=== PATIENT | male | born 1960 | race Caucasian/White ===

== ENCOUNTER → 2017-11-13 12:17 | Outpatient (CLI) | payer OTHER, SELFPAY ==
--- NOTE | 2017-11-13 12:22 | MRI_ITS ---
STUDY: MR PELVIS WITH T WITHOUT CONTRAST REASON FOR EXAM: Male, 57 years old. Elevated PSA. Negative biopsy. No pain. He and TECHNIQUE: Standardized fat and water weighted pulse sequences were obtained in all 3 orthogonal planes, pre-and post contrast administration. 10ml ml of Gadavist contrast material was administered intravenously for the contrast portion of the examination. COMPARISON: None. FINDINGS: The prostate is enlarged measuring 5.7 x 4.5 x 4.8 cm with a volume of 63.6 mL the central gland is heterogenous slightly low signal on T2-weighted imaging. No evidence of focal mass. There is diffuse enhancement with scattered areas of lower enhancement most marked in the left posterior central zone. The peripheral zone is normal in thickness and demonstrates uniform high signal on T2-weighted imaging. There is no signal abnormality on diffusion weighted imaging. There is no abnormal enhancement. Normal seminal vesicles. Normal urinary bladder. Normal visualized small intestine. Normal visualized colon. There is no pelvic fluid. There is no pelvic mass lesion or lymphadenopathy. Normal visualized pelvic arteries. Normal osseous structures. Normal abdominal wall. MRI/Pelvis W/WO Contrast IMPRESSION: Enlarged prostate with prominent heterogenous central gland. The possibility of malignancy in this area cannot be completely ruled out. The peripheral zone appears normal. Electronically Signed: James Beatty DO at 19:27 EDT Tel [phone], Service support ,
== END ==
PROVIDERS: Family Provider Family Medicine; PCP Family Medicine; Visit Provider Urology
DX: R97.20 Elevated prostate specific antigen [PSA] (principal)
CPT/HCPCS: 72197; A9585

== ENCOUNTER → 2018-05-26 09:25 | Outpatient (CLI) | payer OTHER, SELFPAY | PROVIDERS: Family Provider Family Medicine; PCP Family Medicine; Referring Provider Urology; Visit Provider Urology | DX: R97.20 Elevated prostate specific antigen [PSA] (principal) | CPT/HCPCS: 36415; 84153 ==

== ENCOUNTER → 2018-11-24 | Outpatient (CLI) | payer OTHER, SELFPAY | END | disposition home or self-care (01) | LOC: LAB 10:30 | PROVIDERS: Family Provider Family Medicine; PCP Family Medicine; Referring Provider Urology; Visit Provider Urology | DX: R97.20 Elevated prostate specific antigen [PSA] (principal) | CPT/HCPCS: 36415; 84153 ==

== ENCOUNTER 2020-01-10 06:56 | Emergency (ER) | payer OTHER, SELFPAY ==
[2020-01-10 06:57] VITALS: BP 169/80; PULSE 77; RESP 16; TEMP 36.7; O2SAT 96; BMI 28.5
--- NOTE | 2020-01-10 07:23 | ED.VISSUMM ---
- ER Visit Summary Date of Service: 01/10/20 Chief Complaint: Urinary retention History of Present Illness: The patient is a 59 M who presents with urinary retention that began this morning. Patient states he was last able to void normally at 1 AM today. Patient states he has been feeling pressure in his lower abdomen since 2 AM. Patient denies any dysuria or hematuria. Patient denies any fevers or chills. Patient denies any nausea or vomiting. Patient admits to some back pain but states that is chronic for him. Patient states he was able to void a very small amount when he came to the emergency department but he still has pressure in his lower abdomen. Physical Examination: Vital signs are stable. Patient is afebrile. Patient is in no acute distress. Oral mucosa is pink and moist. Neck is supple. Trachea is midline. There is no JVD. Heart was regular rate and rhythm. Lungs are clear and equal bilaterally. Abdomen is soft. Bowel sounds are normal. There is lower abdominal tenderness with a distended bladder. There is no rebound or guarding noted. Cranial nerves II through XII are intact. There are no focal motor or sensory deficits noted. Test Results: Urinalysis was obtained. There is no evidence of urinary tract infection Emergency Department Course and Treatment: Villeda catheter was placed. There was return of approximately 700 mL's of urine. Patient felt better on reevaluation. Patient was given a leg bag. Patient was instructed to follow-up with Dr. Anthony in 2 to 3 days. Patient understands and is agreeable with the plan. All questions were answered. Disposition: Discharge home Impression: Urinary retention This note was generated with [employer] dictation software. It may contain incorrect words, spelling, and punctuation that were not noted in review of the chart prior to signing ED Disposition - Plan for ED Patient: Disposition: Home or Assisted Living Diagnosis: Urinary retention due to benign prostatic hyperplasia Instructions: ED Villeda Catheter Care, ED Urinary Retention Male Referrals: Stan Anthony MD [STAFF PHYSICIAN] - 2 Days Vamsi Bowman III, MD [Primary Care Provider] - Keep Yuli appointment
[2020-01-10] MEDS: Lidocaine Jelly 2% 20 ML Syringe (URO-JET) 20 APPLIC TOPICAL (07:45)
[2020-01-10 07:47] LABS: Mucous, Urine 0 SEEN /hpf (<or=2+); Squamous Epithelial Cells - UA 0 SEEN /hpf (0-5); White Blood Cells 0 SEEN /hpf (0-5)
--- NOTE | 2020-01-10 07:47 | ED.RN ---
Bladder scan for 200+ ml urine prior to cath insertion.
[2020-01-10 07:52] LABS: Color, Urine Yellow (Yellow); Glucose, Dipstick Normal (Normal); Ketone-Dipstick Negative (Negative); Leukocyte Esterase-Dipstick Negative /ul (Negative); Nitrite-Dipstick Negative (Negative); Occult Blood-Urine 150 /ul (Negative); Protein-Dipstick Negative (Negative); Specific Gravity, Urine 1.015 (1.002-1.030); Urine Bilirubin Dipstick Negative (Negative); Urine Clarity Clear (Clear); Urine Urobilinogen Normal (Normal)
[2020-01-10 08:00] LABS: Bacteria RARE /hpf (None Seen); Red Blood Cells-Urine 0-5 SEEN /hpf (0-5)
== END 2020-01-10 08:24 | disposition home or self-care (01) ==
PROVIDERS: Emergency Provider Emergency Medicine; PCP Family Medicine
DX: R33.8 Other retention of urine (principal); I10 Essential (primary) hypertension; Z79.899 Other long term (current) drug therapy
CPT/HCPCS: 51702; 81001; 99283

== ENCOUNTER 2020-02-24 09:20 | Day surgery (SDC) | payer OTHER, SELFPAY ==
--- NOTE | 2020-02-17 15:23 | EKG12_ITS ---
Test Reason : PREOP Blood Pressure : / mmHG Vent. Rate : 047 BPM Atrial Rate : 047 BPM P-R Int : 140 ms QRS Dur : 106 ms QT Int : 476 ms P-R-T Axes : 064 022 030 degrees QTc Int : 421 ms Sinus bradycardia Otherwise normal ECG Confirmed by CALLIE MEYERS ([id number]), supervising film or videotape editor KAL SPENCER ([id number]) on 02/22/2020 2:02:25 PM Referred By: Stan Anthony Confirmed By:CALLIE MEYERS
[2020-02-24] VITALS (9 sets, daily range): BP systolic 113–157; BP diastolic 61–87; PULSE 42–75; RESP 14–16; TEMP 36.1–36.6; O2SAT 94–100; BMI 28.8; BMI 29.2
[2020-02-24] MEDS: Lactated Ringers 1,000 ML 100 ML IV (10:00)
[2020-02-24 10:18] LABS: Hematocrit 41.2 % (40-54); Hemoglobin 13.4 g/dL (13.0-16.5); Mean Corp Hgb Conc 32.5 g/dL (32-36); Mean Platelet Vol. 10.2 fl (6.2-12.0); Platelet Count 240 K/mm3 (150-450); RBC Distribution Width CV 13.5 % (11.6-14.6); RBC Distribution Width SD 41.8 fl (35.1-43.9); Red Blood Count 4.79 M/mm3 (4.6-6.2); White Blood Count 5.3 K/mm3 (4.4-11.0)
--- NOTE | 2020-02-24 11:25 | PROS_PTH ---
PATIENT: SUE LORENZ LOC: [facility] U#:[id number] AGE/SX: 59/M ROOM: RE02/24/[address]: Dr. Stan Anthony MD : 1960 BED: DIS: 02/25/2020 SPEC #: [id number] RECD: 02/24/20 14:38 STATUS: URIAH MARTINEZ #: [id number] TUNG: 02/24/20 11:[address]: Stan Anthony DEPT: SURGICAL PATHOLOGY RECD BY: Christina Diaz ENTERED: 02/25/20 09:42 SP TYPE: TURP OTHR DR: Dr. Vamsi Bowman III, MD Tissues: Prostate, NOS Procedures: Surgery Specimen Level IV HEADER OPERATION: Cysto, TUR prostate, Olympus PRE-OP DIAGNOSIS: Enlarged prostate, BPH with obstruction TISSUE SUBMITTED: Prostate pieces MICROSCOPIC DIAGNOSIS Prostate pieces, TUR: Benign prostatic hyperplasia, glandular and stromal type. Focal mild chronic inflammation. SJ:fish 02/26/20 MICROSCOPIC DESCRIPTION Slides are reviewed. GROSS DESCRIPTION Received is one container labeled with the patient's name and designated prostate pieces. The specimen consists of multiple irregular fragments of pink-rasheed, rubbery, soft tissue that in aggregate weigh 8.6 gm and measure in aggregate 5 x 4 x 1.5 cm. The entire specimen is submitted in nine cassettes. / DAVE:fish 02/25/20 TC:5 CPT: 39975
--- NOTE | 2020-02-24 12:42 | PCM.HP.STD ---
History of Present Illness Date of Admission: 02/24/20 Chief Complaint: Retention of urine and BPH with obstruction The patient is a 59 year old male with retention of urine and BPH with obstruction plan to proceed with a transurethral resection of the prostate. Past Medical History Allergies No Known Allergies Allergy (Verified 02/24/20 09:31) Home Medications: Ambulatory Orders Medication Instructions Recorded Lisinopril 20 mg PO DAILY 01/10/20 Alfuzosin HCl [Alfuzosin HCl ER] 10 mg PO QHS 02/17/20 Surgical History: no surgical history Smoking Status: Former smoker Review of Systems Constitutional: Denies: Chills, Fever, Weight Change HEENT: Denies: Head Aches, Sinus Congestion, Sinus Drainage Cardiovascular: Denies: Chest Pain, Palpitations Respiratory: Denies: Cough, Shortness of breath at rest, Sputum production Gastrointestinal: Denies: Abdominal Pain, Nausea, Vomiting Genitourinary: Denies: Dysuria Musculoskeletal: Denies: Joint Pain, Joint Tenderness Skin: Denies: Rash, Wounds Neurological: Denies: Numbness, Tingling, Focal weakness Psychiatric: Denies: Anxiety, Depression, Homicidal Ideations, Suicidal Ideations Hematologic/ Lymphatic: Denies: Easy Bruising, Easy Bleeding VTE Information - Inpt Only VTE Present on Admission: No VTE Mechan Device Prophylaxis: SCD's - Physical Exam Vitals/I&O's: Vital Signs Temp Pulse Resp BP Pulse Ox 97.8 F 42 L 16 157/68 H 100 02/24/20 09:37 02/24/20 09:37 02/24/20 09:37 02/24/20 09:37 02/24/20 09:37 Oxygen Delivery Method Room Air Weight: 83.4 kg Body Mass Index (BMI) 28.8 General: Alert, Oriented x3, Cooperative HEENT: Atraumatic, PERRLA, EOMI, Normocephalic Neck: Supple, No JVD, Negative Carotid Bruits Lungs: Clear to auscultation, Normal air movement Cardiovascular: Regular rate, No murmurs Abdomen: Bowel Sounds Present, Soft, Non Tender Extremities: No edema, Capillary Refill Less than 3 Seconds Skin: No rashes, No breakdown Musculoskeletal: No Tenderness to Palpation of Joints or Extremities Neurological: Cranial nerves II-XII grossly intact Psych/Mental Status: Normal Affect, Appropriate Laboratory Results 02/24/20 09:42: WBC 5.3, RBC 4.79, Hgb 13.4, Hct 41.2, MCV 86.0, MCH 28.0, MCHC 32.5, RDW Std Deviation 41.8, RDW Coeff of Manuel 13.5, Plt Count 240, MPV 10.2 Current Medications Lactated Ringer's () 1,000 mls @ 100 mls/hr IV .Q10H INGRID Last Admin: 02/24/20 10:00 Dose: 100 mls/hr Documented by: Assessment/Plan 59-year-old male with BPH with an obstruction and retention of urine plan to proceed with a TURP
--- NOTE | 2020-02-24 12:44 | DCINST_ITS ---
Discharge Diet: Light diet - advance as tolerated Discharge Activity: Return to Normal Activity, May not drive while taking narcotic pain medications. Instructions: Transurethral Resection of the Prostate (TURP): Home Recovery Allergies/Adverse Reactions: Allergies No Known Allergies Allergy (Verified 02/24/20 09:31) Medications to take at Discharge Lisinopril 20 mg PO DAILY 01/10/20 Alfuzosin HCl [Alfuzosin HCl ER] 10 mg PO QHS 02/17/20 Ciprofloxacin [Cipro] 500 mg PO BID #14 tab 02/24/20 The following prescriptions were given: Ciprofloxacin [Cipro] 500 mg PO BID #14 tab Transmission Status: Pending to [facility]/pharmacy #[id number] Primary Care Physician: Vamsi Bowman III, MD [Primary Care Provider] - Test Results: Test results from this visit will be discussed in further detail at your follow- up appointment, if applicable. Please Follow Up With: Stan Anthony MD When: in 2 weeks, please call to make an appointment.
[2020-02-24] MEDS: Cefazolin 2 GM in 0.9% Normal Saline 100 ML IV (12:58)
--- NOTE | 2020-02-24 13:41 | PCM.OPRPT ---
Report of Operation Date of Procedure: 02/24/20 Pre-Operative Diagnosis: BPH with retention of urine Post-Operative Diagnosis: Same Surgery/Procedure Performed:: Transurethral resection of the prostate Description of Surgical Findings:: 59-year-old male with a history of BPH with obstruction he is failed voiding trials he has a Villeda catheter in place after cystoscopy was found to have significant bilateral hypertrophy and obstruction recommend we proceed with a transurethral resection of the prostate. Patient was taken back to the operating room at the smooth induction of general anesthesia he was placed in dorsal lithotomy position the penis and testicles were prepped and draped in usual sterile fashion went into the bladder with a 24 Hebrew continuous flow resectoscope I started on the right lobe of the prostate resected the right lobe the prostate was back to the verumontanum went to the left left low the prostate resect the left low the prostate all the way up to the verumontanum to the flow test had a wide open flow. Checked the bladder and the left and right ureteral orifice were intact and uninjured, then placed a catheter into the bladder and continuous bladder irrigation the urine was clear and was taken back to PACU in good condition. Type of Anesthesia:: General Drains: [address] - Admit VTE Documentation VTE Present on Admission: No VTE Mechan Device Prophylaxis: SCD's
[2020-02-24] MEDS: 0.9% Normal Saline 1,000 ML 75 ML IV (14:20)
[2020-02-24] MEDS: Ketorolac 15 MG/ML Vial IV (16:28)
[2020-02-24] MEDS: Ciprofloxacin 500 MG Tablet PO (21:34)
[2020-02-24] MEDS: oxyCODONE 5 MG Tablet PO (21:34)
[2020-02-24] MEDS: Docusate Sodium 100 MG Capsule PO (21:34)
[2020-02-25] MEDS: 0.9% Normal Saline 1,000 ML 75 ML IV (03:18)
[2020-02-25 03:27] VITALS: BP 125/72; PULSE 57; RESP 16; TEMP 36.8; O2SAT 94
[2020-02-25] MEDS: Ibuprofen 600 MG Tablet PO (04:21)
[2020-02-25 06:13] LABS: Hematocrit 36.8 % (40-54); Hemoglobin 12.2 g/dL (13.0-16.5); Mean Corp Hgb Conc 33.2 g/dL (32-36); Mean Corpuscular Hgb 28.3 pg (27.0-32.0); Mean Corpuscular Volume 85.4 fL (80-94); Mean Platelet Vol. 10.1 fl (6.2-12.0); Platelet Count 248 K/mm3 (150-450); RBC Distribution Width CV 13.5 % (11.6-14.6); RBC Distribution Width SD 42.2 fl (35.1-43.9); Red Blood Count 4.31 M/mm3 (4.6-6.2); White Blood Count 10.1 K/mm3 (4.4-11.0)
[2020-02-25 06:58] LABS: BUN 13 mg/dL (7-18); Creatinine, Serum 0.83 mg/dL (0.70-1.30); Estimated Creatinine Clearance 89.59 ml/min; Glucose 149 mg/dL (74-106)
[2020-02-25 06:59] LABS: Anion Gap 4 (5-15); BUN/Creat Ratio 15.7 RATIO (10-20); Calcium,Total 8.1 mg/dL (8.5-10.1); Chloride 112 mmol/L (98-107); EST Glomerular Filtration Rate 101 mL/min (>60); Est Glom Filt Rate - Afr Amer 122 mL/min (>60); Potassium 4.2 mmol/L (3.5-5.1); Sodium Level 140 mmol/L (136-145)
[2020-02-25 09:25] VITALS: BP 128/77; PULSE 51; RESP 16; TEMP 36.7; O2SAT 97
[2020-02-25] MEDS: Pantoprazole Sodium 40 MG Tablet PO (09:34)
[2020-02-25] MEDS: Ciprofloxacin 500 MG Tablet PO (09:34)
[2020-02-25] MEDS: Docusate Sodium 100 MG Capsule PO (09:34)
--- NOTE | 2020-02-25 10:49 | NURSING ---
Pt had accidentally pulled IV out when heading into the bathroom. removed dressings and applied a dry dressing over the site. Notified ANGIE Mccullough. states patient is being discharged later today if able to void, so IV can stay out. pt denies further needs at this time.
--- NOTE | 2020-02-25 11:35 | PHA.DC.MC ---
Pharmacy Service has performed discharge medication reconciliation and counseling for this patient. The patient was counseled on the following discharge medications and changes in medications for homegoing were reviewed. 1. CIPRO The Reason for Use, instructions for use, and potential side effects were reviewed for all new medications. The patient's questions regarding all of their medications were answered. The patient was able to verbally demonstrate an understanding of their discharge medications. Home Medications Lisinopril 20 mg PO DAILY 01/10/20 Alfuzosin HCl [Alfuzosin HCl ER] 10 mg PO QHS 02/17/20 Ciprofloxacin [Cipro] 500 mg PO BID #14 tab 02/24/20 The patient's discharge medication list was reviewed for discrepancies and discrepancies were resolved.
== END 2020-02-25 14:26 | disposition home or self-care (01) ==
LOC: SDC 09:20 → AC 09:21 → MS3 13:18
PROVIDERS: Anesthesiology; PCP Family Medicine; Referring Provider Urology; Visit Provider Urology
PROC: (CPT 52630; principal; 2020-02-24 11:15)
DX: N40.1 Benign prostatic hyperplasia with lower urinary tract symptoms (principal); R33.8 Other retention of urine; N41.1 Chronic prostatitis; I10 Essential (primary) hypertension; Z11.59 Encounter for screening for other viral diseases; Z79.899 Other long term (current) drug therapy; Z87.891 Personal history of nicotine dependence
CPT/HCPCS: 00914; 52630; 36415; 80048; 85027; 87635; 88305; 93005; 94762; 94799; J7030; J7120; J2405; U0003

== ENCOUNTER 2020-02-27 08:48 | Emergency (ER) | payer OTHER, SELFPAY ==
[2020-02-24 15:32] VITALS: BMI 29.2
[2020-02-27 08:49] VITALS: BP 146/82; PULSE 56; RESP 18; TEMP 36.2; O2SAT 97; BMI 28.6
--- NOTE | 2020-02-27 09:07 | ED.DCSUM_ITS ---
History of Present Illness Chief Complaint: Complaint Informant: Patient Onset: Today Narrative: Patient is postoperative day 3 from a TURP by Dr. Anthony. He states that on had a Villeda catheter placed and it was discontinued on Saturday. He states that he was urinating fine up until 3 AM when he has been unable to urinate. He states he is straining and a small amount of urine comes that is not bloody. No fever. Past Medical History - Allergies and Home Meds Allergies/Adverse Reactions: Allergies No Known Allergies Allergy (Verified 02/27/20 08:48) Primary Care Physician: Stan Anthony MD [STAFF PHYSICIAN] - As soon as possible Surgical History: no surgical history Smoking Status: Former smoker Review of Systems General: Denies: Chills, Fever, Sweats Eyes: Denies: Visual changes - bilaterally, Diplopia ENT: Denies: Rhinorrhea, Sore throat Cardiovascular: Denies: Chest pain, Palpitations Respiratory: Denies: Dyspnea, Cough, Dyspnea on exertion Gastrointestinal: Denies: Abdominal pain, Nausea, Vomiting, Diarrhea, Melena, Hematochezia Genitourinary: Reports: Hematuria, - - Urinary retention. Denies: Dysuria, Frequency Musculoskeletal: Denies: Back pain, Extremity Pain Skin: Denies: Rash, Wounds Neurological: Denies: Headache, Weakness, Numbness Physical Exam Vital Signs/Narrative: Vital Signs Temp Pulse Resp BP Pulse Ox 02/27/20 08:49 97.1 F L 56 L 18 146/82 H 97 Inital Vital Signs reviewed: Yes General: Well nourished, Well developed, No Acute Distress Head: Normocephalic, Atraumatic Eyes: Perrl, EOMI ENT: Moist mucous membranes, No rhinorrhea Neck: Supple, Nontender Cardiovascular: Regular rate, Regular rhythm, No murmurs Respiratory: No distress, CTA bilaterally, Chest nontender Abdomen: Soft, Nondistended, Normal bowel sounds, Tender - Suprapubic Back: Nontender, Normal Inspection Extremities: Nontender, No edema Skin: Normal color, No rash Neurological: Alert, Oriented x3, Cranial nerves II-XII grossly intact, Normal Strength, Normal Sensation Psychological: Normal affect, Normal Mood Diagnostic/Tx/Re-eval Laboratory Last Values Urine Color Yellow (Yellow) 02/27/20 10:40 Urine Clarity Sl. Cloudy (Clear) 02/27/20 10:40 Urine pH 6.0 (5.0 - 8.0) 02/27/20 10:40 Ur Specific [place] 1.015 (1.002-1.030) 02/27/20 10:40 Urine Protein 100 mg/dl (Negative) H 02/27/20 10:40 Urine Glucose (UA) Normal mg/dl (Normal) 02/27/20 10:40 Urine Ketones Negative mg/dl (Negative) 02/27/20 10:40 Urine Occult Blood 250 /ul (Negative) H 02/27/20 10:40 Urine Nitrite Negative (Negative) 02/27/20 10:40 Urine Bilirubin Negative mg/dL (Negative) 02/27/20 10:40 Urine Urobilinogen Normal mg/dl (Normal) 02/27/20 10:40 Ur Leukocyte Esterase Negative /ul (Negative) 02/27/20 10:40 Urine RBC > 100 SEEN /hpf (0-5) 02/27/20 10:40 Urine WBC 0 SEEN /hpf (0-5) 02/27/20 10:40 Ur Squamous Epith Cells 0 SEEN /hpf (0-5) 02/27/20 10:40 Urine Bacteria 0 SEEN /hpf (None Seen) 02/27/20 10:40 Urine Mucus 0 SEEN /hpf (<or=2+) 02/27/20 10:40 - Medical Decision Making Villeda catheter was placed with return of about 1300 cc of urine. Towards the end of drainage the urine turned slightly pink. No clots were noted. The bladder was irrigated and no clots were seen. Spoke with Dr. Anthony and we will leave the catheter in. And is currently on antibiotics and should continue those.should continue to drink plenty of fluids. Follow-up with Dr. Anthony next week. ED Disposition - Plan for ED Patient: Disposition: Home or Assisted Living Diagnosis: Acute urinary retention, S/P TURP (transurethral resection of prostate) Instructions: ED Villeda Catheter Care Referrals: Stan Anthony MD [STAFF PHYSICIAN] - As soon as possible Additional Instructions: Continue to drink fluids. Return if worsening or concerns
[2020-02-27] MEDS: Lidocaine Jelly 2% 20 ML Syringe (URO-JET) 20 APPLIC TOPICAL (09:16)
[2020-02-27 10:45] LABS: Bacteria 0 SEEN /hpf (None Seen); Mucous, Urine 0 SEEN /hpf (<or=2+); Squamous Epithelial Cells - UA 0 SEEN /hpf (0-5); White Blood Cells 0 SEEN /hpf (0-5)
[2020-02-27 10:52] LABS: Color, Urine Yellow (Yellow); Glucose, Dipstick Normal (Normal); Ketone-Dipstick Negative (Negative); Leukocyte Esterase-Dipstick Negative /ul (Negative); Nitrite-Dipstick Negative (Negative); Occult Blood-Urine 250 /ul (Negative); Protein-Dipstick 100 mg/dl (Negative); Specific Gravity, Urine 1.015 (1.002-1.030); Urine Bilirubin Dipstick Negative (Negative); Urine Clarity Sl. Cloudy (Clear); Urine Urobilinogen Normal (Normal)
[2020-02-27 11:03] LABS: Red Blood Cells-Urine > 100 SEEN /hpf (0-5)
== END 2020-02-27 11:37 | disposition home or self-care (01) ==
PROVIDERS: Emergency Provider Emergency Medicine; PCP Family Medicine
DX: R33.9 Retention of urine, unspecified (principal); Z98.890 Other specified postprocedural states; Z87.891 Personal history of nicotine dependence; Z79.2 Long term (current) use of antibiotics
CPT/HCPCS: 51702; 81001; 99283

== ENCOUNTER 2022-03-30 23:38 | Emergency (ER) | payer OTHER, SELFPAY ==
[2022-03-30 23:39] VITALS: BP 151/71; PULSE 54; RESP 18; TEMP 36.3; O2SAT 95; BMI 31.1
[2022-03-31] MEDS: Lidocaine Jelly 2% 20 ML Syringe (URO-JET) 1 APPLIC TOPICAL (00:14)
--- NOTE | 2022-03-31 00:35 | EX.ED.DYSGE1 ---
HPI History of Present Illness Chief Complaint: Complaint Narrative Narrative: Patient is a 61-year-old male with past medical history of BPH requiring a TURP 1 year ago as well as hypertension and hyperlipidemia. He states that in the past 4 to 6 hours he has had sensation that he needs to urinate every few minutes but is difficult to do so. He denies any fevers or chills. He states he is able to get some urine out and when he does it is not painful or irritating. He states however he feels like he cannot completely empty his bladder and he does have previous history of bladder obstruction. He states he believes he has developed bladder obstruction/retention once again and therefore comes in for evaluation [facility] Medical History (Updated 03/31/22 @ 01:[address] Lauri Marquez DO) Former smoker GERD (gastroesophageal reflux disease) Glaucoma, right eye Hypertension Kidney stones Osteoporosis Home Medications lisinopril 20 mg tablet 20 mg PO DAILY bp 01/10/20 [History Last Taken 02/24/20 07:30] alfuzosin 10 mg tablet,extended release 24 hr 10 mg PO QHS prostate 02/17/20 [History Last Taken Unknown] atorvastatin 20 mg tablet 20 mg PO QHS 03/30/22 [History Last Taken Unknown] Allergy/AdvReac Type Severity Reaction Status Date / Time No Known Allergies Allergy Verified 03/30/22 23:41 Surgical History (Updated 03/30/22 @ 23:58 by Janiya French) History of appendectomy Social History Smoking Status: Former smoker ROS ROS ED Constitutional Constitutional ED: Denies chills or fever(s) ENT ENT ED: Denies sore throat Cardiovascular Cardiovascular: Denies chest pain Respiratory/Chest Respiratory/Chest: Denies cough or dyspnea Gastrointestinal Gastrointestinal: Reports abdominal pain; Denies diarrhea, nausea or vomiting Genitourinary Genitourinary ED: Reports urinary frequency; Denies dysuria Musculoskeletal Musculoskeletal: Denies back pain or myalgias Integumentary Denies rash Neurologic Neurologic: Denies headache(s) Hematologic/Lymphatic Hematologic/Lymphatic: Denies easy bleeding or easy bruising EXAM Physical Exam Const Vital Signs: 03/30/22 23:39 03/31/22 00:43 03/31/22 00:46 Temperature 97.4 F L Temperature Source Temporal Pulse Rate 54 L 74 74 Respiratory Rate 18 16 16 Blood Pressure 151/71 H 116/73 116/73 Blood Pressure Mean 97 87 Pulse Ox 95 98 98 Oxygen Delivery Method Room Air Room Air Positive well nourished and well developed General Appearance ED: well developed Eyes PERRL and EOMs intact bilaterally Neck supple Resp normal respiratory effort and clear to auscultation bilaterally Cardio regular rate and regular rhythm Rate: other Other Details: Radial pulses are plus 2 out of 4 bilaterally are equal and symmetric GI non-distended GI Narrative: Patient has organomegaly/bladder distention in the suprapubic to midline lower abdomen and there is pain on palpation at the site. The remainder of the abdomen is soft and nondistended there is no voluntary guarding or rigidity or pulsatile mass Auscultation: normoactive bowel sounds Palpation: soft Back/Spine no CVA tenderness Extremity normal to inspection Neuro oriented x3 and CN's II-XII intact bilaterally Sensorium / Orientation: alert Psych mental status grossly normal Skin no rashes or lesions noted MDM MDM MDM Narrative Medical decision making narrative: Patient presented to the ER with history and exam consistent with acute urinary retention. Secondary to this a Villeda catheter was placed and patient had approximately 800 mL of urine removed and his abdominal exam returned to normal. He also reported resolution of his pain/symptoms. At this time as the patient is afebrile has had resolution of his symptoms with Villeda catheter placement and he states his only been 4 to 6 hours of difficulty urinating I do not feel there is need for blood work. Patient will have the Villeda catheter kept in place to ensure there is no return of retention and can follow-up with urology for further evaluation Discharge Plan Triage Chief Complaint: Complaint ED Provider: Lauri Marquez Dx/Rx/DC Orders Clinical Impression: Acute urinary retention, History of primary hypertension Instructions: ED Urinary Retention, Male Prescriptions: No Action lisinopril 20 MG tablet 20 mg PO DAILY alfuzosin 10 MG tablet extended release 24 hr 10 mg PO QHS atorvastatin 20 mg tablet 20 mg PO QHS Label Comments: TAKE 1 TABLET BY MOUTH DAILY AT BEDTIME. FOR CHOLESTEROL Primary Care Provider: Ryan Aparicio Referrals: Ryan Aparicio MD [Primary Care Provider] - Stan Anthony MD [Med Staff - Active Staff] - 3-5 Days Activity Restrictions/Additional Instructions: Please leave the catheter in place until you are evaluated by urology and return to the ER should you have any further concerns Disposition Disposition: Home, Self Care Discharge Date/Time: 03/31/22 00:43
[2022-03-31 00:43] VITALS: BP 116/73; PULSE 74; RESP 16; O2SAT 98
[2022-03-31 00:46] VITALS: BP 116/73; PULSE 74; RESP 16; O2SAT 98
== END 2022-03-31 00:43 | disposition home or self-care (01) ==
PROVIDERS: Emergency Provider Emergency Medicine; PCP Family Medicine; Visit Provider Emergency Medicine
DX: R33.9 Retention of urine, unspecified (principal); I10 Essential (primary) hypertension; E78.5 Hyperlipidemia, unspecified; R35.0 Frequency of micturition; Z87.891 Personal history of nicotine dependence; Z98.890 Other specified postprocedural states; Z79.899 Other long term (current) drug therapy
CPT/HCPCS: 51702; 99283

== ENCOUNTER → 2022-10-23 | Outpatient (CLI) | payer OTHER, SELFPAY | END | disposition home or self-care (01) | LOC: LABSPEC 15:36 | PROVIDERS: PCP Family Medicine; Referring Provider Urology; Visit Provider Urology | DX: R31.9 Hematuria, unspecified (principal) | CPT/HCPCS: 87077; 87086; 87088; 87186 ==

== ENCOUNTER → 2022-11-02 | Outpatient (CLI) | payer OTHER, SELFPAY ==
--- NOTE | 2022-11-03 15:57 | STRESSREP_ITS ---
Stress Test Report Date: 11/02/22 Procedure: Exercise tolerance test Indications: Chest pain, bradycardia Consent: Per the patient Procedure: The patient exercised on a Aleks protocol for 8 minutes and 1 seconds achieving a peak heart rate of 160 bpm (101% predicted maximal heart rate) with a peak blood pressure 194/68 mmHg and a peak MET capacity of approximately 10.1 MET's. The baseline ECG demonstrated normal sinus rhythm. The peak exercise ECG demonstrated no significant ischemic ST-T changes. [There were no cardiac dysrhythmias pretest, during exercise, or recovery]. The functional capacity was considered normal for age. The patient had no complaint of chest discomfort during exercise or recovery. The examination was discontinued secondary to achieving target heart rate, dyspnea. Impression: 1. Technically adequate (percent predicted maximal heart rate greater than 85%) exercise tolerance test 2. Stress test is negative for exercise-induced chest pain. 3. Stress test test is negative for exercise-induced EKG changes of ischemia. 4. Functional capacity is normal for age This note was generated with [employer] software. It may contain incorrect words, spelling, and punctuation that were not noted in checking the note before signing.
== END | disposition home or self-care (01) ==
PROVIDERS: PCP Family Medicine; Referring Provider Family Medicine; Visit Provider Family Medicine
DX: R00.1 Bradycardia, unspecified (principal); R07.9 Chest pain, unspecified
CPT/HCPCS: 93017

== ENCOUNTER → 2023-10-28 | Outpatient (CLI) | payer OTHER, SELFPAY | END | disposition home or self-care (01) | LOC: LAB 16:37 | PROVIDERS: PCP Family Medicine; Referring Provider Urology; Visit Provider Urology | DX: R97.20 Elevated prostate specific antigen [PSA] (principal) | CPT/HCPCS: 36415; 84153 ==

== ENCOUNTER → 2024-11-06 | Outpatient (CLI) | payer OTHER, SELFPAY ==
[2024-11-06 10:38] LABS: PSA,Total- Diagnostic 7.08 ng/mL (0.00-4.00)
== END | disposition home or self-care (01) ==
LOC: LAB 09:35
PROVIDERS: PCP Family Medicine; Referring Provider Nurse Practitioner; Visit Provider Nurse Practitioner
DX: R97.20 Elevated prostate specific antigen [PSA] (principal)
CPT/HCPCS: 36415; 84153

== ENCOUNTER 2024-12-02 13:29 | Observation (INO) | payer OTHER, SELFPAY ==
--- NOTE | 2024-11-27 07:15 | EKG12_ITS ---
Test Reason : PRE OP Blood Pressure : */* mmHG Vent. Rate : 44 BPM Atrial Rate : 44 BPM P-R Int : 140 ms QRS Dur : 112 ms QT Int : 514 ms P-R-T Axes : 70 58 64 degrees QTcB Int : 439 ms Marked sinus bradycardia Abnormal ECG Confirmed by WERO LEIGH, GIOVANNY ([id number]), food editor GUSTAVO BLEDSOE ([id number]) on 12/01/2024 6:50:31 AM Referred By: Stan Anthony Confirmed By: GIOVANNY CONTEH MD
[2024-11-27 08:09] LABS: Hemoglobin 14.2 g/dL (13.0-16.5); Mean Corp Hgb Conc 33.8 g/dL (32-36); Mean Corpuscular Hgb 28.6 pg (27.0-32.0); Mean Corpuscular Volume 84.5 fL (80-94); Mean Platelet Vol. 10.3 fl (6.2-12.0); Platelet Count 247 K/mm3 (150-450); RBC Distribution Width CV 13.4 % (11.6-14.6); RBC Distribution Width SD 41.6 fl (35.1-43.9); Red Blood Count 4.97 M/mm3 (4.6-6.2); White Blood Count 6.1 K/mm3 (4.4-11.0)
--- NOTE | 2024-12-01 10:22 | PAT.ANESEVAL ---
Pre-Assessment Diagnosis/Proposed Procedure Planned Operative Procedure(s): Cysto,Transurethral Resection Prostate Anesthesia History Anesthesia History - social services assistant: Anesthesia History - social services assistant Hx Hospitalization No 11/24/24 13:16 Any Problems With Anesthesia Yes: N/V AFTER EYE REMOVAL 11/24/24 13:16 SURGERY Cholinesterase deficiency No 11/24/24 13:16 You/Your Family Experience No 11/24/24 13:16 fever (hyperthermia) with Relationship Recent Exposure to Contagious No 02/24/20 09:37 Disease Does patient have nerve No 11/24/24 13:16 stimulator Patient instructed to have device shut off --Does patient have Pacemaker or ICD? When Was Last Pacemaker Check QUESTION #4 FULL TEXT: You/Your Family Experience fever (hyperthermia) with Anesthesia Last Oral Intake Last Oral intake: Last Oral Intake NPO since Meds taken in AM with sips of water? Meds patient instructed to take am of surgery PONV PONV - social services assistant: PONV - social services assistant Female No 11/24/24 13:16 HX of Motion Sickness No 11/24/24 13:16 HX of N/V After Surgery Yes 11/24/24 13:16 Non-Smoker Yes 11/24/24 13:16 Duration of Surgery greater No 11/24/24 13:16 than 60 minutes Number of Risk Factors 2 11/24/24 13:16 PONV Score Moderate Risk 11/24/24 13:16 Height & Weight Height & Weight: Anesthesia: Height & Weight Height 5 ft 7 in 03/30/22 23:39 Respiratory Assessment Respiratory Assessment - social services assistant: Respiratory Tract Infection Hx - social services assistant Hx Respiratory Tract Infection No 11/24/24 13:16 STOP Sleep Apnea STOP Sleep Apnea - social services assistant: STOP Sleep Apnea - social services assistant Hx Hypertension Yes 11/24/24 13:16 Hx Sleep Apnea No 11/24/24 13:16 CPAP BIPAP Do you snore loudly (louder No 11/24/24 13:16 than talking or can be heard Do you often feel tired/ No 11/24/24 13:16 fatigued/ sleepy during daytime? Has anyone observed you stop No 11/24/24 13:16 breathing during sleep? STOP Results Negative 11/24/24 13:16 QUESTION #5 FULL TEXT : Do you snore loudly (louder than talking or can be heard through closed doors)? 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 Specify any problems Hx of Preganancy in last 3 N/A 11/24/24 13:16 Months Nurse Filling Out Transfusion [facility] 11/24/24 13:16 & Questions: Date: 11/24/24 11/24/24 13:16 Time: 13:19 11/24/24 13:16 Patient unable to answer at this time (ie. confused, unrespo /Reproduction History /Reproductive History - social services assistant: /Reproductive Hx- social services assistant Hx Now No 11/24/24 13:16 Gestational Age (in weeks): EDC: Hx Hx Para Hx Section SAB Active Medications Active Medications: Current Medications Generic Name Dose Route Start Last Admin Trade Name Freq PRN Reason Stop Dose Admin Cefazolin Sodium 2 gm/ Sodium 110 mls @ 150 mls/hr 12/02/24 08:45 Chloride IV 12/02/24 09:28 INTRAOP ONE [facility] Medical History (Updated 11/24/24 @ 13:25 by Alie Del Rio) Wears hearing aid Wears glasses Marijuana use Arthritis History of renal disease Prostate disease High cholesterol Dietary restriction Gastric reflux History of stress test Glaucoma, right eye Osteoporosis Kidney stones GERD (gastroesophageal reflux disease) Former smoker Hypertension Home Medications ?Medication ?Instructions ?Recorded ?Last Taken ?Type lisinopril 20 mg tablet 20 mg PO DAILY bp 01/10/20 02/24/20 07:30 History atorvastatin 20 mg tablet 20 mg PO DAILY 03/30/22 Unknown History finasteride 5 mg tablet 5 mg PO DAILY 11/24/24 Unknown History omeprazole 40 mg capsule,delayed 40 mg PO DAILY 11/24/24 Unknown History release tamsulosin 0.4 mg capsule 0.4 mg PO DAILY 11/24/24 Unknown History Allergy/AdvReac Type Severity Reaction Status Date / Time prednisone Allergy Intermediate HEMATURIA Verified 11/24/24 13:13 Surgical History (Updated 11/24/24 @ 13:25 by Alie Del Rio) History of eye removal History of transurethral resection of prostate History of appendectomy Social History Smoking Status: Former smoker Audit: Pertinent Findings Pertinent Findings EKG Perinent findings: 11/27/2024. Sinus bradycardia at 44 bpm. This is not changed compared to February 22, 2020. Stress test pertinent findings: 11/02/2022. Patient achieved 10.1 METS. Negative for exercise-induced chest pain. Negative for exercise-induced EKG changes of ischemia. Recommendation Anesthesia Recommendation Anesthesia recommendation: OPTIMIZED for anesthesia
[2024-12-02] VITALS (14 sets, daily range): BP systolic 120–171; BP diastolic 55–115; PULSE 44–99; RESP 14–18; TEMP 36.1–37.1; O2SAT 93–98; BMI 31.3
[2024-12-02] MEDS: Lactated Ringers 1,000 ML 15 ML IV (08:33)
--- NOTE | 2024-12-02 09:01 | PCM.PRE.AN2 ---
ASA Classification* ASA Classification ASA Classification: 2 Assessment & Plan Anesthesia* Anesthesia Assessment Anesthesia Assessment: Discussed sedation and/or anesthesia options, risks, benefits, and alternatives with patient/parents/legal guardian/POA. Questions invited. The patient/parents/legal guardian/POA seems to understand and agrees to proceed with anesthesia plan. Reviewed the physical assessment, medical history, allergy history and patient home medications list prior to surgery/procedure/anesthetic and documented any changes. Performed airway and anesthesia risk assessments. Anesthesia Type Anesthesia Type: General History Source History Obtained from:: Patient and Chart Anesthesia Focused Assessment* Temperature: 97.8 F Pulse Rate: 44 Blood Pressure: 159/81 Respiratory Rate: 16 Pulse Ox: 97 Oxygen Delivery Method: Room Air Airway Assessment Mouth opens: >3 cm Mallampati Score: IV Teeth Condition: Intact Neck Range of motion (ROM): Full ROM Focused Labs Anesthesia Preop lab: CBC WBC 6.1 K/mm3 (4.4-11.0) 11/27/24 07:48 11/27/24 RBC 4.97 M/mm3 (4.6-6.2) 11/27/24 07:48 11/27/24 Hgb 14.2 g/dL (13.0-16.5) 11/27/24 07:48 11/27/24 Hct 42.0 % (40-54) 11/27/24 07:48 11/27/24 Plt Count 247 K/mm3 (150-450) 11/27/24 07:48 11/27/24 CHEMISTRY Potassium 4.2 mmol/L (3.5-5.1) 02/25/20 06:00 02/25/20 Sodium 140 mmol/L (136-145) 02/25/20 06:00 02/25/20 BUN 13 mg/dL (7-18) 02/25/20 06:00 02/25/20 Creatinine 0.83 mg/dL (0.70-1.30) 02/25/20 06:00 02/25/20 Glucose 149 mg/dL (74-106) H 02/25/20 06:00 02/25/20 COAG Pre-Assessment Diagnosis/Proposed Procedure Planned Operative Procedure(s): Cysto,Transurethral Resection Prostate Anesthesia History Anesthesia History - wet process head miller: Anesthesia History - wet process head miller Hx Hospitalization No 11/24/24 13:16 Any Problems With Anesthesia Yes: N/V AFTER EYE REMOVAL 11/24/24 13:16 SURGERY Cholinesterase deficiency No 11/24/24 13:16 You/Your Family Experience No 11/24/24 13:16 fever (hyperthermia) with Relationship Recent Exposure to Contagious No 12/02/24 08:21 Disease Does patient have nerve No 11/24/24 13:16 stimulator Patient instructed to have device shut off --Does patient have Pacemaker No 12/02/24 08:21 or ICD? When Was Last Pacemaker Check QUESTION #4 FULL TEXT: You/Your Family Experience fever (hyperthermia) with Anesthesia Last Oral Intake Last Oral intake: Last Oral Intake NPO since 00:00 12/02/24 08:21 Meds taken in AM with sips of water? Meds patient instructed to take am of surgery PONV PONV - wet process head miller: PONV - wet process head miller Female No 11/24/24 13:16 HX of Motion Sickness No 11/24/24 13:16 HX of N/V After Surgery Yes 11/24/24 13:16 Non-Smoker Yes 11/24/24 13:16 Duration of Surgery greater No 11/24/24 13:16 than 60 minutes Number of Risk Factors 2 11/24/24 13:16 PONV Score Moderate Risk 11/24/24 13:16 Height & Weight Height & Weight: Anesthesia: Height & Weight Height 5 ft 7 in 12/02/24 08:21 Weight: 90.7 kg 12/02/24 08:21 Body Mass Index (BMI) 31.3 12/02/24 08:21 Respiratory Assessment Respiratory Assessment - wet process head miller: Respiratory Tract Infection Hx - wet process head miller Hx Respiratory Tract Infection No 11/24/24 13:16 STOP Sleep Apnea STOP Sleep Apnea - wet process head miller: STOP Sleep Apnea - wet process head miller Hx Hypertension Yes 11/24/24 13:16 Hx Sleep Apnea No 11/24/24 13:16 CPAP BIPAP Do you snore loudly (louder No 11/24/24 13:16 than talking or can be heard Do you often feel tired/ No 11/24/24 13:16 fatigued/ sleepy during daytime? Has anyone observed you stop No 11/24/24 13:16 breathing during sleep? STOP Results Negative 11/24/24 13:16 QUESTION #5 FULL TEXT : Do you snore loudly (louder than talking or can be heard through closed doors)? 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 Specify any problems Hx of Preganancy in last 3 N/A 11/24/24 13:16 Months Nurse Filling Out Transfusion [facility] 11/24/24 13:16 & Questions: Date: 11/24/24 11/24/24 13:16 Time: 13:19 11/24/24 13:16 Patient unable to answer at this time (ie. confused, unrespo /Reproduction History /Reproductive History - wet process head miller: /Reproductive Hx- wet process head miller Hx Now No 11/24/24 13:16 Gestational Age (in weeks): EDC: Hx Hx Para Hx Section SAB Active Medications Active Medications: Current Medications Generic Name Dose Route Start Last Admin Trade Name Freq PRN Reason Stop Dose Admin Cefazolin Sodium 2 gm/ Sodium 110 mls @ 150 mls/hr 12/02/24 08:45 Chloride IV 12/02/24 09:28 INTRAOP ONE Lactated Ringer's 1,000 mls @ 15 mls/hr 12/02/24 08:00 12/02/24 08:33 IV 15 mls/hr .Q48H INGRID Administration PFSH Medical History Wears hearing aid Wears glasses Marijuana use Arthritis History of renal disease Prostate disease High cholesterol Dietary restriction Gastric reflux History of stress test Glaucoma, right eye Osteoporosis Kidney stones GERD (gastroesophageal reflux disease) Former smoker Hypertension Home Medications ?Medication ?Instructions ?Recorded ?Last Taken ?Type lisinopril 20 mg tablet 20 mg PO DAILY bp 01/10/20 02/24/20 07:30 History atorvastatin 20 mg tablet 20 mg PO DAILY 03/30/22 Unknown History finasteride 5 mg tablet 5 mg PO DAILY 11/24/24 Unknown History omeprazole 40 mg capsule,delayed 40 mg PO DAILY 11/24/24 Unknown History release tamsulosin 0.4 mg capsule 0.4 mg PO DAILY 11/24/24 Unknown History Allergy/AdvReac Type Severity Reaction Status Date / Time prednisone Allergy Intermediate HEMATURIA Verified 12/02/24 08:19 Surgical History History of eye removal History of transurethral resection of prostate History of appendectomy Social History Smoking Status: Former smoker Review of Systems (Anesthesia) ROS Narrative System reviewed and no additional complaints, except as documented.
--- NOTE | 2024-12-02 09:41 | HP.PCM_ITS ---
HPI - General General Date of Service: 12/02/24 Chief Complaint: Bladder cancer HPI Narrative SUE LORENZ, is a 64 M who presents for resection of a bladder cancer and instillation of Mitomycin-C [facility] Medical History Wears hearing aid Wears glasses Marijuana use Arthritis History of renal disease Prostate disease High cholesterol Dietary restriction Gastric reflux History of stress test Glaucoma, right eye Osteoporosis Kidney stones GERD (gastroesophageal reflux disease) Former smoker Hypertension Home Medications ?Medication ?Instructions ?Recorded ?Last Taken ?Type lisinopril 20 mg tablet 20 mg PO DAILY bp 01/10/20 0 02/24/20 07:30 History atorvastatin 20 mg tablet 20 mg PO DAILY 03/30/22 Unkn own History finasteride 5 mg tablet 5 mg PO DAILY 11/24/24 Unkno wn History omeprazole 40 mg capsule,delayed 40 mg PO DAILY Unknown History release tamsulosin 0.4 mg capsule 0.4 mg PO DAILY 11/24/24 Unk nown History Allergy/AdvReac Type Severity Reaction Status Date / Time prednisone Allergy Intermediate HEMATURIA Verified 12/02/24 08:19 Surgical History History of eye removal History of transurethral resection of prostate History of appendectomy Social History Smoking Status: Former smoker Vital Signs Vital Signs Vital Signs: 12/02/24 08:21 12/02/24 08:21 12/02/24 09:09 Temperature 97.8 F 97.8 F Temperature Source Temporal Pulse Rate 44 L 44 L Respiratory Rate 16 16 Respiratory Pattern Normal Blood Pressure 159/81 H 159/81 H Blood Pressure Mean 107 Blood Pressure Source Monitor Blood Pressure Position Semi-Fowlers Blood Pressure Location Right Arm Pulse Ox 97 97 Oxygen Delivery Method Room Air Room Air Weight Weight: 90.7 kg Body Mass Index (BMI) 31.3 Results Lab / Micro Data 11/27/24 07:48
--- NOTE | 2024-12-02 09:42 | PCM.DC ---
Discharge Instructions Diet Discharge Diet: No restrictions DC O2, CPAP, BIPAP needs Home O2 Discharge instructions: No Dressing / Incision Discharge Activity: Return to Normal Activity and May Not Drive (while taking narcotic pain medications.) Dressing / Incision Call your doctor if you observe: Fever of 101 or Higher Follow Up Care Please Follow Up With: Stan Anthony MD When: Call [phone] for an appointment Test Results: Test results from this visit will be discussed in further detail at your follow-up appointment, if applicable. Discharge Plan Admission Attending Provider: Stan Anthony Primary Care Provider: Ryan Aparicio Instructions Print Language: Micronesian Discharge Orders/Prescriptions Prescriptions: No Action lisinopril 20 MG tablet 20 mg PO DAILY atorvastatin 20 mg tablet 20 mg PO DAILY Patient Comments: TAKE 1 TABLET BY MOUTH DAILY AT BEDTIME. FOR CHOLESTEROL omeprazole 40 mg capsule,delayed release(DR/EC) 40 mg PO DAILY tamsulosin 0.4 mg capsule 0.4 mg PO DAILY finasteride 5 mg tablet 5 mg PO DAILY Other Ambulatory Orders: 12 Lead EKG (Routine) Timeframe: 20241127 Location: None Selected Ordered By: Dr. Yves Ordaz Referrals / Follow Up: Ryan Aparicio MD [Primary Care Provider] - Disposition Disposition (needs filled in before D/C Order can be placed): Home, Self Care
--- NOTE | 2024-12-02 09:45 | PROSB_PTH ---
PATIENT: SUE LORENZ LOC: [facility]3 U#:[id number] AGE/SX: 64/M ROOM: [facility] RE12/02/[address]: Dr. Stan Anthony MD : 1960 BED: 1 DIS: 12/03/2024 SPEC #: [id number] RECD: 12/02/24 13:14 STATUS: URIAH MARTINEZ #: [id number] TUNG: 12/02/24 09:[address]: Stan Anthony DEPT: SURGICAL PATHOLOGY RECD BY: Nato Malcolm ENTERED: 12/02/24 13:37 SP TYPE: PROST BX OTHR DR: Dr. Ryan Aparicio MD Tissues: A - Prostate, NOS Procedures: Surgery Specimen Level IV HEADER OPERATION: Cystoscopy, transurethral resection prostate PRE-OP DIAGNOSIS: Benign prostatic hyperplasia with lower urinary tract symptoms, elevated PSA, frequency of micturition TISSUE SUBMITTED: A- Prostate tissue MICROSCOPIC DIAGNOSIS A. Prostate, transurethral resection: * Benign hyperplasia. MICROSCOPIC DESCRIPTION Slides are reviewed. GROSS DESCRIPTION A. Received in formalin in a container labeled with the patient's name, date of , and prostate tissue are multiple rasheed-pink, rubbery, and irregular fragments of soft tissue weighing 21 g together and measuring 7.8 x 7.3 x 2.6 cm in aggregate. Woodyard Crane Operator sections are submitted in A1-14 (the first 12 g are submitted entirely; a assistance representative cassette is submitted for every additional [address] [facility] 12-02-2024 CPT:49470
[2024-12-02] MEDS: Cefazolin 2 GM in 0.9% Normal Saline (100mL Bag) 100 ML IV (10:06)
--- NOTE | 2024-12-02 11:51 | OP.PCM_ITS ---
Operative Report (Standard) Operative Information Date of Procedure: 12/02/24 Pre-Operative Diagnosis: BPH with obstruction Post-Operative Diagnosis: The same Surgery/Procedure Performed: Transurethral section of the prostate, for significant regrowth senior applications developer: No Type of Anesthesia: General RN Documented Start/Stop Times: Operation Date: 12/02/24 09:45 Case Time Into Pre-Op 12/02/24 07:56 Out of Pre-Op 12/02/24 10:00 Anesthesia Start 12/02/24 10:06 Into Room 12/02/24 10:06 Procedure Start 12/02/24 10:20 Procedure End 12/02/24 11:44 Anesthesia End 12/02/24 11:50 Out of Room 12/02/24 11:50 Procedure Start Time: 10:20 Procedure Stop Time: 11:44 Select all DRAINS/GRAFTS/IMPLANTS that apply: Drains Drain details: 22 Chinese three-way [place] Estimated Blood Loss: 25 cc Specimen collected: Yes Description of specimen(s) removed: Prostate tissue Description of surgery: Patient was taken back to the operating room after smooth induction of anesthesia he was placed in dorsolithotomy position. Several years ago he had a resection of the prostate thing about 6 years ago and was doing fairly well but then noticed significant urinary problems at this point on cystoscopy found to have significant regrowth in the urinary channel he has been on maximal medical therapy and still having difficulties emptying his bladder frequency poor emptying he has a lot of blockage going back in his channel even from a prior TURP several years ago so going to repeat a second TURP for the significant amount of regrowth and blockage. Patient was taken back to the operating room after smooth duction of anesthesia he was placed in dorsolithotomy position. Penis and testicles were prepped and draped in usual sterile fashion was able to go into the urethra with a 24 Chinese noncontinuous flow Olympus but polar resectoscope was able to go through quite easily the entire length of the urethra was clear of any strictures or problems sphincter was intact the verumontanum was identified beyond the verumontanum was a significant amount of regrowth tissue bilateral hypertrophy and a lot of tissue regrowth from the roof of the prostate. I then started the resection at the bladder neck I then worked my way down in the midline to the verumontanum I then worked my way to the patient's right side first resecting all the adenoma tous tissue on the right side working way all the way anterior I resected very carefully and the roof tissue and then went to the left side resected the left side tissue and then after resecting the left side then the right side then was left was the apical tissue this is the tissue very close to the urinary sphincter try to redo this resection very carefully to resect only adenomatous tissue and avoid any injury to the sphincter at the end of this resection he did look active sphincter was intact the verumontanum was intact looks active sphincter coapted nicely I then spent a long time trying to cauterize the prostate and get good hemostasis there was a significant amount of tissue that I resected could be some venous oozing as I cauterized extensively to the prostate but he really could not get full hemostasis but eventually was able to get enough hemostasis that was satisfied with the control all the chips have been Ellik out of the bladder the left and right ureteral orifice were uninjured and then placed a 22 Chinese catheter in the bladder and continuous irrigation with the light traction and the urine was a light pink color he was taken back to the PACU in stable condition we will stay overnight with a catheter irrigation may have to send him home with a catheter let it heal up and see him next week for catheter removal. Surgical Findings: Significant regrowth and obstruction in the urinary channel resected completely all the way back to the verumontanum Complications Complications: No Admit VTE Documentation VTE Present on Admission: No VTE Mechan Device Prophylaxis: SCD's VTE Pharm Prophylaxis ordered?: No
--- NOTE | 2024-12-02 11:57 | PCM.POST.ANE ---
Anesthesia: Postop Eval I Current Vital Signs Temperature: 97.0 F Pulse Rate: 98 Blood Pressure: 138/86 Respiratory Rate: 16 Pulse Ox: 98 Oxygen Delivery Method: Room Air Assessment Airway patent: Yes Spontaneous unlabored respirations: Yes Mental status: Awake and Calm nausea: No Vomiting: No Anesthesia Complication: No Fluid Hydration Crystalloid volume administer (ml): 700 Total IV fluid infused: 700 Progress Note Anesthesia document: Postop Eval 1 completed: Yes
--- NOTE | 2024-12-02 13:31 | POSTOPAN2_ITS ---
Anesthesia Postop Eval I Sum Postop Eval Completion status Anesthesia document: Postop Eval 1 completed: Yes Anesthesia Postop Eval I Summary Anesthesia Postop Eval I Summary: Anesthesia Postop Eval I: Assessment Summary Airway patent Yes 12/02/24 11:58 [email or web address] Spontaneous unlabored Yes 12/02/24 11:58 [email or web address] respirations Mental status Awake,Calm 12/02/24 11:58 [email or web address] [email or web address] nausea No 12/02/24 11:58 [email or web address] Vomiting No 12/02/24 11:58 [email or web address] Anesthesia Postop Eval I: Fluid Summary Crystalloid volume administer 700 12/02/24 11:58 [email or web address] (ml) Colloids volume administered ( ml) Blood Product volume administered (ml) Total IV fluid infused 700 12/02/24 11:58 [email or web address] Anesthesia Postop Eval I: Summary Notes Anesthesia Complication No 12/02/24 11:58 [email or web address] Anesthesia Complication Comment: Post-operative progress note Anesthesia: Postop Eval II Evaluation Mental status: Awake Pain Level: 3 nausea: No Vomiting: No
--- NOTE | 2024-12-02 13:31 | PCM.POSTANE2 ---
Anesthesia Postop Eval I Sum Postop Eval Completion status Anesthesia document: Postop Eval 1 completed: Yes Anesthesia Postop Eval I Summary Anesthesia Postop Eval I Summary: Anesthesia Postop Eval I: Assessment Summary Airway patent Yes 12/02/24 11:58 [email or web address] Spontaneous unlabored Yes 12/02/24 11:58 [email or web address] respirations Mental status Awake,Calm 12/02/24 11:58 [email or web address] nausea No 12/02/24 11:58 [email or web address] [email or web address] Vomiting No 12/02/24 11:58 [email or web address] Anesthesia Postop Eval I: Fluid Summary Crystalloid volume administer 700 12/02/24 11:58 [email or web address] (ml) Colloids volume administered ( ml) Blood Product volume administered (ml) Total IV fluid infused 700 12/02/24 11:58 [email or web address] Anesthesia Postop Eval I: Summary Notes Anesthesia Complication No 12/02/24 11:58 [email or web address] Anesthesia Complication Comment: Post-operative progress note Anesthesia: Postop Eval II Evaluation Mental status: Awake Pain Level: 3 nausea: No Vomiting: No
[2024-12-02] MEDS: 0.9% Normal Saline (1000mL) 1,000 ML 125 ML IV ×2 (14:12→21:03)
[2024-12-02] MEDS: Ondansetron 4 MG/2 ML Vial IV (14:12)
[2024-12-02] MEDS: oxyCODONE 5 MG Tablet PO ×2 (17:16→23:27)
[2024-12-02] MEDS: Tamsulosin HCl 0.4 MG Capsule PO (17:17)
[2024-12-02] MEDS: Atorvastatin Calcium 20 MG Tablet PO (21:03)
[2024-12-02] MEDS: Docusate Sodium 100 MG Capsule 200 MG PO (21:03)
[2024-12-02] MEDS: Ketorolac 15 MG/ML Vial IV (21:05)
[2024-12-03 04:04] VITALS: BP 148/70; PULSE 56; RESP 18; TEMP 37.1; O2SAT 95
[2024-12-03] MEDS: Ondansetron 4 MG/2 ML Vial IV (04:23)
[2024-12-03] MEDS: 0.9% Normal Saline (1000mL) 1,000 ML 125 ML IV (04:23)
[2024-12-03 06:26] LABS: Absolute Lymphocyte Count 0.59 X10^3/uL (0.83-4.51); Absolute Neutrophil Count 7.9 X10^3/uL (2.0-7.7); Basophil# 0.08 X10^3/uL; Basophil% 0.8 % (0-1); Eosinophil# 0.77 X10^3/uL; Eosinophils% 7.4 % (0-5); Hemoglobin 12.3 g/dL (13.0-16.5); Lymphocyte # 0.59 X10^3/ul (0.83-4.51); Lymphocyte % 5.7 % (19-41); Mean Corp Hgb Conc 33.2 g/dL (32-36); Mean Corpuscular Hgb 28.2 pg (27.0-32.0); Mean Corpuscular Volume 84.9 fL (80-94); Mean Platelet Vol. 10.3 fl (6.2-12.0); Monocyte# 0.98 X10^3/uL; Monocyte% 9.5 % (0-10); NRBC Flagged by Analyzer 0 % (0-5); Neutrophil # 7.89 X10^3/uL (2.7-7.7); Neutrophil % 76.3 % (47-70); POSITIVE DIFFERENTIAL YES; Platelet Count 184 K/mm3 (150-450); RBC Distribution Width CV 13.4 % (11.6-14.6); Red Blood Count 4.36 M/mm3 (4.6-6.2); White Blood Count 10.3 K/mm3 (4.4-11.0)
[2024-12-03] MEDS: oxyCODONE 5 MG Tablet PO (06:28)
[2024-12-03 06:49] LABS: Anion Gap 8 (5-15); BUN 12 mg/dL (4-19); BUN/Creat Ratio 13.2 RATIO (10-20); Calcium,Total 7.8 mg/dL (7.6-11.0); Chloride 106 mmol/L (98-108); Creatinine, Serum 0.92 mg/dL (0.70-1.20); EST Glomerular Filtration Rate 92 (>60); Estimated Creatinine Clearance 87.13 ml/min (50-250); Glucose 132 mg/dL (70-99); Potassium 3.9 mmol/L (3.3-5.1); Sodium Level 137 mmol/L (133-145)
--- NOTE | 2024-12-03 07:23 | PCM.PN.GU ---
Subjective Subjective cbi - clear home today with tammy Objective Data Objective Data Vital Signs: Vital Signs Temp Pulse Resp BP Pulse Ox O2 Del Method 98.8 F 56 L 18 148/70 H 95 Room Air 12/03/24 04:04 12/03/24 04:04 12/03/24 04:04 12/03/24 04:04 12/03/24 04:04 12/03/24 04:04 Oxygen Delivery Method Room Air Weight: 90.7 kg Body Mass Index (BMI) 31.3 Intake & Output: Intake and Output for Last 24 Hours 12/01/24 12/02/24 12/03/24 23:59 23:59 23:59 Intake Total 1756.25 / 1756.25 1716.67 / 1716.67 Output Total 75818 / 63985 Balance -79711.75 / -89759.75 1716.67 / 1716.67 Lab / Micro Data 12/03/24 06:14 12/03/24 06:14 Labs: Laboratory Results - last 24 hr 12/03/24 06:14: WBC 10.3, RBC 4.36 L, Hgb 12.3 L, Hct 37.0 L, MCV 84.9, MCH 28.2, MCHC 33.2, RDW Std Deviation 42.0, RDW Coeff of Manuel 13.4, Plt Count 184, MPV 10.3, Immature Gran % (Auto) 0.300, Neut % (Auto) 76.3 H, Lymph % (Auto) 5.7 L, [place] % (Auto) 9.5, Eos % (Auto) 7.4 H, Baso % (Auto) 0.8, Absolute Neuts (auto) 7.9 H, Absolute Lymphs (auto) 0.59 L, Nucleated RBC % 0, Sodium 137, Potassium 3.9, Chloride 106, Carbon Dioxide 23.0, Anion Gap 8, BUN 12, Creatinine 0.92, Estim Creat Clear Calc 87.13, Est GFR (MDRD) Non-Af 92, BUN/Creatinine Ratio 13.2, Glucose 132 H, Calcium 7.8
[2024-12-03] MEDS: Pantoprazole Sodium 40 MG Tablet PO (07:46)
[2024-12-03] MEDS: Lisinopril 20 MG Tablet PO (07:46)
[2024-12-03] MEDS: Docusate Sodium 100 MG Capsule 200 MG PO (07:46)
[2024-12-03] MEDS: Finasteride 5 MG Tablet PO (07:46)
[2024-12-03 08:30] VITALS: BP 148/76; PULSE 64; RESP 16; TEMP 37.3; O2SAT 94
== END 2024-12-03 09:24 | disposition home or self-care (01) ==
LOC: SDC 13:34 → MS3 13:34
PROVIDERS: Anesthesiology; Admitting Provider Urology; PCP Family Medicine; Referring Provider Urology; Visit Provider Urology
PROC: 0VT08ZZ Resection of Prostate, Via Natural or Artificial Opening Endoscopic (ICD-10-PCS; CPT 52601; principal; 2024-12-02 09:35)
DX: N40.1 Benign prostatic hyperplasia with lower urinary tract symptoms (principal); C67.9 Malignant neoplasm of bladder, unspecified; E78.00 Pure hypercholesterolemia, unspecified; K21.9 Gastro-esophageal reflux disease without esophagitis; Z87.891 Personal history of nicotine dependence; I10 Essential (primary) hypertension; N13.8 Other obstructive and reflux uropathy; Z79.899 Other long term (current) drug therapy
CPT/HCPCS: 52630; 00914; 36415; 80048; 85025; 85027; 88305; 93005; 96361; 96374; 96375; 96376; 99221; G0378; J2405

== ENCOUNTER → 2024-12-08 | Outpatient (CLI) | payer OTHER, SELFPAY | END | disposition home or self-care (01) | LOC: LABSPEC 16:17 | PROVIDERS: PCP Family Medicine; Referring Provider Urology; Visit Provider Urology | DX: N39.0 Urinary tract infection, site not specified (principal) | CPT/HCPCS: 87077; 87086; 87088 ==

== ENCOUNTER 2025-04-01 18:20 | Emergency (ER) | payer OTHER, SELFPAY ==
[2025-04-01] VITALS (17 sets, daily range): BP systolic 91–212; BP diastolic 58–117; PULSE 60–139; RESP 16–20; TEMP 36.4–36.6; O2SAT 85–100; BMI 31.4
--- NOTE | 2025-04-01 18:34 | RAD_ITS ---
PROCEDURE: CHEST 1 VIEW (PORTABLE) 04/01/2025 REASON FOR EXAM: INTUBATION TECHNIQUE: Frontal view of the chest. FINDINGS: Orogastric tube terminates in the mid gastric body. The heart is normal in size. The lungs are clear. No acute osseous abnormalities. Endotracheal tube not visualized. RAD/Chest 1 View (Portable) IMPRESSION: Orogastric tube as above. Reading Location: [id number]
--- NOTE | 2025-04-01 18:35 | CT_ITS ---
PROCEDURE: CT BRAIN/HEAD WITHOUT CONTRAST 04/01/2025 REASON FOR EXAM: HX OF GLIO, NEW SEIZURES TECHNIQUE: Procedure Code: CTBR Modality: CT Procedure: BRAIN/HEAD WITHOUT CONTRAST Coronal and Sagittal reconstruction series were provided. One or more dose reduction techniques were used (e.g., Automated exposure control, adjustment of the mA and/or kV according to patient size, use of iterative reconstruction technique. RADIATION DOSE SUMMARY: CTDlvol: 44.99 mGy DLP: 897.35 mGycm COMPARISON: None available. FINDINGS: Ill-defined heterogeneous mass lesion epicentered within the left posterior frontoparietal sargent radiata white matter, measuring roughly 3.5 x 2.8 x 2.7 cm (TV, AP, CC), with small amount of marginal mildly expansile parenchymal hypoattenuation, which extends along the posterior limb of left internal capsule. 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 No substantial mass-effect or midline shift. Normal ventricular caliber. No evidence of acute intracranial hemorrhage, extra-axial collection, or acute territorial infarct. Right orbital prosthesis, and prior left orbital cataract surgery. Intact skull base and calvarium. Scattered mucosal thickening in the ethmoids and multiple small mucosal polyps/retention cysts in the bilateral maxillary sinuses. No mastoid effusions. Endotracheal and orogastric tubes partially imaged. CT/Brain/Head without Contrast IMPRESSION: Ill-defined mass lesion epicentered within the left posterior frontoparietal co reginaldo radiata, most compatible with a high-grade glioma as noted in the clinical history. No substantial mass-effect, or eviden ce for other acute intracranial abnormality on this unenhanced CT. Reading Location: [id number]
--- NOTE | 2025-04-01 18:38 | EKG12_ITS ---
Test Reason : DYSRHYTHMIA Blood Pressure : */* mmHG Vent. Rate : 138 BPM Atrial Rate : 138 BPM P-R Int : 120 ms QRS Dur : 112 ms QT Int : 304 ms P-R-T Axes : 66 22 40 degrees QTcB Int : 460 ms Sinus tachycardia Possible Left atrial enlargement Poor R-wave progression ; consider septal infarct, lead placement, or normal variant Abnormal ECG Confirmed by J LUIS LEIGH, LATONYA ([id number]), assignment editor DUNCAN GOMEZ ([id number]) on 04/02/2025 11:02:15 AM Referred By: Confirmed By: LATONYA DIETZ MD
[2025-04-01] MEDS: Propofol 10MG/Ml 1,000 MG/100 ML Bottle 5.5 MG CONT INF (18:40)
[2025-04-01] MEDS: fentaNYL 100 MCG/2 ML Ampul 50 MCG IV ×2 (18:41→20:30)
[2025-04-01] MEDS: 0.9% Normal Saline (1000mL) 1,000 ML 1000 ML IV (18:42)
--- OUTSIDE RECORDS SUMMARY | 2025-04-01 18:54 | XMS RPT_ITS | CCD ---
Author Organization [facility] Care Team Providers Care [employer] Guard Name Role Phone Gracie LEIGH, David Stephens Unavailable Robert Aparicio MD Primary Care Provider Robert Aparicio MD Primary Care Provider Dr. Ryan Aparicio Primary Care Provider Dr. Ryan Aparicio Referring Provider Dr. Ryan Aparicio Other Provider Dr. Fatuma Scott Attending Provider Robert Aparicio MD Primary Care Provider Gracie DAVILA MD, Vamsi Anton Primary Care Provider Lilibeth vailable Podlogar ARTIST AGENT.PROFESSIONAL DRIVER, Aster Unavailable Dr. Ryan Aparicio MD Primary Care Provider hTeresa Mccollum Attending Provider Theresa Mccollum Referring Provider Tyler LEIGH, Dr. Burris Attending Provider Raj LEIGH, Dr. Stan Mendoza Referring Provider Raj LEIGH, Dr. Stan Mendoza Admit Provider [phone] Raj LEIGH, Dr. Stan Mendoza Attending Provider Stan Anthony Attending Unavailable Stan Anthony Referring Unavailable Ryan Aparicio Primary Care Unavailable Stan Anthony Admitting Unavailable RajStan wheat Referring Unavailable Ryan Aparicio Primary Care Unavailable Stan Anthony Attending Unavailable Ryan Aparicio Primary Care Unavailable IrvingtonTheresa Attending Unavailable Veda, Theresa Referring Unavailable Raj, Stan Mendoza Referring Unavailable Fatuma Scott Attending Unavailabl e Ryan Aparicio Primary Care Unavailable Knjoseph ARTIST AGENT.PROFESSIONAL DRIVER, Carmen Unavailable Provider Iris LEIGH Unavailable Unavailable YAZVIRGILIO ALMEIDA Attending Unavailable YAZ, VIRGILIO RODRIGUEZ ALMEIDA Admitting Unavailable ROBERT APARICIO Primary Care Unavailab le YAZ, VIRGILIO PENA Attending Unavailable ROBERT APARICIO Primary Care Unavailab le YAZ, VIRGILIO PENA Referring Unavailable ROBERT APARICIO Primary Care Unavailab le YAZ, VIRGILIO PENA Attending Unavailable ROBERT APARICIO Primary Care Unavailab PATRICK Rogers Attending Unavailable ROBERT APARICIO Primary Care Unavailab le PODLOGARASTER Referring Unavailable ROBERT APARICIO Attending Unavailab ROBERT Kumari Primary Care Unavailab le ROBERT APARICIO Primary Care Unavailab MATTHIAS Palomares Attending Unavailable ROBERT APARICIO Primary Care Unavailab le PODLOGARASTER Attending Unavailable ROBERT APARICIO Primary Care Unavailab le PODLOGARASTER Referring Unavailable ROBERT APARICIO Primary Care Unavailab le PODLOGAR, ASTER Attending Unavailable ROBERT APARICIO Primary Care Unavailab le PODLOGAR, ASTER Referring Unavailable ROBERT APARICIO Primary Care Unavailab le PODLOGAR, ASTER Attending Unavailable ROBERT APARICIO Primary Care Unavailab le ROBERT APARICIO Referring Unavailab le ROBERT APARICIO Referring Unavailab le ROBERT APARICIO Primary Care Unavailab le ROBERT APARICIO Referring Unavailab le ROBERT APARICIO Primary Care Unavailab le ROBERT APARICIO Primary Care Unavailab le PODLOGAR, ASTER Referring Unavailable PATRICK SINGLETON Attending Unavailable ROBERT APARICIO Primary Care Unavailab le PODLOGAR, ASTER Referring Unavailable ROBERT APARICIO Primary Care Unavailab le PODLOGAR, ASTER Referring Unavailable ROBERT APARICIO Primary Care Unavailab le PODLOGAR, ASTER Attending Unavailable Allergies Allergy Classification Reported Allergen(s) Allergy Type Date of Onset Reaction(s) Facility (20 sources) POISON ANGELITA EXTRACT; Translations: [POISON ANGELITA] Drug Allergy 4 Other: See Comments [facility] (20 sources) Bees; Translations: [BEES] Allergy to substance 4 Other: See Comments [facility] (20 sources) predniSONE; Translations: [PREDNISONE] Drug Allergy 3 Intolerance [facility] (1 source) predniSONE Drug Allergy 5 [facility] Repository Medications Current Medications Medication Drug Class(es) Dates Sig (Normalized) Sig (Original) acetaminophen 500 mg oral capsule (3 sources) Start: 12-02-2024 take 1 capsule by mouth every six hours as needed for pain Acetaminophen 500 mg capsule Active 500 mg PO EVERY 6 HOURS as needed for pain December 02, 2024 12:00am End: 10-12-2022 Acetaminophen 500 mg cap Dante e 1,500 mg by mouth as needed. 0 10/12/2022 Discontinued Comment on above: Take 1,500 mg by gallito th as needed. amoxicillin 875 mg / clavulanate 125 mg oral tablet (2 sources) Penicillin-class Antibacterial Start: End: take 1 tablet by mouth twice daily amoxicillin-clavul anate potassium (AUGMENTIN) 875-125 mg per tablet Indications: Community acquired pneumonia of left lung, unspecified part of lung Take 1 tablet by mouth two times a day for 5 days. 10 tablet 0 Bacteria identified Cx Nom (U) Klebsiella pneumoniae sp pneum [facility] H. pylori Ag IA Ql (Stl)on 0 10-13-2022 Microorganism or agent identified Nom (Unsp spec) Negative Negative for H. Pylori antigen by EIA [facility] LIPID PANEL, NONFASTINGon Cholesterol [Mass/Vol] 153 mg/dL <200 mg/dL [facility] HDL Cholesterol, Nonfasting 55 mg/dL >39 mg/dL [facility] LDL Cholesterol, Nonfasting 82 mg/dL <100 mg/dL [facility] LDL/HDL Ratio, Nonfasting 1.49 mg/dL <2.54 mg/dL [facility] Non HDL Cholesterol, Nonfasting 98 mg/dL <130 mg/dL [facility] Total Chol/HDL Ratio, Nonfasting 2.78 mg/dL <5.10 mg/dL [facility] Triglycerides, Nonfasting 80 mg/dL <150 mg/dL [facility] VLDL Cholesterol, Nonfasting 16 mg/dL <30 mg/dL [facility] MAGNESIUM Don 10-12-2022 Magnesium [Mass/Vol] 2.3 mg/dL 1.7 - 2 .3 mg/dL [facility] TSH Qn 2.020 m[IU]/L 0.270 - 4.200 mIU/L [facility] VITAMIN D 25 HYDROXYon 10-12 25-hydroxyvitamin D3 [Mass/Vol] 25.8 ng/mL Low 31.0 - 80.0 ng/mL [facility] XR CHEST 2V FRONTAL/LATon [facility] XR Chest PA and Lateralon IMPRESSION: No acute radiographic abnormality. Consumer Education Specialist: PSCB Transcribe Date/Time: Oct 12 2022 3:53P Dictated by : JERRY LAMB MD This examination was interpreted and the report reviewed and electronically signed by: JERRY LAMB MD on Oct 12 2022 3:54PM [facility] DIVISION OF RADIOLOGY * * *Final Report* * * DATE OF EXAM: Oct 12 2022 1:31PM WOX [id number] - XR CHEST 2V FRONTAL/LAT / PROCEDURE REASON: multiple diagnoses * * * * Physician Interpretation * * * * EXAMINATION: CHEST RADIOGRAPH (2 VIEW FRONTAL & LATERAL) CLINICAL HISTORY: Bradycardia Chest pain, unspecified type MQ: XC2_6 EXAM DATE/TIME: 10/12/2022 1:31 PM COMPARISON: No relevant prior studies available. RESULT: Lines, tubes, and devices: None. Lungs and pleura: No consolidation. No lung mass. No pleural effusion. No pneumothorax. Large pericardial fat pads are visualized. Cardiomediastinal silhouette: There is borderline cardiomegaly. Bones and soft tissues: The spine shows degenerative changes. DIVISION OF RADIOLOGY Provider, Katelin Reddy [facility] - 10/12/2022 * * *Final Report* * * DATE OF EXAM: Oct 12 2022 1:31PM WOX 5291 - XR CHEST 2V FRONTAL/LAT / PROCEDURE REASON: multiple diagnoses * * * * Physician Interpretation * * * * EXAMINATION: CHEST RADIOGRAPH (2 VIEW FRONTAL & LATERAL) CLINICAL HISTORY: Bradycardia Chest pain, unspecified type MQ: XC2_6 EXAM DATE/TIME: 10/12/2022 1:31 PM COMPARISON: No relevant prior studies available. RESULT: Lines, tubes, and devices: None. Lungs and pleura: No consolidation. No lung mass. No pleural effusion. No pneumothorax. Large pericardial fat pads are visualized. Cardiomediastinal silhouette: There is borderline cardiomegaly. Bones and soft tissues: The spine shows degenerative changes. IMPRESSION IMPRESSION: No acute radiographic abnormality. Consumer Education Specialist: [facility] Transcribe Date/Time: Oct 12 2022 3:53P Dictated by : JERRY LAMB MD This examination was interpreted and the report reviewed and electronically signed by: JERRY LAMB MD on Oct 12 2022 3:54PM EST [facility] Radiology Study observation (narrative) [facility] XR Chest PA and LateralOrder ed By: Katelin Provider on 10-12-2022 [facility] XR LUMBAR GENERAL 3V AP/LAT/ L5-S1on 08-06-2022 [facility] XR Lumbar spine 3 Viewson IMPRESSION: NO EVIDENCE OF FRACTURE Consumer Education Specialist: [facility] Transcribe Date/Time: Aug 06 2022 11:53A Dictated by : TAINA DEMPSEY MD This examination was interpreted and the report reviewed and electronically signed by: TAINA DEMPSEY MD on Aug 06 2022 11:54AM [facility] DIVISION OF RADIOLOGY * * *Final Report* * * DATE OF EXAM: Aug 06 2022 11:47AM WOX [id number] - XR LUMBAR 3V AP/LAT/L5-S1 / PROCEDURE REASON: Lumbar back pain * * * * Physician Interpretation * * * * X-ray lumbosacral spine, AP, lateral and L5-S1 views Indication: Low back pain after fall Comparison: X-ray lumbar spine 08/04/2020 Counting reference: Lumbosacral junction. For the purposes of this report, L5S1 is considered the last lumbar type disc space and L4-5 is considered the level of the iliac crest. There is normal architecture and mineralization of the bones. No fracture is visualized. There is good alignment of the vertebrae. Intervertebral disc spaces are maintained. Small vertebral body osteophytes. Sacroiliac joints appear normal. Vascular calcifications are noted. Again noted is a right renal calculus. DIVISION OF RADIOLOGY Provider, Katelin ann [facility] - 08/06/2022 * * *Final Report* * * DATE OF EXAM: Aug 06 2022 11:47AM WOX 5228 - XR LUMBAR 3V AP/LAT/L5-S1 / PROCEDURE REASON: Lumbar back pain * * * * Physician Interpretation * * * * X-ray lumbosacral spine, AP, lateral and L5-S1 views Indication: Low back pain after fall Comparison: X-ray lumbar spine 08/04/2020 Counting reference: Lumbosacral junction. For the purposes of this report, L5S1 is considered the last lumbar type disc space and L4-5 is considered the level of the iliac crest. There is normal architecture and mineralization of the bones. No fracture is visualized. There is good alignment of the vertebrae. Intervertebral disc spaces are maintained. Small vertebral body osteophytes. Sacroiliac joints appear normal. Vascular calcifications are noted. Again noted is a right renal calculus. IMPRESSION IMPRESSION: NO EVIDENCE OF FRACTURE Consumer Education Specialist: [facility] Transcribe Date/Time: Aug 06 2022 11:53A Dictated by : TAINA DEMPSEY MD This examination was interpreted and the report reviewed and electronically signed by: TAINA DEMPSEY MD on Aug 06 2022 11:54AM EST [facility] Radiology [facility]narrative[facility] XR Lumbar spine 3 ViewsOrder ed By: Ccf Provider on 08-06-2022 [facility] XR Hand - right PA and Later al and Obliqueon 09-07-2020 IMPRESSION: Findings are suggestive of radiopaque foreign bodies along the fifth metacarpal bone. Consumer Education Specialist: PSCMarychuy Transcribe Date/Time: Sep 07 2020 9:40A Dictated by : JERRY LAMB MD This examination was interpreted and the report reviewed and electronically signed by: JERRY LAMB MD on Sep 07 2020 9:44AM [facility] DIVISION OF RADIOLOGY * * *Final Report* * * DATE OF EXAM: Sep 07 2020 9:28AM WOX 5346 - XR HAND 3V PA/LAT/OBL RT / PROCEDURE REASON: Foreign body (FB) in soft tissue * * * * Physician Interpretation * * * * EXAM TITLE: XR HAND 3V PA/LAT/OBL RT EXAM DATE/TIME: 09/07/2020 9:28 AM COMPARISON: None. CLINICAL INDICATION/HISTORY: Foreign body. TECHNIQUE: PA, lateral and oblique views of the right hand are presented. FINDINGS: No acute fractures or subluxations are noted. The joint spaces are well preserved. The mineralization of the bones is normal. There is no significant soft tissue swelling. Small linear and punctate radiopaque opacities seen overlying the head of the fifth metacarpal bone, along its dorsal aspect. DIVISION OF RADIOLOGY Provider, [facility] - 09/07/2020 * * *Final Report* * * DATE OF EXAM: Sep 07 2020 9:28AM WOX 5346 - XR HAND 3V PA/LAT/OBL RT / PROCEDURE REASON: Foreign body (FB) in soft tissue * * * * Physician Interpretation * * * * EXAM TITLE: XR HAND 3V PA/LAT/OBL RT EXAM DATE/TIME: 09/07/2020 9:28 AM COMPARISON: None. CLINICAL INDICATION/HISTORY: Foreign body. TECHNIQUE: PA, lateral and oblique views of the right hand are presented. FINDINGS: No acute fractures or subluxations are noted. The joint spaces are well preserved. The mineralization of the bones is normal. There is no significant soft tissue swelling. Small linear and punctate radiopaque opacities seen overlying the head of the fifth metacarpal bone, along its dorsal aspect. IMPRESSION IMPRESSION: Findings are suggestive of radiopaque foreign bodies along the fifth metacarpal bone. Consumer Education Specialist: [facility] Transcribe Date/Time: Sep 07 2020 9:40A Dictated by : JERRY LMAB MD This examination was interpreted and the report reviewed and electronically signed by: JERRY LAMB MD on Sep 07 2020 9:44AM [facility] Radiology Study observation (narrative) [facility] XR Hand - right PA and Later al and ObliqueOrdered By: Tanaf Provider on 09-07-2020 [facility] No Panel Informationon 08-04 Radiology Study observation (narrative) [facility] XR Lumbar spine 3 Viewson IMPRESSION: Mild degenerative spurring of the lumbar spine with no acute abnormality. Right renal calculus. Consumer Education Specialist: PEDRO Transcribe Date/Time: Aug 04 2020 12:09P Dictated by : JENNIFER BECKWITH MD This examination was interpreted and the report reviewed and electronically signed by: JENNIFER BECKWITH MD on Aug 04 2020 12:11PM [facility] DIVISION OF RADIOLOGY * * *Final Report* * * DATE OF EXAM: Aug 04 2020 10:19AM WOX 5228 - XR LUMBAR 3V AP/LAT/L5-S1 / PROCEDURE REASON: Left flank pain * * * * Physician Interpretation * * * * Clinical information: Left flank pain AP and lateral views of the lumbar spine were obtained. No fracture is identified. Alignment is satisfactory. Vertebral body heights are maintained. There is no disc space narrowing. Mild degree of multilevel spurring. No lytic or blastic lesions are seen. 1.7 cm calcification overlying the right L4 transverse process consistent with lower pole right renal calculus. DIVISION OF RADIOLOGY Provider, [facility] Barry [facility] - 08/04/2020 * * *Final Report* * * DATE OF EXAM: Aug 04 2020 10:19AM WOX 5228 - XR LUMBAR 3V AP/LAT/L5-S1 / PROCEDURE REASON: Left flank pain * * * * Physician Interpretation * * * * Clinical information: Left flank pain AP and lateral views of the lumbar spine were obtained. No fracture is identified. Alignment is satisfactory. Vertebral body heights are maintained. There is no disc space narrowing. Mild degree of multilevel spurring. No lytic or blastic lesions are seen. 1.7 cm calcification overlying the right L4 transverse process consistent with lower pole right renal calculus. IMPRESSION IMPRESSION: Mild degenerative spurring of the lumbar spine with no acute abnormality. Right renal calculus. Consumer Education Specialist: PEDRO Transcribe Date/Time: Aug 04 2020 12:09P Dictated by : JENNIFER BECKWITH MD This examination was interpreted and the report reviewed and electronically signed by: JENNIFER BECKWITH MD on Aug 04 2020 12:11PM EST [facility] XR Lumbar spine 3 ViewsOrder ed By: Ccf Provider on 08-04-2020 [facility] XR Thoracic spine AP and Lat eral and Swimmerson 08-04-2020 IMPRESSION: Degenerative spurring involving multiple mid and lower thoracic levels. Consumer Education Specialist: PEDRO Transcribe Date/Time: Aug 04 2020 12:12P Dictated by : JENNIFER BECKWITH MD This examination was interpreted and the report reviewed and electronically signed by: JENNIFER BECKWITH MD on Aug 04 2020 12:13PM EST DIVISION OF RADIOLOGY * * *Final Report* * * DATE OF EXAM: Aug 04 2020 10:19AM WOX 5261 - XR THORACIC 3V AP/LAT/SWIMMERS / PROCEDURE REASON: Left flank pain * * * * Physician Interpretation * * * * Clinical Information: Pain AP and lateral views of the thoracic spine were obtained. Swimmer's view was obtained as well. There is no fracture or subluxation. Vertebral body heights are maintained. No significant disc space narrowing. There is multilevel spurring involving numerous mid and lower thoracic levels. No lytic or blastic lesions are seen. DIVISION OF RADIOLOGY Provider, [facility] - 08/04/2020 * * *Final Report* * * DATE OF EXAM: Aug 04 2020 10:19AM WOX 5261 - XR THORACIC 3V AP/LAT/SWIMMERS / PROCEDURE REASON: Left flank pain * * * * Physician Interpretation * * * * Clinical Information: Pain AP and lateral views of the thoracic spine were obtained. Swimmer's view was obtained as well. There is no fracture or subluxation. Vertebral body heights are maintained. No significant disc space narrowing. There is multilevel spurring involving numerous mid and lower thoracic levels. No lytic or blastic lesions are seen. IMPRESSION IMPRESSION: Degenerative spurring involving multiple mid and lower thoracic levels. Consumer Education Specialist: PSC[facility] Transcribe Date/Time: Aug 04 2020 12:12P Dictated by : JENNIFER BECKWITH MD This examination was interpreted and the report reviewed and electronically signed by: JENNIFER BECKWITH MD on Aug 04 2020 12:13PM EST [facility] Office Visiton 02-14-2017 Documentation of current medications (procedure) Done Invalid Interpretation Code [facility] Work Phone: Fall risk assessment No Invalid Interpretation Code [facility] Work Phone: Tobacco smoking status NHIS Never Invalid Interpretation Code [facility] Work Phone: Tobacco use [facility]PH[facility] Former smoker Invalid Interpretation Code [facility] Work Phone: Vital Signs Date Time Vital Sign Value Performing Clinician Abad marroquin 03-23-2025 10:07-0400 Body height 170.2 cm Virgilio Mukherjee MD Work Phone: [facility] 03-23-2025 10:07-0400 Body mass index (BMI) [Ratio] 29.76 kg/m2 Virgilio Mukherjee MD Work Phone: [facility] 03-23-2025 10:07-0400 Body weight 86.18 kg Virgilio Mukherjee MD Work Phone: [facility] 03-04-2025 13:24-0400 Body height 170.2 cm Virgilio Mukherjee MD Work Phone: [facility] 03-04-2025 13:24-0400 Body mass index (BMI) [Ratio] 28.98 kg/m2 Virgilio Mukherjee MD Work Phone: [facility] 03-04-2025 13:24-0400 Body weight 83.92 kg Virgilio Mukherjee MD Work Phone: [facility] 02-19-2025 07:18-0400 Body height 170 cm Robert Aparicio MD Work Phone: [facility] 02-19-2025 07:18-0400 Body mass index (BMI) [Ratio] 29.91 kg/m2 Robert Aparicio MD Work Phone: [facility] 02-19-2025 07:18-0400 Body weight 86.46 kg Robert Aparicio MD Work Phone: [facility] 02-19-2025 07:18-0400 Diastolic blood pressure 71 mm[Hg] Robert Aparicio MD Work Phone: [facility] 02-19-2025 07:18-0400 Heart rate 52 /min Robert Aparicio MD Work Phone: [facility] 02-19-2025 07:18-0400 Systolic blood pressure 129 mm[Hg] Robert Aparicio MD Work Phone: [facility] 01-05-2025 08:23-0400 Body mass index (BMI) [Ratio] 30.45 kg/m2 Krislyn Aberegg PA Work Phone: [facility] 01-05-2025 08:23-0400 Body temperature 99.39 [degF] Krislyn Aberegg PA Work Phone: [facility] 01-05-2025 08:23-0400 Body weight 88 kg Krislyn Aberegg PA Work Phone: [facility] 01-05-2025 08:23-0400 Diastolic blood pressure 78 mm[Hg] Krislyn Aberegg PA Work Phone: [facility] 01-05-2025 08:23-0400 Heart rate 73 /min Krislyn Aberegg PA Work Phone: [facility] 01-05-2025 08:23-0400 Respiratory rate 18 /min Krislyn Aberegg PA Work Phone: [facility] 01-05-2025 08:23-0400 SaO2% (BldA) [Mass fraction] 96 % Krislyn Aberegg PA Work Phone: [facility] 01-05-2025 08:23-0400 Systolic blood pressure 125 mm[Hg] Krislyn Aberegg PA Work Phone: [facility] 12-29-2024 07:21-0400 Body mass index (BMI) [Ratio] 31.17 kg/m2 Aster Joyner APRN.CNP Work Phone: [facility] 12-29-2024 07:21-0400 Body weight 90.08 kg Aster Podlogar ARTIST AGENT.PROFESSIONAL DRIVER Work Phone: [facility] 12-29-2024 07:21-0400 Diastolic blood pressure 70 mm[Hg] Aster Podlogar ARTIST AGENT.PROFESSIONAL DRIVER Work Phone: [facility] 12-29-2024 07:21-0400 Heart rate 53 /min Aster Podlogar ARTIST AGENT.PROFESSIONAL DRIVER Work Phone: [facility] 12-29-2024 07:21-0400 Respiratory rate 18 /min Aster Podlogar ARTIST AGENT.PROFESSIONAL DRIVER Work Phone: [facility] 12-29-2024 07:21-0400 SaO2% (BldA) [Mass fraction] 97 % Aster Podlogar ARTIST AGENT.PROFESSIONAL DRIVER Work Phone: [facility] 12-29-2024 07:21-0400 Systolic blood pressure 124 mm[Hg] Aster Podlogar ARTIST AGENT.PROFESSIONAL DRIVER Work Phone: [facility] 12-03-2024 08:30-0400 Body temperature 99.2 [degF] Dr. Ryan Aparicio MD Work Phone: [facility] 12-03-2024 08:30-0400 Diastolic blood pressure 76 mm[Hg] Dr. Ryan Aparicio MD Work Phone: [facility] 12-03-2024 08:30-0400 Heart rate 64 /min Dr. Ryan Aparicio MD Work Phone: [facility] 12-03-2024 08:30-0400 Respiratory rate 16 /min Dr. Ryan Aparicio MD Work Phone: [facility] 12-03-2024 08:30-0400 SaO2% (BldA) [Mass fraction] 94 % Dr. Ryan Aparicio MD Work Phone: [facility] 12-03-2024 08:30-0400 Systolic blood pressure 148 mm[Hg] Dr. Ryan Aparicio MD Work Phone: [facility] 12-02-2024 13:22-0400 Body height 170.[address] Ryan Aparicio MD Work Phone: [facility] 12-02-2024 13:22-0400 Body mass index (BMI) [Ratio] 31.3 kg/m2 Dr. Ryan Aparicio MD Work Phone: [facility] 12-02-2024 13:22-0400 Body weight 90.[address] Ryan Aparicio MD Work Phone: [facility] 08-07-2024 08:37-0500 Body height 170 cm Aster Podlogar ARTIST AGENT.PROFESSIONAL DRIVER Work Phone: [facility] 08-07-2024 08:37-0500 Body mass index (BMI) [Ratio] 31.73 kg/m2 Aster Podlogar ARTIST AGENT.PROFESSIONAL DRIVER Work Phone: [facility] 08-07-2024 08:37-0500 Body weight 91.7 kg Aster Podlogar ARTIST AGENT.PROFESSIONAL DRIVER Work Phone: [facility] 08-07-2024 08:37-0500 Diastolic blood pressure 76 mm[Hg] Aster Podlogar ARTIST AGENT.PROFESSIONAL DRIVER Work Phone: [facility] 08-07-2024 08:37-0500 Heart rate 58 /min Aster Podlogar ARTIST AGENT.PROFESSIONAL DRIVER Work Phone: [facility] 08-07-2024 08:37-0500 Respiratory rate 14 /min Aster Podlogar ARTIST AGENT.PROFESSIONAL DRIVER Work Phone: [facility] 08-07-2024 08:37-0500 Systolic blood pressure 130 mm[Hg] Aster Podlogar ARTIST AGENT.PROFESSIONAL DRIVER Work Phone: [facility] 07-17-2024 08:35-0500 Body mass index (BMI) [Ratio] 30.74 kg/m2 Aster Podlogar ARTIST AGENT.PROFESSIONAL DRIVER Work Phone: [facility] 07-17-2024 08:35-0500 Body temperature 98.2 [degF] Aster Podlogar ARTIST AGENT.PROFESSIONAL DRIVER Work Phone: [facility] 07-17-2024 08:35-0500 Body weight 90.1 kg Aster Podlogar ARTIST AGENT.PROFESSIONAL DRIVER Work Phone: [facility] 07-17-2024 08:35-0500 Diastolic blood pressure 88 mm[Hg] Aster Podlogar ARTIST AGENT.PROFESSIONAL DRIVER Work Phone: [facility] 07-17-2024 08:35-0500 Heart rate 62 /min Aster Podlogar ARTIST AGENT.PROFESSIONAL DRIVER Work Phone: [facility] 07-17-2024 08:35-0500 Respiratory rate 18 /min Aster Podlogar ARTIST AGENT.PROFESSIONAL DRIVER Work Phone: [facility] 07-17-2024 08:35-0500 SaO2% (BldA) [Mass fraction] 98 % Aster Podlogar ARTIST AGENT.PROFESSIONAL DRIVER Work Phone: [facility] 07-17-2024 08:35-0500 Systolic blood pressure 146 mm[Hg] Aster Podlogar ARTIST AGENT.PROFESSIONAL DRIVER Work Phone: [facility] 05-18-2024 08:02-0500 Body mass index (BMI) [Ratio] 30.77 kg/m2 Aster Podlogar ARTIST AGENT.PROFESSIONAL DRIVER Work Phone: [facility] 05-18-2024 08:02-0500 Body weight 90.2 kg Aster Podlogar ARTIST AGENT.PROFESSIONAL DRIVER Work Phone: [facility] 05-18-2024 08:02-0500 Diastolic blood pressure 88 mm[Hg] Aster Podlogar ARTIST AGENT.PROFESSIONAL DRIVER Work Phone: [facility] 05-18-2024 08:02-0500 Heart rate 50 /min Aster Podlogar ARTIST AGENT.PROFESSIONAL DRIVER Work Phone: [facility] 05-18-2024 08:02-0500 Respiratory rate 18 /min Aster Podlogar ARTIST AGENT.PROFESSIONAL DRIVER Work Phone: [facility] 05-18-2024 08:02-0500 SaO2% (BldA) [Mass fraction] 98 % Aster Podlogar ARTIST AGENT.PROFESSIONAL DRIVER Work Phone: [facility] 05-18-2024 08:02-0500 Systolic blood pressure 140 mm[Hg] Aster Podlogar ARTIST AGENT.PROFESSIONAL DRIVER Work Phone: [facility] 02-18-2024 16:46-0400 Body mass index (BMI) [Ratio] 27.64 kg/m2 Luca Moomaw ARTIST AGENT.PROFESSIONAL DRIVER Work Phone: [facility] 02-18-2024 16:46-0400 Body temperature 100.8 [degF] Luca Moomaw ARTIST AGENT.PROFESSIONAL DRIVER Work Phone: [facility] 02-18-2024 16:46-0400 Body weight 81 kg Luca Moomaw ARTIST AGENT.PROFESSIONAL DRIVER Work Phone: [facility] 02-18-2024 16:46-0400 Diastolic blood pressure 72 mm[Hg] Luca Moomaw ARTIST AGENT.PROFESSIONAL DRIVER Work Phone: [facility] 02-18-2024 16:46-0400 Heart rate 64 /min Luca Moomaw ARTIST AGENT.PROFESSIONAL DRIVER Work Phone: [facility] 02-18-2024 16:46-0400 Respiratory rate 20 /min Luca Moomaw ARTIST AGENT.PROFESSIONAL DRIVER Work Phone: [facility] 02-18-2024 16:46-0400 SaO2% (BldA) [Mass fraction] 97 % Luca Moomaw ARTIST AGENT.PROFESSIONAL DRIVER Work Phone: [facility] 02-18-2024 16:46-0400 Systolic blood pressure 125 mm[Hg] Luca Moomaw ARTIST AGENT.PROFESSIONAL DRIVER Work Phone: [facility] 10-18-2023 10:15-0400 Body weight 90.81 kg Aster Podlogar ARTIST AGENT.PROFESSIONAL DRIVER Work Phone: [facility] 10-18-2023 10:15-0400 Diastolic blood pressure 68 mm[Hg] Aster Podlogar ARTIST AGENT.PROFESSIONAL DRIVER Work Phone: [facility] 10-18-2023 10:15-0400 Heart rate 50 /min Aster Podlogar ARTIST AGENT.PROFESSIONAL DRIVER Work Phone: [facility] 10-18-2023 10:15-0400 Respiratory rate 18 /min Aster Podlogar ARTIST AGENT.PROFESSIONAL DRIVER Work Phone: [facility] 10-18-2023 10:15-0400 SaO2% (BldA) [Mass fraction] 97 % Aster Podlogar ARTIST AGENT.PROFESSIONAL DRIVER Work Phone: [facility] 10-18-2023 10:15-0400 Systolic blood pressure 114 mm[Hg] Aster Podlogar ARTIST AGENT.PROFESSIONAL DRIVER Work Phone: [facility] 05-24-2023 08:07-0500 Body temperature 97.81 [degF] Aster Podlogar ARTIST AGENT.PROFESSIONAL DRIVER Work Phone: [facility] 05-24-2023 08:07-0500 Body weight 98.43 kg Aster Podlogar ARTIST AGENT.PROFESSIONAL DRIVER Work Phone: [facility] 05-24-2023 08:07-0500 Diastolic blood pressure 72 mm[Hg] Aster Podlogar ARTIST AGENT.PROFESSIONAL DRIVER Work Phone: [facility] 05-24-2023 08:07-0500 Heart rate 50 /min Aster Podlogar ARTIST AGENT.PROFESSIONAL DRIVER Work Phone: [facility] 05-24-2023 08:07-0500 Respiratory rate 16 /min Aster Podlogar ARTIST AGENT.PROFESSIONAL DRIVER Work Phone: [facility] 05-24-2023 08:07-0500 SaO2% (BldA) [Mass fraction] 96 % Aster Podlogar ARTIST AGENT.PROFESSIONAL DRIVER Work Phone: [facility] 05-24-2023 08:07-0500 Systolic blood pressure 134 mm[Hg] Aster Podlogar ARTIST AGENT.PROFESSIONAL DRIVER Work Phone: [facility] 11-09-2022 09:31-0400 Body weight 99.25 kg Robert Aparicio MD Work Phone: [facility] 11-09-2022 09:31-0400 Diastolic blood pressure 74 mm[Hg] Robert Aparicio MD Work Phone: [facility] 11-09-2022 09:31-0400 Heart rate 50 /min Robert Aparicio MD Work Phone: [facility] 11-09-2022 09:31-0400 Respiratory rate 16 /min Robert Aparicio MD Work Phone: [facility] 11-09-2022 09:31-0400 SaO2% (BldA) [Mass fraction] 95 % Robert Aparicio MD Work Phone: [facility] 11-09-2022 09:31-0400 Systolic blood pressure 130 mm[Hg] Robert Aparicio MD Work Phone: [facility] 10-12-2022 08:01-0400 Body height 171.2 cm Robert Aparicio MD Work Phone: [facility] 10-12-2022 08:01-0400 Body weight 98.97 kg Robert Aparicio MD Work Phone: [facility] 10-12-2022 08:01-0400 Diastolic blood pressure 70 mm[Hg] Robert Aparicio MD Work Phone: [facility] 10-12-2022 08:01-0400 Heart rate 54 /min Robert Aparicio MD Work Phone: [facility] 10-12-2022 08:01-0400 SaO2% (BldA) [Mass fraction] 96 % Robert Aparicio MD Work Phone: [facility] 10-12-2022 08:01-0400 Systolic blood pressure 134 mm[Hg] Robert Aparicio MD Work Phone: [facility] 08-06-2022 10:47-0500 Body temperature 97.7 [degF] Adrienne Chaparro PA-C Work Phone: [facility] 08-06-2022 10:47-0500 Body weight 98.97 kg Adrienne Athy PA-C Work Phone: [facility] 08-06-2022 10:47-0500 Diastolic blood pressure 84 mm[Hg] Adrienne Athy PA-C Work Phone: [facility] 08-06-2022 10:47-0500 Heart rate 60 /min Adrienne Athy PA-C Work Phone: [facility] 08-06-2022 10:47-0500 Respiratory rate 16 /min Adrienne Athy PA-C Work Phone: [facility] 08-06-2022 10:47-0500 SaO2% (BldA) [Mass fraction] 98 % Adrienne Athy PA-C Work Phone: [facility] 08-06-2022 10:47-0500 Systolic blood pressure 148 mm[Hg] Adrienne Athy PA-C Work Phone: [facility] 03-31-2022 00:46-0400 Diastolic blood pressure 73 mm[Hg] [facility] Work Phone: 03-31-2022 00:46-0400 Heart rate 74 /min [facility] Work Phone: 03-31-2022 00:46-0400 Respiratory rate 16 /min [facility] Work Phone: 03-31-2022 00:46-0400 SaO2% (BldA) [Mass fraction] 98 % [facility] Work Phone: 03-31-2022 00:46-0400 Systolic blood pressure 116 mm[Hg] [facility] Work Phone: 03-30-2022 23:39-0400 Body height 170.18 cm [facility] Work Phone: 03-30-2022 23:39-0400 Body mass index (BMI) [Ratio] 31.1 kg/m2 [facility] Work Phone: 03-30-2022 23:39-0400 Body temperature 97.4 [degF] [facility] Work Phone: 03-30-2022 23:39-0400 Body weight 90.26 kg [facility] Work Phone: 01-10-2022 16:23-0400 Body temperature 97.39 [degF] Larisa Praisler-Wood ARTIST AGENT.PROFESSIONAL DRIVER Work Phone: [facility] 01-10-2022 16:23-0400 Body weight 96.71 kg Larisa Praisler-Wood ARTIST AGENT.PROFESSIONAL DRIVER Work Phone: [facility] 01-10-2022 16:23-0400 Diastolic blood pressure 96 mm[Hg] Larisa Praisler-Wood ARTIST AGENT.PROFESSIONAL DRIVER Work Phone: [facility] 01-10-2022 16:23-0400 Heart rate 53 /min Larisa Praisler-Wood ARTIST AGENT.PROFESSIONAL DRIVER Work Phone: [facility] 01-10-2022 16:23-0400 Respiratory rate 21 /min Larisa Praisler-Wood ARTIST AGENT.PROFESSIONAL DRIVER Work Phone: [facility] 01-10-2022 16:23-0400 SaO2% (BldA) [Mass fraction] 98 % Larisa Praisler-Wood ARTIST AGENT.PROFESSIONAL DRIVER Work Phone: [facility] 01-10-2022 16:23-0400 Systolic blood pressure 150 mm[Hg] Larisa Praisler-Wood ARTIST AGENT.PROFESSIONAL DRIVER Work Phone: [facility] 12-29-2021 14:18-0400 Body temperature 98.2 [degF] Adrienne Athy PA-C Work Phone: [facility] 12-29-2021 14:18-0400 Diastolic blood pressure 88 mm[Hg] Adrienne Athy PA-C Work Phone: [facility] 12-29-2021 14:18-0400 Heart rate 86 /min Adrienne Athy PA-C Work Phone: [facility] 12-29-2021 14:18-0400 Respiratory rate 24 /min Adrienne Garciamerline PA-C Work Phone: [facility] 12-29-2021 14:18-0400 SaO2% (BldA) [Mass fraction] 97 % Adrienne Chaparro PA-C Work Phone: [facility] 12-29-2021 14:18-0400 Systolic blood pressure 150 mm[Hg] Adrienne Chaparro PA-C Work Phone: [facility] 02-14-2017 14:56-0400 BMI (Body Mass Index) 31.28 kg/m2 David Bowman MD [facility] Work Phone: 02-14-2017 14:56-0400 Body Temperature 98 [degF] David Bowman MD [facility] Work Phone: 02-14-2017 14:56-0400 Body Temperature 98.01 [degF] David Bowman MD [facility] Work Phone: 02-14-2017 14:56-0400 BP Diastolic 63 mm[Hg] David Bowman MD [facility] Work Phone: 02-14-2017 14:56-0400 BP Systolic 118 mm[Hg] David Bowman MD [facility] Work Phone: 02-14-2017 14:56-0400 Height 167.64 cm David Bowman MD [facility] Work Phone: 02-14-2017 14:56-0400 Pulse (Heart Rate) 46 /min David Bowman MD [facility] Work Phone: 02-14-2017 14:56-0400 Respiratory Rate 18 /min Dvaid Bowman MD [facility] Work Phone: 02-14-2017 14:56-0400 Weight 87.91 kg David Bowman MD [facility] Work Phone: Encounters Encounter Date Encounter Type Care Provider Facility Start: 03-23-2025 End: 03-23-2025 Office outpatient visit 15 minutes Vrigilio Zamora MD Work Phone: [facility] Comment on above: Glioblastoma multifo rme (HCC); Hemiplegia affecting right dominant side, unspecified etiology, unspecified hemiplegia type (HCC) Start: 03-23-2025 End: 03-23-2025 ambulatory VIRGILIO ZAMORA Facility:[id number] Start: 03-18-2025 End: 03-19-2025 Telephone encounter Tori Yuan MSW Navigation Start: 03-15-2025 End: 03-15-2025 ambulatory Carmen Lorenzo ARTIST AGENTTracyPROFESSIONAL DRIVER Work Phone: [facility] Comment on above: Sleep deprivation Start: 03-09-2025 End: 03-13-2025 Evaluation and management of inpatient VIRGILIO JOE RODRÍGUEZEIDA YAZ Facility:[facility] Start: 03-07-2025 End: 03-09-2025 Refill Aster Torreslogre ARTIST AGENT.PROFESSIONAL DRIVER Work Phone: [facility] Comment on above: Refill Request Start: 03-05-2025 End: 03-05-2025 Orders Only Virgilio Zamora MD Work Phone: [facility] Comment on above: Brain mass (Primary Dx) Brain mass [G93.89] Start: 03-04-2025 End: 03-04-2025 Telephone encounter Virgilio Zamora MD Work Phone: [facility] Comment on above: Preparations For Cherie juliocesar Start: 03-04-2025 End: 03-04-2025 Office outpatient new 30 minutes Virgilio Zamora MD Work Phone: [facility] Comment on above: Brain mass (Primary Dx); 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 Comment on above: Arrived Start: 02-19-2025 End: 02-19-2025 Follow-up encounter Robert Aparicio MD Work Phone: [facility] Comment on above: Results Start: 02-19-2025 End: 02-19-2025 Telephone encounter Robert Aparicio MD Work Phone: [facility] Comment on above: Results Start: 02-19-2025 ambulatory ROBERT APARICIO acility:[facility] Start: 02-19-2025 End: 02-19-2025 Subsequent hospital visit by physician Mri Radio [facility] (I-Stat/1.5t) Work Phone: Radiology Comment on above: Cerebrovascular acci dent (CVA), unspecified mechanism (HCC) [I63.9] Start: 02-19-2025 End: 02-19-2025 Subsequent hospital visit by physician Ct [facility] (I-Stat) Work Phone: Cat Scan Comment on above: Cerebrovascular acci dent (CVA), unspecified mechanism (HCC) [I63.9] Start: 02-19-2025 End: 02-19-2025 ambulatory ROBERT APARICIO Facility:[facility] Start: 02-19-2025 End: 02-19-2025 Patient encounter procedure Robert Aparicio MD Work Phone: [facility] Comment on above: Cerebrovascular acci dent (CVA), unspecified mechanism (HCC) (Primary Dx); Right sided weakness; Facial droop; Acquired right foot drop; Mixed hyperlipidemia Start: 02-19-2025 End: 02-19-2025 ambulatory ROBERT APARICIO Facility:[facility] Start: 02-01-2025 End: 02-02-2025 ambulatory Robert Aparicio MD Work Phone: [facility] Start: 02-01-2025 End: 02-02-2025 Patient encounter procedure Robert Aparicio MD Work Phone: [facility] Comment on above: Why do I have this a ppointment? Start: 01-29-2025 End: 01-29-2025 ambulatory Patrick Singleton PT Work Phone: [facility] Physical Therapy Comment on above: Chronic pain of righ t knee (Primary Dx) Start: 01-22-2025 End: 01-22-2025 ambulatory Radha Michael TELEVISION INSTALLER HELPER Work Phone: [facility] Comment on above: Chronic pain of righ t knee (Primary Dx) Start: 01-14-2025 End: 01-14-2025 ambulatory Patrick Singleton PT Work Phone: [facility] Comment on above: Chronic pain of righ t knee (Primary Dx) Start: 01-07-2025 End: 01-07-2025 Follow-up encounter Kathrine Moore APRN.PROFESSIONAL DRIVER Work Phone: [facility] Comment on above: Results Start: 01-05-2025 End: 01-05-2025 Patient encounter procedure Matthias Ramos PA Work Phone: [facility] Comment on above: Urinary frequency (P rimary Dx); Urinary tract infection with hematuria, site unspecified Start: 01-05-2025 End: 01-05-2025 ambulatory ROBERT APARICIO Facility:[facility] Start: 12-29-2024 End: 12-29-2024 Patient encounter procedure Aster Joyner APRN.PROFESSIONAL DRIVER Work Phone: [facility] Comment on above: Chronic pain of righ t knee (Primary Dx) Start: 12-29-2024 End: 12-29-2024 ambulatory ROBERT APARICIO Facility:[facility] Start: 12-08-2024 End: 12-08-[address] Ryan Aparicio MD Work Phone: [facility] Work Phone: Start: 12-08-2024 End: 12-08-[address] Stan Anthony MD -Laboratory Specimen Work Phone: Start: 12-08-2024 End: 12-08-2024 ambulatory Stan Anthony Facility:[facility] Start: 12-02-2024 End: 12-03-2024 ambulatory Stan Anthony Facility:[facility] Start: 12-02-2024 End: 12-03-2024 Evaluation and management of inpatient Dr. Stan Anthony MD -Medical Surgical 3 Work Phone: Start: 12-02-2024 End: 12-03-[address] Ryan Aparicio MD Work Phone: [facility] Work Phone: Start: 11-27-2024 End: 11-27-2024 ambulatory Stan Anthony Facility:[facility] Start: 11-27-2024 End: 11-27-2024 Non-patient / Non-visit Dr. Fatuma Scott MD -[facility] Work Phone: Start: 11-06-2024 End: 11-06-[address] Ryan Aparicio MD Work Phone: [facility] Work Phone: Start: 11-06-2024 End: 11-06-2024 Patient encounter procedure Theresa Mccollum -Laboratory Work Phone: Start: 11-06-2024 End: 11-06-2024 ambulatory Ryan Aparicio Facility:[facility] Start: 08-10-2024 End: 08-10-2024 Telephone encounter Aster Joyner APRN.CNP Work Phone: [facility] Comment on above: Results Start: 08-07-2024 End: 08-07-2024 Subsequent hospital visit by physician Dianna [facility] Work Phone: Radiology Comment on above: Chronic pain of righ t knee [M25.561, G89.29] Start: 08-07-2024 End: 08-07-2024 ambulatory ROBERT APARICIO Facility:[facility] Start: 08-07-2024 End: 08-07-2024 Patient encounter procedure Aster Joyner APRN.PROFESSIONAL DRIVER Work Phone: [facility] Comment on above: Annual physical exam (Primary Dx); Benign prostatic hyperplasia with lower urinary tract symptoms, symptom details unspecified; Mixed hyperlipidemia; Essential hypertension, benign; Gastroesophageal reflux disease, unspecified whether esophagitis present; Chronic pain of right knee; Encounter for immunization Start: 07-17-2024 End: 07-17-2024 Patient encounter procedure Aster Joyner APRN.SHAISTA Work Phone: [facility] Comment on above: Symptoms of upper re spiratory infection (URI) (Primary Dx) Start: 07-17-2024 End: 07-17-2024 ambulatory ROBERT APARICIO Facility:[facility] Start: 07-13-2024 End: 07-13-2024 Telephone encounter Aster Joyner APRN.SHAISTA Work Phone: [facility] Start: 07-10-2024 End: 07-10-2024 ambulatory ROBERT APARICIO Facility:[facility] Start: 05-18-2024 End: 05-18-2024 Patient encounter procedure Aster Joyner APRN.PROFESSIONAL DRIVER Work Phone: [facility] Comment on above: Essential hypertensi on, benign (Primary Dx); Gastroesophageal reflux disease, unspecified whether esophagitis present; Benign prostatic hyperplasia with lower urinary tract symptoms, symptom details unspecified; Mixed hyperlipidemia; Vitamin D insufficiency Start: 05-18-2024 End: 05-18-2024 ambulatory ROBERT APARICIO Facility:[facility] Start: 05-15-2024 End: 05-16-2024 Refill Robert Aparicio MD Work Phone: [facility] Comment on above: Refill Request Start: 02-19-2024 Telephone encounter Giovani Mackey MD Work Phone: [facility] Comment on above: Results Start: 02-18-2024 End: 02-18-2024 Subsequent hospital visit by physician Xr [facility] Work Phone: Radiology Comment on above: Acute cough [R05.1] Start: 02-18-2024 End: 02-18-2024 Patient encounter procedure Luca Maninder ARTIST AGENT.PROFESSIONAL DRIVER Work Phone: [facility] Comment on above: Acute cough (Primary Dx); Community acquired pneumonia of left lung, unspecified part of lung Start: 11-12-2023 Refill Robert Aparicio MD Work Phone: [facility] Comment on above: Refill Request Start: 10-28-2023 End: 10-28-2023 ambulatory [facility] Work Phone: Start: 10-28-2023 End: 10-28-2023 Patient encounter procedure [facility]-Laboratory Work Phone: Start: 10-18-2023 End: 10-18-2023 Patient encounter procedure Aster Joyner APRN.PROFESSIONAL DRIVER Work Phone: [facility] Comment on above: Acute pain of right knee (Primary Dx) Start: 05-24-2023 Telephone encounter Aster anderson APRN.PROFESSIONAL DRIVER Work Phone: [facility] Comment on above: Results Start: 05-24-2023 End: 05-24-2023 Patient encounter procedure Aster Joyner APRN.PROFESSIONAL DRIVER Work Phone: [facility] Comment on above: Essential hypertensi on, benign (Primary Dx); Gastroesophageal reflux disease, unspecified whether esophagitis present; Obesity, Class I, BMI 30-34.9; Mixed hyperlipidemia; Benign prostatic hyperplasia with lower urinary tract symptoms, symptom details unspecified Start: 05-10-2023 Telephone encounter Aster anderson APRN.PROFESSIONAL DRIVER Work Phone: [facility] Comment on above: Appointment Start: 04-30-2023 Refill Robert Aparicio MD Work Phone: [facility] Comment on above: Refill Request Start: 11-09-2022 End: 11-09-2022 Patient encounter procedure Robert Aparicio MD Work Phone: [facility] Comment on above: Erectile dysfunction , unspecified erectile dysfunction type (Primary Dx); Instability of right knee joint; Bradycardia; Chest pain, unspecified type; Daytime somnolence Start: 11-03-2022 Non-patient / Non-visit Dr. Stephanie Aparicio Work Phone: [facility] Start: 11-02-2022 End: 11-02-[address] Ryan Aparicio Work Phone: [facility] Work Phone: Start: 11-02-2022 End: 11-02-[address] Ryan Aparicio Work Phone: [facility] Start: 10-29-2022 Telephone encounter Ryan Aparicio MD Work Phone: [facility] Comment on above: Results Start: 10-23-2022 End: 10-23-2022 ambulatory [facility] Work Phone: Start: 10-23-2022 End: 10-23-2022 Patient encounter procedure [facility]-Laboratory, Specimen Start: 10-15-2022 Telephone encounter Ryan Aparicio MD Work Phone: [facility] Comment on above: Results Start: 10-12-2022 Telephone encounter Ryan Aparicio MD Work Phone: [facility] Comment on above: Orders Start: 10-12-2022 End: 10-12-2022 Subsequent hospital visit by physician Dianna [facility] Work Phone: Radiology Comment on above: Bradycardia [R00.1] Start: 10-12-2022 End: 10-12-2022 Patient encounter procedure Robert Aparicio MD Work Phone: [facility] Comment on above: Annual physical exam (Primary Dx); Bradycardia; Chest pain, unspecified type; Essential hypertension, benign; Mixed hyperlipidemia; Benign prostatic hyperplasia with lower urinary tract symptoms, symptom details unspecified; Elevated PSA; Horseshoe kidney with renal calculus; Vitamin D deficiency; Glaucoma of right eye, unspecified glaucoma type; DDD (degenerative disc disease), thoracolumbar; Gastroesophageal reflux disease, unspecified whether esophagitis present; History of tobacco use; Marijuana use Start: 09-29-2022 Refill Robert Aparicio MD Work Phone: [facility] Comment on above: Refill Request Start: 08-31-2022 Telephone encounter Lata Bejarano [address] Comment on above: Medication Request Start: 08-06-2022 End: 08-06-2022 Subsequent hospital visit by physician Dianna [facility] Work Phone: Radiology Comment on above: Lumbar back pain [M5 4.50] Start: 08-06-2022 End: 08-06-2022 Patient encounter procedure Adrienne Chaparro PA-C Work Phone: [facility] Comment on above: Lumbar contusion, in itial encounter (Primary Dx) Start: 03-30-2022 End: 03-31-2022 [facility] Start: 01-10-2022 End: 01-10-2022 Patient encounter procedure Larisa Hendrickson APRN.CNP Work Phone: [facility] Comment on above: Visit for suture rem oval (Primary Dx) Start: 12-29-2021 End: 12-29-2021 Patient encounter procedure Adrienne Chaparro PA-C Work Phone: [facility] Comment on above: Laceration of left i ndex finger without foreign body without damage to nail, initial encounter (Primary Dx) Start: 09-07-2020 End: 09-07-2020 Subsequent hospital visit by physician Dianna [facility] Work Phone: Radiology Comment on above: Foreign body (FB) in soft tissue [M79.5] Start: 08-04-2020 End: 08-04-2020 Subsequent hospital visit by physician Dianna [facility] Work Phone: Radiology Comment on above: Left flank pain [R10 .9] Procedures Date Procedure Procedure Detail Performing Clinician Start: 03-05-2025 Unlisted magnetic resonance procedure Virgilio Zamora MD Work Phone: Start: 02-19-2025 Mri brain brain stem w/o w/contrast material Robert Aparicio MD Work Phone: Start: 02-19-2025 Ct angiography head w/contrast/noncontrast Robert Aparicio MD Work Phone: Start: 02-19-2025 Ct angiography neck w/contrast/noncontrast Robert Aparicio MD Work Phone: Start: 02-19-2025 Lipid 1995 panel - S rober or Plasma Ct (I-Stat) Work Phone: Start: 01-05-2025 Urnls dip stick/tabl et rgnt auto w/o microscopy Matthias MCGUIRE Work Phone: Start: 12-03-[address] Ryan Aparicio MD Work Phone: Start: 12-02-[address] Ryan Aparicio MD Work Phone: Start: 11-06-2024 Assay of prostate specific antigen total Dr. Ryan Aparciio MD Work Phone: Comment on above: This test was perfor med using the [employer] tPSA method. Measured values of a patient sample can vary depending on the testing procedure used. PSA values determined on patient samples by different testing procedures cannot be used interchangeably. If there is a change in PSA assays while monitoring therapy, sequential testing should be performed to confirm baseline values. Start: 07-10-2024 Lipid 1996 panel - S rober or Plasma Aster Joyner ARTIST AGENT.PROFESSIONAL DRIVER Work Phone: Start: 02-18-2024 Radiologic exam ches t 2 views Luca Moomaw ARTIST AGENT.PROFESSIONAL DRIVER Work Phone: Start: 10-12-2022 Radiologic exam ches t 2 views Robert Aparicio MD Work Phone: Start: 10-12-2022 Iaad ia hpylori stool C hrjacklyn Aparicio MD Work Phone: Start: 10-12-2022 Ecg routine ecg w/le ast 12 lds i&r only [facility] Provider Start: 10-12-2022 Lipid 1996 panel - S rober or Plasma Robert Aparicio MD Work Phone: Start: 08-06-2022 Radex spine lumbosac ral 2/3 views Adrienne Chaparro PA-C Work Phone: Start: 08-16-2021 Adult depression screening assessment Adrienne Chaparro PA-C Work Phone: Start: 09-07-2020 Radex hand minimum 3 views Adrienne Chaparro PA-C Work Phone: Start: 08-04-2020 Radex spine lumbosac ral 2/3 views Vamsi Bowman MD Start: 08-09-2017 Colonoscopy Adrienne Chaparro PA-C Work Phone: History of transuret hral prostatectomy S/P TURP (transurethral resection of prostate) Urine culture Plan of Treatment Date Care Activity Detail Author Start: 2035 RSV Vaccine (1 - 1-dose 75+ series) RSV Vaccine (1 - 1-dose 75+ series) [facility] Start: 02-19-2030 Lipid panel Lipid Screening [facility] Start: 11-06-2029 Prostate specific antigen measurement Prostate Cancer Screening Discussion [facility] Start: 07-10-2029 Lipid panel Lipid Screening [facility] Start: 08-14-2028 Urine microalbumin profile [facility] Start: 02-20-2028 Diabetes Screening Diabetes Screening [facility] Start: 10-13-2027 Lipid 1996 panel - Serum or Plasma Lipid Screening [facility] Start: 10-13-2027 Lipid panel Lipid Screening [facility] Start: 10-13-2027 LIPID SCREEN LIPID SCREEN [facility] Start: 08-31-2027 LIPID SCREEN LIPID SCREEN [facility] Start: 08-09-2027 Colonoscopy COLONOSCOPY [facility] Start: 08-09-2027 COLORECTAL CANCER SCREENING COLORECTAL CANCER SCREENING [facility] Start: 08-09-2027 Screening for malignant neoplasm of colon [facility] Start: 07-10-2027 Diabetes Screening Diabetes Screening [facility] Start: 08-16-2026 LIPID SCREEN LIPID SCREEN [facility] Start: 08-16-2026 PROSTATE CANCER SCREENING DISCUSSION PROSTATE CANCER SCREENING DISCUSSION [facility] Start: 08-16-2026 Prostate specific antigen measurement Prostate Cancer Screening Discussion [facility] Start: 05-23-2026 Diabetes Screening Diabetes Screening [facility] Start: 02-19-2026 Annual PCP Team Chronic Disease Visit Annual PCP Team Chronic Disease Visit [facility] Start: 02-19-2026 Hepatitis B surface antibody level LDL Cholesterol [facility] Start: 12-29-2025 Annual PCP Team Chronic Disease Visit Annual PCP Team Chronic Disease Visit [facility] Start: 08-31-2025 DIABETES SCREEN DIABETES SCREEN [facility] Start: 08-31-2025 Diabetes Screening Diabetes Screening [facility] Start: 08-07-2025 Annual PCP Team Chronic Disease Visit Annual PCP Team Chronic Disease Visit [facility] Start: 08-07-2025 Pneumococcal Vaccine: 50+ (1 of 1 - PCV) Pneumococcal Vaccine: 50+ (1 of 1 - PCV) [facility] Comment on above: Postponed from 2010 (Declined at t his time) Start: 08-07-2025 Pneumococcal Vaccine: 50+ (1 of 2 - PCV) Pneumococcal Vaccine: 50+ (1 of 2 - PCV) [facility] Comment on above: Postponed from 1979 (Declined at t his time) Start: 08-07-2025 Shingrix Vaccine (2 of 2) Shingrix Vaccine (2 of 2) [facility] Comment on above: Postponed from 10/02/2024 (Declined at t his time) Start: 07-17-2025 Annual PCP Team Chronic Disease Visit Annual PCP Team Chronic Disease Visit [facility] Start: 05-18-2025 Annual PCP Team Chronic Disease Visit Annual PCP Team Chronic Disease Visit [facility] Start: 05-18-2025 Covid-19 Vaccine () Covid-19 Vaccine () [facility] Comment on above: Postponed from 03/08/2024 (Declined at t his time) Start: 03-29-2025 End: 03-29-2025 Patient encounter procedure 03/29/2025 8:30 AM EDT Office Visit Orthopaedics [address] [place] [address] Ludivina Travis PA-C [address] [place] [address] Chronic pain of right knee [M25.561, G89.29] Orthopaedics Comment on above: Chronic pain of right knee [M25.561, G89 .29] Start: 03-23-2025 End: 03-23-2025 Patient encounter procedure 03/23/2025 10:15 AM EDT Office Visit [facility] [address] [place] [address] Virgilio Mukherjee MD [address] [place] [address] s/p brain bx 03/09/25 [facility] Comment on above: s/p brain bx 03/09/25 Start: 03-22-2025 End: 03-22-2025 Patient encounter procedure 03/22/2025 1:00 PM EDT Office Visit Orthopaedics [address] [place] [address] Ludivina Travis PA-C [address] [place] [address] Chronic pain of right knee [M25.561, G89.29] Orthopaedics Comment on above: Chronic pain of right knee [M25.561, G89 .29] Start: 03-19-2025 End: 03-19-2025 Patient encounter procedure 03/19/2025 7:20 AM EDT Office Visit [facility] [place] [address] [place], [place] [id number] Robert Aparicio MD [address] [place], [place] [id number] one month follow up [facility] Comment on above: one month follow up Start: 03-12-2025 End: 03-12-2025 Patient encounter procedure 03/12/2025 10:00 AM EDT Office Visit Neurology [address] [place] [address] [place] [id number] Makenzie Arizmendi PA-C [address] [place] [address] Dx: Cerebrovascular accident (CVA), unspecified mechanism (HCC) [I63.9]; Right sided weakness [R53.1]; Facial droop [R29.810] Neurology Comment on above: Dx: Cerebrovascular accident (CVA), unsp ecified mechanism (HCC) [I63.9]; Right sided weakness [R53.1]; Facial droop [R29.810] Start: 03-09-2025 End: 03-09-2025 Admission to same day surgery center 03/09/2025 8:00 AM EDT - 03/09/2025 10:15 AM EDT Surgery [address] [address] Virgilio Mukherjee MD [address] [place] [address] NAVIGATIONAL BIOPSY, ASPIRATION, OR EXCISION, WITH RYAN HOLE(S), FOR INTRACRANIAL LESION [facility] Comment on above: NAVIGATIONAL BIOPSY, ASPIRATION, OR EXCI MORGAN, WITH RYAN HOLE(S), FOR INTRACRANIAL LESION Start: 03-09-2025 End: 03-09-2025 Stereotactic bx aspir/exc ryan intracranial les [place] Start: 03-09-2025 Subsequent hospital visit by physician 03/09/2025 8:00 AM EDT Hospital Encounter [address] [address] Virgilio Mukherjee MD [address] [place] [address] Brain mass [G93.89] [facility] Comment on above: Brain mass [G93.89] Start: 03-08-2025 Influenza vaccination [facility] Start: 03-05-2025 End: 03-05-2025 Patient encounter procedure 03/05/2025 11:30 AM EDT Appointment [facility] [address] [place] [address] STAT MRI BRAIN LOCALIZATION WO [place] [facility] Comment on above: STAT MRI BRAIN LOCALIZATION WO IVCGIOVANNY Start: 03-04-2025 End: 03-04-2025 Patient encounter procedure 03/04/2025 1:45 PM EDT Office Visit [facility] [address] [facility] [address] [place] [address] Virgilio Mukherjee MD [address] [place] [address] MRI of the brain shows 1.9 cm mass in the left frontal periventricular [facility] Comment on above: MRI of the brain shows 1.9 cm mass in th e left frontal periventricular Start: 03-04-2025 End: 03-04-2025 Patient encounter procedure 03/04/2025 9:15 AM EDT Office Visit [facility] [address] [facility] [address] [place] [address] Virgilio Mukherjee MD [address] [facility] [address] [place] [address] MRI of the brain shows 1.9 cm mass in the left frontal periventricular [facility] Comment on above: MRI of the brain shows 1.9 cm mass in th e left frontal periventricular Start: 02-26-2025 End: 02-26-2025 ambulatory 02/26/2025 3:15 PM EDT [facility] [address] [place] [address] Patrick Singleton, PT [address] [place], [place] [id number] Chronic pain of right knee [M25.561, G89.29] [facility] Comment on above: Chronic pain of right knee [M25.561, G89 .29] Start: 02-19-2025 End: 02-19-2025 ambulatory 02/19/2025 3:30 PM EDT OT/PT/Speech Visit [facility] [address] [place] [address] Radha Michael, TELEVISION INSTALLER HELPER [address] [place] [address] Chronic pain of right knee [M25.561, G89.29] [facility] Comment on above: Chronic pain of right knee [M25.561, G89 .29] Start: 02-19-2025 End: 05-21-2025 LIPID PANEL, NONFASTING [facility] Work Phone: Comment on above: Expected: 02/19/2025, Expires: Start: 02-19-2025 Subsequent hospital visit by physician 02/19/2025 10:01 AM EDT Hospital Encounter Radiology [address] [place] [address] Cerebrovascular accident (CVA), unspecified mechanism (HCC) [I63.9] Radiology Comment on above: Cerebrovascular accident (CVA), unspecif ied mechanism (HCC) [I63.9] Start: 02-19-2025 End: 02-19-2025 Patient encounter procedure 02/19/2025 7:20 AM EDT Office Visit [facility] [place] [address] [place] [address] Robert Aparicio MD [address] [place] [address] month f/up [facility] [place] Comment on above: month f/up Start: 02-17-2025 BP Controlled (<130/80) BP Controlled (<130/80) [facility] Start: 02-12-2025 End: 02-12-2025 ambulatory 02/12/2025 3:30 PM EDT OT/PT/Speech Visit [facility] [address] [place] [address] Radha Michael, TELEVISION INSTALLER HELPER [address] [place] [address] Chronic pain of right knee [M25.561, G89.29] [facility] Comment on above: Chronic pain of right knee [M25.561, G89 .29] Start: 02-05-2025 End: 02-05-2025 Patient encounter procedure 02/05/2025 8:40 AM EDT Office Visit [facility] [place] [address] [place] [address] Robert Aparicio MD [address] [place] [address] month f/up [facility] Comment on above: month f/up Start: 01-29-2025 End: 01-29-2025 ambulatory 01/29/2025 3:15 PM EDT OT/PT/Speech Visit [facility] [address] [place] [address] Patrick Singleton, PT [address] [place] [address] Chronic pain of right knee [M25.561, G89.29] [facility] Comment on above: Chronic pain of right knee [M25.561, G89 .29] Start: 01-22-2025 End: 01-22-2025 ambulatory 01/22/2025 3:30 PM EDT OT/PT/Speech Visit [facility] [address] [place] [address] Radha Michael, TELEVISION INSTALLER HELPER [address] [place] [address] Chronic pain of right knee [M25.561, G89.29] [facility] Comment on above: Chronic pain of right knee [M25.561, G89 .29] Start: 01-14-2025 End: 01-14-2025 ambulatory 01/14/2025 3:45 PM EDT OT/PT/Speech Visit [facility] [address] [place] [address] Patrick Singleton, PT [address] [place] [address] Chronic pain of right knee [M25.561, G89.29] [facility] Comment on above: Chronic pain of right knee [M25.561, G89 .29] Start: 01-04-2025 Influenza vaccination Influenza Vaccine (#1) [facility] Comment on above: Postponed from 03/08/2024 (Declined at t his time) Start: 12-08-2024 Urine culture Urine Culture [facility] Start: 12-08-2024 [facility] Start: 12-03-2024 Patient discharge [facility] Start: 12-03-2024 Procedure discontinued [facility] Start: 12-02-2024 Application of intermittent pneumatic compression device [facility] Start: 12-02-2024 Deep breathing and coughing exercises [facility] Start: 12-02-2024 Measuring intake and output [facility] Start: 12-02-2024 Oxygen therapy [facility] Start: 12-02-2024 Admission procedure [facility] Start: 12-02-2024 Ambulation therapy management [facility] Start: 12-02-2024 Assessment of risk of venous thromboembolism [facility] Start: 12-02-2024 Documentation procedure [facility] Start: 12-02-2024 End: 12-02-2024 Following clinical pathway protocol [facility] Start: 12-02-2024 Irrigation of urinary bladder [facility] Start: 12-02-2024 Provision of activity privileges [facility] Start: 12-02-2024 Taking patient vital signs [facility] Start: 12-02-2024 Vital signs measurements [facility] Start: 12-02-2024 End: 12-02-2024 [facility] Start: 12-02-2024 Ambulation without limitation [facility] Start: 12-02-2024 Medication education [facility] Start: 12-02-2024 Taking patient vital signs [facility] Start: 12-02-2024 [facility] Start: 12-02-2024 Planned voiding [facility] Start: 10-17-2024 Annual PCP Team Chronic Disease Visit Annual PCP Team Chronic Disease Visit [facility] Start: 10-17-2024 BP Controlled (<130/80) BP Controlled (<130/80) [facility] in Start: 10-06-2024 Hzv zoster vacc recombinant adjuvanted im njx ZOSTER VACCINE, RECOMBINANT (SHINGRIX) Immunization/Injection Routine Encounter for immunization Expected: 10/06/2024 [facility] Comment on above: Expected: 10/06/2024 Start: 10-05-2024 End: 01-04-2025 25-hydroxyvitamin D3 [Mass/volume] in Serum or Plasma VITAMIN D 25 HYDROXY Lab Routine Vitamin D deficiency Expected: 10/05/2024, Expires: 01/04/2025 [facility] Work Phone: Comment on above: Expected: 10/05/2024, Expires: Start: 08-16-2024 DIABETES SCREEN DIABETES SCREEN [facility] Start: 08-07-2024 End: 08-07-2024 Patient encounter procedure 08/07/2024 8:40 AM EST Office Visit [facility] [place] [address] [place] [address] PodAster gonzalez APRN.PROFESSIONAL DRIVER [address] [facility] [place] [address] Physical [facility] Comment on above: Physical Start: 07-17-2024 End: 07-17-2024 Patient encounter procedure 07/17/2024 8:40 AM EST Office Visit [facility] [place] [address] [place] [address] PodlogarAster APRN.PROFESSIONAL DRIVER [address] [place] [address] Physical [facility] Comment on above: Physical Start: 07-08-2024 End: 10-07-2024 25-hydroxyvitamin D3 [Mass/volume] in Serum or Plasma VITAMIN D 25 HYDROXY Lab Routine Vitamin D insufficiency Expected: 07/08/2024, Expires: 10/07/2024 [facility] Comment on above: Expected: 07/08/2024, Expires: Start: 07-08-2024 End: 10-07-2024 CBC W Auto Differential panel - Blood COMPLETE BLOOD COUNT AND DIFFERENTIAL Lab Routine Gastroesophageal reflux disease, unspecified whether esophagitis present Expected: 07/08/2024, Expires: 10/07/2024 [facility] Comment on above: Expected: 07/08/2024, Expires: Start: 07-08-2024 End: 10-07-2024 Comprehensive metabolic 2000 panel - Serum or Plasma COMPREHENSIVE METABOLIC PANEL Lab Routine Essential hypertension, benign Expected: 07/08/2024, Expires: 10/07/2024 [facility] Comment on above: Expected: 07/08/2024, Expires: Start: 07-08-2024 End: 10-07-2024 Lipid 1996 panel - Serum or Plasma LIPID PANEL BASIC Lab Routine Mixed hyperlipidemia Expected: 07/08/2024, Expires: 10/07/2024 [facility] Work Phone: Comment on above: Expected: 07/08/2024, Expires: Start: 05-24-2024 Annual PCP Team Chronic Disease Visit Annual PCP Team Chronic Disease Visit [facility] Start: 05-24-2024 Covid-19 Vaccine ( season) Covid-19 Vaccine ( season) [facility] Comment on above: Postponed from 03/08/2023 (Declined at t his time) Start: 05-24-2024 RSV Vaccine (1 - 1-dose 60+ series) RSV Vaccine (1 - 1-dose 60+ series) [facility] Comment on above: Postponed from 2020 (Declined at t his time) Start: 05-18-2024 End: 05-18-2024 Patient encounter procedure 05/18/2024 8:00 AM EST Office Visit Family [facility] [place] [address] [place] [address] Aster Joyner APRN.PROFESSIONAL DRIVER [address] [place] [address] follow up hypertension Family [facility] Comment on above: follow up hypertension Start: 03-08-2024 Covid-19 Vaccine () Covid-19 Vaccine () [facility] Start: 03-08-2024 Covid-19 Vaccine () Covid-19 Vaccine () [facility] Start: 03-08-2024 Influenza vaccination [facility] Start: 01-05-2024 Influenza vaccination Influ[facility] (#[facility] Comment on above: Postponed from 03/08/2023 (Declined at t his time) Start: 11-22-2023 End: 11-22-2023 Patient encounter procedure 11/22/2023 8:00 AM EDT Office Visit [facility] [address] [place] [address] Aster Joyner APRN.PROFESSIONAL DRIVER [address] [place] [address] follow up 6 months [facility] Comment on above: follow up 6 months Start: 11-10-2023 ANNUAL PCP TEAM CHRONIC DISEASE VISIT ANNUAL PCP TEAM CHRONIC DISEASE VISIT [facility] Start: 10-13-2023 ANNUAL PCP TEAM CHRONIC DISEASE VISIT ANNUAL PCP TEAM CHRONIC DISEASE VISIT [facility] Start: 10-13-2023 COVID-19 VACCINE (4 - Booster for Pfizer series) COVID-19 VACCINE (4 - Booster for Pfizer series) [facility] Comment on above: Postponed from 11/13/2021 (Declined at t his time) Start: 10-13-2023 SHINGRIX VACCINE (1 of 2) SHINGRIX VACCINE (1 of 2) [facility] Comment on above: Postponed from 2010 (Declined at t his time) Start: 07-08-2023 Behavioral Health Screening Behavioral Health Screening [facility] Start: 05-10-2023 End: 08-09-2023 25-hydroxyvitamin D3 [Mass/volume] in Serum or Plasma VITAMIN D 25 HYDROXY Lab Routine Vitamin D insufficiency Expected: 05/10/2023, Expires: 08/09/2023 [facility] Work Phone: Comment on above: Expected: 05/10/2023, Expires: 4 Start: 05-10-2023 End: 08-09-2023 Comprehensive metabolic 2000 panel - Serum or Plasma COMP METABOLIC PANEL Lab Routine Essential hypertension, benign Expected: 05/10/2023, Expires: 08/09/2023 [facility] Work Phone: Comment on above: Expected: 05/10/2023, Expires: 4 Start: 03-08-2023 Covid-19 Vaccine () Covid-19 Vaccine () [facility] Start: 03-08-2023 Influenza vaccination [facility] Start: 08-16-2022 Adult depression screening assessment DEPRESSION SCREENING [facility] Start: 08-16-2022 ANNUAL PCP TEAM CHRONIC DISEASE VISIT ANNUAL PCP TEAM CHRONIC DISEASE VISIT [facility] Start: 07-08-2022 DEPRESSION ASSESSMENT DEPRESSION ASSESSMENT [facility] Start: 03-08-2022 Influenza vaccination [facility] Start: 01-18-2022 COVID-19 VACCINE (4 - Booster for Pfizer series) COVID-19 VACCINE (4 - Booster for Pfizer series) [facility] Start: 11-13-2021 COVID-19 VACCINE (4 - Booster for Pfizer series) COVID-19 VACCINE (4 - Booster for Pfizer series) [facility] Start: 01-31-2021 BP CONTROLLED (<130/80) BP CONTROLLED (<130/80) [facility] Start: 2020 RSV Vaccine (1 - 1-dose 60+ series) RSV Vaccine (1 - 1-dose 60+ series) [facility] Start: 2020 RSV Vaccine (1 - Risk 60-74 years 1-dose series) RSV Vaccine (1 - Risk 60-74 years 1-dose series) [facility] Start: 02-14-2017 End: 02-14-2017 Appointment Appointment [facility] Work Phone: Start: 2010 Pneumococcal Vaccine: 50+ (1 of 1 - PCV) Pneumococcal Vaccine: 50+ (1 of 1 - PCV) [facility] Start: 2010 SHINGRIX VACCINE (1 of 2) SHINGRIX VACCINE (1 of 2) [facility] Start: 2005 COLOGUARD (FIT-DNA) COLOGUARD (FIT-DNA) [facility] Start: [address] COLONOGRAPHY [facility] Start: 2005 FECAL OCCULT BLOOD FECAL OCCULT BLOOD [facility] Start: 2005 Screening for malignant neoplasm of colon [facility] Start: 2005 SIGMOIDOSCOPY SIGMOIDOSCOPY [facility] Start: 1978 Anxiety Screening Anxiety Screening [facility] Start: 1978 Depression Screening Depression Screening [facility] Start: 1970 Diabetic foot examination Diabetic Foot Exam [facility] Start: 1970 Glaucoma screening Dilated Retinal Exam [facility] Start: 1970 Hepatitis B screening Urine Albumin:Creatinine Ratio [facility] Start: 1965 Hemoglobin A1c measurement HbA1C [facility] jacques Bacteria identified in Urine by Culture BACTERIAL CULTURE, URINE Microbiology Routine Urinary frequency Ordered: 01/05/2025 [facility] Work Phone: Comment on above: Ordered: 01/05/2025 End: 10-13-2023 ECG COMPLETE ECG COMPLETE ECG Routine Annual physical exam 1 Occurrences starting 10/12/2022 until 10/13/2023 [facility] Work Phone: Comment on above: 1 Occurrences starting 10/12/2022 until 10/13/2023 ECG COMPLETE ECG COMPLETE ECG 10/12/2022 9:02 AM EDT [facility] End: 10-13-2023 Echocardiography ECHO Cardiology STEFAN Bradycardia Chest pain, unspecified type 1 Occurrences starting 10/12/2022 until 10/13/2023 [facility] Work Phone: Comment on above: 1 Occurrences starting 10/12/2022 until 10/13/2023 Electrocardiographic procedure [facility] End: 10-13-2023 EXERCISE STRESS ECG (WITHOUT IMAGING) EXERCISE STRESS ECG (WITHOUT IMAGING) Cardiology STEFAN Bradycardia Chest pain, unspecified type 1 Occurrences starting 10/12/2022 until 10/13/2023 [facility] Work Phone: Comment on above: 1 Occurrences starting 10/12/2022 until 10/13/2023 End: 11-09-2023 HOME SLEEP APNEA TEST (HSAT) HOME SLEEP APNEA TEST (HSAT) Procedures Routine Daytime somnolence 1 Occurrences starting 11/09/2022 until 11/09/2023 [facility] Work Phone: Comment on above: 1 Occurrences starting 11/09/2022 until 11/09/2023 Patient Education ED Urinary Ret ention, Male [facility] Work Phone: Patient referral [facility] Work Phone: SARS-CoV-2 (COVID-19 ) RNA [Presence] in Respiratory specimen by JOHNNY with probe detection COVID NAAT, UPPER RESPIRATORY, ROUTINE Microbiology Routine Acute cough Ordered: 02/18/2024 [facility] Work Phone: Comment on above: Ordered: 02/18/2024 End: 09-06-2025 XR Knee - right 4 Views XR KNEE GENERAL 4V AP BOTH/PA BOTH/LAT/MERC RIGHT Radiology Routine Chronic pain of right knee 1 Occurrences starting 08/07/2024 until 09/06/2025 [facility] Work Phone: Comment on above: 1 Occurrences starting 08/07/2024 until 09/06/2025 XR Knee - right 4 Views XR KNEE GENERAL 4V AP BOTH/PA BOTH/LAT/MERC RIGHT Radiology Routine Chronic pain of right knee 08/07/2024 9:45 AM EST [facility] Work Phone: [facility] Immunizations Immunization Date Immunization Notes Care Provider Sunny tabor 08-07-2024 zoster vaccine recombinant Aster Joyner APRN.PROFESSIONAL DRIVER Work Phone: [facility] 01-28-2021 influenza, injectabl e, quadrivalent, contains preservative Adrienne Chaparro PA-C Work Phone: [facility] 08-04-2020 influenza virus vaccine, unspecified formulation Robert Aparicio MD Work Phone: [facility] 04-23-2019 Influenza virus vaccine [facility] 08-14-2018 influenza, injectabl e, quadrivalent, contains preservative Adrienne Chaparro PA-C Work Phone: [facility] 08-14-2018 tetanus toxoid, reduced diphtheria toxoid, and acellular pertussis vaccine, adsorbed Adrienne Chaparro PA-C Work Phone: [facility] Payers Date Payer Category Payer Self-pay [id number] 2021 Private Health Insurance [id number] 2021 Unknown MMO MMO [employer] [id number] 2021-Present [phone] [address] [place] [address] PPO [id number] 2021 Unknown [id number] 2019 Unknown [id number] Private Health Insurance [employer] [id number] Unknown [facility] PACKAGE PLAN [id number] Unknown [id number] Unknown [id number] Unknown [id number] Unknown [id number] Social History Date Type Detail Facility Start: 04-13-2016 End: 05-18-2024 Tobacco smoking status NHIS Ex-smoker [facility] Start: 11-28-1979 End: 11-28-2015 History of tobacco use Current smoker [facility] Start: 11-28-1979 End: 11-28-2015 History of tobacco use Cigarette Smoker [facility] Start: 04-13-2016 End: 11-09-2022 Cigarettes smoked current (pack per day) - Reported 0.5 [facility] Start: 04-13-2016 End: 05-18-2024 Tobacco use and exposure Smokeless tobacco non-user [facility] Start: 08-18-2021 End: 03-23-2025 Alcohol intake Current drinker of alcohol (finding) [facility] Start: 1960 Sex Assigned At Male [facility] Start: 07-05-2020 End: 12-29-2021 Exposure to SARS-CoV-2 (event) Not sure [facility] Work Phone: Start: 03-30-2022 Tobacco smoking status [facility] Unknown if ever smoked [facility] Start: 10-09-2022 History SDOH Alcohol Frequency 2 [facility] Start: 10-09-2022 History SDOH Social Connections Membership 1 [facility] Start: 10-09-2022 History SDOH Social Connections Meetings 3 [facility] Start: 10-09-2022 History SDOH Financial 5 [facility] Start: 10-08-2022 End: 11-09-2022 Social connection and isolation panel [facility] Do you belong to any clubs or organizations such as nondenominational groups, unions, fraternal or athletic groups, or school groups? Yes [facility] Are you now , , , , never or living with a partner? [facility] How often to you hav e a drink containing alcohol? Monthly or less [facility] How many standard dr inks containing alcohol do you have on a typical day? 3 or 4 [facility] How often do you hav e 6 or more drinks on 1 occasion? Less than monthly [facility] Start: 06-08-2012 How hard is it for you to pay for the very basics like food, housing, medical care, and heating Not hard at all [facility] Do you feel stress - tense, restless, nervous, or anxious, or unable to sleep at night because your mind is troubled all the time - these days [OSQ] Only a little [facility] (I/We) worried wheth er (my/our) food would run out before (I/we) got money to buy more. Never true [facility] In the past 12 month s, was there a time when you were not able to pay the mortgage or rent on time? No [facility] Start: 09-12-2021 Gender identity Identifies as male gender (finding) [facility] Start: 09-12-2021 Sexual orientation Heterosexual (finding) [facility] How many standard dr inks containing alcohol do you have on a typical day? 1 or 2 [facility] Start: 11-02-2009 Alcohol Comment weekly [facility] Medical Equipment Procedure Code Equipment Code Equipment Origin al Text Equipment Identifier Dates Sphr Eye 20mm [facility] rl Polyeth Por - [id number] Start: 12-30-2012 Goals Date Patient Goal Desired Activity /State Personal health goal Personal health goal Functional Status Date Assessment Result Facility 03-13-2025 Are you deaf, or do you have serious difficulty hearing No 03/13/2025 12:43 PM Ceci Goncalves RN No [facility] 03-13-2025 Are you blind, or do you have serious difficulty seeing, even when wearing glasses No 03/13/2025 12:43 PM Ceci Goncalves, ANGIE No [facility] 03-13-2025 Do you have serious difficulty walking or climbing stairs Yes 03/13/2025 12:43 PM Ceci Goncalves, ANGIE Yes [facility] 03-13-2025 Do you have difficul ty dressing or bathing Yes 03/13/2025 12:43 PM Ceci Goncalves, RN Yes [facility] 03-13-2025 Because of a physica l, mental, or emotional condition, do you have difficulty doing errands alone such as visiting a physician's office or shopping No 03/13/2025 12:43 PM EDT Ceci Corbett RN No [facility] 12-29-2024 Total score [AUDIT-C] 3 12/30/19 5:45 AM EDT User, Mychart [facility] 12-29-2024 How often to you hav e a drink containing alcohol? Monthly or less 12/29/2024 5:45 AM EDT User, Mychart Monthly or less [facility] 12-29-[address] inks containing alcohol do you have on a typical day? 3 or 4 12/29/2024 5:45 AM EDT User, Mychart 3 or 4 [facility] 12-29-2024 How often do you hav e 6 or more drinks on 1 occasion? Less than monthly 12/29/2024 5:45 AM EDT User, Mychart Less than monthly [facility] 12-03-2024 Functional status [facility] Work Phone: 11-22-2016 Are you deaf, or do you have serious difficulty hearing No 11/22/2016 7:39 PM EDT Vamsi Bowman III, MD No [facility] 11-22-2016 Are you blind, or do you have serious difficulty seeing, even when wearing glasses No 11/22/2016 7:39 PM EDT Vamsi Bowman III, MD No [facility] 11-22-2016 Do you have serious difficulty walking or climbing stairs No 11/22/2016 7:39 PM EDT Vamsi Bowman III, MD No [facility] 11-22-2016 Do you have difficul ty dressing or bathing No 11/22/2016 7:39 PM EDT Vamsi Bowman III, MD No [facility] 11-22-2016 Because of a physica l, mental, or emotional condition, do you have difficulty doing errands alone such as visiting a physician's office or shopping No 11/22/2016 7:39 PM EDT Vamsi Bowman III, MD No [facility] Mental Status Date Assessment Result Facility 03-13-2025 Because of a physica l, mental, or emotional condition, do you have serious difficulty concentrating, remembering, or making decisions No 03/13/2025 12:43 PM EDT Ceci Corbett RN No [facility] 12-03-2024 Cognitive function Voice/Name [facility] Work Phone: 11-22-2016 Because of a physica l, mental, or emotional condition, do you have serious difficulty concentrating, remembering, or making decisions No 11/22/2016 7:39 PM EDT Vamsi Bowman III, MD No [facility] Clinical Notes 08-04-2020 to 03-23-2025 Virgilio Mukherjee MD - 03/23/2025 11:46 AM EDTGMar shelby MA - 03/23/2025 10:02 AM EDTTelephone Encounter - Robert Aparicio MD - 03/18/2025 2:53 PM EDT Note Date & Type Note Facility 03-23-2025 Note HNO ID: [id number] Author: VIRGILIO MUKHERJEE MD Service: ? Author Type: Physician Type: Progress Notes Filed: 03/23/2025 11:50 Note Text: [facility] Established Patient Consultation No referring provider defined for this encounter. CC: Brain mass Subjective History of Present Illness: Lg Lorenz is a 64-year-old male presenting with sudden onset right-sided weakness. Lg, accompanied by his , reports sudden onset of right-sided weakness on January 15. Prior to this, he was undergoing physical therapy for knee pain and was able to walk with a limp but had full function of his right side. On January 14, he was able to read and write without difficulty. However, by January 15, he experienced significant weakness in his right arm, stating, "I can't hold a pen, I can't do anything with my right arm hardly." He describes difficulty with fine motor tasks, such as writing, which now takes him approximately 40 minutes to complete. He sought evaluation from his family doctor, who suspected a stroke and ordered an MRI and CT scan. Lg does not recall being explicitly diagnosed with a stroke. He has not seen the imaging results. Lg does not endorse any facial weakness or difficulty with speech. He is able to move his legs, noting that his left leg is "way better" than his right. He does not report any sensory changes or pain in his right side. Updates 03/23/2025: Lg Lorenz is a 64-year-old male with a history of high-grade glioma, presenting for follow-up two weeks post-biopsy. He is accompanied by his , who provides additional history. Lg reports feeling "wasted" and experiencing significant weakness in his right arm and leg since the biopsy. He describes a general sense of deterioration, stating, "It's going." His notes that his condition has worsened since the procedure. He is currently facing challenges with his insurance, which has denied coverage for inpatient physical therapy and deemed the biopsy as not medically necessary. Pathology results: Brain, left parietal tumor, stereotactic biopsy - Glioblastoma, IDH-wildtype and EGFR-amplified, CLINICAL TRIALS SYSTEMS ADMINISTRATOR WHO grade 4; Past Medical History: PAST MEDICAL HISTORY Diagnosis Date BPH (benign prostatic hyperplasia) 05/04/2014 Cervical radiculopathy Cyst of epididymis 11/15/201605/2014 DDD (degenerative disc disease), thoracolumbar spurring 08/04/[address] Anthony. negative biopsies Erectile dysfunction Essential hypertension, benign 05/04/2014 GERD (gastroesophageal reflux disease) Glaucoma 2012 Dr. Julio. Right eye only. Hearing loss History of tobacco use Horseshoe kidney with renal calculus 11/28/2016 Marijuana use Mixed hyperlipidemia PMH - PAST MEDICAL HISTORY OF open angle glaucoma OD Urinary retention Vitamin D deficiency Past Surgical History: PAST SURGICAL HISTORY Procedure Laterality Date APPENDECTOMY COLONOSCOPY FLX DX W/COLLJ SPEC WHEN PFRMD 08/09/2017 Colonoscopy EYE SURGERY PROCEDURE OD 12/30/12 Evisceration with implant PROSTATE BIOPSY 07/2016 Family History: FAMILY HISTORY Problem Relation Age of Onset other (dementia) Mother Cancer Father bone Macular Degen Father Prostate Cancer Father Diabetes Sister Cancer Paternal Grandmother Breast Cancer Cataract Paternal Aunt other (downs) Son SOCIAL HISTORY[1] Allergies: Prednisone, Bees, and Poison Angel[facility] Current Outpatient Medications Medication Sig traZODone (DESYREL) 50 mg tablet Take 1 tablet by mouth daily at bedtime. dexAMETHasone (DECADRON) 1 mg tablet Take 6 tablets by mouth two times a day with meals for 1 day, THEN 4 tablets two times a day with meals for 3 days, THEN 2 tablets two times a day with meals for 3 days, THEN 2 tablets daily with breakfast for 3 days, THEN 1 tablet daily with breakfast for 3 days. levETIRAcetam (KEPPRA) 1,000 mg tablet 1 tablet by ORAL/FEEDING TUBE route two times a day for 21 doses. tamsulosin (FLOMAX) 0.4 mg Take 1 capsule by mouth daily at bedtime. lisinopril (ZESTRIL) 20 mg tablet Take 1 tablet by mouth once daily. atorvastatin (LIPITOR) 20 mg tablet Take 1 tablet by mouth daily at bedtime. For cholesterol. omeprazole (PRILOSEC) 40 mg capsule Take 40 mg by mouth once daily. No current facility-administered medications for this visit. Employed: N/A Review of systems: Constitutional: No recent fever or weight loss. Eyes: No history of glaucoma or cataracts. ENMT: No recent ear infection, nasal congestion, mouth sores or sore throat. CV: No history of chest pain, palpitations or leg swelling. Respiratory: No history of SOB, asthma or recent cough. Gastrointestinal: No history of nausea, vomiting, dysphagia or abdominal pain. Genitourinary: No history of hematuria or dysuria. Musculoskeletal: No complaint of arthritis, unstable gait or arm/leg weakness. Psychiatric: No history of hallucinations or depressio (more content not included)... [facility] 03-23-2025 History of Presen t illness Narrative Images from the original note were not included. [facility] Established Patient Consultation No referring provider defined for this encounter. CC: Brain mass Subjective History of Present Illness: Lg Lorenz is a 64-year-old male presenting with sudden onset right-sided weakness. Lg, accompanied by his , reports sudden onset of right-sided weakness on January 15. Prior to this, he was undergoing physical therapy for knee pain and was able to walk with a limp but had full function of his right side. On January 14, he was able to read and write without difficulty. However, by January 15, he experienced significant weakness in his right arm, stating, "I can't hold a pen, I can't do anything with my right arm hardly." He describes difficulty with fine motor tasks, such as writing, which now takes him approximately 40 minutes to complete. He sought evaluation from his family doctor, who suspected a stroke and ordered an MRI and CT scan. Lg does not recall being explicitly diagnosed with a stroke. He has not seen the imaging results. Lg does not endorse any facial weakness or difficulty with speech. He is able to move his legs, noting that his left leg is "way better" than his right. He does not report any sensory changes or pain in his right side. Updates 03/23/2025: Lg Lorenz is a 64-year-old male with a history of high-grade glioma, presenting for follow-up two weeks post-biopsy. He is accompanied by his , who provides additional history. Lg reports feeling "wasted" and experiencing significant weakness in his right arm and leg since the biopsy. He describes a general sense of deterioration, stating, "It's going." His notes that his condition has worsened since the procedure. He is currently facing challenges with his insurance, which has denied coverage for inpatient physical therapy and deemed the biopsy as not medically necessary. Pathology results: Brain, left parietal tumor, stereotactic biopsy - Glioblastoma, IDH-wildtype and EGFR-amplified, CLINICAL TRIALS SYSTEMS ADMINISTRATOR WHO grade 4; Past Medical History: PAST MEDICAL HISTORY Diagnosis Date BPH (benign prostatic hyperplasia) 05/04/2014 Cervical radiculopathy Cyst of epididymis 11/15/201605/2014 DDD (degenerative disc disease), thoracolumbar spurring 08/04/[address] Anthony. negative biopsies Erectile dysfunction Essential hypertension, benign 05/04/2014 GERD (gastroesophageal reflux disease) Glaucoma 2012 Dr. Julio. Right eye only. Hearing loss History of tobacco use Horseshoe kidney with renal calculus 11/28/2016 Marijuana use Mixed hyperlipidemia PMH - PAST MEDICAL HISTORY OF open angle glaucoma OD Urinary retention Vitamin D deficiency Past Surgical History: PAST SURGICAL HISTORY Procedure Laterality Date APPENDECTOMY COLONOSCOPY FLX DX W/COLLJ SPEC WHEN PFRMD 08/09/2017 Colonoscopy EYE SURGERY PROCEDURE OD 12/30/12 Evisceration with implant PROSTATE BIOPSY 07/2016 Family History: FAMILY HISTORY Problem Relation Age of Onset other (dementia) Mother Cancer Father bone Macular Degen Father Prostate Cancer Father Diabetes Sister Cancer Paternal Grandmother Breast Cancer Cataract Paternal Aunt other (downs) Son SOCIAL HISTORY[1] Allergies: Prednisone, Bees, and Poison Angel[facility] Current Outpatient Medications Medication Sig traZODone (DESYREL) 50 mg tablet Take 1 tablet by mouth daily at bedtime. dexAMETHasone (DECADRON) 1 mg tablet Take 6 tablets by mouth two times a day with meals for 1 day, THEN 4 tablets two times a day with meals for 3 days, THEN 2 tablets two times a day with meals for 3 days, THEN 2 tablets daily with breakfast for 3 days, THEN 1 tablet daily with breakfast for 3 days. levETIRAcetam (KEPPRA) 1,000 mg tablet 1 tablet by ORAL/FEEDING TUBE route two times a day for 21 doses. tamsulosin (FLOMAX) 0.4 mg Take 1 capsule by mouth daily at bedtime. lisinopril (ZESTRIL) 20 mg tablet Take 1 tablet by mouth once daily. atorvastatin (LIPITOR) 20 mg tablet Take 1 tablet by mouth daily at bedtime. For cholesterol. omeprazole (PRILOSEC) 40 mg capsule Take 40 mg by mouth once daily. No current facility-administered medications for this visit. Employed: N/A Review of systems: Constitutional: No recent fever or weight loss. Eyes: No history of glaucoma or cataracts. ENMT: No recent ear infection, nasal congestion, mouth sores or sore throat. CV: No history of chest pain, palpitations or leg swelling. Respiratory: No history of SOB, asthma or recent cough. Gastrointestinal: No history of nausea, vomiting, dysphagia or abdominal pain. Genitourinary: No history of hematuria or dysuria. Musculoskeletal: No complaint of arthritis, unstable gait or arm/leg weakness. Psychiatric: No history of hallucinations or depression or anxiety. ROS Neurological: No complaint of headache. No complaint of tinnitus. No complaint of decreased hearing. No complaint of diplopia. No complaints of decreased visual acuity. No complaint of arm/leg numbness. No problem with limb coordination. No complaint of syncope, seizures or disorientation. Objective Physical Exam: Ht 170.2 cm (5' 7") Wt 86.2 kg (190 lb) BMI 29.76 kg/m Neurological: Higher integrative functions: Oriented to person, place & time. Memory: Good recent and remote. Attention Span and Concentration: Good. Language: Accurate naming of objects. Good comprehension. Fund of Knowledge: Good. 2nd CN: Full visual davis. 3rd,4th,6th CN: Pupils (=), round, react to light, full extraocular movements. 5th CN: No decrease in facial sensation. 7th CN: Central facial paralysis 8th CN: Hears finger rub well bilaterally. 9th CN: Good gag. 10th CN: Spontaneous palate movement, full and symmetric. 11 CN: Full strength in shoulder shrug. CN: Tongue protrusion full and midline. Sensation: No decrease in sensation in upper or lower limbs to touch. Musculoskeletal: Right hemiparesis 08/12 Incision: C/D/I Labs: Latest Ref Rng & Units 02/19/2025 03/09/2025 03/10/2025 CBC WBC 3.70 - 11.00 k/uL 7.32 8.97 14.36 RBC 4.20 - 6.00 m/uL 5.18 4.99 4.81 Hemoglobin 13.0 - 17.0 g/dL 14.5 13.7 13.2 Hematocrit 39.0 - 51.0 % 43.0 41.6 39.8 MCV 80.0 - 100.0 fL 83.0 83.4 82.7 MCH 26.0 - 34.0 pg 28.0 27.5 27.4 MCHC 30.5 - 36.0 g/dL 33.7 32.9 33.2 RDW-CV 11.5 - 15.0 % 13.8 13.8 14.0 Platelet Count 150 - 400 k/uL 273 266 274 MPV 9.0 - 12.7 fL 10.2 10.4 10.5 Baso% % 1.9 Abs Neut (ANC) 1.45 - 7.50 k/uL 2.81 Abs Lymph 1.00 - 4.00 k/uL 2.47 Abs [place] <0.87 k/uL 0.89 Abs Eosin <0.46 k/uL 1.00 Abs Baso <0.11 k/uL 0.14 NRBC /100 WBC 0.0 Latest Ref Rng & Units 02/19/2025 03/09/2025 03/10/2025 CMP Sodium 136 - 144 mmol/L 139 140 137 Potassium 3.7 - 5.1 mmol/L 4.2 4.3 4.4 Chloride 98 - 107 mmol/L 104 105 106 CO2 22 - 30 mmol/L 23 23 22 Glucose 74 - 99 mg/dL 104 179 152 BUN 9 - 24 mg/dL 22 16 17 Creatinine 0.73 - 1.22 mg/dL 0.95 0.83 0.82 EGFR >=60 mL/min/1.73m 89 98 98 Protein, Total 6.3 - 8.0 g/dL 7.2 Albumin 3.9 - 4.9 g/dL 4.8 Calcium 8.5 - 10.2 mg/dL 9.8 8.9 8.8 Bilirubin, Total 0.2 - 1.3 mg/dL 0.7 AST 14 - 40 U/L 14 ALT 10 - 54 U/L 19 Alkaline Phosphatase 38 - 113 U/L 63 Imaging: CT Brain Report CT BRAIN WO IVCON Exam End: 03/09/2025 12:43 PM (Final result) Narrative: * * *Final Report* * * DATE OF EXAM: Mar 09 2025 12:43PM [facility] 0504 - CT BRAIN WO IVCON / PROCEDURE REASON: Brain/CLINICAL TRIALS SYSTEMS ADMINISTRATOR neoplasm, monitor * * * * Physician Interpretation * * * * EXAMINATION: CT BRAIN WO IVCON CLINICAL HISTORY: Pain/ES neoplasm, biopsy. TECHNIQUE: Serial axial images without IV contrast were obtained from the vertex to the foramen magnum. MQ: [id number] CT Radiation dose: Integrated Dose-Length Product (DLP) for this visit = 763 mGy*cm CT Dose Reduction Employed: [employer] COMPARISON: MRI brain on 03/05/2025. CT brain on the 02/19/2025. RESULT: Post-operative change: Interval reported biopsy of previously noted left frontal periventricular lesion. Small volume pneumocephalus, likely postsurgical. Small area of the acute blood products at the biopsy site within the posterior aspect of the lesion. Small hypodensity extending into the left basal ganglia could represent the tumor involvement. Probable involvement of the splenium of the corpus callosum. These findings are better assessed on the comparison MRI. Acute change: No CT evidence of large acute cortical infarct. Mass Lesion / Mass Effect: No significant midline shift. Ventricles: The ventricles are within normal limits of size and configuration for age. Paranasal sinuses and skull base: Unchanged presumed postsurgical changes of the right orbit. The skull base and imaged soft tissues are unremarkable. Impression: IMPRESSION: 1. Interval reported biopsy of previously noted left frontal periventricular lesion. Small volume pneumocephalus, likely postsurgical. Small area of acute blood products at biopsy site within posterior aspect of the lesion, likely post-surgical. Continued short-term follow-up is recommended. 2. Small hypodensity extending into left basal ganglia could represent the tumor involvement. Probable involvement of the splenium of the corpus callosum. These findings are better assessed on the comparison MRI. Consumer Education Specialist: PEDRO Transcribe Date/Time: Mar 09 2025 1:01P Dictated by : HANS BLANDON MD This examination was interpreted and the report reviewed and electronically signed by: HANS BLANDON MD on Mar 09 2025 1:07PM EST Data Review: Personal review of medical records: I reviewed the [facility] chart. Personal review of image, tracing or specimen: Virgilio Mukherjee MD Assessment & Plan 1. Glioblastoma multiforme (HCC) (C71.9) 2. Hemiplegia affecting right dominant side, unspecified etiology, unspecified hemiplegia type (HCC) (G81.91) - Pathology results confirm high-grade glioma (grade 4), consistent with glioblastoma multiforme, located under the motor cortex affecting right-sided motor function. - Surgical resection not feasible due to tumor location and risk of further neurological deficit. - Educated patient and family on tumor biology, prognosis, and rationale for non-surgical management; discussed that treatment is not curative but aims to slow tumor progression. - Refer to radiation oncology (Dr. Matias) for initiation of radiation therapy. - Refer to oncology group in [place] for chemotherapy evaluation and management. - Advised patient to monitor for wound complications (redness, swelling, purulent discharge) and report any concerns promptly. - Offered support for insurance appeals related to inpatient physical therapy denial. Recommendations: As above Medicines: No Change Instructions: Continue present activity Physician [id number] time was 30 minutes with > 50% devoted to counseling or co-ordination of care. Approximately 20 minutes were spent reviewing medical records. No resident was available to participate in this visit. I saw and evaluated the patient. Medical Decision Making: Problems: Moderate: 2+ stable chronic illnesses Data: Unique source(s) for external note(s) reviewed: 2 Unique test result(s) reviewed: 2 Medical Decision Making Level: 4 - Moderate Virgilio Mukherjee MD Neurosurgery [facility] March 23, 2025 11:50 AM [1] Social History Tobacco Use Smoking status: Former Current packs/day: 0.00 Average packs/day: 0.5 packs/day for 36.0 years (18.0 ttl pk-yrs) Types: Cigarettes Start date: 11/28/1979 Quit date: 11/28/2015 Years since quittin.3 Smokeless tobacco: Never Vaping Use Vaping status: Never Used Substance Use Topics Alcohol use: Yes Alcohol/week: 8.0 standard drinks of alcohol Types: 8 Cans of Beer (12oz) per week Drug use: Yes Types: Marijuana Comment: rarely 64 y/o male presents to office with his to discuss biopsy results from 03/09/2025. Family notes that he is experiencing increase in gait disturbance and weakness. Short term memory is slightly compromised. He feels dizzy at times. He can no longer walk due to weakness. This has all increased after surgery. documented in this encounter [facility] 03-23-2025 Note HNO ID: [id number] Author: MAR BROTHERS MA Service: ? Author Type: Hogshead Roller Type: Progress Notes Filed: 03/23/2025 11:50 Note Text: 64 y/o male presents to office with his to discuss biopsy results from 03/09/2025. Family notes that he is experiencing increase in gait disturbance and weakness. Short term memory is slightly compromised. He feels dizzy at times. He can no longer walk due to weakness. This has all increased after surgery. [facility] 03-18-2025 Telephone encounter Note Thank you for your help. [facility] 03-18-2025 Miscellaneous Notes Thank you for your help. Patient reports that he received letter from his health insurance that says home health services denied due to not meeting medical necessity. This Sw asked if there was appeal information on letter. Patient reports that there is that info, but is not interested in appealing until after his post op visit next 03/23 @ [facility]. Patient reports that he wants to see what comes of that visit and will take letter to appt. This Sw noted that she would be happy to review letter and reach out to insurance to see what if anything could be done to help patient with appeal. Patient states that he wants to see what comes of his appt on 03/23 and will let this Sw know then if he would like to appeal. Patient notes that he will keep this Sw in mind and let SW know if he needs further assistance with home heatlhcare. documented in this encounter [facility] 03-18-2025 Telephone encounter Note Patient reports that he received letter from his health insurance that says home health services denied due to not meeting medical necessity. This Sw asked if there was appeal information on letter. Patient reports that there is that info, but is not interested in appealing until after his post op visit next 03/23 @ [facility]. Patient reports that he wants to see what comes of that visit and will take letter to appt. This Sw noted that she would be happy to review letter and reach out to insurance to see what if anything could be done to help patient with appeal. Patient states that he wants to see what comes of his appt on 03/23 and will let this Sw know then if he would like to appeal. Patient notes that he will keep this Sw in mind and let SW know if he needs further assistance with home heatlhcare. [facility] 03-15-2025 Telephone encounter Note Advised he would need an appointment to discuss his sleeping issues. Luz Corona MA [facility] 03-15-2025 Miscellaneous Notes Advised he would need an appointment to discuss his sleeping issues. Luz Corona MA documented in this encounter [facility] 03-13-2025 Note HNO ID: [id number] Author: RON GARCIA LSW Service: Care Management Author Type: Negative Spotter Type: Care Mgt Progress Note Filed: 03/13/2025 13:24 Note Text: CARE MANAGEMENT PROGRESS NOTE SERVICE DATE: 03/13/2025 SERVICE TIME: 1:23 PM LOS: 4 days Post-Acute Discharge Planning Patient Goal(s): General wellness [place] of Choice Explained: Discharge Planning Participant(s): Patient/Family Comments: Anticipated # of Days Until Discharge: Transport at Discharge: Family to transport home Needs Prior to Discharge: Needs Prior to Discharge: Ready for Discharge Post-Acute Discharge Plan: Patient discharging home with outpatient scripts for therapy. Summary of care completed. SIGNATURE: MICHAEL Greer PATIENT NAME: Sue Lorenz DATE: March 13, 2025 TIME: 1:23 PM [facility] 03-13-2025 Note HNO ID: [id number] Author: VIRGILIO MUKHERJEE MD Service: Neurosurgery Author Type: Physician Type: Progress Notes Filed: 03/24/2025 14:21 Note Text: Documentation Query Right-sided hemiparesis [facility] 03-12-2025 Note HNO ID: [id number] Author: DANIEL GREEN RN Service: Care Management Author Type: Registered Nurse Type: Care Mgt Progress Note Filed: 03/12/2025 16:01 Note Text: CARE MANAGEMENT PROGRESS NOTE SERVICE DATE: 03/12/2025 SERVICE TIME: 9:04 AM LOS: 3 days Needs Prior to Discharge: Bed Availability, Discharge Transportation, Precertification CM received a call from [facility]. Per [facility] is able to accept. Susan to initiate precert this morning. Pt updated and agreeable. Pt states his will transport him at time of discharge. Discharge packet is on pt's chart. CM will continue to follow for discharge planning needs. Update 1149: CM received a call from Susan at [facility]. Per Susan, [facility] is offering a P2P: Please call [phone], opt 1 then opt 2. Need his name, KIM, . Reference number: [id number]. Neurosurgery notified. Susan states she will have a bed available on 03/14 Update 1607: Nelson Horner PA-C, with Neurosurgery called and a left a voicemail on the P2P scheduling line. If Nelson does not receive a call back today, will need Neurosurgery to reattempt on 03/14. Susan at [facility] updated. Per Susan, insurance gave 14 days to call P2P. Pt updated at bedside. Pt requested CM stop back by after 3PM when his is at bedside. Update 1507: CM spoke with pt and Adrianne, at bedside. Updated pt and Adrianne that P2P is scheduled for 4:30PM. If P2P is approved, plan for discharge 03/14, with Adrianne to transport. If P2P is denied, plan for pt to discharge home with [facility]. [facility] referrals sent, a home care order will be needed. Adrianne to transport. Update 6948: Per Nelson, P2P was completed and denial upheld. Susan at [facility] updated. CM updated pt and Adrianne. Pt/family eager for patient to start therapy. They have declined to appeal at this time. Plan for pt to discharge home with [facility], home care order requested. At this time, no accepting HHC agency, though a few referrals are pending. Adrianne and patient updated. In the event HHC is unable to be obtained, pt is agreeable to outpatient therapy. Outpatient therapy orders requested. Adrianne to transport pt home at time of discharge. C vs outpatient therapy. CM will continue to follow for discharge planning needs. SIGNATURE: RAGHAVENDRA Silverman, RN PATIENT NAME: Sue Lorenz DATE: March 12, 2025 TIME: 9:03 AM [facility] 03-12-2025 Note HNO ID: [id number] Author: NELSON HORNER PA-C Service: Neurosurgery Author Type: Physician Nursery School Teacher Type: Progress Notes Filed: 03/12/2025 15:44 Note Text: Neurosurgery Progress Note SERVICE DATE: 03/12/2025 SUBJECTIVE: NAEON. Mild RAIN this am, improved. Denies n/v. OBJECTIVE: Vitals: Temp (24hrs), Av.7 ?C (98 ?F), Min:36.4 ?C (97.5 ?F), Max:36.8 ?C (98.2 ?F) BP 140/72 Pulse (!) 42 Temp 36.4 ?C (97.5 ?F) (Oral) Resp 18 Ht 170.2 cm (5' 7") Wt 86.9 kg (191 lb 9.3 oz) SpO2 96% BMI 30.01 kg/m? O2 Therapy: Room Air IANDO: Date 03/11/25 07 - 03/12/25 0603/12/25 07 - 03/13/25 0659 Shift 8323-4971 3459-4052 4166-3061 24 Hour Total 8189-3282 0737-4970 2837-3629 24 Hour Total INTAKE Shift Total OUTPUT Urine 150 150 Void (ml) 150 150 Urine Not Saved. 2 x 2 x # of BMs Number of BMs 1 x 1 x Shift Total 150 150 Weight (kg) 86.9 86.9 86.9 86.9 86.9 86.9 86.9 86.9 MEDICATIONS Current Facility-Administered Medications Medication Dose Route Frequency heparin 5,000 Units injection 5,000 Units SUBCUTANEOUS q 8 H traZODone 50 mg tab(s) (DESYREL) 50 mg ORAL AT BEDTIME PRN ondansetron (PF) 4 mg injection (ZOFRAN) 4 mg INTRAVENOUS q 6 H PRN hydrOXYzine HCl 25 mg tab(s) (ATARAX) 25 mg ORAL/FEEDING TUBE q 6 H PRN levETIRAcetam 1,000 mg tab(s) (KEPPRA) 1,000 mg ORAL/FEEDING TUBE BID finasteride 5 mg tab(s) (PROSCAR) 5 mg ORAL DAILY tamsulosin 0.4 mg cap(s) (FLOMAX) 0.4 mg ORAL AT BEDTIME senna-docusate 8.6-50 mg 2 tablet (SENNA-S) 2 tablet ORAL/FEEDING TUBE BID dextrose 15 gram/32 mL 15 g (TRUEPLUS) 15 g ORAL PRN Or glucagon 1 mg injection 1 mg INTRAMUSCULAR PRN Or dextrose 10% iv bolus 12.5 g INTRAVENOUS PRN insulin regular human injection (short acting) SUBCUTANEOUS w MEALS AND HS oxyCODONE IR 5 mg tab(s) (ROXICODONE) 5 mg ORAL q 6 H PRN acetaminophen 1,000 mg tab(s) (TYLENOL) 1,000 mg ORAL q 6 H PRN atorvastatin 20 mg tab(s) (LIPITOR) 20 mg ORAL AT BEDTIME lisinopril 20 mg tab(s) (ZESTRIL) 20 mg ORAL DAILY pantoprazole DR 40 mg tab(s) (PROTONIX) 40 mg ORAL q 24 HR NaCl 0.9% iv flush bag 20 mL INTRAVENOUS PRN dexAMETHasone 6 mg tab(s) (DECADRON) 6 mg ORAL/FEEDING TUBE BID w MEALS Or dexAMETHasone sodium phosphate (PF) 6 mg injection (DECADRON) 6 mg INTRAVENOUS BID w MEALS melatonin 3 mg tab(s) 3 mg ORAL/FEEDING TUBE DAILY (8 PM) Labs: Recent Labs 03/10/25 0404 03/09/25 1737 NA 137 140 K 4.4 4.3 CHLOR 106 105 CO2 22 23 BUN 17 16 CREAT 0.82 0.83 GLUC 152* 179* ANION 9 12 CA 8.8 8.9 MG 2.1 1.8 P 3.4 3.3 WBC 14.36* 8.97 HB 13.2 13.7 HCT 39.8 41.6 PLT 274 266 Exam: GENERAL: Awake and alert; NAD NEURO: Orientedx3; speech clear and fluent; REYES; RUE 2/5, RLE 3/5, LUE/LLE 5/5 HEENT: Incision C/D/I; ptosis OD (prosthetic OD) LUNGS: Unlabored breathing CARDIAC: Rate and rhythm as above EXTREMITIES: No deformities, No edema SKIN: Skin color normal; Temperature normal; no rashes or lesions ASSESSMENT AND PLAN: 64 year old male hx several weeks of rt sided weakness, 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 Mukherjee - will need hem/onc in the [place] area if available Addendum 03/12/2025 at 3:44pm: P2P performed, denied [facility]. Option for appeal or SNF. Patient and family considering home with home health at this time. Parts of this note may have been copied from one of my previous notes and remain pertinent. The documentation has been reviewed and edited as necessary to support the clinical decision making for today's visit. SIGNATURE: Nelson Horner PA-C PATIENT NAME: Sue Lorenz DATE: March 12, 2025 TIME: 7:03 AM Pager: [phone] [facility] 03-11-2025 Note HNO ID: [id number] Author: PREM HERNANDEZ PA-C Service: Neurosurgery Author Type: Physician Nursery School Teacher Type: Progress Notes Filed: 03/11/2025 12:28 Note Text: Neurosurgery Progress Note SERVICE DATE: 03/11/2025 SUBJECTIVE: Pt in bed. States very tired b/c he did not sleep well last night. Minimal headache. RUE weakness persists but has improved since immediate post op. OBJECTIVE: Vitals: Temp (24hrs), Av.7 ?C (98 ?F), Min:36.4 ?C (97.5 ?F), Max:36.8 ?C (98.2 ?F) BP 143/71 Pulse (!) 53 Temp 36.7 ?C (98.1 ?F) Resp 20 Ht 170.2 cm (5' 7") Wt 86.9 kg (191 lb 9.3 oz) SpO2 94% BMI 30.01 kg/m? O2 Therapy: Room Air IANDO: Date 03/10/25699 - 03/11/2565803/11/25699 - 03/12/25 0659 Shift 1002-1605 5420-7417 6239-7240 24 Hour Total 5807-7112 1202-5696 6288-8505 24 Hour Total INTAKE PO 120 120 PO 120 120 Shift Total 120 120 OUTPUT Urine 225 225 Void (ml) 225 225 Urine Not Saved. 1 x 1 x 1 x 1 x # of BMs Number of BMs 1 x 1 x Shift Total 225 225 Weight (kg) 86.9 86.9 86.9 86.9 86.9 86.9 86.9 86.9 MEDICATIONS Current Facility-Administered Medications Medication Dose Route Frequency ondansetron (PF) 4 mg injection (ZOFRAN) 4 mg INTRAVENOUS q 6 H PRN hydrOXYzine HCl 25 mg tab(s) (ATARAX) 25 mg ORAL/FEEDING TUBE q 6 H PRN levETIRAcetam 1,000 mg tab(s) (KEPPRA) 1,000 mg ORAL/FEEDING TUBE BID finasteride 5 mg tab(s) (PROSCAR) 5 mg ORAL DAILY tamsulosin 0.4 mg cap(s) (FLOMAX) 0.4 mg ORAL AT BEDTIME senna-docusate 8.6-50 mg 2 tablet (SENNA-S) 2 tablet ORAL/FEEDING TUBE BID dextrose 15 gram/32 mL 15 g (TRUEPLUS) 15 g ORAL PRN Or glucagon 1 mg injection 1 mg INTRAMUSCULAR PRN Or dextrose 10% iv bolus 12.5 g INTRAVENOUS PRN insulin regular human injection (short acting) SUBCUTANEOUS w MEALS AND HS oxyCODONE IR 5 mg tab(s) (ROXICODONE) 5 mg ORAL q 6 H PRN acetaminophen 1,000 mg tab(s) (TYLENOL) 1,000 mg ORAL q 6 H PRN atorvastatin 20 mg tab(s) (LIPITOR) 20 mg ORAL AT BEDTIME lisinopril 20 mg tab(s) (ZESTRIL) 20 mg ORAL DAILY pantoprazole DR 40 mg tab(s) (PROTONIX) 40 mg ORAL q 24 HR NaCl 0.9% iv flush bag 20 mL INTRAVENOUS PRN dexAMETHasone 6 mg tab(s) (DECADRON) 6 mg ORAL/FEEDING TUBE BID w MEALS Or dexAMETHasone sodium phosphate (PF) 6 mg injection (DECADRON) 6 mg INTRAVENOUS BID w MEALS melatonin 3 mg tab(s) 3 mg ORAL/FEEDING TUBE DAILY (8 PM) Labs: Recent Labs 03/10/25 0404 03/09/25 1737 NA 137 140 K 4.4 4.3 CHLOR 106 105 CO2 22 23 BUN 17 16 CREAT 0.82 0.83 GLUC 152* 179* ANION 9 12 CA 8.8 8.9 MG 2.1 1.8 P 3.4 3.3 WBC 14.36* 8.97 HB 13.2 13.7 HCT 39.8 41.6 PLT 274 266 Exam: GENERAL: Awake and alert; NAD; cooperative; pleasant NEURO: Orientedx3; speech clear and fluent; REYES HEENT: dressing dry and intact; ptosis OD (prosthetic OD) LUNGS: Unlabored breathing ASSESSMENT AND PLAN: 64 year old male hx several weeks of rt sided weakness, 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 The documentation has been reviewed and edited as necessary to support the clinical decision making for today's visit. SIGNATURE: Prem Hernandez PA-C PATIENT NAME: Sue Lorenz DATE: March 11, 2025 TIME: 12:19 PM Pager: [phone] [facility] 03-11-2025 Note HNO ID: [id number] Author: DANIEL GREEN RN Service: Care Management Author Type: Registered Nurse Type: Care Mgt Initial Assessment Filed: 03/11/2025 13:09 Note Text: CARE MANAGEMENT: ASSESSMENT AND DISCHARGE PLAN SERVICE DATE: March 11, 2025 SERVICE TIME: 10:09 AM PCP: Robert Aparicio MD Primary Contact: Extended Emergency Contact Information Primary Emergency Contact: BobAdrianne Address: [address] [place] [address] [address] [place], [place] [id number] [place] [address] OF [facility] Home Phone: Mobile Relation: Spouse Secondary Emergency Contact: simpson,galileo Home Phone: Mobile Phone: Relation: Daughter Admission Status: Inpatient Insurance Provider: [facility] PPO Discharge Planning requested by: Potential Transition Plans Rehab Facility Advance Directives Current Advance Directive: None 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 to Assist with AD Completion: Yes Action: Education Provided, Patient Unwilling Current Living Arrangements and Support Lives with: Spouse/significant other Type of Residence: Private Residence (House) Support: Family members, Friends/neighbors, Spouse/significant other, Children How do you manage to accomplish the following: Independent: Ambulation, Transportation to appointments/community, Dress, Meals/Meal Prep, Going to the bathroom, Bathe/Shower, Medication Management Current Services/Equipment Current Post-Acute Service(s): DME Current DME Type: Cane, Wheelchair-manual Discharge Planning Patient Goal(s): General wellness [place] of Choice Explained: [place] of Choice Given: Yes Level of Care Discussed: Inpatient Rehab Facility, Penitentiary Facility Are you interested in bedside delivery of your medications? No Discharge Planning Participant(s): Patient Patient/Family Comments: Caregiver Assessment: Caregiver is ready, willing and able to meet the patient's needs as recommended by the inter-professional team: Yes Name of Caregiver: Family Transport at Discharge: Transportation Arrangements: Car Needs Prior to Discharge: Needs Prior to Discharge: Accepting Facility, Bed Availability, Precertification, Discharge Transportation Post-Acute Discharge Plan: CM introduced self and role. Pt states he lives at home, independently, with his , Adrianne. Pt reports he utilizes the assistance of a cane at home and has access to a wheelchair, if needed. PT/OT have recommended [facility]. Pt states his FOC is [facility]. CM informed pt that [facility] is a SNF. Pt is agreeable to referral being send to [facility], referral sent. SNF referrals sent to [facility] and [place] [facility] [place] in the event [facility] is unable to accept. Patient will require a precert once an accepting facility is obtained. Pt reports his , Adrianne, will transport him at time of discharge. CM will continue to follow for discharge planning needs. Update 5114: CM spoke with Susan at [facility] ([phone]). Susan states referral was received. Awaiting MD review. SIGNATURE: RAGHAVENDRA Silverman, RN PATIENT NAME: Sue Lorenz DATE: March 11, 2025 TIME: 10:09 AM [facility] 03-10-2025 Note HNO ID: [id number] Author: ?, ?, ? Service: Pharmacy Author Type: Contracts Advisor Type: Plan of Care Filed: 03/10/2025 12:08 Note Text: PHARMACY MEDICATION REVIEW Patient Name: Sue Lorenz : 1960 The following medications were updated within the TELEVISION INSTALLER HELPER medication list: Medications ADDED to TELEVISION INSTALLER HELPER medication list Medications CHANGED on TELEVISION INSTALLER HELPER medication list Medications REMOVED from TELEVISION INSTALLER HELPER medication list ergocalciferol 50,000 unit capsule (VITAMIN D2, DRISDOL) Adjust Sig - Block E-Cancel Additional comments: Verified medication information with e-scripts/dispense report and chart review. Confirmed medications with patient. Patient stated no longer taking Vit D2 - removed from med list. Patient stated not taking finasteride - did not add to med list. Required follow up actions for nursing: None The below information represents the best possible medication history: Yes Medication history completed by: Contracts Advisor: Alley Negrete ([place] Supervisor) Source of history: Patient: Reliability of source: Appears reliable, clearly identified: Medication name, Medication dose, Medication route, and Medication frequency, Pharmacy records: e-scripts/dispense report, and [facility] records Medication nonadherence identified: No barriers noted Reconciliation completed: No, pharmacist not yet reviewed Patient interested in Bedside Delivery Services or using OP Pharmacy at discharge? Unable to assess Preferred outpatient pharmacy: e- [id number] [place] [address] [address] [facility]. [phone] [facility] [phone] Allergies: Prednisone Intolerance Comment:Patient reports clots in urine Bees Other: See Comments Comment:Tightness in chest; nausea Poison Angelita Other: See Comments Prior to Admission Medications Prescriptions Last Dose Informant Patient Reported? Taking? atorvastatin (LIPITOR) 20 mg tablet No Yes Sig: Take 1 tablet by mouth daily at bedtime. For cholesterol. lisinopril (ZESTRIL) 20 mg tablet No Yes Sig: Take 1 tablet by mouth once daily. omeprazole (PRILOSEC) 40 mg capsule Yes Yes Sig: Take 40 mg by mouth once daily. Facility-Administered Medications: None Alley Negrete (eegoes)[id number] 03/10/2025 [facility] 03-10-2025 Note HNO ID: [id number] Author: HALEY CHRISTIANSEN PA-C Service: Neurosurgery Author Type: Physician Nursery School Teacher Type: Progress Notes Filed: 03/10/2025 11:29 Note Text: Neurosurgery Progress Note SERVICE DATE: 03/10/2025 SUBJECTIVE: NAEON. Mild headache. Stable right sided weakness. Tolerating diet. Voiding with issue. OBJECTIVE: Vitals: Temp (24hrs), Av.7 ?C (98.1 ?F), Min:36.6 ?C (97.9 ?F), Max:36.8 ?C (98.2 ?F) BP 135/67 Pulse 62 Temp 36.6 ?C (97.9 ?F) (Oral) Resp 22 Ht 170.2 cm (5' 7") Wt 86.9 kg (191 lb 9.3 oz) SpO2 94% BMI 30.01 kg/m? O2 Therapy: Room Air IANDO: Date 03/09/25699 - 03/10/25 0603/10/25699 - 03/11/25 0659 Shift 4683-4890 5601-3929 4987-6767 24 Hour Total 2297-1494 7630-1859 9383-5716 24 Hour Total INTAKE PO 200 200 PO 200 200 IV 1400 1400 Volume (mL) (ceFAZolin iv piggyback 2 g in D5W (iso-osmotic) 100 mL (ANCEF)) 100 100 Volume (mL) (levETIRAcetam 500 mg in NaCl 0.9% 100 mL (KEPPRA)) 200 200 Volume (mL) (lactated ringers iv infusion) 1100 1100 Shift Total 1600 1600 OUTPUT Urine 890 578 476 0319 Void (ml) 890 664 645 5387 Shift Total 890 093 506 2299 Weight (kg) 88.7 86.9 86.9 86.9 86.9 86.9 86.9 Medications: Current Facility-Administered Medications Medication Dose Route Frequency ondansetron (PF) 4 mg injection (ZOFRAN) 4 mg INTRAVENOUS q 6 H PRN hydrOXYzine HCl 25 mg tab(s) (ATARAX) 25 mg ORAL/FEEDING TUBE q 6 H PRN levETIRAcetam 1,000 mg tab(s) (KEPPRA) 1,000 mg ORAL/FEEDING TUBE BID finasteride 5 mg tab(s) (PROSCAR) 5 mg ORAL DAILY senna-docusate 8.6-50 mg 2 tablet (SENNA-S) 2 tablet ORAL/FEEDING TUBE BID acetaminophen 1,000 mg tab(s) (TYLENOL) 1,000 mg ORAL q 6 H PRN dextrose 15 gram/32 mL 15 g (TRUEPLUS) 15 g ORAL PRN Or glucagon 1 mg injection 1 mg INTRAMUSCULAR PRN Or dextrose 10% iv bolus 12.5 g INTRAVENOUS PRN insulin regular human injection (short acting) SUBCUTANEOUS w MEALS AND HS atorvastatin 20 mg tab(s) (LIPITOR) 20 mg ORAL AT BEDTIME lisinopril 20 mg tab(s) (ZESTRIL) 20 mg ORAL DAILY pantoprazole DR 40 mg tab(s) (PROTONIX) 40 mg ORAL q 24 HR NaCl 0.9% iv flush bag 20 mL INTRAVENOUS PRN dexAMETHasone 6 mg tab(s) (DECADRON) 6 mg ORAL/FEEDING TUBE BID w MEALS Or dexAMETHasone sodium phosphate (PF) 6 mg injection (DECADRON) 6 mg INTRAVENOUS BID w MEALS potassium chloride 20-40 mEq oral powder (KLOR-CON) 20-40 mEq ORAL/FEEDING TUBE PRN Or potassium chloride iv piggyback 20 mEq/100 mL 20 mEq INTRAVENOUS PRN sodium phosphate 30 mmol in D5W 250 mL 30 mmol INTRAVENOUS PRN(NO DISPENSE) Or sodium phosphate 45 mmol in D5W 250 mL 45 mmol INTRAVENOUS PRN(NO DISPENSE) magnesium sulfate iv piggyback in sterile water 2 g 50 mL 2 g INTRAVENOUS PRN calcium gluconate iv piggyback 2 g in NaCl (iso-osmotic) 100 mL 2 g INTRAVENOUS PRN(NO DISPENSE) melatonin 3 mg tab(s) 3 mg ORAL/FEEDING TUBE DAILY (8 PM) Labs: Recent Labs 03/10/25 0404 03/09/25 1737 NA 137 140 K 4.4 4.3 CHLOR 106 105 CO2 22 23 BUN 17 16 CREAT 0.82 0.83 GLUC 152* 179* ANION 9 12 CA 8.8 8.9 MG 2.1 1.8 P 3.4 3.3 WBC 14.36* 8.97 HB 13.2 13.7 HCT 39.8 41.6 PLT 274 266 Exam: GENERAL: No distress, Alert, pleasant mood NEURO: oriented x 3, R facial droop, prosthetic right eye, left pupil briskly reactive, RUE 2/5, RLE 3/5, LUE/LLE 5/5 HEENT: face symmetric, normocephalic, dressing c/d/i LUNGS: Unlabored breathing CARDIAC: rate as above EXTREMITIES: REYES, No deformities, No edema PSYCH: appropriate conversation, mood, and affect ASSESSMENT AND PLAN: Active Hospital Problems Diagnosis Date Noted Brain tumor (HCC) 03/09/2025 Poorly controlled diabetes mellitus (HCC) 03/10/2025 Brain mass 03/09/2025 GERD (gastroesophageal reflux disease) 10/12/2022 Mixed hyperlipidemia 08/31/2021 Essential hypertension, benign 05/04/2014 BPH (benign prostatic hyperplasia) 05/04/2014 Sue Lorenz is a 64 year old male hx several weeks of rt sided weakness, 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 All relevant information was reviewed and updated accordingly on 03/10/2025 SIGNATURE: Haley Christiansen PA-C PATIENT NAME: Sue Lorenz DATE: March 10, 2025 TIME: 11:21 AM Pager [phone] [facility] 03-10-2025 Note HNO ID: [id number] Author: BRY SWARTZ MD Service: Neurology ICU Author Type: Nurse Practitioner Type: Progress Notes Filed: 03/10/2025 15:08 Note Text: Attestation signed by Bry Swartz MD at 03/10/2025 3:08 PM NEURO ICU ATTENDING ATTESTATION I have reviewed the progress note obtained and documented by the advanced practice provider. I have personally seen and examined the patient and discussed their management with the SÁNCHEZ. I reviewed the SÁNCHEZ note and agree with the documented findings and plan of care. I have repeated the examination and confirm the findings except as documented. PATIENT PROBLEMS I REVIEWED, REVISED AND/OR INITIATED: The care of this patient required my full attention and direct personal management of: Principal Problem: Brain tumor (HCC) Active Problems: Essential hypertension, benign BPH (benign prostatic hyperplasia) Mixed hyperlipidemia GERD (gastroesophageal reflux disease) Brain mass Poorly controlled diabetes mellitus (HCC) Resolved Problems: * No resolved hospital problems. * ==== STAFF COORDINATION OF CRITICAL CARE [facility] Staff Physician note of personal involvement in Care The patient is critically ill because of imminent risk of acute brain damage and continues to require intensive support and observation. This patient has a high probability of sudden, clinically significant deterioration, which requires the highest level of physician preparedness to intervene urgently. I managed/supervized life or organ supporting interventions that required frequent physician assessment. I devoted my full attention to the direct care of this patient for the amount of time indicated below. Time I spent with family or surrogate(s) is included only if the patient was incapable of providing the necessary information or participating in medical decision making. Time devoted to teaching or to any procedures I billed separately is not included. PLAN, IMPRESSION AND ACTION(S) TAKEN NEURO #L Frontoparietal Mass s/p biopsy - possible glioma - Post op care - Decadron wean per NSGY - post op keppra 1g BID until follow-up 2wks - Pain control - tylenol ingrid, oxy prn - hold DVT ppx - PT/OT Atarax PRN Start Bowel regimen AC/HS insulin Restart home lisinopril, Finasteride and flomax (home) Leukocytosis reactive Holding DVT ppx post op Please see the documented [id number] plan in the updated problem list. Plan of care discussed with: Provider, RN, Patient. Bry Stanton MD Staff, Neurointensive Care [facility] Date of Service: 03/10/2025 Time of Service: 3:08 PM This is an electronically created document. If printed, please do not remove from the chart or modify printed copy. SERVICE DATE: 03/10/2025 SERVICE TIME: 11:04 AM NEURO ICU PROGRESS NOTE DATE OF ADMISSION: 03/09/2025 Subjective Hospital Course: 03/10: CHARLIE. Remains at same neurologic baseline as prior to brain biopsy. Stable for transfer versus discharge pending recommendations from NSGY. Events Since Last Note: as above Objective BP 143/76 Pulse 64 Temp 36.6 ?C (97.9 ?F) (Oral) Resp 16 Ht 170.2 cm (5' 7") Wt 86.9 kg (191 lb 9.3 oz) SpO2 95% BMI 30.01 kg/m? Weight change: Neuro: Right eye prosthetic Left eye, 3 mm, briskly reactive, EOM intact Right facial droop Mild dysarthria RUE proximal weakness 2/5 some AG Right hand grasp 4/5, sensation intact RLE 4/5, maintains AG, some drift, sensation intact LUE/LLE 5/5 sensation intact GCS: Eyes: 4. Spontaneous Verbal: 5: Oriented Motor: 6: Obeys Motor commands Total: 15 CV: RRR Pulm: Room air, clear anterior/lateral davis GI/: Normoactive all quadrants, not tender/firm/distended Skin/Extremities: Edema- No Peripheral pulses- Present all extremities Wounds/Drsgs- Yes Breakdown- No Diagnostic tests reviewed for today's visit: Most recent labs and imaging results. Lines, Drains, and Airways Line Duration Peripheral 03/09/25 Right Hand 20 Gauge 1 day Peripheral 03/09/25 0835 Left Hand 18 Gauge <1 day ICU Checklist Last Documented/Reviewed time: 03/10/2025 8:30 AM ICU Consent Complete?: No ICU Code Status "History assess/Full code by default: Yes, will address today A= Assess, Prevent, Manage Pain Pain adequately controlled?: Yes C= Choice of Sedation and Analgesia RASS at Goal?: Yes B= Both Spontaneous Awakening and Breathing Trials Ventilator: None D= Delirium: Assess, Prevent and Manage ICU Delirium Status: CAM Negative - no action required Sleep adequate?: Yes Restraint Status: None E= Early Mobility/E (more content not included)... [facility] 03-09-2025 Note HNO ID: [id number] Author: SAEED PAULA, RN Service: Nursing Author Type: Registered Nurse Type: Progress Notes Filed: 03/09/2025 15:12 Note Text: Tray line attempted to be called again but went to again. No second message left. [facility] 03-09-2025 Note HNO ID: [id number] Author: SAEED PAULA, ANGIE Service: Nursing Author Type: Registered Nurse Type: Progress Notes Filed: 03/09/2025 14:14 Note Text: Pt. ordered a meal tray via with nutrition. [facility] 03-09-2025 Note HNO ID: [id number] Author: PREM HERNANDEZ PA-C Service: Neurosurgery Author Type: Physician Nursery [employer] Teacher Type: Progress Notes Filed: 03/09/2025 13:41 Note Text: Neurosurgery Post Op Note: Mr. Lorenz presented today for an elective biopsy of left parietal brain mass. He is now in recovery, awake and alert. He states he's sore at the head site but denies headache. He is c/o rue weakness that seems worse to him than before surgery, but has been week for several weeks. Asking for urinal to void. 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 Yaz Hernandez PA-C #[id number] [facility] 03-09-2025 Note HNO ID: [id number] Author: SAEED PAULA, ANGIE Service: Nursing Author Type: Registered Nurse Type: Progress Notes Filed: 03/09/2025 12:51 Note Text: Pt to CT scan with this RN on monitor and transportation. [facility] 03-09-2025 Note HNO ID: [id number] Author: JOSE CASTANEDA APRN.ELECTRONIC COMPONENT PROCESSOR Service: Anesthesiology Author Type: Nurse Repairer Screen Crusher Type: Anesthesia Procedure Notes Filed: 03/09/2025 09:10 Note Text: ANESTHESIOLOGY PROCEDURE NOTE PIV General Information Procedure Start Time/Medication Administration: 03/09/2025 8:35 AM Procedure End Time: 03/09/2025 8:35 AM Staffing ELECTRONIC COMPONENT PROCESSOR: Jose Castaneda APRN.ELECTRONIC COMPONENT PROCESSOR Performed by: ELECTRONIC COMPONENT PROCESSOR Preparation Sterility Preparation: hand hygiene performed prior to procedure, surgical cap used, mask used, skin prep agent completely dried prior to procedure Sterility Technique Not Completely Performed Due to Extreme Emergency: No Site Prep: Chloraprep Procedure Details Indication: need for IV access Needle Size/Type: 18 gauge angiocath Orientation: Left Location: Hand Imaging Guidance Used: No SIGNATURE: Jose Castaneda APRN.ELECTRONIC COMPONENT PROCESSOR PATIENT NAME: Sue Lorenz DATE: March 09, 2025 TIME: 9:10 AM CSN: [id number] [facility] 03-09-2025 Note HNO ID: [id number] Author: JOSE CASTANEDA APRN.ELECTRONIC COMPONENT PROCESSOR Service: Anesthesiology Author Type: Nurse Repairer Screen Crusher Type: Anesthesia Procedure Notes Filed: 03/09/2025 08:41 Note Text: ANESTHESIOLOGY PROCEDURE NOTE Airway General Information Procedure Start Time/Medication Administration: 03/09/2025 8:30 AM Procedure End Time: 03/09/2025 8:31 AM Patient location during procedure: OR Timeout Performed Pre-procedure: timeout performed Consent Obtained: Yes Patient identity confirmed: arm band and patient Staffing ELECTRONIC COMPONENT PROCESSOR: Jose Castaneda APRN.ELECTRONIC COMPONENT PROCESSOR Performed by: anesthesiologist Indications and Patient Condition Indications for airway management: anesthesia and airway protection Preoxygenated: yes anesthesia circuit Patient position: sniffing Method: asleep Cricoid Pressure: No Manual In-Line Stabilization: No Difficult Mask: No Final Airway Details Final airway type: endotracheal airwayFinal Endotracheal Airway: ETT Cuffed: yes Successful intubation technique: video laryngoscopy Devices used: Perez Endotracheal tube insertion site: oral Blade: Jesus Blade size: #4 ETT size (mm): 8.0 Measured from: lips Measurement (cm): 23 Placement verified by: chest auscultation and capnometry Cormack-Lehane Classification: grade I - full view of glottis Number of attempts at approach: 1 Failed airway: no Unrecognized esophageal intubation: no Airway not difficult SIGNATURE: Jose Castaneda APRN.CRNA PATIENT NAME: Sue Lorenz DATE: March 09, 2025 TIME: 8:40 AM CSN: [id number] [facility] 03-09-2025 Telephone encounter Note Prescription Refill Information The patient has been identified by name and date of : Yes Caregiver verified no other encounters exist for this prescription request: Yes Caregiver confirmed with patient/requestor that no other refills are due, in the near future, with this provider at this time: Yes The last office visit in the department: 02/19/2025 Does the patient have a future office visit with this provider/department: Yes Requested Prescriptions Pending Prescriptions Disp Refills lisinopril (ZESTRIL) 20 mg tablet 90 tablet 2 Sig: Take 1 tablet by mouth once daily. atorvastatin (LIPITOR) 20 mg tablet 90 tablet 2 Sig: Take 1 tablet by mouth daily at bedtime. For cholesterol. ergocalciferol 50,000 unit capsule (VITAMIN D2, DRISDOL) 12 capsule 0 Sig: Take 1 capsule by mouth one time a week. Use as directed. Abby Pearson LPN March 09, 2025 7:51 AM [facility] 03-09-2025 Miscellaneous Notes Prescription Refill Information The patient has been identified by name and date of : Yes Caregiver verified no other encounters exist for this prescription request: Yes Caregiver confirmed with patient/requestor that no other refills are due, in the near future, with this provider at this time: Yes The last office visit in the department: 02/19/2025 Does the patient have a future office visit with this provider/department: Yes Requested Prescriptions Pending Prescriptions Disp Refills lisinopril (ZESTRIL) 20 mg tablet 90 tablet 2 Sig: Take 1 tablet by mouth once daily. atorvastatin (LIPITOR) 20 mg tablet 90 tablet 2 Sig: Take 1 tablet by mouth daily at bedtime. For cholesterol. ergocalciferol 50,000 unit capsule (VITAMIN D2, DRISDOL) 12 capsule 0 Sig: Take 1 capsule by mouth one time a week. Use as directed. Abby Pearson LPN March 09, 2025 7:51 AM documented in this encounter [facility] 03-09-2025 Note HNO ID: [id number] Author: PEG BONILLA RN Service: Nursing Author Type: Registered Nurse Type: Nursing Progress Note Filed: 03/09/2025 07:03 Note Text: Weakness to right arm and leg, up with cane. Loses balance.Patient has prosthetic right eye [facility] 03-08-2025 Note HNO ID: [id number] Author: VIRGILIO MUKHERJEE MD Service: ? Author Type: Physician Type: Progress Notes Filed: 03/08/2025 06:22 Note Text: [facility] New Patient Consultation No referring provider defined for this encounter. CC: Brain mass Subjective History of Present Illness: Lg Lorenz is a 64-year-old male presenting with sudden onset right-sided weakness. Lg, accompanied by his , reports sudden onset of right-sided weakness on January 15. Prior to this, he was undergoing physical therapy for knee pain and was able to walk with a limp but had full function of his right side. On January 14, he was able to read and write without difficulty. However, by January 15, he experienced significant weakness in his right arm, stating, "I can't hold a pen, I can't do anything with my right arm hardly." He describes difficulty with fine motor tasks, such as writing, which now takes him approximately 40 minutes to complete. He sought evaluation from his family doctor, who suspected a stroke and ordered an MRI and CT scan. Lg does not recall being explicitly diagnosed with a stroke. He has not seen the imaging results. Lg does not endorse any facial weakness or difficulty with speech. He is able to move his legs, noting that his left leg is "way better" than his right. He does not report any sensory changes or pain in his right side. Past Medical History: PAST MEDICAL HISTORY Diagnosis Date BPH (benign prostatic hyperplasia) 05/04/2014 Cervical radiculopathy Cyst of epididymis 11/15/201605/2014 DDD (degenerative disc disease), thoracolumbar spurring 08/04/[address] Anthony. negative biopsies Erectile dysfunction Essential hypertension, benign 05/04/2014 GERD (gastroesophageal reflux disease) Glaucoma 2012 Dr. Julio. Right eye only. Hearing loss History of tobacco use Horseshoe kidney with renal calculus 11/28/2016 Marijuana use Mixed hyperlipidemia PMH - PAST MEDICAL HISTORY OF open angle glaucoma OD Urinary retention Vitamin D deficiency Past Surgical History: PAST SURGICAL HISTORY Procedure Laterality Date APPENDECTOMY COLONOSCOPY FLX DX W/COLLJ SPEC WHEN PFRMD 08/09/2017 Colonoscopy EYE SURGERY PROCEDURE OD 12/30/12 Evisceration with implant PROSTATE BIOPSY 07/2016 Family History: FAMILY HISTORY Problem Relation Age of Onset other (dementia) Mother Cancer Father bone Macular Degen Father Prostate Cancer Father Diabetes Sister Cancer Paternal Grandmother Breast Cancer Cataract Paternal Aunt other (downs) Son SOCIAL HISTORY[1] Allergies: Prednisone, Bees, and Poison Angelita Current Outpatient Medications Medication Sig lisinopril (ZESTRIL) 20 mg tablet Take 1 tablet by mouth once daily. atorvastatin (LIPITOR) 20 mg tablet Take 1 tablet by mouth daily at bedtime. For cholesterol. ergocalciferol 50,000 unit capsule (VITAMIN D2, DRISDOL) Take 1 capsule by mouth one time a week. Use as directed. (Patient not taking: Reported on 03/04/2025) tamsulosin (FLOMAX) 0.4 mg Take 1 capsule by mouth once daily. (Patient not taking: Reported on 03/04/2025) finasteride (PROSCAR) 5 mg tablet 1 tablet once daily. (Patient not taking: Reported on 03/04/2025) No current facility-administered medications for this visit. Employed: N/A Review of systems: Constitutional: No recent fever or weight loss. Eyes: No history of glaucoma or cataracts. ENMT: No recent ear infection, nasal congestion, mouth sores or sore throat. CV: No history of chest pain, palpitations or leg swelling. Respiratory: No history of SOB, asthma or recent cough. Gastrointestinal: No history of nausea, vomiting, dysphagia or abdominal pain. Genitourinary: No history of hematuria or dysuria. Musculoskeletal: No complaint of arthritis, unstable gait or arm/leg weakness. Psychiatric: No history of hallucinations or depression or anxiety. ROS Neurological: No complaint of headache. No complaint of tinnitus. No complaint of decreased hearing. No complaint of diplopia. No complaints of decreased visual acuity. No complaint of arm/leg numbness. No problem with limb coordination. No complaint of syncope, seizures or disorientation. Objective Physical Exam: Ht 170.2 cm (5' 7") Wt 83.9 kg (185 lb) BMI 28.98 kg/m? Neurological: Higher integrative functions: Oriented to person, place AND time. Memory: Good recent and remote. Attention Span and Concentration: Good. Language: Accurate naming of objects. Good comprehension. Fund of Knowledge: Good. 2nd CN: Full visual davis. 3rd,4th,6th CN: Pupils (=), round, react to light, full extraocular movements. 5th CN: No decrease in facial sensation. 7th CN: Central facial paralysis 8th CN: Hears finger rub well bilaterally. 9th CN: Good gag. 10th CN: Spontaneous palate movement, full and symmetric. 11th CN: Full strength in shoulder shrug. 12th CN: (more content not included)... [facility] 03-08-2025 History of Presen t illness Narrative Images from the original note were not included. [facility] New Patient Consultation No referring provider defined for this encounter. CC: Brain mass Subjective History of Present Illness: Lg Lorenz is a 64-year-old male presenting with sudden onset right-sided weakness. Lg, accompanied by his , reports sudden onset of right-sided weakness on January 15. Prior to this, he was undergoing physical therapy for knee pain and was able to walk with a limp but had full function of his right side. On January 14, he was able to read and write without difficulty. However, by January 15, he experienced significant weakness in his right arm, stating, "I can't hold a pen, I can't do anything with my right arm hardly." He describes difficulty with fine motor tasks, such as writing, which now takes him approximately 40 minutes to complete. He sought evaluation from his family doctor, who suspected a stroke and ordered an MRI and CT scan. Lg does not recall being explicitly diagnosed with a stroke. He has not seen the imaging results. Lg does not endorse any facial weakness or difficulty with speech. He is able to move his legs, noting that his left leg is "way better" than his right. He does not report any sensory changes or pain in his right side. Past Medical History: PAST MEDICAL HISTORY Diagnosis Date BPH (benign prostatic hyperplasia) 05/04/2014 Cervical radiculopathy Cyst of epididymis 11/15/201605/2014 DDD (degenerative disc disease), thoracolumbar spurring 08/04/[address] Anthony. negative biopsies Erectile dysfunction Essential hypertension, benign 05/04/2014 GERD (gastroesophageal reflux disease) Glaucoma 2012 Dr. Julio. Right eye only. Hearing loss History of tobacco use Horseshoe kidney with renal calculus 11/28/2016 Marijuana use Mixed hyperlipidemia PMH - PAST MEDICAL HISTORY OF open angle glaucoma OD Urinary retention Vitamin D deficiency Past Surgical History: PAST SURGICAL HISTORY Procedure Laterality Date APPENDECTOMY COLONOSCOPY FLX DX W/COLLJ SPEC WHEN PFRMD 08/09/2017 Colonoscopy EYE SURGERY PROCEDURE OD 12/30/12 Evisceration with implant PROSTATE BIOPSY 07/2016 Family History: FAMILY HISTORY Problem Relation Age of Onset other (dementia) Mother Cancer Father bone Macular Degen Father Prostate Cancer Father Diabetes Sister Cancer Paternal Grandmother Breast Cancer Cataract Paternal Aunt other (downs) Son SOCIAL HISTORY[1] Allergies: Prednisone, Bees, and Poison Angelita Current Outpatient Medications Medication Sig lisinopril (ZESTRIL) 20 mg tablet Take 1 tablet by mouth once daily. atorvastatin (LIPITOR) 20 mg tablet Take 1 tablet by mouth daily at bedtime. For cholesterol. ergocalciferol 50,000 unit capsule (VITAMIN D2, DRISDOL) Take 1 capsule by mouth one time a week. Use as directed. (Patient not taking: Reported on 03/04/2025) tamsulosin (FLOMAX) 0.4 mg Take 1 capsule by mouth once daily. (Patient not taking: Reported on 03/04/2025) finasteride (PROSCAR) 5 mg tablet 1 tablet once daily. (Patient not taking: Reported on 03/04/2025) No current facility-administered medications for this visit. Employed: N/A Review of systems: Constitutional: No recent fever or weight loss. Eyes: No history of glaucoma or cataracts. ENMT: No recent ear infection, nasal congestion, mouth sores or sore throat. CV: No history of chest pain, palpitations or leg swelling. Respiratory: No history of SOB, asthma or recent cough. Gastrointestinal: No history of nausea, vomiting, dysphagia or abdominal pain. Genitourinary: No history of hematuria or dysuria. Musculoskeletal: No complaint of arthritis, unstable gait or arm/leg weakness. Psychiatric: No history of hallucinations or depression or anxiety. ROS Neurological: No complaint of headache. No complaint of tinnitus. No complaint of decreased hearing. No complaint of diplopia. No complaints of decreased visual acuity. No complaint of arm/leg numbness. No problem with limb coordination. No complaint of syncope, seizures or disorientation. Objective Physical Exam: Ht 170.2 cm (5' 7") Wt 83.9 kg (185 lb) BMI 28.98 kg/m Neurological: Higher integrative functions: Oriented to person, place & time. Memory: Good recent and remote. Attention Span and Concentration: Good. Language: Accurate naming of objects. Good comprehension. Fund of Knowledge: Good. 2nd CN: Full visual davis. 3rd,4th,6th CN: Pupils (=), round, react to light, full extraocular movements. 5th CN: No decrease in facial sensation. 7th CN: Central facial paralysis 8th CN: Hears finger rub well bilaterally. 9th CN: Good gag. 10th CN: Spontaneous palate movement, full and symmetric. 11th CN: Full strength in shoulder shrug. 12th CN: Tongue protrusion full and midline. Sensation: No decrease in sensation in upper or lower limbs to touch. Musculoskeletal: Right hemiparesis 09/09 Labs: Latest Ref Rng & Units 08/16/2021 07/10/2024 02/19/2025 CBC WBC 3.70 - 11.00 k/uL 7.76 7.01 7.32 RBC 4.20 - 6.00 m/uL 5.22 5.25 5.18 Hemoglobin 13.0 - 17.0 g/dL 14.8 14.5 14.5 Hematocrit 39.0 - 51.0 % 45.4 44.4 43.0 MCV 80.0 - 100.0 fL 87.0 84.6 83.0 MCH 26.0 - 34.0 pg 28.4 27.6 28.0 MCHC 30.5 - 36.0 g/dL 32.6 32.7 33.7 RDW-CV 11.5 - 15.0 % 13.3 13.4 13.8 Platelet Count 150 - 400 k/uL 287 250 273 MPV 9.0 - 12.7 fL 10.6 10.4 10.2 Baso% % 1.9 1.9 Abs Neut (ANC) 1.45 - 7.50 k/uL 2.86 2.81 Abs Lymph 1.00 - 4.00 k/uL 2.51 2.47 Abs [place] <0.87 k/uL 0.90 0.89 Abs Eosin <0.46 k/uL 0.59 1.00 Abs Baso <0.11 k/uL 0.13 0.14 NRBC /100 WBC 0.0 0.0 Latest Ref Rng & Units 05/23/2023 07/10/2024 02/19/2025 CMP Sodium 136 - 144 mmol/L 138 141 139 Potassium 3.7 - 5.1 mmol/L 4.1 4.7 4.2 Chloride 98 - 107 mmol/L 102 105 104 CO2 22 - 30 mmol/L 24 23 23 Glucose 74 - 99 mg/dL 88 97 104 BUN 9 - 24 mg/dL 17 25 22 Creatinine 0.73 - 1.22 mg/dL 0.99 1.01 0.95 EGFR >=60 mL/min/1.73m 86 84 89 Protein, Total 6.3 - 8.0 g/dL 7.3 6.7 7.2 Albumin 3.9 - 4.9 g/dL 4.6 4.6 4.8 Calcium 8.5 - 10.2 mg/dL 9.8 9.1 9.8 Bilirubin, Total 0.2 - 1.3 mg/dL 0.6 0.4 0.7 AST 14 - 40 U/L 19 16 14 ALT 10 - 54 U/L 33 26 19 Alkaline Phosphatase 38 - 113 U/L 59 58 63 Imaging: - MRI Brain with contrast: - Incidental meningioma - Lesion suspicious for a primary brain tumor infiltrating the left motor cortex with partial enhancement and associated edema - No other major intracranial abnormalities noted - CT Brain: No findings discussed Data Review: Personal review of medical records: I reviewed the [facility] chart. Personal review of image, tracing or specimen: Virgilio Mukherjee MD Assessment & Plan 1. Brain mass (G93.89) 2. 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 - Tumor is not amenable to surgical resection due to infiltration of motor cortex and high risk of worsening neurological deficits. - Stereotactic needle biopsy required for definitive diagnosis; discussed procedure, including use of MRI-based navigation, general anesthesia, small incision, and robotic arm guidance. - Discussed risks of biopsy, including minor bleeding and rare risk (<1%) of catastrophic hemorrhage; patient and spouse informed and acknowledged understanding. - Will obtain advanced MRI to map motor fibers prior to biopsy to minimize risk of additional neurological injury. - Plan to start steroids after biopsy to reduce peritumoral edema and potentially improve neurological function; discussed rationale for delaying steroids until after biopsy to avoid masking histopathological diagnosis. - Pathology results expected within 7-10 days post-biopsy; will determine further treatment options based on findings. - Provided education on tumor location, rationale for biopsy, risks of surgery, and next steps; patient and spouse expressed understanding. - Will contact patient within a few hours to confirm biopsy scheduling, aiming for tomorrow or early next week. Recommendations: As above Medicines: No Change Instructions: Continue present activity Physician vapt-by-smpj time was 30 minutes with > 50% devoted to counseling or co-ordination of care. Approximately 20 minutes were spent reviewing medical records. No resident was available to participate in this visit. I saw and evaluated the patient. Medical Decision Making: Problems: Moderate: 2+ stable chronic illnesses Data: Unique source(s) for external note(s) reviewed: 2 Unique test result(s) reviewed: 2 Unique test(s) ordered: 1 Medical Decision Making Level: 4 - Moderate Virgilio Zamora MD 6:20 AM 03/08/2025 [facility] [1] Social History Tobacco Use Smoking status: Former Current packs/day: 0.00 Average packs/day: 0.5 packs/day for 36.0 years (18.0 ttl pk-yrs) Types: Cigarettes Start date: 11/28/1979 Quit date: 11/28/2015 Years since quittin.2 Smokeless tobacco: Never Vaping Use Vaping status: Never Used Substance Use Topics Alcohol use: Yes Alcohol/week: 8.0 standard drinks of alcohol Types: 8 Cans of Beer (12oz) per week Drug use: Yes Types: Marijuana Comment: once per month Sue Lorenz denies headaches, migraines, vision/hearing changes, dizziness, seizures, or fatigue He reports inability to use the right side of his body as much as the left. These symptoms started 01/2025. MRI obtained. documented in this encounter [facility] 03-04-2025 Telephone encounter Note Scheduled STAT Brain MRI tomorrow at 11:30 am, [facility]. Patient was given instructions and advised to look over appt information in his Mychart. Notified patient that he will have to sign a waiver stating that he is responsible for the bill if his insurance does not cover MRI. Patient voiced understanding. Explained to patient that Dr. Mukherjee is working on scheduling his brain bx next Saturday in [place]. He will be notified tomorrow if he is able to do so. Patient agreed. Roselyn Christianson LPN [facility] 03-04-2025 Miscellaneous Notes Scheduled STAT Brain MRI tomorrow at 11:30 am, [facility]. Patient was given instructions and advised to look over appt information in his Mychart. Notified patient that he will have to sign a waiver stating that he is responsible for the bill if his insurance does not cover MRI. Patient voiced understanding. Explained to patient that Dr. Mukherjee is working on scheduling his brain bx next Saturday in [place]. He will be notified tomorrow if he is able to do so. Patient agreed. Roselyn Christianson LPN documented in this encounter [facility] 03-04-2025 Note HNO ID: [id number] Author: MAR BROTHERS MA Service: ? Author Type: Hogshead Roller Type: Progress Notes Filed: 03/08/2025 06:22 Note Text: Sue Lorenz denies headaches, migraines, vision/hearing changes, dizziness, seizures, or fatigue He reports inability to use the right side of his body as much as the left. These symptoms started 01/2025. MRI obtained. [facility] 03-03-2025 Telephone encounter Note Attempted to contact Norbert in regards to his appointment with Dr. Mukherjee tomorrow morning. Needs to reschedule due to the provider needed in surgery. Provided call back number to schedule. Mar Brothers MA March 03, 2025 2:58 PM [facility] 03-03-2025 Miscellaneous Notes Attempted to contact Norbert in regards to his appointment with Dr. Mukherjee tomorrow morning. Needs to reschedule due to the provider needed in surgery. Provided call back number to schedule. 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 Patient here today for complaint of right sided weakness, foot drop, inability to speak of the right side of his mouth for 1 month. States that he woke up with these symptoms and denies recent head/neck injury, headache, vision changes with this. Has developed some new numbness/tingling in his right arm in the last 2-3 weeks. Has to raise his right arm with his left to use his computer and notes that his right arm drifts when using his mouse. Denies chest pain, Shortness of Breath, fever/chills, nausea, vomiting, diarrhea. Patient expectations: New Consult Tumor Specifics: Location: brain Previous Evaluations: Impression IMPRESSION: 1.9 cm heterogeneously enhancing mass in the left frontal periventricular white matter with additional adjacent small foci of enhancement involving body of the corpus callosum. Adjacent confluent T2/FLAIR hyperintensity and restricted diffusion with mild local mass effect are present. Imaging characteristics suggest neoplastic etiology such as high-grade glioma versus lymphoma, much less likely metastatic disease. Additional extra-axial dural based 0.8 to 1.1 cm masses over the right parietal and left parietal convexity suggesting small meningiomas without significant mass effect. Consumer Education Specialist: PEDRO Transcribe Date/Time: Feb 19 2025 10:42A Dictated by : MERCEDES BARRAGAN MD This examination was interpreted and the report reviewed and electronically signed by: MERCEDES BARRAGAN MD on Feb 19 2025 10:52AM EST Results-Findings * * *Final Report* * * DATE OF EXAM: Feb 19 2025 10:37AM [facility] 0295 - MRI BRAIN WO/W IVCON / PROCEDURE REASON: multiple diagnoses * * * * Physician Interpretation * * * * EXAMINATION: MRI BRAIN WO/W IVCON CLINICAL HISTORY: Left frontal sargent radiata hyperdensity on prior CT TECHNIQUE: Routine brain MRI protocol without and with contrast including diffusion images. MQ: MRBWOW_2 Contrast: 8.5 mL Elucirem IV COMPARISON: CT/CTA obtained earlier today. RESULT: There is restricted diffusion in the left frontal sargent radiata and extending into the body of the corpus callosum eccentrically to the left corresponding to hyperdensity seen on prior CTA. There is confluent T2/FLAIR hyperintensity adjacently and extending into the body of the corpus callosum. There is local mass effect. No corresponding susceptibility changes to suggest intralesional hemorrhage. Post contrast sequences demonstrates heterogeneous enhancement in this area and small foci of enhancement within the body of the corpus callosum adjacently as seen on coronal series 12 image 13. Area of parenchymal enhancement measures up to 1.9 x 1.5 cm in greatest transverse dimensions on series 13 image 70. Foci of corpus callosal enhancement measuring up to 5 mm on series 13 image 62. Imaging characteristics suggest neoplastic etiology such as high-grade glioma versus lymphoma, much less likely distending disease. 1.1 cm extra-axial dural based homogeneously enhancing lesion over the right parietal convexity on series 13 image 58 consistent with small meningioma as seen on prior CTA. Likely additional 8 mm left parietal parafalcine meningioma on series 13 image 74. No restricted diffusion to suggest acute infarct. Hemorrhage: No evidence of prior parenchymal hemorrhage on the susceptibility weighted images. Mass Lesion/ Mass Effect: No extra-axial fluid collection. No pathologic leptomeningeal enhancement is noted following contrast administration. No significant mass effect elsewhere. Chronic Change: The white matter is within normal limits of signal intensity for age. Parenchyma: No significant volume loss for age. The brain parenchyma is otherwise within normal limits of signal intensity and morphology. Ventricles: Normal caliber and morphology. Skull Base: Hypothalamic and pituitary region are grossly normal. Craniocervical junction is normal. No significant marrow replacement process. Vasculature: Major intracranial arterial structures, and dural venous sinuses show typical flow void, suggesting patency by spin echo criteria. Other: The visualized paranasal sinuses and mastoid air cells are clear. The orbits and extracranial soft tissues are unremarkable. Right globe prosthesis. Marianna Young APRN.SHAISTA February 22, 2025 [facility] 02-22-2025 Miscellaneous Notes Time Frame: Expedite Provider: Eduarda Tanner Grabowski, Mohammadi, Soni Referring: Robert Aparicio, Dx: high-grade glioma versus lymphoma Patient: Sue Lorenz Address: Sue Lorenz [id number] [facility] [place] [address] Per Triage: Sue Lorenz is a 64 year old male: HPI Sue Lorenz is a 64 year old male who presents here today for Above Complaints. Patient here today for complaint of right sided weakness, foot drop, inability to speak of the right side of his mouth for 1 month. States that he woke up with these symptoms and denies recent head/neck injury, headache, vision changes with this. Has developed some new numbness/tingling in his right arm in the last 2-3 weeks. Has to raise his right arm with his left to use his computer and notes that his right arm drifts when using his mouse. Denies chest pain, Shortness of Breath, fever/chills, nausea, vomiting, diarrhea. Patient expectations: New Consult Tumor Specifics: Location: brain Previous Evaluations: Impression IMPRESSION: 1.9 cm heterogeneously enhancing mass in the left frontal periventricular white matter with additional adjacent small foci of enhancement involving body of the corpus callosum. Adjacent confluent T2/FLAIR hyperintensity and restricted diffusion with mild local mass effect are present. Imaging characteristics suggest neoplastic etiology such as high-grade glioma versus lymphoma, much less likely metastatic disease. Additional extra-axial dural based 0.8 to 1.1 cm masses over the right parietal and left parietal convexity suggesting small meningiomas without significant mass effect. Consumer Education Specialist: PEDRO Transcribe Date/Time: Feb 19 2025 10:42A Dictated by : MERCEDES BARRAGAN MD This examination was interpreted and the report reviewed and electronically signed by: MERCEDES BARRAGAN MD on Feb 19 2025 10:52AM EST Results-Findings * * *Final Report* * * DATE OF EXAM: Feb 19 2025 10:37AM [facility] 0295 - MRI BRAIN WO/W IVCON / PROCEDURE REASON: multiple diagnoses * * * * Physician Interpretation * * * * EXAMINATION: MRI BRAIN WO/W IVCON CLINICAL HISTORY: Left frontal sargent radiata hyperdensity on prior CT TECHNIQUE: Routine brain MRI protocol without and with contrast including diffusion images. MQ: MRBWOW_2 Contrast: 8.5 mL Elucirem IV COMPARISON: CT/CTA obtained earlier today. RESULT: There is restricted diffusion in the left frontal sargent radiata and extending into the body of the corpus callosum eccentrically to the left corresponding to hyperdensity seen on prior CTA. There is confluent T2/FLAIR hyperintensity adjacently and extending into the body of the corpus callosum. There is local mass effect. No corresponding susceptibility changes to suggest intralesional hemorrhage. Post contrast sequences demonstrates heterogeneous enhancement in this area and small foci of enhancement within the body of the corpus callosum adjacently as seen on coronal series 12 image 13. Area of parenchymal enhancement measures up to 1.9 x 1.5 cm in greatest transverse dimensions on series 13 image 70. Foci of corpus callosal enhancement measuring up to 5 mm on series 13 image 62. Imaging characteristics suggest neoplastic etiology such as high-grade glioma versus lymphoma, much less likely distending disease. 1.1 cm extra-axial dural based homogeneously enhancing lesion over the right parietal convexity on series 13 image 58 consistent with small meningioma as seen on prior CTA. Likely additional 8 mm left parietal parafalcine meningioma on series 13 image 74. No restricted diffusion to suggest acute infarct. Hemorrhage: No evidence of prior parenchymal hemorrhage on the susceptibility weighted images. Mass Lesion/ Mass Effect: No extra-axial fluid collection. No pathologic leptomeningeal enhancement is noted following contrast administration. No significant mass effect elsewhere. Chronic Change: The white matter is within normal limits of signal intensity for age. Parenchyma: No significant volume loss for age. The brain parenchyma is otherwise within normal limits of signal intensity and morphology. Ventricles: Normal caliber and morphology. Skull Base: Hypothalamic and pituitary region are grossly normal. Craniocervical junction is normal. No significant marrow replacement process. Vasculature: Major intracranial arterial structures, and dural venous sinuses show typical flow void, suggesting patency by spin echo criteria. Other: The visualized paranasal sinuses and mastoid air cells are clear. The orbits and extracranial soft tissues are unremarkable. Right globe prosthesis. Marianna Young APRN.PROFESSIONAL DRIVER February 22, 2025 Request Summary [[id number]] Procedure: CONSULT TO NEUROLOGY Status: Needs Scheduling ([id number] Pending) Requested appt date: Authorizing: Robert Aparicio MD in [facility] Referral: [id number] (Authorized) Expires: 02/19/2026 Priority: Routine Diagnosis: Neoplasm of brain causing mass effect and brain compression on adjacent structur... Order Specific Questions Does consulting provider have [facility] Epic access? Yes [facility] Reason For Visit 1.9 cm brain mass with stroke like symptoms for 1 month documented in this encounter [facility] 02-22-2025 Telephone encounter Note Request Summary [[id number]] Procedure: CONSULT TO NEUROLOGY Status: Needs Scheduling (Hwyx-ha-Xowieio Pending) Requested appt date: Authorizing: Robert Aparicio MD in [facility] Referral: [id number] (Authorized) Expires: 02/19/2026 Priority: Routine Diagnosis: Neoplasm of brain causing mass effect and brain compression on adjacent structur... Order Specific Questions Does consulting provider have [facility] Epic access? Yes [facility] Reason For Visit 1.9 cm brain mass with stroke like symptoms for 1 month [facility] 02-19-2025 Note HNO ID: [id number] Author: PATRICK SINGLETON, PT Service: ? Author Type: Food Mixer Assembler Type: Progress Notes Filed: 02/22/2025 09:00 Note Text: Pt arrived to therapy and states that he just found out this morning that he has a brain tumor that is pushing on his frontal lobe and they believe this is causing his drop foot. Consoled pt about new diagnosis. No skilled treatments performed this visit. Radha Michael, TELEVISION INSTALLER HELPER Patrick Singleton, PT, DPT. [facility] 02-19-2025 History of Presen t illness Narrative Pt arrived to therapy and states that he just found out this morning that he has a brain tumor that is pushing on his frontal lobe and they believe this is causing his drop foot. Consoled pt about new diagnosis. No skilled treatments performed this visit. LANCE Mathis, PT, DPT. documented in this encounter [facility] 02-19-2025 Telephone encounter Note MRI results back as well and already discussed with patient by Dr. Aparicio. See other phone note. Closing this encounter. Nicky Whitley MA [facility] 02-19-2025 Miscellaneous Notes MRI results back as well and already discussed with patient by Dr. Aparicio. See other phone note. Closing this encounter. Nicky Whitley MA See providers results. Aminata Glasgow RN I got this message and have reviewed the results. Awaiting MRI results which were STAT and are in process. Azalia with [facility] Imaging Support was calling on behalf of Dr Barragan. He wanted to let the provider know that the reports for the CTA of the head and neck were ready. Aminata Glasgow RN documented in this encounter [facility] 02-19-2025 History of Presen t illness Narrative Radiology Service Progress Note PATIENT NAME: Sue Lorenz DATE OF SERVICE: February 19, 2025 TIME: 10:09 AM PATIENT IDENTITY VERIFICATION COMPLETED USING TWO (2) IDENTIFIERS: Name and Date of confirmed by patient verbally. FALL SCREENING: Has the patient had 2 falls in the last year or 1 fall with injury or currently using an Ambulatory Assistive Device (Walker, Cane, Wheelchair, Crutches, etc.)? No PATIENT GENDER DATA: Assigned male at PATIENT RELEVANT IMPLANT DATA REVIEWED: Yes PATIENT PRESENTS WITH AN IMPLANTABLE OR ATTACHED DINING ROOM ATTENDANT CAFETERIA: No RADIOLOGY DEPARTMENT: MR; Exam(s) Completed: Head: Routine Brain. Aromatherapy Administered: No PERIPHERAL IV DATA: Site assessment: Clean,Dry and Intact, Site disposition Discontinued SIGNED BY: RT Bruno(Justin) February 19, 2025 10:09 AM documented in this encounter [facility] 02-19-2025 Note HNO ID: [id number] Author: ERMA NAVARRETE RT(R) Service: ? Author Type: Technologist Type: Progress Notes Filed: 02/19/2025 10:09 Note Text: Radiology Service Progress Note PATIENT NAME: Sue Lorenz DATE OF SERVICE: February 19, 2025 TIME: 10:09 AM PATIENT IDENTITY VERIFICATION COMPLETED USING TWO (2) IDENTIFIERS: Name and Date of confirmed by patient verbally. FALL SCREENING: Has the patient had 2 falls in the last year or 1 fall with injury or currently using an Ambulatory Assistive Device (Walker, Cane, Wheelchair, Crutches, etc.)? No PATIENT GENDER DATA: Assigned male at PATIENT RELEVANT IMPLANT DATA REVIEWED: Yes PATIENT PRESENTS WITH AN IMPLANTABLE OR ATTACHED DINING ROOM ATTENDANT CAFETERIA: No RADIOLOGY DEPARTMENT: MR; Exam(s) Completed: Head: Routine Brain. Aromatherapy Administered: No PERIPHERAL IV DATA: Site assessment: Clean,Dry and Intact, Site disposition Discontinued SIGNED BY: RT Bruno(Justin) February 19, 2025 10:09 AM [facility] 02-19-2025 Telephone encounter Note MRI of the brain shows 1.9 cm mass in the left frontal periventricular white matter with adjacent small are of enhancement. Mild local mass effect present. Imaging characteristics suggest malignancy such as high grade glioma vs lymphoma. Much less likely metastatic disease. Also noted 0.8 cm and 1.1 cm meningiomas over right and left parietal regions without mass effect. Called and spoke with patient regarding these findings. He will need to see a neurology/employee communications specialist instead and a new referral order has been placed for this. He needs an OV STEFAN, preferably next week for further evaluation of this mass. With stable symptoms for more than 1 month without headache, vision changes, nausea/vomiting, confusion, seizures I do not feel he needs to be seen in the ER now, but he was advised to call 911 with any of these worsening symptoms. [facility] 02-19-2025 Note Addended by: ROBERT APARICIO on: 02/19/2025 11:36 AM Modules accepted: Orders [facility] 02-19-2025 Miscellaneous Notes MRI of the brain shows 1.9 cm mass in the left frontal periventricular white matter with adjacent small are of enhancement. Mild local mass effect present. Imaging characteristics suggest malignancy such as high grade glioma vs lymphoma. Much less likely metastatic disease. Also noted 0.8 cm and 1.1 cm meningiomas over right and left parietal regions without mass effect. Called and spoke with patient regarding these findings. He will need to see a neurology/employee communications specialist instead and a new referral order has been placed for this. He needs an OV STEFAN, preferably next week for further evaluation of this mass. With stable symptoms for more than 1 month without headache, vision changes, nausea/vomiting, confusion, seizures I do not feel he needs to be seen in the ER now, but he was advised to call 911 with any of these worsening symptoms. Addended by: ROBERT APARICIO on: 02/19/2025 11:36 AM Modules accepted: Orders Pt called and is notified of providers results. Per provider, Patient's CTA of the head and neck shows 2.2 cm lesion in the left frontal sargent radiata with swelling concerning for cavernoma vs mass. Needing further evaluation with MRI of the brain with and without contrast which has been ordered STAT for him and is in process. Will call with these results as soon as they are available. No large vessel occlusion or significant focal narrowing noted. No aneurysms apparent on this imaging." Pt voices understanding. Aminata Glasgow RN documented in this encounter [facility] 02-19-2025 Telephone encounter Note Pt called and is notified of providers results. Per provider, Patient's CTA of the head and neck shows 2.2 cm lesion in the left frontal sargent radiata with swelling concerning for cavernoma vs mass. Needing further evaluation with MRI of the brain with and without contrast which has been ordered STAT for him and is in process. Will call with these results as soon as they are available. No large vessel occlusion or significant focal narrowing noted. No aneurysms apparent on this imaging." Pt voices understanding. Aminata Glasgow RN [facility] 02-19-2025 Telephone encounter Note See providers results. Aminata Glasgow RN [facility] 02-19-2025 Telephone encounter Note I got this message and have reviewed the results. Awaiting MRI results which were STAT and are in process. [facility] 02-19-2025 Telephone encounter Note Azalia with [facility] Imaging Support was calling on behalf of Dr Barragan. He wanted to let the provider know that the reports for the CTA of the head and neck were ready. Aminata Glasgow, RN [facility] 02-19-2025 Note Addended by: ROBERT APARICIO on: 02/19/2025 10:07 AM Modules accepted: Orders [facility] 02-19-2025 Miscellaneous Notes Addended by: ROBERT APARICIO on: 02/19/2025 10:07 AM Modules accepted: Orders documented in this encounter [facility] 02-19-2025 History of Presen t illness Narrative Radiology Service Progress Note DATE OF SERVICE: February 19, 2025 TIME: 3:51 PM PATIENT IDENTITY VERIFICATION COMPLETED USING TWO (2) STANDARD IDENTIFIERS: Name and Date of confirmed by patient verbally. FALL SCREENING: Has the patient had 2 falls in the last year or 1 fall with injury or currently using an Ambulatory Assistive Device (Walker, Cane, Wheelchair, Crutches, etc.)? No PATIENT GENDER DATA: Assigned male at PATIENT RELEVANT IMPLANT DATA REVIEWED: Yes PATIENT PRESENTS WITH AN IMPLANTABLE OR ATTACHED DINING ROOM ATTENDANT CAFETERIA: No ALLERGIES: Reviewed and unchanged CONTRAST ALLERGY: NO. EXAM: CT -CONTRAST INDUCED NEPHROPATHY RISK FACTORS: Patient age > 60 years CREATININE: Creatinine Date Value Ref Range Status 02/19/2025 0.95 0.73 - 1.22 mg/dL Final 07/10/2024 1.01 0.73 - 1.22 mg/dL Final 05/23/2023 0.99 0.73 - 1.22 mg/dL Final Estimated Glomerular Filtration Rate Date Value Ref Range Status 02/19/2025 89 >=60 mL/min/1.73m Final Comment: Estimated Glomerular Filtration Rate (eGFR) is calculated using the 2020 CKD-EPI creatinine equation. This equation utilizes serum creatinine, sex, and age as parameters. The creatinine assay has traceable calibration to isotope dilution-mass spectrometry. Refer to KDIGO guidelines for clinical interpretation. In patients with unstable renal function, e.g. those with acute kidney injury, the eGFR may not accurately reflect actual GFR. eGFR- Date Value Ref Range Status 08/16/2021 >60 Final P.O.C.T. RESULTS: POC done: Yes, See Lab Tab February 19, 2025 TREATMENT: N/A PERIPHERAL IV DATA: Ambulatory: A peripheral IV was started in the Left antecubital site with a Angio cath: 18 gauge. RADIOLOGY DEPARTMENT: CT; Exam(s) Completed: Brain , CTA Brain , and CTA Neck SIGNATURE: RT Yamilex(Justin) PATIENT NAME: Sue Lorenz DATE: February 19, 2025 TIME: 3:51 PM documented in this encounter [facility] 02-19-2025 Note HNO ID: [id number] Author: LAURE WASSERMAN RT(R) Service: ? Author Type: Contracts Advisor Type: Progress Notes Filed: 02/19/2025 15:51 Note Text: Radiology Service Progress Note DATE OF SERVICE: February 19, 2025 TIME: 3:51 PM PATIENT IDENTITY VERIFICATION COMPLETED USING TWO (2) STANDARD IDENTIFIERS: Name and Date of confirmed by patient verbally. FALL SCREENING: Has the patient had 2 falls in the last year or 1 fall with injury or currently using an Ambulatory Assistive Device (Walker, Cane, Wheelchair, Crutches, etc.)? No PATIENT GENDER DATA: Assigned male at PATIENT RELEVANT IMPLANT DATA REVIEWED: Yes PATIENT PRESENTS WITH AN IMPLANTABLE OR ATTACHED DINING ROOM ATTENDANT CAFETERIA: No ALLERGIES: Reviewed and unchanged CONTRAST ALLERGY: NO. EXAM: CT -CONTRAST INDUCED NEPHROPATHY RISK FACTORS: Patient age > 60 years CREATININE: Creatinine Date Value Ref Range Status 02/19/2025 0.95 0.73 - 1.22 mg/dL Final 07/10/2024 1.01 0.73 - 1.22 mg/dL Final 05/23/2023 0.99 0.73 - 1.22 mg/dL Final Estimated Glomerular Filtration Rate Date Value Ref Range Status 02/19/2025 89 >=60 mL/min/1.73m? Final Comment: Estimated Glomerular Filtration Rate (eGFR) is calculated using the 2020 CKD-EPI creatinine equation. This equation utilizes serum creatinine, sex, and age as parameters. The creatinine assay has traceable calibration to isotope dilution-mass spectrometry. Refer to KDIGO guidelines for clinical interpretation. In patients with unstable renal function, e.g. those with acute kidney injury, the eGFR may not accurately reflect actual GFR. eGFR- Date Value Ref Range Status 08/16/2021 >60 Final P.O.C.T. RESULTS: POC done: Yes, See Lab Tab February 19, 2025 TREATMENT: N/A PERIPHERAL IV DATA: Ambulatory: A peripheral IV was started in the Left antecubital site with a Angio cath: 18 gauge. RADIOLOGY DEPARTMENT: CT; Exam(s) Completed: Brain , CTA Brain , and CTA Neck SIGNATURE: RT Yamilex(R) PATIENT NAME: Sue Lorenz DATE: February 19, 2025 TIME: 3:51 PM [facility] 02-19-2025 Instructions Robert Aparicio MD - 02/19/2025 7:49 AM EDT -Please schedule your STAT imaging of your head and neck for suspected stroke today. 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 Please notify me if they are telling you it will be several weeks or months before you can get an appointment. - Go to the ER with worsening symptoms of stroke as discussed. documented in this encounter [facility] 02-19-2025 Note HNO ID: [id number] Author: ROBERT APARICIO MD Service: ? 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 Has weakness and tightness in his right hand and arm. C/o right foot dropping when walking. Has to consciously think about lifting his right foot to walk. Only able to speak out of one side of his mouth which wasn't the case prior. Recording using ambient [employer] software for draft documentation of the visit was discussed with the patient/authorized event representative; all questions welcomed and answered. Patient/authorized event representative agreed to proceed HPI Sue Lorenz is a 64 year old male who presents here today for Above Complaints. Patient here today for complaint of right sided weakness, foot drop, inability to speak of the right side of his mouth for 1 month. States that he woke up with these symptoms and denies recent head/neck injury, headache, vision changes with this. Has developed some new numbness/tingling in his right arm in the last 2-3 weeks. Has to raise his right arm with his left to use his computer and notes that his right arm drifts when using his mouse. Denies chest pain, Shortness of Breath, fever/chills, nausea, vomiting, diarrhea. Past medical history, appointments, medications, allergies reviewed. Previous Medical History PAST MEDICAL HISTORY Diagnosis Date BPH (benign prostatic hyperplasia) 05/04/2014 Cervical radiculopathy Cyst of epididymis 11/15/201605/2014 DDD (degenerative disc disease), thoracolumbar spurring 08/04/[address] Anthony. negative biopsies Erectile dysfunction Essential hypertension, benign 05/04/2014 GERD (gastroesophageal reflux disease) Glaucoma 2012 Dr. Julio. Right eye only. Hearing loss History of tobacco use Horseshoe kidney with renal calculus 11/28/2016 Marijuana use Mixed hyperlipidemia PMH - PAST MEDICAL HISTORY OF open angle glaucoma OD Urinary retention Vitamin D deficiency Previous Surgical History PAST SURGICAL HISTORY Procedure Laterality Date APPENDECTOMY COLONOSCOPY FLX DX W/COLLJ SPEC WHEN PFRMD 08/09/2017 Colonoscopy EYE SURGERY PROCEDURE OD 12/30/12 Evisceration with implant PROSTATE BIOPSY 07/2016 Family History FAMILY HISTORY Problem Relation Age of Onset other (dementia) Mother Cancer Father bone Macular Degen Father Prostate Cancer Father Diabetes Sister Cancer Paternal Grandmother Breast Cancer Cataract Paternal Aunt other (downs) Son Patient Allergies ALLERGIES Allergen Reactions Prednisone Intolerance Patient reports clots in urine Bees Other: See Comments Tightness in chest; nausea Poison Angelita Other: See Comments Current Medications Current Outpatient Medications on File Prior to Visit Medication Sig lisinopril (ZESTRIL) 20 mg tablet Take 1 tablet by mouth once daily. atorvastatin (LIPITOR) 20 mg tablet Take 1 tablet by mouth daily at bedtime. For cholesterol. ergocalciferol 50,000 unit capsule (VITAMIN D2, DRISDOL) Take 1 capsule by mouth one time a week. Use as directed. (Patient not taking: Reported on 02/19/2025) omeprazole (PRILOSEC) 40 mg capsule Take 1 capsule by mouth once daily. tamsulosin (FLOMAX) 0.4 mg Take 1 capsule by mouth once daily. finasteride (PROSCAR) 5 mg tablet 1 tablet once daily. (Patient not taking: Reported on 02/19/2025) No current facility-administered medications on file prior to visit. Social History SOCIAL HISTORY[1] Review of Symptoms REVIEW OF SYSTEMS See HPI EXAM: BP 129/71 Pulse (!) 52 Ht 170 cm (5' 6.93") Wt 86.5 kg (190 lb 9.6 oz) BMI 29.91 kg/m? General Appearance: Seated upright in chair with apparent right facial droop without slurring of his speech. Skin: Skin color, texture, turgor normal, no suspicious rashes or lesions. Eyes: right eye prosthetic. PERRLA on left. EOMI. Lungs: Lungs clear to auscultation. No wheezing, rhonchi, rales.. Heart: RRR without murmur, gallop, or rubs. No ectopy. Neurologic: Negative findings: sensation to light touch and pinprick normal, Positive findings: Right sided facial droop noted with 4/5 strength in right upper and lower extremities, hyper-reflexic on right compared to left, foot drop on right with ambulation, . Health Maintenance List Depression Screening Never done Anxiety Screening Never done Shingrix Vaccine(2 of 2) due on 08/07/2025 Pneumococcal Vaccine: 50+(1 of 1 - PCV) due on 08/07/2025 Influenza Vaccine(1) due on 03/08/2025 Annual PCP Team Chronic Disease Visit due on 12/29/2025 Diabetes Screening due on 07/10/2027 Colorectal Cancer Screening due on 08/09/2027 DTaP,Tdap,Td Vaccine(2 - Td or Tdap) due on 08/14/2028 Lipid Screening due on 07/10/2029 Prostate Cancer Screening Discussion due on 11/06/2029 RSV V (more content not included)... 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 Has weakness and tightness in his right hand and arm. C/o right foot dropping when walking. Has to consciously think about lifting his right foot to walk. Only able to speak out of one side of his mouth which wasn't the case prior. Recording using [employer] software for draft documentation of the visit was discussed with the patient/authorized event representative; all questions welcomed and answered. Patient/authorized event representative agreed to proceed HPI Sue Lorenz is a 64 year old male who presents here today for Above Complaints. Patient here today for complaint of right sided weakness, foot drop, inability to speak of the right side of his mouth for 1 month. States that he woke up with these symptoms and denies recent head/neck injury, headache, vision changes with this. Has developed some new numbness/tingling in his right arm in the last 2-3 weeks. Has to raise his right arm with his left to use his computer and notes that his right arm drifts when using his mouse. Denies chest pain, Shortness of Breath, fever/chills, nausea, vomiting, diarrhea. Past medical history, appointments, medications, allergies reviewed. Previous Medical History PAST MEDICAL HISTORY Diagnosis Date BPH (benign prostatic hyperplasia) 05/04/2014 Cervical radiculopathy Cyst of epididymis 11/15/201605/2014 DDD (degenerative disc disease), thoracolumbar spurring 08/04/[address] nAthony. negative biopsies Erectile dysfunction Essential hypertension, benign 05/04/2014 GERD (gastroesophageal reflux disease) Glaucoma 2012 Dr. Julio. Right eye only. Hearing loss History of tobacco use Horseshoe kidney with renal calculus 11/28/2016 Marijuana use Mixed hyperlipidemia PMH - PAST MEDICAL HISTORY OF open angle glaucoma OD Urinary retention Vitamin D deficiency Previous Surgical History PAST SURGICAL HISTORY Procedure Laterality Date APPENDECTOMY COLONOSCOPY FLX DX W/COLLJ SPEC WHEN PFRMD 08/09/2017 Colonoscopy EYE SURGERY PROCEDURE OD 12/30/12 Evisceration with implant PROSTATE BIOPSY 07/2016 Family History FAMILY HISTORY Problem Relation Age of Onset other (dementia) Mother Cancer Father bone Macular Degen Father Prostate Cancer Father Diabetes Sister Cancer Paternal Grandmother Breast Cancer Cataract Paternal Aunt other (downs) Son Patient Allergies ALLERGIES Allergen Reactions Prednisone Intolerance Patient reports clots in urine Bees Other: See Comments Tightness in chest; nausea Poison Angelita Other: See Comments Current Medications Current Outpatient Medications on File Prior to Visit Medication Sig lisinopril (ZESTRIL) 20 mg tablet Take 1 tablet by mouth once daily. atorvastatin (LIPITOR) 20 mg tablet Take 1 tablet by mouth daily at bedtime. For cholesterol. ergocalciferol 50,000 unit capsule (VITAMIN D2, DRISDOL) Take 1 capsule by mouth one time a week. Use as directed. (Patient not taking: Reported on 02/19/2025) omeprazole (PRILOSEC) 40 mg capsule Take 1 capsule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 Report* * * DATE OF EXAM: Aug 07 2024 9:45AM WOX 5203 - XR KNEE 4V AP/PA BOTH+LAT/STEPHANIE RT / PROCEDURE REASON: multiple diagnoses * * * * Physician Interpretation * * * * KNEE RADIOGRAPHS - RIGHT HISTORY: Chronic pain of right knee TECHNOLOGIST PROVIDED HISTORY (if applicable): pain for years in right knee on both sides and getting worse no inj TECHNIQUE: XR KNEE 4V AP/PA BOTH+LAT/STEPHANIE RT COMPARISON: None available RESULT: Right knee: There is no acute osseous, articular, or soft tissue abnormality. There is no joint effusion or soft tissue swelling. Mild medial and patellofemoral joint space narrowing with small marginal osteophytes and small patellar enthesophytes PAST MEDICAL HISTORY Diagnosis Date BPH (benign prostatic hyperplasia) 05/04/2014 Cervical radiculopathy Cyst of epididymis 11/15/201605/2014 DDD (degenerative disc disease), thoracolumbar spurring 08/04/[address] Anthony. negative biopsies Erectile dysfunction Essential hypertension, benign 05/04/2014 GERD (gastroesophageal reflux disease) Glaucoma 2012 Dr. Julio. Right eye only. Hearing loss History of tobacco use Horseshoe kidney with renal calculus 11/28/2016 Marijuana use Mixed hyperlipidemia PMH - PAST MEDICAL HISTORY OF open angle glaucoma OD Urinary retention Vitamin D deficiency ALLERGIES Prednisone, Bees, and Poison Angelita MEDICATIONS Current Outpatient Medications Medication Sig ergocalciferol 50,000 unit capsule (VITAMIN D2, DRISDOL) Take 1 capsule by mouth one time a week. Use as directed. omeprazole (PRILOSEC) 40 mg capsule Take 1 capsule by mouth once daily. lisinopril (ZESTRIL) 20 mg tablet Take 1 tablet by mouth once daily. atorvastatin (LIPITOR) 20 mg tablet Take 1 tablet by mouth daily at bedtime. For cholesterol. tamsulosin (FLOMAX) 0.4 mg Take 1 capsule by mouth once daily. finasteride (PROSCAR) 5 mg tablet 1 tablet once daily. No current facility-administered medications for this visit. Medications and allergies reviewed by this provider. SOCIAL HISTORY Social History Tobacco Use Smoking status: Former Current packs/day: 0.00 Average packs/day: 0.5 packs/day for 36.0 years (18.0 ttl pk-yrs) Types: Cigarettes Start date: 11/28/1979 Quit date: 11/28/2015 Years since quittin.0 Smokeless tobacco: Never Vaping Use Vaping status: Never Used Substance Use Topics Alcohol use: Yes Alcohol/week: 8.0 standard drinks of alcohol Types: 8 Cans of Beer (12oz) per week Drug use: Yes Types: Marijuana Comment: once per month REVIEW OF SYSTEMS All other reviewed and negative other than HPI. OBJECTIVE: BP 124/70 Pulse (!) 53 Resp 18 Wt 90.1 kg (198 lb 9.6 oz) SpO2 97% BMI 31.17 kg/m . Vital signs reviewed by this provider. GENERAL: NAD, alert and oriented. SKIN: Unremarkable, no rash or skin lesions to exposed skin EXTREMITIES: Right knee with pain on palpation and movement, no instability noted. No deformities, no skin discoloration, no edema. Negative anterior/posterior drawer test. Patient with noticeable limp and does have difficulty when rising from chair. Pain with Davon exam laterally and medially. No pooping, catching or crepitus on exam NEURO: Awake, alert and oriented x3, cranial nerves II-XII grossly intact, normal gait, no involuntary motions. Depression Screening Never done Anxiety Screening Never done Covid-19 Vaccine( season) due on 05/18/2025 Shingrix Vaccine(2 of 2) due on 08/07/2025 Pneumococcal Vaccine: 50+(1 of 1 - PCV) due on 08/07/2025 Influenza Vaccine(Season Ended) due on 03/08/2025 Annual PCP Team Chronic Disease Visit due on 08/07/2025 Diabetes Screening due on 07/10/2027 Colorectal Cancer Screening due on 08/09/2027 DTaP,Tdap,Td Vaccine(2 - Td or Tdap) due on 08/14/2028 Lipid Screening due on 07/10/2029 Prostate Cancer Screening Discussion due on 11/06/2029 RSV Vaccine(1 - 1-dose 75+ series) due on 2035 HIV Screening Completed Hepatitis C Screening Addressed 1. Chronic pain of right knee (M25.561) - Chronic right knee pain for approximately one year, described as diffuse, with occasional popping and buckling, even when using a brace. No recent trauma or significant past surgical history to the knee. - Previous x-ray in July showed mild arthritic changes. - Physical examination reveals tenderness on palpation and pain on full flexion of the knee; no evidence of ligamentous instability. - Discussed the benefits of physical therapy for strengthening the muscles around the knee to improve stability and reduce pain. - Ordered referral to orthopedics for further evaluation and potential cortisone injection. - Patient to schedule physical therapy and orthopedic consultation. - Discussed the possibility of ordering an MRI if symptoms do not improve with PT and orthopedic evaluation, noting potential insurance coverage issues. - Provided patient with an after-visit summary. Aster Joyner APRN.PROFESSIONAL DRIVER Prescription instructions reviewed with patient as applicable. Patient advised if symptoms do not improve or if symptoms worsen sooner, to contact their primary care physician. Potential red flag symptoms discussed with the patient. Reviewed appropriate action plan to take if red flag symptoms occur. Patient agreeable to treatment plan. Medical Decision Making: Problems: Moderate: 1+ chronic illnesses with change Risk: Low: Low risk from testing/treatment Medical Decision Making Level: 3 - Low documented in this encounter [facility] 12-03-2024 Progress note Note Date/Time December 03, 2024 7:24a [facility] Medical Records Department [address] [place] [address] Progress Note - Urology 12/03/24722 MR#: [id number] Acct: [id number] Name: SUE LORENZ Rep #:[id number] : 1960 64 From: Stan Anthony MD PCP: Dr. Ryan Aparicio MD Status :ADM TACO Location: [facility] IR486-8 Subjective Subjective cbi - clear home today with villeda Objective Data Objective Data Vital Signs: Vital Signs Temp Pulse Resp BP Pulse Ox O2 Del Method 98.8 F 56 L 18 148/70 H 95 Room Air 12/03/24 04:04 12/03/24 04:04 12/03/24 04:04 12/03/24 04:04 12/03/24 04:04 12/03/24 04:04 Oxygen Delivery Method Room Air Weight: 90.7 kg Body Mass Index (BMI) 31.3 Intake & Output: Intake and Output for Last 24 Hours 12/01/24 12/02/24 12/03/24 23:59 23:59 23:59 Intake Total 1756.25 / 1756.25 1716.67 / 1716.67 Output Total 89901 / 11630 Balance -07092.75 / -22140.75 1716.67 / 1716.67 Lab / Micro Data 12/03/24 06:14 12/03/24 06:14 Labs: Laboratory Results - last 24 hr 12/03/24 06:14: WBC 10.3, RBC 4.36 L, Hgb 12.3 L, Hct 37.0 L, MCV 84.9, MCH 28.2, MCHC 33.2, RDW Std Deviation 42.0, RDW Coeff of Manuel 13.4, Plt Count 184, MPV 10.3, Immature Gran % (Auto) 0.300, Neut % (Auto) 76.3 H, Lymph % (Auto) 5.7L, [place] % (Auto) 9.5, Eos % (Auto) 7.4 H, Baso % (Auto) 0.8, Absolute Neuts (auto) 7.9 H, Absolute Lymphs (auto) 0.59 L, Nucleated RBC % 0, Sodium 137, Potassium 3.9, Chloride 106, Carbon Dioxide 23.0, Anion Gap 8, BUN 12, Creatinine 0.92, Estim Creat Clear Calc 87.13, Est GFR (MDRD) Non-Af 92, BUN/Creatinine Ratio 13.2, Glucose 132 H, Calcium 7.8 12/03/24 07 <Electronically signed by Stan Anthony MD> Cosigner Signature (if applicable): CC: ~ Signed [facility] Work Phone: 1(164) 292-148805-29-2025 Progress note [facility] Medical Records Department [address] [place] [address] Progress Note - Urology 12/03/24722 MR#: [id number] Acct: [id number] Name: SUE LORENZ Rep #:[id number] : 1960 64 From: Stan Anthony MD PCP: Dr. Ryan Aparicio MD Status :ADM TACO [id number] Subject[facility] Subjective cbi - clear home today with villeda Objective Data Objective Data Vital Signs: Vital Signs Temp Pulse Resp BP Pulse Ox O2 Del Method 98.8 F 56 L 18 148/70 H 95 Room Air 12/03/24 04:04 12/03/24 04:04 12/03/24 04:04 12/03/24 04:04 12/03/24 04:04 12/03/24 04:04 Oxygen Delivery Method Room Air Weight: 90.7 kg Body Mass Index (BMI) 31.3 Intake & Output: Intake and Output for Last 24 Hours 12/01/24 12/02/2425 23:59 23:59 23:59 Intake Total 1756.25 / 1756.25 1716.67 / 1716.67 Output Total 57151 / 45984 Balance -59561.75 / -52050.75 1716.67 / 1716.67 Lab / Micro Data 12/03/24 06:14 12/03/24 06:14 Labs: Laboratory Results - last 24 hr 12/03/24 06:14: WBC 10.3, RBC 4.36 L, Hgb 12.3 L, Hct 37.0 L, MCV 84.9, MCH 28.2, MCHC 33.2, RDW Std Deviation 42.0, RDW Coeff of Manuel 13.4, Plt Count 184, MPV 10.3, Immature Gran % (Auto) 0.300, Neut% (Auto) 76.3 H, Lymph % (Auto) 5.7L, [place] % (Auto) 9.5, Eos % (Auto) 7.4 H, Baso % (Auto) 0.8, Absolute Neuts (auto) 7.9 H, Absolute Lymphs (auto) 0.59 L, Nucleated RBC % 0, Sodium 137, Potassium 3.9, Chloride 106, Carbon Dioxide 23.0, Anion Gap 8, BUN 12, Creatinine 0.92, Estim Creat Clear Calc 87.13, Est GFR (MDRD) Non-Af 92, BUN/Creatinine Ratio 13.2, Glucose 132 H, Calcium 7.8 12/03/24 0724 Cosigner Signature (if applicable): CC: ~ Signed [facility]05-28-2025 Consult note Author Evelyn To [facility] Note Date/Time December 02, 2024 1:32p m [facility] Medical Records Department [address] [place] [address] Anesthesia Postop Eval II 12/02/24 1331 MR#: [id number] Acct: [id number] Name: SUE LORENZ Rep #:[id number] : 1960 64 From: Evelyn To PCP: Dr. Ryan Aparicio MD Status :REG SDC Y Race: C Location: [place] [id number] -[id number] Anesthesia Postop Eval I Sum Postop Eval Completion status Anesthesia document: Postop Eval 1 completed: Yes Anesthesia Postop Eval I Summary Anesthesia Postop Eval I Summary: Anesthesia Postop Eval I: Assessment Summary Airway patent Yes 12/02/24 11:58 ELECTRONIC COMPONENT PROCESSOR.SOBR Spontaneous unlabored Yes 12/02/24 11:58 ELECTRONIC COMPONENT PROCESSOR.SOBR respirations Mental status Awake,Calm 12/02/24 11:58 ELECTRONIC COMPONENT PROCESSOR.SOBR nausea No 12/02/24 11:58 ELECTRONIC COMPONENT PROCESSOR.SOBR Vomiting No 12/02/24 11:58 ELECTRONIC COMPONENT PROCESSOR.SOBR Anesthesia Postop Eval I: Fluid Summary Crystalloid volume administer 700 12/02/24 11:58 ELECTRONIC COMPONENT PROCESSOR.SOBR (ml) Colloids volume administered ( ml) Blood Product volume administered (ml) Total IV fluid infused 700 12/02/24 11:58 ELECTRONIC COMPONENT PROCESSOR.SOBR Anesthesia Postop Eval I: Summary Notes Anesthesia Complication No 12/02/24 11:58 ELECTRONIC COMPONENT PROCESSOR.SOBR Anesthesia Complication Comment: Post-operative progress note Anesthesia: Postop Eval II Evaluation Mental status: Awake Pain Level: 3 nausea: No Vomiting: No 12/02/24 1332 <Electronically signed by Evelyn anton> Date _ Evelyn Novak Signature: Date CC: ~ Signed [facility] Work Phone: 1(844) 860-581205-28-2025 Consult note Author Scottie Deluna [facility] Note Date/Time December 02, 2024 11:58 am [facility] Medical Records Department [address] [place] [address] Anesthesia Postop Eval I 12/02/24 1157 MR#: [id number] Acct: [id number] Name: SUE LORENZ Rep #:[id number] : 1960 64 From: Scottie NOGUERA PCP: Dr. Ryan Aparicio MD Status :REG SDC Y Race: C Location: [facility] TBA-3 Anesthesia: Postop Eval I Current Vital Signs Temperature: 97.0 F Pulse Rate: 98 Blood Pressure: 138/86 Respiratory Rate: 16 Pulse Ox: 98 Oxygen Delivery Method: Room Air Assessment Airway patent: Yes Spontaneous unlabored respirations: Yes Mental status: Awake and Calm nausea: No Vomiting: No Anesthesia Complication: No Fluid Hydration Crystalloid volume administer (ml): 700 Total IV fluid infused: 700 Progress Note Anesthesia document: Postop Eval 1 completed: Yes 12/02/24 1158 <Electronically signed by Scottie Deluna CRNA> Date _ Scottie Deluna ELECTRONIC COMPONENT PROCESSOR Cosigner Signature: Date CC: ~ Signed [facility] Work Phone: 1(621) 585-559005-28-2025 Consult note [facility] Medical Records Department [address] [place] [address] Anesthesia Postop Eval II 12/02/24 1331 MR#: [id number] Acct: [id number] Name: SUE LORENZ Rep #:[id number] : 1960 64 From: Evelyn To PCP: Dr. Ryan Aparicio MD Status :REG [facility] [place] Race: C Location: [facility] [id number] -1 Anesthesia Postop Eval I Sum Postop Eval Completion status Anesthesia document: Postop Eval 1 completed: Yes Anesthesia Postop Eval I Summary Anesthesia Postop Eval I Summary: Anesthesia Postop Eval I: Assessment Summary Airway patent Yes 12/02/24 11:58 ELECTRONIC COMPONENT PROCESSOR.SOBR Spontaneous unlabored Yes 12/02/24 11:58 ELECTRONIC COMPONENT PROCESSOR.SOBR respirations Mental status Awake,Calm 12/02/24 11:58 ELECTRONIC COMPONENT PROCESSOR.SOBR nausea No 12/02/24 11:58 ELECTRONIC COMPONENT PROCESSOR.SOBR Vomiting No 12/02/24 11:58 ELECTRONIC COMPONENT PROCESSOR.SOBR Anesthesia Postop Eval I: Fluid Summary Crystalloid volume administer 700 12/02/24 11:58 ELECTRONIC COMPONENT PROCESSOR.SOBR (ml) Colloids volume administered ( ml) Blood Product volume administered (ml) Total IV fluid infused 700 12/02/24 11:58 ELECTRONIC COMPONENT PROCESSOR.SOBR Anesthesia Postop Eval I: Summary Notes Anesthesia Complication No 12/02/24 11:58 ELECTRONIC COMPONENT PROCESSOR.SOBR Anesthesia Complication Comment: Post-operative progress note Anesthesia: Postop Eval II Evaluation Mental status: Awake Pain Level: 3 nausea: No Vomiting: No 12/02/24 1332 a> Date _ Evelyn Yousuf Scarlet Signature: Date CC: ~ Signed [facility]05-28-2025 History and physical note Author Stan Anthony [facility] Note Date/Time December 02, 2024 10:15 am [facility] Medical Records Department [address] [facility] [place] [address] History & Physical Exam 12/02/24 0941 MR#: [id number] Acct: [id number] Name: SUE LORENZ Rep #:[id number] : 1960 64 From: Stan Anthony MD PCP: Dr. Ryan Aparicio MD Status :[facility] Location: [place] [address] HPI - General General Date of Service: 12/02/24 Chief Complaint: Bladder cancer HPI Narrative SUE LORENZ, is a 64 M who presents for resection of a bladder cancer and instillation of Mitomycin-C FORMERLY [facility], 1928[facility]1983 Medical History Wears hearing aid Wears glasses Marijuana use Arthritis History of renal disease Prostate disease High cholesterol Dietary restriction Gastric reflux History of stress test Glaucoma, right eye Osteoporosis Kidney stones GERD (gastroesophageal reflux disease) Former smoker Hypertension Home Medications ?Medication ?Instructions ?Recorded ?Last Taken ?Type lisinopril 20 mg tablet 20 mg PO DAILY bp 01/10/20 0 02/24/20 07:30 History atorvastatin 20 mg tablet 20 mg PO DAILY 03/30/22 Unkn own History finasteride 5 mg tablet 5 mg PO DAILY 11/24/24 Unkno wn History omeprazole 40 mg capsule,delayed 40 mg PO DAILY Unknown History release tamsulosin 0.4 mg capsule 0.4 mg PO DAILY 11/24/24 Unk nown History Allergy/AdvReac Type Severity Reaction Status Date / Time prednisone Allergy Intermediate HEMATURIA Verified 12/02/24 08:19 Surgical History History of eye removal History of transurethral resection of prostate History of appendectomy Social History Smoking Status: Former smoker Vital Signs Vital Signs Vital Signs: 12/02/24 08:21 12/02/24 08:21 12/02/24 09:09 Temperature 97.8 F 97.8 F Temperature Source Temporal Pulse Rate 44 L 44 L Respiratory Rate 16 16 Respiratory Pattern Normal Blood Pressure 159/81 H 159/81 H Blood Pressure Mean 107 Blood Pressure Source Monitor Blood Pressure Position Semi-Fowlers Blood Pressure Location Right Arm Pulse Ox 97 97 Oxygen Delivery Method Room Air Room Air Weight Weight: 90.7 kg Body Mass Index (BMI) 31.3 Results Lab / Micro Data 11/27/24 07:48 12/02/24 0942 <Electronically signed by Stan Anthony MD> Cosigner Signature (if applicable): CC: Dr. Ryan Aparicio MD; Dr. Stan Anthony MD~ Signed ADDENDUM by Dr. Stan Anthony MD on 12/02/24 at 1015 Addendum Please correct now organ to proceed with a transurethral resection of a bladder prostate not tumor so organ to transurethral section of prostate. 12/02/24 1015<Electronically signed by Stan Anthony MD> Cosigner Signature (if applicable): cc: Dr. Ryan Aparicio MD; Dr. Stan Anthony MD ~* Signed [facility] Work Phone: 1(780) 195-533005-28-2025 Consult note [facility] Medical Records Department [address] [place] [address] Anesthesia Postop Eval I 12/02/24 1157 MR#: [id number] Acct: [id number] Name: SUE LORENZ Rep #:[id number] : 1960 64 From: Scottie KING NA PCP: Dr. Ryan Aparicio MD [place] :[place] [facility] [place] Race: C Location: [facility]- TBA-3 Anesthesia: Postop Eval I Current Vital Signs Temperature: 97.0 F Pulse Rate: 98 Blood Pressure: 138/86 Respiratory Rate: 16 Pulse Ox: 98 Oxygen Delivery Method: Room Air Assessment Airway patent: Yes Spontaneous unlabored respirations: Yes Mental status: Awake and Calm nausea: No Vomiting: No Anesthesia Complication: No Fluid Hydration Crystalloid volume administer (ml): 700 Total IV fluid infused: 700 Progress Note Anesthesia document: Postop Eval 1 completed: Yes 12/02/24 1158 ELECTRONIC COMPONENT PROCESSOR> Date _ Scottie Deluna ELECTRONIC COMPONENT PROCESSOR Cosigner Signature: Date CC: ~ Signed [facility]05-28-2025 Procedure note [facility] Medical Records Department [address] [place] [address] Operative Report 12/02/24 1151 MR#: [id number] Acct: [id number] Name: SUE LORENZ Rep #:[id number] : 1960 64 From: Stan Anthony MD PCP: Dr. Ryan Aparicio MD Status :[place] [facility] [place] Location: [facility] A-3 Operative Report (Standard) Operative Information Date of Procedure: 12/02/24 Pre-Operative Diagnosis: BPH with obstruction Post-Operative Diagnosis: The same Surgery/Procedure Performed: Transurethral section of the prostate, for significant regrowth can sterilizer: No Type of Anesthesia: General RN Documented Start/Stop Times: Operation Date: 12/02/24 09:45 Case Time Into Pre-Op 12/02/24 07:56 Out of Pre-Op 12/02/24 10:00 Anesthesia Start 12/02/24 10:06 Into Room 12/02/24 10:06 Procedure Start 12/02/24 10:20 Procedure End 12/02/24 11:44 Anesthesia End 12/02/24 11:50 Out of Room 12/02/24 11:50 Procedure Start Time: 10:20 Procedure Stop Time: 11:44 Select all DRAINS/GRAFTS/IMPLANTS that apply: Drains Drain details: 22 Jamaican three-way [place] Estimated Blood Loss: 25 cc Specimen collected: Yes Description of specimen(s) removed: Prostate tissue Description of surgery: Patient was taken back to the operating room after smooth induction of anesthesia he was placed in dorsolithotomy position. Several years ago he had aresection of the prostate thing about 6 years agoand was doing fairly well but then noticed significant urinary problems at this point on cystoscopyfound to have significant regrowth in the urinary channel he has been on maximal medical therapy and still having difficulties emptying his bladder frequency poor emptying he has a lot of blockage going back in his channel even from a prior TURP several years ago so going to repeat a second TURP for the significant amount of regrowth and blockage. Patient was taken back to the operating room after smooth duction of anesthesia he was placed in dorsolithotomy position. Penis and testicles were prepped and draped in usual sterile fashion was ableto go into the urethra with a 24 Frenchnoncontinuous flow Olympus but polar resectoscope was able to go through quite easily the entire length of the urethra was clear of any strictures or problems sphincter was intact the verumontanum was identified beyond the verumontanum wasa significant amount of regrowth tissue bilateral hypertrophy and a lot of tissue regrowth from the roof of the prostate.I then started the resection at the bladder neck I then worked my way down in the midline to the verumontanum I then worked my way to the patient's right side first resecting all the adenomatous tissue on the right side working way all the way anterior I resected very carefully and the roof tissue and then went to the left side resected the left side tissue and then after resecting the left side then the right side thenwas left was the apical tissue this is the tissue very close to the urinary sphincter try to redo this resection very carefully to resect only adenomatous tissue and avoid any injury to the sphincter at the end of this resection he didlook active sphincter was intact the verumontanum was intact looks active sphincter coapted nicely I then spent a long time trying to cauterize the prostate and get good hemostasis there was a significant amount of tissue that Iresected could be some venous oozing as I cauterized extensively to the prostatebut he really could not get full hemostasis but eventually was able to get enough hemostasis that was satisfied with the control all the chips have been Ellik out of the bladder the left and right ureteral orifice were uninjured and then placed a 22 Jamaican catheter in the bladder and continuous irrigation with the light traction and the urine was a light pink color [facility] condition we will stay overnight with a catheter irrigation may have to send him home with a catheter let it heal up and see him next week for catheter removal. Surgical Findings: Significant regrowth and obstruction in the urinary channel resected completely all the way back tothe verumontanum Complications Complications: No Admit VTE Documentation VTE Present on Admission: No VTE Mechan Device Prophylaxis: SCD's VTE Pharm Prophylaxis ordered?: No 12/02/24 1155 Cosigner Signature (if applicable): CC: Dr. Ryan Aparicio MD; Dr. Stan Anthony MD~ Signed [facility]05-28-2025 Discharge summary Author Stan Anthony [facility] Note Date/Time December 02, 2024 9:42a [facility] Medical Records Department [address] [place] [address] Instructions for Home/Discharge Instructions 12/02/24 0942 MR#: [id number] Acct: [id number] Name: SUE LORENZ Rep #:[id number] : 1960 64 From: Stan Anthony MD PCP: Dr. Ryan Aparicio MD Status :REG SDC Discharge Instructions Diet Discharge Diet: No restrictions DC O2, CPAP, BIPAP needs Home O2 Discharge instructions: No Dressing / Incision Discharge Activity: Return to Normal Activity and May Not Drive (while taking narcotic pain medications.) Dressing / Incision Call your doctor if you observe: Fever of 101 or Higher Follow Up Care Please Follow Up With: Stan Anthony MD When: Call [phone] for an appointment Test Results: Test results from this visit will be discussed in further detail at your follow- up appointment, if applicable. Discharge Plan Admission Attending Provider: Stan Anthony Primary Care Provider: Ryan Aparicio Instructions Print Language: Sierra Leonean Discharge Orders/Prescriptions Prescriptions: No Action lisinopril 20 MG tablet 20 mg PO DAILY atorvastatin 20 mg tablet 20 mg PO DAILY Patient Comments: TAKE 1 TABLET BY MOUTH DAILY AT BEDTIME. FOR CHOLESTEROL omeprazole 40 mg capsule,delayed release(DR/EC) 40 mg PO DAILY tamsulosin 0.4 mg capsule 0.4 mg PO DAILY finasteride 5 mg tablet 5 mg PO DAILY Other Ambulatory Orders: 12 Lead EKG (Routine) Timeframe: 20241127 Location: None Selected Ordered By: Dr. Yves Ordaz Referrals / Follow Up: Ryan Aparicio MD [Primary Care Provider] - Disposition Disposition (needs filled in before D/C Order can be placed): Home, Self Care 12/02/24941<Electronically signed by Stan Anthony MD>Stan Anthony MD CC: Dr. Ryan Aparicio MD ~ Signed [facility] Work Phone: 1(224) 832-182905-28-2025 Consult note Author Blayne [facility] Note Date/Time December 02, 2024 9:09a [facility] Medical Records Department [address] [place] [address] Pre-Anesthesia Evaluation 12/02/24900 MR#: [id number] Acct: [id number] Name: SUE LORENZ Rep #:[id number] : 1960 64 From: Blayne Almazan MD PCP: Dr. Ryan Aparicio MD Status :[place] [facility] [place] Race: C Location: [place] [address]- ASA Classification* ASA Classification ASA Classification: 2 Assessment & Plan Anesthesia* Anesthesia Assessment Anesthesia Assessment: Discussed sedation and/or anesthesia options, risks, benefits, and alternatives with patient/parents/legal guardian/POA. Questions invited. The patient/parents/legal guardian/POA seems to understand and agrees to proceedwith anesthesia plan. Reviewed the physical assessment, medical history, allergy history and patient home medications list prior to surgery/procedure/anesthetic and documented any changes. Performed airway and anesthesia risk assessments. Anesthesia Type Anesthesia Type: General History Source History Obtained from:: Patient and Chart Anesthesia Focused Assessment* Temperature: 97.8 F Pulse Rate: 44 Blood Pressure: 159/81 Respiratory Rate: 16 Pulse Ox: 97 Oxygen Delivery Method: Room Air Airway Assessment Mouth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 biopsies - Erectile dysfunction - Essential hypertension, benign 05/04/2014 - GERD (gastroesophageal reflux disease) - Glaucoma 2012 Dr. Julio. Right eye only. - Hearing loss - History of tobacco use - Horseshoe kidney with renal calculus 11/28/2016 - Marijuana use - Mixed hyperlipidemia - PMH - PAST MEDICAL HISTORY OF open angle glaucoma OD - Urinary retention - Vitamin D deficiency ALLERGIES Prednisone, Bees, and Poison Angelita MEDICATIONS Current Outpatient Medications Medication Sig - lisinopril (ZESTRIL) 20 mg tablet Take 1 tablet by mouth once daily. - omeprazole (PRILOSEC) 40 mg capsule Take 1 capsule by mouth once daily. - atorvastatin (LIPITOR) 20 mg tablet Take 1 tablet by mouth daily at bedtime. For cholesterol. - tamsulosin (FLOMAX) 0.4 mg Take 1 capsule by mouth once daily. - finasteride (PROSCAR) 5 mg tablet 1 tablet once daily. No current facility-administered medications for this visit. Medications and allergies reviewed by this provider. SOCIAL HISTORY Social History Tobacco Use - Smoking status: Former Current packs/day: 0.00 Average packs/day: 0.5 packs/day for 36.0 years (18.0 ttl pk-yrs) Types: Cigarettes Start date: 11/28/1979 Quit date: 11/28/2015 Years since quittin.4 - Smokeless tobacco: Never Vaping Use - Vaping status: Never Used Substance Use Topics - Alcohol use: Yes Alcohol/week: 8.0 standard drinks of alcohol Types: 8 Cans of Beer (12oz) per week - Drug use: Yes Types: Marijuana Comment: once per month REVIEW OF SYSTEMS All other reviewed and negative other than HPI. OBJECTIVE: BP 140/88 Pulse (!) 50 Resp 18 Wt 90.2 kg (198 lb 13.7 oz) SpO2 98% BMI 30.77 kg/m? . Vital signs reviewed by this provider. APPEARANCE Well appearing, alert, in no acute distress, well-hydrated, well nourished. EYES conjunctiva and sclera normal. HEART RRR with normal S1 and S2, no murmurs, no gallops, no JVD appreciated LUNG clear to auscultation. No wheezes, rhonchi or rales EXTREMITIES Extremities normal, No deformities, No skin discoloration, and No edema SKIN Skin color, texture, turgor normal, no suspicious rashes or lesions to exposed skin Latest Ref Rng 05/23/2023 Protein, Total 6.3 - 8.0 g/dL 7.3 Albumin 3.9 - 4.9 g/dL 4.6 Calcium 8.5 - 10.2 mg/dL 9.8 Bilirubin, Total 0.2 - 1.3 mg/dL 0.6 Alkaline Phosphatase 38 - 113 U/L 59 AST 14 - 40 U/L 19 ALT 10 - 54 U/L 33 Glucose 74 - 99 mg/dL 88 BUN 9 - 24 mg/dL 17 Creatinine 0.73 - 1.22 mg/dL 0.99 Sodium 136 - 144 mmol/L 138 Potassium 3.7 - 5.1 mmol/L 4.1 Chloride 97 - 105 mmol/L 102 CO2 22 - 30 mmol/L 24 Anion Gap 9 - 18 mmol/L 12 eGFR >=60 mL/min/1.73m? 86 Vitamin D 25 Hydroxy 31.0 - 80.0 ng/mL 25.8 (L) Legend: (L) Low Depression Screening Never done Anxiety Screening Never done Shingrix Vaccine(1 of 2) Never done Influenza Vaccine(1) due on 01/04/2025 Covid-19 Vaccine( season) due on 05/18/2025 Annual PCP Team Chronic Disease Visit due on 10/17/2024 BP Controlled (<130/80) due on 02/17/2025 Diabetes Screening due on 05/23/2026 Prostate Cancer Screening Discussion due on 08/16/2026 Colorectal Cancer Screening due on 08/09/2027 Lipid Screening due on 10/13/2027 DTaP,Tdap,Td Vaccine(2 - Td or Tdap) due on 08/14/2028 RSV Vaccine(1 - 1-dose 75+ series) due on 2035 HIV Screening Completed Hepatitis C Screening Addressed ASSESSMENT/PLAN: 1. Essential hypertension, benign - ICD9: 401.1, ICD10: I10 (primary diagnosis) - Controlled - Continue current medications - (more content not included)...[facility] History of Present illness Narrative* Aster Joyner APRN.SHAISTA - 05/18/2024 8:00 AM EST 05/18/2024 Patient presents with: BP Check SUBJECTIVE: This is a 63 year old that is here today for Above Complaints. Since last office visit has been in good health without ER visits or hospitalizations. GERD: taking omeprazole as prescribed without side effects. Denies breakthrough symptoms BPH: Follows with Dr. Buck, urologist, with last office visit on 10/08/2023. Taking finasteride and Flomax as prescribed without side effects. Nocturia about two times per night. Denies weak stream,straining to urinate, urinary frequency/urgency or hematuria HTN: Patient is compliant with meds has been in out since Saturday Monitors bp at home: No. Denies side effects: No. Chest pain: No. Dyspnea: No. Edema: No. Palpitations: No. Syncope: No. Headache: No. Dizziness: No. HYPERLIPIDEMIA: Patient is taking medications: Yes. Patient is watching diet: Yes. Patient denies myalgias: Yes. Patient denies gi upset: Yes PAST MEDICAL HISTORY Diagnosis Date BPH (benign prostatic hyperplasia) 05/04/2014 Cervical radiculopathy Cyst of epididymis 11/15/201605/2014 DDD (degenerative disc disease), thoracolumbar spurring 08/04/[address] Anthony. negative biopsies Erectile dysfunction Essential hypertension, benign 05/04/2014 GERD (gastroesophageal reflux disease) Glaucoma 2012 Dr. Julio. Right eye only. Hearing loss History of tobacco use Horseshoe kidney with renal calculus 11/28/2016 Marijuana use Mixed hyperlipidemia PMH - PAST MEDICAL HISTORY OF open angle glaucoma OD Urinary retention Vitamin D deficiency ALLERGIES Prednisone, Bees, and Poison Angelita MEDICATIONS Current Outpatient Medications Medication Sig lisinopril (ZESTRIL) 20 mg tablet Take 1 tablet by mouth once daily. omeprazole (PRILOSEC) 40 mg capsule Take 1 capsule by mouth once daily. atorvastatin (LIPITOR) 20 mg tablet Take 1 tablet by mouth daily at bedtime. For cholesterol. tamsulosin (FLOMAX) 0.4 mg Take 1 capsule by mouth once daily. finasteride (PROSCAR) 5 mg tablet 1 tablet once daily. No current facility-administered medications for this visit. Medications and allergies reviewed by this provider. SOCIAL HISTORY Social History Tobacco Use Smoking status: Former Current packs/day: 0.00 Average packs/day: 0.5 packs/day for 36.0 years (18.0 ttl pk-yrs) Types: Cigarettes Start date: 11/28/1979 Quit date: 11/28/2015 Years since quittin.4 Smokeless tobacco: Never Vaping Use Vaping status: Never Used Substance Use Topics Alcohol use: Yes Alcohol/week: 8.0 standard drinks of alcohol Types: 8 Cans of Beer (12oz) per week Drug use: Yes Types: Marijuana Comment: once per month REVIEW OF SYSTEMS All other reviewed and negative other than HPI. OBJECTIVE: BP 140/88 Pulse (!) 50 Resp 18 Wt 90.2 kg (198 lb 13.7 oz) SpO2 98% BMI 30.77 kg/m . Vital signs reviewed by this provider. APPEARANCE Well appearing, alert, in no acute distress, well-hydrated, well nourished. EYES conjunctiva and sclera normal. HEART RRR with normal S1 and S2, no murmurs, no gallops, no JVD appreciated LUNG clear to auscultation. No wheezes, rhonchi or rales EXTREMITIES Extremities normal, No deformities, No skin discoloration, and No edema SKIN Skin color, texture, turgor normal, no suspicious rashes or lesions to exposed skin Latest Ref [facility] 05/23/2023 Protein, Total 6.3 - 8.0 g/dL 7.3 Albumin 3.9 - 4.9 g/dL 4.6 Calcium 8.5 - 10.2 mg/dL 9.8 Bilirubin, Total 0.2 - 1.3 mg/dL 0.6 Alkaline Phosphatase 38 - 113 U/L 59 AST 14 - 40 U/L 19 ALT 10 - 54 U/L 33 Glucose 74 - 99 mg/dL 88 BUN 9 - 24 mg/dL 17 Creatinine 0.73 - 1.22 mg/dL 0.99 Sodium 136 - 144 mmol/L 138 Potassium 3.7 - 5.1 mmol/L 4.1 Chloride 97 - 105 mmol/L 102 CO2 22 - 30 mmol/L 24 Anion Gap 9 - 18 mmol/L 12 eGFR >=60 mL/min/1.73m 86 Vitamin D 25 Hydroxy 31.0 - 80.0 ng/mL 25.8 (L) Legend: (L) Low Depression Screening Never done Anxiety Screening Never done Shingrix Vaccine(1 of 2) Never done Influenza Vaccine(1) due on 01/04/2025 Covid-19 Vaccine( - season) due on 05/18/2025 Annual PCP Team Chronic Disease Visit due on 10/17/2024 BP Controlled (<130/80) due on 02/17/2025 Diabetes Screening due on 05/23/2026 Prostate Cancer Screening Discussion due on 08/16/2026 Colorectal Cancer Screening due on 08/09/2027 Lipid Screening due on 10/13/2027 DTaP,Tdap,Td Vaccine(2 - Td or Tdap) due on 08/14/2028 RSV Vaccine(1 - 1-dose 75+ series) due on 2035 HIV Screening Completed Hepatitis C Screening Addressed ASSESSMENT/PLAN: 1. Essential hypertension, benign - ICD9: 401.1, ICD10: I10 (primary diagnosis) - Controlled - Continue current medications - Recommend home blood pressure monitoring, to bring results to next visit - Encouraged sodium restriction, DASH or Mediterranean diet - Recommend regular aerobic exercise - Discussed need for and benefit of weight loss. BMI 30.77 kg/(m^2) - Follow up in July for physical - LISINOPRIL 20 MG TABLET - COMPREHENSIVE METABOLIC PANEL 2. Gastroesophageal reflux disease, unspecified whether esophagitis present - ICD9: 530.81, ICD10: K21.9 - stable on current regime - COMPLETE BLOOD COUNT AND DIFFERENTIAL - OMEPRAZOLE 40 MG CAPSULE,DELAYED RELEASE 3. Benign prostatic hyperplasia with lower urinary tract symptoms, symptom details unspecified - ICD9: 600.01, ICD10: N40.1 - stable - follow-up with urology as recommended 4. Mixed hyperlipidemia - ICD9: 272.2, ICD10: E78.2 - Control undetermined, due for labs - Continue current medications - Counseled on healthy diet and regular exercise - Discussed need for and benefit of weight loss. BMI 30.77 kg/(m^2) - Follow up in July for physical - LIPID PANEL BASIC 5. Vitamin D insufficiency - ICD9: 268.9, ICD10: E55.9 - VITAMIN D 25 HYDROXY Aster Torreslogre, ARTIST AGENT.PROFESSIONAL DRIVER Prescription instructions reviewed with patient as applicable. Patient advised if symptoms do not improve or if symptoms worsen sooner, to contact their primary care physician. Potential red flag symptoms discussed with the patient. Reviewed appropriate action plan to take if red flag symptoms occur. Patient agreeable to treatment plan. Medical Decision Making: Problems: Moderate: 2+ stable chronic illnesses Data: Unique test(s) ordered: 3+ Risk: Moderate: Drug management and Moderate risk from testing/treatment Medical Decision Making Level: 4 - Moderate [facility] Telephone encounter Note * Telephone Encounter - Zarina Gordon LPN - 05/16/2024 9:53 AM EST Pt notified and booked for saturday05-18-24. Pt reports he has been without medication since . Zarina Gordon LPN [facility]11-09-2024 Miscellaneous Notes* Telephone Encounter - Zairna Gordon LPN - 05/16/2024 9:53 AM EST Pt notified and booked for saturday05-18-24. Pt reports he has been without medication since . Zarina Gordon LPN * Telephone Encounter - Robert Aparicio MD - 05/15/2024 11:14 AM EST Needs appointment. * Telephone Encounter - Cathie Ann LPN - 05/15/2024 11:06 AM EST Prescription Refill Information The patient has been identified by name and date of : Yes Caregiver verified no other encounters exist for this prescription request: Yes Caregiver confirmed with patient/requestor that no other refills are due, in the near future, with this provider at this time: Yes The last office visit in the department: 10/18/23 Does the patient have a future office visit with this provider/department: No Requested Prescriptions Pending Prescriptions Disp Refills atorvastatin (LIPITOR) 20 mg tablet 90 tablet 2 Sig: Take 1 tablet by mouth daily at bedtime. For cholesterol. lisinopril (ZESTRIL) 20 mg tablet 90 tablet 1 Sig: Take 1 tablet by mouth once daily. omeprazole (PRILOSEC) 40 mg capsule 90 capsule 3 Sig: Take 1 capsule by mouth once daily. Cathie Ann LPN May 15, 2024 11:07 AM documented in [facility]11-[facility]24 Telephone encounter Note * Telephone Encounter - Robert Aparicio MD - 05/15/2024 11:14 AM EST Needs appointment. [facility]-08-[facility] Telephone encounter Note* Telephone Encounter - Cathie Ann LPN - 05/15/2024 11:06 AM EST Prescription Refill Information The patient has been identified by name and date of : Yes Caregiver verified no other encounters exist for this prescription request: Yes Caregiver confirmed with patient/requestor that no other refills are due, in the near future, with this provider at this time: Yes The last office visit in the department: 10/18/23 Does the patient have a future office visit with this provider/department: No Requested Prescriptions Pending Prescriptions Disp Refills atorvastatin (LIPITOR) 20 mg tablet 90 tablet 2 Sig: Take 1 tablet by mouth daily at bedtime. For cholesterol. lisinopril (ZESTRIL) 20 mg tablet 90 tablet 1 Sig: Take 1 tablet by mouth once daily. omeprazole (PRILOSEC) 40 mg capsule 90 capsule 3 Sig: Take 1 capsule by mouth once daily. Cahtie Ann LPN May 15, 2024 11:07 AM [facility]08-14-[facility] Telephone encounter Note* Telephone Encounter - Estelle Coelho MA - 02/19/2024 7:54 AM EDT Patient given results and verbalized understanding of instructions given. Estelle Coelho MA [facility]08-14-2024 Miscellaneous Notes* Telephone Encounter - Estelle Coelho MA - 02/19/2024 7:54 AM EDT Patient given results and verbalized understanding of instructions given. Estelle Coelho MA * Telephone Encounter - Estelle Coelho MA - 02/19/2024 7:53 AM EDT ----- Message from Luca Dickens APRN.CNP sent at 02/19/2024 7:01 AM EDT ----- Please notify patient that his COVID test was negative and he should continue taking his antibiotics as prescribed for his pneumonia. He should follow-up with his family doctor in approximately 1 week and otherwise return for any new or worsening concerns documented in this encounterMary[facility] Telephone encounter Note * Telephone Encounter - Estelle Coelho MA - 02/19/2024 7:53 AM EDT ----- Message from Luca Dickens APRN.CNP sent at 02/19/2024 7:01 AM EDT ----- Please notify patient that his COVID test was negative and he should continue taking his antibiotics as prescribed for his pneumonia. He should follow-up with his family doctor in approximately 1 week and otherwise return for any new or worsening concerns [facility]08-[facility] History of Present illness Narrative* Chloe Manzo RT(R) - 02/18/2024 5:00 PM EDT Radiology Service Progress Note PATIENT NAME: Sue Lorenz DATE OF SERVICE: February 18, 2024 TIME: 5:17 PM PATIENT IDENTITY VERIFICATION COMPLETED USING TWO (2) IDENTIFIERS: Name and Date of confirmedby patient verbally. FALL SCREENING: Has the patient had 2 falls in the last year or 1 fall with injury or currently using an Ambulatory Assistive Device (Walker, Cane, Wheelchair, Crutches, etc.)? No PATIENT GENDER DATA: Male PATIENT RELEVANT IMPLANT DATA REVIEWED: Yes PATIENT PRESENTS WITH AN IMPLANTABLE OR ATTACHED DINING ROOM ATTENDANT CAFETERIA: No RADIOLOGY DEPARTMENT: General X-ray: Exam(s) Completed: Chest X-Ray PERIPHERAL IV DATA: Not applicable SIGNED BY: RT Oren(R) February 18, 2024 5:17 PM documented in this encounterMarymount Hospital08-13-2024 History of Present illness Narrative* Luca Dickens APRN.PROFESSIONAL DRIVER - 02/18/2024 4:52 PM EDT This note was created using [employer]. Subjective Sue Lorenz is a 63 year old male. HPI Pt has had a cough, low grade fever, loss of appetite and fatigue for a week. Symptoms started to resolve 4 days ago but then symptoms returned two days ago. Today pt feeling better again. Review of Systems Constitutional: Positive for fatigue and fever. Respiratory: Positive for cough. Gastrointestinal: Negative for nausea and vomiting. Objective BP 125/72 Pulse 64 Temp (!) 38.2 C (100.8 F) Resp 20 Wt 81 kg (178 lb 9.2 oz) SpO2 97% BMI 27.64 kg/m Physical Exam Vitals and nursing note reviewed. Constitutional: General: He is not in acute distress. Appearance: Normal appearance. He is not ill-appearing. HENT: Head: Normocephalic. Mouth/Throat: Mouth: Mucous membranes are moist. Eyes: Conjunctiva/sclera: Conjunctivae normal. Cardiovascular: Rate and Rhythm: Normal rate and regular rhythm. Pulmonary: Effort: Pulmonary effort is normal. Breath sounds: Normal breath sounds. Musculoskeletal: General: Normal range of motion. Cervical back: Normal range of motion. Skin: General: Skin is warm and dry. Neurological: General: No focal deficit present. Mental Status: He is alert. Psychiatric: Mood and Affect: Mood normal. Behavior: Behavior normal. Assessment and Plan ASSESSMENT/PLAN: 1. Acute cough - ICD9: 786.2, ICD10: R05.1 (primary diagnosis) As below - XR CHEST 2V FRONTAL/LAT - COVID NAAT, UPPER RESPIRATORY, ROUTINE 2. Community acquired pneumonia of left lung, unspecified part of lung - ICD9: 486, ICD10: J18.9 Chest x-ray was consistent with left lobe midlung pneumonia. As patient does have multiple comorbidities he was started on azithromycin and Augmentin. Patient denied need for cough medicine. Patient otherwise was stable and I do feel he is appropriate for outpatient management initially. Was recommended to follow-up with PCP in approximately 1 week and return for any new or worsening concerns. - AZITHROMYCIN 250 MG TABLET - AMOXICILLIN 875 MG-POTASSIUM CLAVULANATE 125 MG TABLET Luca Dickens APRN.SHAISTA documented in this encounterMary[facility] Hospital05-07-2024 Telephone encounter Note * Telephone Encounter - Julienne Moise - 11/12/2023 4:10 PM EDT Patient has been identified by name and date of : Patient phones for refill(s): Requested Prescriptions Pending Prescriptions Disp Refills lisinopril (ZESTRIL) 20 mg tablet 90 tablet 1 Sig: Take 1 tablet by mouth once daily. Date of last office visit in primary care: 10/18/2023 Date of next office visit in primary care: 11/22/2023 Please advise. Thank you. Julienne Moise. [facility]05-07-[facility] Miscellaneous Notes* Telephone Encounter - Julienne Moise - 11/12/2023 4:10 PM EDT Patient has been identified by name and date of : Patient phones for refill(s): Requested Prescriptions Pending Prescriptions Disp Refills lisinopril (ZESTRIL) 20 mg tablet 90 tablet 1 Sig: Take 1 tablet by mouth once daily. Date of last office visit in primary care: 10/18/2023 Date of next office visit in primary care: 11/22/2023 Please advise. Thank you. Julienne Moise. documented in this encounterMary[facility] Hospital04-12-2024 History of Present illness Narrative* PodlogAster grimaldo APRN.PROFESSIONAL DRIVER - 10/18/2023 10:12 AM EDT 10/18/2023 Patient presents with: Knee Pain: Right knee pain 3 weeks; no injury noted SUBJECTIVE: This is a 63 year old that is here today for Above Complaints. ONSET: 3-4 weeks ago. Feels about 90% better was going to cancel appointment LOCATION: right knee across back and lateral side DURATION: intermittent CHARACTERISTICS: originally very painful, now just a little twinge AGGRAVATING FEATURES: jumping jacks ALLEVIATING FEATURES: motrin for pain Has been running two miles a day since August. Working on weight loss. Wants to be 175# by January 05 and down to 150# by March Had some swelling which has resolved. Denies redness or excessive warmth PAST MEDICAL HISTORY Diagnosis Date BPH (benign prostatic hyperplasia) 05/04/2014 Cervical radiculopathy Cyst of epididymis 11/15/201605/2014 DDD (degenerative disc disease), thoracolumbar spurring 08/04/[address] Anthony. negative biopsies Erectile dysfunction Essential hypertension, benign 05/04/2014 GERD (gastroesophageal reflux disease) Glaucoma 2012 Dr. Julio. Right eye only. Hearing loss History of tobacco use Horseshoe kidney with renal calculus 11/28/2016 Marijuana use Mixed hyperlipidemia PMH - PAST MEDICAL HISTORY OF open angle glaucoma OD Urinary retention Vitamin D deficiency ALLERGIES Bees and Poison Angelita MEDICATIONS Current Outpatient Medications Medication Sig omeprazole (PRILOSEC) 40 mg capsule Take 1 capsule by mouth once daily. atorvastatin (LIPITOR) 20 mg tablet Take 1 tablet by mouth daily at bedtime. For cholesterol. lisinopril (ZESTRIL) 20 mg tablet Take 1 tablet by mouth once daily. sildenafil (REVATIO) 20 mg tablet Take 1 tablet by mouth three times daily as needed (prior to sexual intercourse). tamsulosin (FLOMAX) 0.4 mg Take 1 capsule by mouth once daily. finasteride (PROSCAR) 5 mg tablet 1 tablet once daily. Current Facility-Administered Medications Medication Dose Route Frequency perflutren lipid microspheres 1.3 mL in NaCl (PF) 0.9% 10 mL injection (DEFINITY) INTRAVENOUS DIRECTED PRN sodium chloride 0.9 % (flush) 10 mL (BD POSIFLUSH) 10 mL INTRAVENOUS DIRECTED PRN Medications and allergies reviewed by this provider. SOCIAL HISTORY Social History Tobacco Use Smoking status: Former Packs/day: 0.50 Years: 36.00 Additional pack years: 0.00 Total pack years: 18.00 Types: Cigarettes Quit date: 11/28/2015 Years since quittin.8 Smokeless tobacco: Never Vaping Use Vaping Use: Never used Substance Use Topics Alcohol use: Yes Alcohol/week: 8.0 standard drinks of alcohol Types: 8 Cans of Beer (12oz) per week Drug use: Yes Types: Marijuana Comment: once per month REVIEW OF SYSTEMS All other reviewed and negative other than HPI. OBJECTIVE: BP 114/68 Pulse (!) 50 Resp 18 Wt 90.8 kg (200 lb 3.2 oz) SpO2 97% BMI 30.98 kg/m . Vitalsigns reviewed by this provider. APPEARANCE Well appearing, alert, in no acute distress, well-hydrated, well nourished. RIGHT KNEE: No obvious deformity, erythema or swelling. FROM without pain. Negative anterior and posterior drawer test. Negative Davon. No crepitus Shingrix Vaccine(1 of 2) Never done BP Controlled (<130/80) due on 01/31/2021 Behavioral Health Screening Never done RSV Vaccine(1 - 1-dose 60+ series) due on 05/24/2024 Covid-19 Vaccine( season) due on 05/24/2024 Influenza Vaccine(Season Ended) due on 03/08/2024 Annual PCP Team Chronic Disease Visit due on 05/24/2024 Diabetes Screening due on 05/23/2026 Prostate Cancer Screening Discussion due on 08/16/2026 Colorectal Cancer Screening due on 08/09/2027 Lipid Screening due on 10/13/2027 DTaP,Tdap,Td Vaccine(2 - Td or Tdap) due on 08/14/2028 HIV Screening Completed Hepatitis C Screening Addressed ASSESSMENT/PLAN: 1. Acute pain of right knee - ICD9: 719.46, ICD10: M25.561 - improving - no red flag symptoms or exam findings - red flag symptoms discussed, verbalizes understanding - may continue OTC Motrin as directed on packaging. May use heat or ice for 15 minutes at a time and ay try topical OTC as directed on packaging - may try fast walking, swimming or elliptical for less stress on joint - follow-up as needed to ER with red flag symptoms Aster Joyner APRN.CNP Prescription instructions reviewed with patient as applicable. Patient advised if symptoms do not improve or if symptoms worsen sooner, to contact their primary care physician. Potential red flag symptoms discussed with the patient. Reviewed appropriate action plan to take if red flag symptoms occur. Patient agreeable to treatment plan. Medical Decision Making: Problems: Moderate: New problem with uncertain prognosis Risk: Low: Low risk from testing/treatment Medical Decision Making Level: 3 - Low documented in this encounterMary[facility] Hospital11-17-2023 Miscellaneous Notes* Telephone Encounter - Alley Moon Ma - 05/24/2023 3:22 PM EST Left detailed message on [employer]. * Telephone Encounter - Alley Moon Ma - 05/24/2023 3:21 PM EST ----- Message from Aster Joyner APRN.CNP sent at 05/24/2023 2:37 PM EST ----- Vitamin D the same as last check. Recommend to continue vitamin D 2000 units daily. Aster Joyner APRN.CNP documented in this encounterMarymount Hospital11-17-2023 History of Present illness Narrative* Podlogar, AsterLORI.PROFESSIONAL DRIVER - 05/24/2023 8:22 AM EST 05/24/2023 Patient presents with: Recheck: 6 months SUBJECTIVE: This is a 62 year old that is here today for Above Complaints.. GERD: taking omeprazole as prescribed without side effects. Denies breakthrough symptoms BPH: taking finasteride and Flomax as prescribed without side effects. Nocturia about two times pernight. Denies weak stream, straining to urinate, urinary frequency/urgency or hematuria HYPERLIPIDEMIA: Patient is taking medications: No- about three months ago Patient is watching diet: Yes. Patient denies myalgias: Yes. Patient denies gi upset: Yes HTN: Patient is compliant with meds Yes Monitors bp at home: No. Denies side effects: Yes. Chest pain: No. Dyspnea: No. Edema: No. Palpitations: No. Syncope: No. Headache: No. Dizziness: No. PAST MEDICAL HISTORY Diagnosis Date BPH (benign prostatic hyperplasia) 05/04/2014 Cervical radiculopathy Cyst of epididymis 11/15/201605/2014 DDD (degenerative disc disease), thoracolumbar spurring 08/04/[address] Anthony. negative biopsies Erectile dysfunction Essential hypertension, benign 05/04/2014 GERD (gastroesophageal reflux disease) Glaucoma 2012 Dr. Julio. Right eye only. Hearing loss History of tobacco use Horseshoe kidney with renal calculus 11/28/2016 Marijuana use Mixed hyperlipidemia PMH - PAST MEDICAL HISTORY OF open angle glaucoma OD Urinary retention Vitamin D deficiency ALLERGIES Bees and Poison Angelita MEDICATIONS Current Outpatient Medications Medication Sig lisinopril (ZESTRIL) 20 mg tablet Take 1 tablet by mouth once daily. omeprazole (PRILOSEC) 40 mg capsule Take 1 capsule by mouth once daily. sildenafil (REVATIO) 20 mg tablet Take 1 tablet by mouth three times daily as needed (prior to sexual intercourse). tamsulosin (FLOMAX) 0.4 mg Take 1 capsule by mouth once daily. finasteride (PROSCAR) 5 mg tablet 1 tablet once daily. atorvastatin (LIPITOR) 20 mg tablet Take 1 tablet by mouth daily at bedtime. For cholesterol. Current Facility-Administered Medications Medication Dose Route Frequency perflutren lipid microspheres 1.3 mL in NaCl (PF) 0.9% 10 mL injection (DEFINITY) INTRAVENOUS DIRECTED PRN sodium chloride 0.9 % (flush) 10 mL (BD POSIFLUSH) 10 mL INTRAVENOUS DIRECTED PRN Medications and allergies reviewed by this provider. SOCIAL HISTORY Social History Tobacco Use Smoking status: Former Packs/day: 0.50 Years: 36.00 Additional pack years: 0.00 Total pack years: 18.00 Types: Cigarettes Quit date: 11/28/2015 Years since quittin.4 Smokeless tobacco: Never Vaping Use Vaping Use: Never used Substance Use Topics Alcohol use: Yes Alcohol/week: 8.0 standard drinks of alcohol Types: 8 Cans of Beer (12oz) per week Drug use: Yes Types: Marijuana Comment: once per month REVIEW OF SYSTEMS All other reviewed and negative other than HPI. OBJECTIVE: BP 134/72 Pulse (!) 50 Temp 36.6 C (97.8 F) (Temporal) Resp 16 Wt 98.4 kg (217 lb) SpO2 96% BMI 33.58 kg/m . Vital signs reviewed by this provider. APPEARANCE Well appearing, alert, in no acute distress, well-hydrated, well nourished. EYES conjunctiva and sclera normal. HEART RRR with normal S1 and S2, no murmurs, no gallops, no JVD appreciated LUNG clear to auscultation. No wheezes, rhonchi or rales EXTREMITIES Extremities normal, No deformities, No skin discoloration, and No edema SKIN Skin color, texture, turgor normal, no suspicious rashes or lesions to exposed skin Component Latest Ref Rng & Units 10/12/2022 Total Cholesterol, Nonfasting <200 mg/dL 153 Triglycerides, Nonfasting <150 mg/dL 80 HDL Cholesterol, Nonfasting >39 mg/dL 55 LDL Cholesterol, Nonfasting <100 mg/dL 82 Non HDL Cholesterol, Nonfasting <130 mg/dL 98 VLDL Cholesterol, Nonfasting <30 mg/dL 16 Total Chol/HDL Ratio, Nonfasting <5.10 mg/dL 2.78 LDL/HDL Ratio, Nonfasting <2.54 mg/dL 1.49 BP Controlled (<130/80) due on 01/31/2021 Shingrix Vaccine(1 of 2) due on 10/13/2023 Influenza Vaccine(1) due on 01/05/2024 RSV Vaccine(1 - 1-dose 60+ series) due on 05/24/2024 Covid-19 Vaccine( season) due on 05/24/2024 Annual PCP Team Chronic Disease Visit due on 05/24/2024 Diabetes Screening due on 05/23/2026 Prostate Cancer Screening Discussion due on 08/16/2026 Colorectal Cancer Screening due on 08/09/2027 Lipid Screening due on 10/13/2027 DTaP,Tdap,Td Vaccine(2 - Td or Tdap) due on 08/14/2028 Depression Assessment Completed HIV Screening Completed Hepatitis C Screening Addressed ASSESSMENT/PLAN: 1. Essential hypertension, benign - ICD9: 401.1, ICD10: I10 (primary diagnosis) - Controlled - Continue current medications - Recommend home blood pressure monitoring, to bring results to next visit - Encouraged sodium restriction, DASH or Mediterranean diet - Recommend regular aerobic exercise - Discussed need for and benefit of weight loss. BMI 33.58 kg/(m^2) - Follow up in 6 months for hypertension visit 2. Gastroesophageal reflux disease, unspecified whether esophagitis present - ICD9: 530.81, ICD10: K21.9 - stable on current regime - OMEPRAZOLE 40 MG CAPSULE,DELAYED RELEASE 3. Obesity, Class I, BMI 30-34.9 - ICD9: 278.00, ICD10: E66.9 - Lengthy discussion in office today regarding diet and exercise. Discussed use of small plate to eat meals from, drink 1 glass of water 10-15 minutes prior to eating meal, drink 8 glasses of water daily, eat fresh fruit and vegetable during meal first then lean protein such as grilled/baked chicken breast or fish, limit carbohydrate intake (less pasta, breads, rice and snack foods) as well as limiting sugars (desserts etc). Important to count / track your calories and exercise as well. 4. Mixed hyperlipidemia - ICD9: 272.2, ICD10: E78.2 - Controlled - Continue current medications - Counseled on healthy diet and regular exercise - Discussed need for and benefit of weight loss. BMI 33.58 kg/(m^2) - Follow up in 6 months, sooner should any other issues arise. 5. Benign prostatic hyperplasia with lower urinary tract symptoms, symptom details unspecified - ICD9: 600.01, ICD10: N40.1 - stable on current regime - follow-up as needed Aster Joyner APRN.CNP Prescription instructions reviewed with patient as applicable. Patient advised if symptoms do not improve or if symptoms worsen sooner, to contact their primary care physician. Potential red flag symptoms discussed with the patient. Reviewed appropriate action plan to take if red flag symptoms occur. Patient agreeable to treatment plan. I spent a total of 25 minutes on the date of the service which included preparing to see the patient, [id number] patient care, completing clinical documentation, obtaining and/or reviewing separately obtained history, performing a medically appropriate examination, counseling and educating the pat ient/family/caregiver, and ordering medications, tests, or procedures. documented in this encounterMary[facility]11-04-2023 Miscellaneous Notes* Telephone Encounter - Abby Pearson LPN - 05/11/2023 9:47 AM EDT Patient notified of lab orders placed. Scheduled for Thursday 05/24 for 6 month follow up. Abby Pearson LPN * Telephone Encounter - Aster Joyner APRN.CNP - 05/10/2023 7:31 PM EDT Lab orders placed. Please let patient know. Aster Joyner APRN.CNP * Telephone Encounter - Abby Pearson LPN - 05/10/2023 3:38 PM EDT Patient to be rescheduled for todays appointment on another Saturday. Patient asking if labs can be put in so he can complete before next appointment to be able to go over them at appointment. Please advise. Abby Pearson LPN documented in this encounterMary[facility] Hospital10-24-2023 Miscellaneous Notes* Telephone Encounter - Abby Melendez RN - 04/30/2023 5:35 PM EDT Patient has been identified by name and date of : Yes, Provider Alessandra Date 04/30/23 Time 535p Patient phones for refill(s): Requested Prescriptions Pending Prescriptions Disp Refills lisinopril (ZESTRIL) 20 mg tablet 90 tablet 1 Sig: Take 1 tablet by mouth once daily. Date of last office visit in primary care: Visit date not found Date of next office visit in primary care: Visit date not found Last 2 Encounter Wt Readings: Date: Wt: 11/09/2022 99.2 kg (218 lb 12.8 oz) 10/12/2022 99 kg (218 lb 3.2 oz) Previous labs/tests for medication: Blood Pressure: BUN (mg/dL) Date Value 08/31/2022 19 08/16/2021 25 Sodium (mmol/L) Date Value 08/31/2022 141 08/16/2021 140 Last 1 Encounter BP Readings: Date: BP: 11/09/2022 130/74 Please advise. Trip nuñez you. Abby Melendez RN. documented in this encounterMary[facility] Hospital05-05-2023 Instructions* Patient Instructions* Robert Aparicio MD - 11/09/2022 9:50 AM EDT Please take 2,000 units of vitamin D daily for low vitamin D level. documented in this encounterMarymount Hospital05-05-2023 History of Present illness Narrative* Robert Aparicio MD - 11/09/2022 9:47 AM EDT Chief Complaint Patient presents with: Follow Up: 4 week HPI Sue Lorenz is a 62 year old male who presents here today for Evaluation of Erectile dysfunction and joint pain.. Patient notes that he met with Dr. Miranda since our last OV and they started him on Viagra for ED on a PRN basis. Initially discontinued his proscar and flomax, but patient was having difficulty urinating so this has been restarted. Has not gotten them filled yet. Patient complaining of feeling like his right knee is going to give out for the last 6-12 months without pain. This occurs about every 1-3 months. Has not fallen to the ground with this. States he just stands still and will stretch his knee and symptoms resolve. Not treating with medications. Denies knee injury before symptoms started, swelling, erythema, fever/chills, locking up or catching. Nothappening more often. Reviewed normal stress test and echo for bradycardia. Labs unremarkable. Has pulse ox at home, but has not been using yet. Apple watch today gives resting HR at 48. Notes that he does feel tired during the day and snores at night. Has not been tested for JOSUE. Denies lightheadedness/dizziness or palpitations. Past medical history, appointments, medications, allergies reviewed. Previous Medical History PAST MEDICAL HISTORY Diagnosis Date BPH (benign prostatic hyperplasia) 05/04/2014 Cervical radiculopathy Cyst of epididymis 11/15/201605/2014 DDD (degenerative disc disease), thoracolumbar spurring 08/04/[address] Anthony. negative biopsies Erectile dysfunction Essential hypertension, benign 05/04/2014 GERD (gastroesophageal reflux disease) Glaucoma 2012 Dr. Julio. Right eye only. Hearing loss History of tobacco use Horseshoe kidney with renal calculus 11/28/2016 Marijuana use Mixed hyperlipidemia PMH - PAST MEDICAL HISTORY OF open angle glaucoma OD Urinary retention Vitamin D deficiency Previous Surgical History PAST SURGICAL HISTORY Procedure Laterality Date APPENDECTOMY COLONOSCOPY FLX DX W/COLLJ SPEC WHEN PFRMD 08/09/2017 Colonoscopy EYE SURGERY PROCEDURE OD 12/30/12 Evisceration with implant PROSTATE BIOPSY 07/2016 Family History FAMILY HISTORY Problem Relation Age of Onset other (dementia) Mother Cancer Father bone Macular Degen Father Prostate Cancer Father Diabetes Sister Cancer Paternal Grandmother Breast Cancer Cataract Paternal Aunt other (downs) Son Patient Allergies ALLERGIES Allergen Reactions Bees Other: See Comments Tightness in chest; nausea Poison Angelita Other: See Comments Current Medications Current Outpatient Medications on File Prior to Visit Medication Sig tamsulosin (FLOMAX) 0.4 mg Take 1 capsule by mouth once daily. finasteride (PROSCAR) 5 mg tablet 1 tablet once daily. lisinopril (ZESTRIL) 20 mg tablet Take 1 tablet by mouth once daily. omeprazole (PRILOSEC) 40 mg capsule Take 1 capsule by mouth once daily. atorvastatin (LIPITOR) 20 mg tablet Take 1 tablet by mouth daily at bedtime. For cholesterol. cholecalciferol, Vitamin D3, (VITAMIN D3) 1,250 mcg (50,000 unit) cap capsule Take 1 capsule by mouth one time a week. Current Facility-Administered Medications on File Prior to Visit Medication perflutren lipid microspheres 1.3 mL in NaCl (PF) 0.9% 10 mL injection (DEFINITY) sodium chloride 0.9 % (flush) 10 mL (BD POSIFLUSH) Social History Social History Tobacco Use Smoking status: Former Packs/day: 0.50 Years: 36.00 Pack years: 18.00 Types: Cigarettes Quit date: 11/28/2015 Years since quittin.9 Smokeless tobacco: Never Vaping Use Vaping Use: Never used Substance Use Topics Alcohol use: Yes Alcohol/week: 8.0 standard drinks Types: 8 Cans of Beer (12oz) per week Drug use: Yes Types: Marijuana Comment: once per month Review of Symptoms REVIEW OF SYSTEMS GENERAL: No weight loss, malaise or fevers RESPIRATORY: Negative for cough, hemoptysis, wheezing, COPD, dyspnea or shortness of breath CARDIOVASCULAR: Negative for chest pain, leg swelling, hypertension, CHF or palpitations GI: No nausea, vomiting, or diarrhea SKIN: Negative for lesions, rash, and itching EXAM: BP 130/74 Pulse (!) 50 Resp 16 Wt 99.2 kg (218 lb 12.8 oz) SpO2 95% BMI 33.86 kg/m General Appearance: Well appearing, alert, in no acute distress, well-hydrated, well nourished.. Skin: Skin color, texture, turgor normal, no suspicious rashes or lesions. Lungs: Lungs clear to auscultation. No wheezing, rhonchi, rales.. Heart: RRR without murmur, gallop, or rubs. No ectopy. Extremities: No deformities, edema, skin discoloration, clubbing or cyanosis. Good capillary refill. . KNEE:Location: bilateral Redness: No. Warmth: No. Crepitus: Yes. Effusion: No. Joint line tenderness: No. Lateral tenderness: Yes. Medial tenderness: No. Drawer sign negative: Yes. Medial or lateral laxity: No. Davon's sign: No. Health Maintenance List BP CONTROLLED (<130/80) due on 01/31/2021 SHINGRIX VACCINE(1 of 2) due on 10/13/2023 COVID-19 VACCINE(4 - Booster for Pfizer series) due on 10/13/2023 INFLUENZA(Season Ended) due on 03/08/2023 ANNUAL PCP TEAM CHRONIC DISEASE VISIT due on 11/10/2023 DIABETES SCREEN due on 08/31/2025 PROSTATE CANCER SCREENING DISCUSSION due on 08/16/2026 COLORECTAL CANCER SCREENING due on 08/09/2027 LIPID SCREEN due on 10/13/2027 DTAP,TDAP,TD(2 - Td or Tdap) due on 08/14/2028 DEPRESSION ASSESSMENT Completed HIV SCREENING Completed HEPATITIS C SCREENING Addressed Data reviewed Component Latest Ref Rng & Units 08/31/2022 10/12/2022 Protein, Total 6.3 - 8.0 g/dL 6.4 Albumin 3.9 - 4.9 g/dL 4.3 Calcium 8.5 - 10.2 mg/dL 8.9 Bilirubin, Total 0.2 - 1.3 mg/dL 0.4 Alkaline Phosphatase 38 - 113 U/L 64 AST 14 - 40 U/L 17 ALT 10 - 54 U/L 32 Glucose 74 - 99 mg/dL 91 BUN 9 - 24 mg/dL 19 Creatinine 0.73 - 1.22 mg/dL 0.95 Sodium 136 - 144 mmol/L 141 Potassium 3.7 - 5.1 mmol/L 4.2 Chloride 97 - 105 mmol/L 109 (H) CO2 22 - 30 mmol/L 25 Anion Gap 9 - 18 mmol/L 7 (L) eGFR >=60 mL/min/1.73m 90 Cholesterol, Total <200 mg/dL 161 Triglyceride <150 mg/dL 89 HDL Cholesterol >39 mg/dL 60 Non HDL Cholesterol <130 mg/dL 101 Fasting Time hrs 12 VLDL Cholesterol <30 mg/dL 18 TC:HDL Ratio <5.10 2.68 LDL Cholesterol <100 mg/dL 83 LDL:HDL Ratio <2.54 1.38 Total Cholesterol, Nonfasting <200 mg/dL 153 Triglycerides, Nonfasting <150 mg/dL 80 HDL Cholesterol, Nonfasting >39 mg/dL 55 LDL Cholesterol, Nonfasting <100 mg/dL 82 Non HDL Cholesterol, Nonfasting <130 mg/dL 98 VLDL Cholesterol, Nonfasting <30 mg/dL 16 Total Chol/HDL Ratio, Nonfasting <5.10 mg/dL 2.78 LDL/HDL Ratio, Nonfasting <2.54 mg/dL 1.49 Vitamin D 25 Hydroxy 31.0 - 80.0 ng/mL 25.8 (L) TSH 0.270 - 4.200 mIU/L 2.020 Magnesium 1.7 - 2.3 mg/dL 2.3 ASSESSMENT/PLAN: 1. Erectile dysfunction, unspecified erectile dysfunction type - ICD9: 607.84, ICD10: N52.9 (primary diagnosis) Given rx by urology already. Will take as directed and notify us if not working. 2. Instability of right knee joint - ICD9: 718.86, ICD10: M25.361 Normal exam today aside from some crepitus 2/2 OA. Offered imaging and referral to PT which he is refusing today. Will let us know if it gets worse. 3. Bradycardia - ICD9: 427.89, ICD10: R00.1 Cardiac workup for ischemia negative. Labs unremarkable for possible cause. Asymptomatic at this time. Discussed referral to cardiology which he is refusing today. Red flags for re-assessment reviewed with patient in detail. 4. Chest pain, unspecified type - ICD9: 786.50, ICD10: R07.9 Cardiac workup negative. May have been musculoskeletal vs radicular from neck. 5. Daytime somnolence - ICD9: 780.54, ICD10: R40.0 New complaint today. Will obtain HSAT for JOSUE. Discussed weight loss and side sleeping. - HOME SLEEP APNEA TEST (HSAT) Robert Aparicio MD documented in this encounterMary[facility]04-24-2023 Miscellaneous Notes* Telephone Encounter - Luz Corona Ma - 10/29/2022 10:48 AM EDT Pt notified of results via [employer]hart. Luz Corona Ma * Telephone Encounter - Luz Corona Ma - 10/29/2022 10:47 AM EDT ----- Message from Robert Aparicio MD sent at 10/29/2022 8:09 AM EDT ----- Echo appears normal. documented in this encounterMarymount Hospital04-10-2023 Miscellaneous Notes* Telephone Encounter - Yudy Kelly Ma - 10/15/2022 10:32 AM EDT Mychart message sent to pt notifying him of results and recommendations below. Yudy Kelly Ma * Telephone Encounter - Yudy Kelly Ma - 10/15/2022 10:31 AM EDT ----- Message from Robert Aparicio MD sent at 10/15/2022 8:11 AM EDT ----- Negative for H pylori. Continue treatment as discussed in office. documented in this [facility]04-07-2023 Miscellaneous Notes* Telephone Encounter - Ju Owens RN - 10/12/2022 2:15 PM EDT Liat with [facility] Scheduling calls to request order for Exercise Stress ECG be re- faxed. Previous fax only received page 1 of 2. Re-faxed to [phone] per request with confirmation that fax was received. Ju Owens RN documented in this encounterMarymount Hospital04-07-2023 History of Present illness Narrative* Nita Bowen, RT(R) - 10/12/2022 1:30 PM EDT Radiology Service Progress Note PATIENT NAME: Sue Lorenz DATE OF SERVICE: October 12, 2022 TIME: 1:30 PM PATIENT IDENTITY VERIFICATION COMPLETED USING TWO (2) IDENTIFIERS: Name and Date of confirmedby patient verbally. FALL SCREENING: Has the patient had 2 falls in the last year or 1 fall with injury or currently using an Ambulatory Assistive Device (Walker, Cane, Wheelchair, Crutches, etc.)? No PATIENT GENDER DATA: Male PATIENT RELEVANT IMPLANT DATA REVIEWED: Not Applicable RADIOLOGY DEPARTMENT: General X-ray: Exam(s) Completed: Chest X-Ray PERIPHERAL IV DATA: Not applicable SIGNED BY: RT Christy(R) October 12, 2022 1:30 PM documented in this encounterMarymount Hospital04-07-2023 History of Present illness Narrative* Robert Aparicio MD - 10/12/2022 8:01 AM EDT Chief Complaint Patient presents with: Physical HPI Sue Lorenz is a 62 year old male who presents here today for annual physical. BPH with elevated PSA: s/p TURP in 02/2020 and elevated PSA with negative biopsy in 2016. Patient evaluated in the ED in March for urinary retention requiring a villeda catheter. Following up with Dr. Anthony who started him on Proscar. Noted blood clot in bladder back in April. Getting up 2 times per night to urinate which has not really changed with his proscar. Still passing blood clots. Denies weak stream, straining to urinate, dysuria. Recommended f/u in 6 months. 6 month follow up appointment has not been scheduled. Patient complaining of new symptoms of heartburn in the last 2 months. Has episodes of heartburn sosevere that he will have to nausea with vomiting once per week. Taking Pepcid OTC at least monthly,up to 60 mg at a time which does help with symptoms. Admits to bloating. Denies abdominal, dysphagia, odynophagia, early satiety. BP well controlled on current regimen. Needs refill on his lisinopril. PHQ-2 / Depression screen He in the past two weeks denies having felt down, depressed, hopeless or with little interest or pleasure in doing things. History of bee allergy. Has not needed rx for epi pen since he was a child. Does not have anaphylaxis with bee stings. Refusing rx today. Refusing vaccinations. Past medical history, appointments, medications, allergies reviewed. Previous Medical History PAST MEDICAL HISTORY Diagnosis Date BPH (benign prostatic hyperplasia) 05/04/2014 Cervical radiculopathy Cyst of epididymis 11/15/201605/2014 DDD (degenerative disc disease), thoracolumbar spurring 08/04/[address] Anthony. negative biopsies Erectile dysfunction Essential hypertension, benign 05/04/2014 GERD (gastroesophageal reflux disease) Glaucoma 2012 Dr. Julio. Right eye only. Hearing loss History of tobacco use Horseshoe kidney with renal calculus 11/28/2016 Marijuana use Mixed hyperlipidemia PMH - PAST MEDICAL HISTORY OF open angle glaucoma OD Urinary retention Vitamin D deficiency Previous Surgical History PAST SURGICAL HISTORY Procedure Laterality Date APPENDECTOMY COLONOSCOPY FLX DX W/COLLJ SPEC WHEN PFRMD 08/09/2017 Colonoscopy EYE SURGERY PROCEDURE OD 12/30/12 Evisceration with implant PROSTATE BIOPSY 07/2016 Family History FAMILY HISTORY Problem Relation Age of Onset other (dementia) Mother Cancer Father bone Macular Degen Father Prostate Cancer Father Diabetes Sister Cancer Paternal Grandmother Breast Cancer Cataract Paternal Aunt other (downs) Son Patient Allergies ALLERGIES Allergen Reactions Prednisone Intolerance Patient reports clots in urine Bees Other: See Comments Tightness in chest; nausea Poison Angelita Other: See Comments Current Medications Current Outpatient Medications on File Prior to Visit Medication Sig famotidine (PEPCID) 20 mg tablet Take 20 mg by mouth at bedtime as needed. Patient reports 60 mg poevery day up to 4 x weekly atorvastatin (LIPITOR) 20 mg tablet Take 1 tablet by mouth daily at bedtime. For cholesterol. lisinopril (ZESTRIL) 20 mg tablet Take 1 tablet by mouth once daily. tamsulosin (FLOMAX) 0.4 mg Take 0.4 mg by mouth. finasteride (PROSCAR) 5 mg tablet alfuzosin SR (UROXATRAL) 10 mg 24 hr tablet Take by mouth. cholecalciferol, Vitamin D3, (VITAMIN D3) 1,250 mcg (50,000 unit) cap capsule Take 1 capsule by mouth one time a week. No current facility-administered medications on file prior to visit. Social History Social History Tobacco Use Smoking status: Former Packs/day: 0.50 Years: 36.00 Pack years: 18.00 Types: Cigarettes Quit date: 11/28/2015 Years since quittin.8 Smokeless tobacco: Never Vaping Use Vaping Use: Never used Substance Use Topics Alcohol use: Yes Alcohol/week: 1.0 standard drink Types: 1 Cans of Beer (12oz) per week Drug use: No Review of Symptoms REVIEW OF SYSTEMS GENERAL: No weight loss, malaise or fevers HEENT: Negative for frequent or significant headaches, No changes in hearing or vision, no nose bleeds or other nasal problems NECK: Negative for lumps, goiter, pain and significant neck swelling RESPIRATORY: Negative for cough, hemoptysis, wheezing, COPD, dyspnea or shortness of breath CARDIOVASCULAR: Positive for intermittent chest pain radiating to left shoulder GI: No nausea, vomiting, or diarrhea : No history of dysuria, frequency or incontinence MUSCULOSKELETAL: Negative for joint pain or swelling, back pain or muscle pain SKIN: Negative for lesions, rash, and itching EXAM: BP 134/70 Pulse (!) 54 Ht 171.2 cm (5' 7.4") Wt 99 kg (218 lb 3.2 oz) SpO2 96% BMI 33.77 kg/m General Appearance: Well appearing, alert, in no acute distress, well-hydrated, well nourished.. Skin: Skin color, texture, turgor normal, no suspicious rashes or lesions. Head: Normocephalic, no masses, lesions, tenderness or abnormalities. Eyes: Anicteric sclera. Pupils are equally round and reactive to light. Extraocular movements are intact. . Ears: External ears normal, canals clear. Oropharynx: Lips, mucosa, and tongue normal, teeth and gums normal, oropharynx normal. Neck: Supple, no adenopathy; thyroid symmetric, normal size, no bruits. Lungs: Lungs clear to auscultation. No wheezing, rhonchi, rales.. Heart: Negative findings: no murmurs, rubs, clicks or gallops, Positive findings: bradycardia. Abdomen: Normal abdominal exam, Abdomen soft, non-tender. Bowel sounds normal. No masses, organomegaly. Extremities: No deformities, edema, skin discoloration, clubbing or cyanosis. Good capillary refill. . Health Maintenance List SHINGRIX VACCINE(1 of 2) Never done BP CONTROLLED (<130/80) due on 01/31/2021 COVID-19 VACCINE(4 - Booster for Pfizer series) due on 11/13/2021 DEPRESSION ASSESSMENT Never done ANNUAL PCP TEAM CHRONIC DISEASE VISIT due on 08/16/2022 INFLUENZA(Season Ended) due on 03/08/2023 DIABETES SCREEN due on 08/31/2025 PROSTATE CANCER SCREENING DISCUSSION due on 08/16/2026 COLORECTAL CANCER SCREENING due on 08/09/2027 LIPID SCREEN due on 08/31/2027 DTAP,TDAP,TD(2 - Td or Tdap) due on 08/14/2028 HIV SCREENING Completed HEPATITIS C SCREENING Addressed Data reviewed Component Latest Ref Rng & Units 08/16/2021 08/31/2022 Protein, Total 6.3 - 8.0 g/dL 6.7 6.4 Albumin 3.9 - 4.9 g/dL 4.6 4.3 Calcium 8.5 - 10.2 mg/dL 9.4 8.9 Bilirubin, Total 0.2 - 1.3 mg/dL 0.4 0.4 Alkaline Phosphatase 38 - 113 U/L 51 64 AST 14 - 40 U/L 16 17 Glucose 74 - 99 mg/dL 71 (L) 91 BUN 9 - 24 mg/dL 25 (H) 19 Creatinine 0.73 - 1.22 mg/dL 1.13 0.95 Sodium 136 - 144 mmol/L 140 141 Potassium 3.7 - 5.1 mmol/L 4.4 4.2 Chloride 97 - 105 mmol/L 105 109 (H) CO2 22 - 30 mmol/L 25 25 Anion Gap 9 - 18 mmol/L 10 7 (L) ALT 10 - 54 U/L 27 32 eGFR- >60 eGFR-All Other Races . >60 eGFR >=60 mL/min/1.73m 90 WBC 3.70 - 11.00 k/uL 7.76 RBC 4.20 - 6.00 m/uL 5.22 Hemoglobin 13.0 - 17.0 g/dL 14.8 Hematocrit 39.0 - 51.0 % 45.4 MCV 80.0 - 100.0 fL 87.0 MCH 26.0 - 34.0 pG 28.4 MCHC 30.5 - 36.0 g/dL 32.6 RDW-CV 11.5 - 15.0 % 13.3 Platelet Count 150 - 400 k/uL 287 MPV 9.0 - 12.7 fL 10.6 Absolute nRBC <0.01 k/uL <0.01 Cholesterol, Total <200 mg/dL 161 Triglyceride <150 mg/dL 89 HDL Cholesterol >39 mg/dL 60 Non HDL Cholesterol <130 mg/dL 101 Fasting Time hrs 12 VLDL Cholesterol <30 mg/dL 18 TC:HDL Ratio <5.10 2.68 LDL Cholesterol <100 mg/dL 83 LDL:HDL Ratio <2.54 1.38 Total Cholesterol, Nonfasting <200 mg/dL 230 (H) Triglycerides, Nonfasting <150 mg/dL 184 (H) HDL Cholesterol, Nonfasting >39 mg/dL 50 LDL Cholesterol, Nonfasting <100 mg/dL 143 (H) Non HDL Cholesterol, Nonfasting <130 mg/dL 180 (H) VLDL Cholesterol, Nonfasting <30 mg/dL 37 (H) Total Chol/HDL Ratio, Nonfasting <5.10 mg/dL 4.60 LDL/HDL Ratio, Nonfasting <2.54 mg/dL 2.86 (H) HIV 12 Combo (Ag/Ab) Non Reactive Non Reactive HIV-1/2 AB Test Not Indicated HIV Interpretation Negative PSA <2.60 ng/mL 12.45 (H) Vitamin D 25 Hydroxy 31.0 - 80.0 ng/mL 18.8 (L) EKG: Sinus bradycardia at 46 bpm, possible left atrial enlargement, junctional ST depression, probably normal. Borderline EKG. ASSESSMENT/PLAN: 1. Annual physical exam - ICD9: V70.0, ICD10: Z00.00 (primary diagnosis) - Counseled on healthy diet and regular exercise - Discussed need for and benefit of weight loss. BMI 33.77 kg/(m^2) - Counseled on limiting alcohol intake to 2 drinks per day - Follow up for annual exam in one year - LIPID PANEL BASIC - VITAMIN D 25 HYDROXY - ECG COMPLETE - DEPRESSION SCREENING/ASSESSMENT 2. Bradycardia - ICD9: 427.89, ICD10: R00.1 New finding on EKG. Patient asymptomatic. Will obtain stress test, echo, and check labs as ordered.Red flags for re-assessment reviewed with patient in detail. - ECHO - PERFLUTREN LIPID MICROSPHERES 1.1 MG/ML INJECTION IN NS 10 ML - SODIUM CHLORIDE 0.9 % (FLUSH) INJECTION SYRINGE - EXERCISE STRESS ECG (WITHOUT IMAGING) - XR CHEST 2V FRONTAL/LAT - TSH BLD - MAGNESIUM BLD 3. Chest pain, unspecified type - ICD9: 786.50, ICD10: R07.9 Chest pain of unclear etiology, patient with significant risk factor(s) of Hypertension, history oftobacco use and Hyperlipidemia Check imaging and stress testing as ordered. Red flags for re-assessment reviewed with patient in detail. - ECHO - PERFLUTREN LIPID MICROSPHERES 1.1 MG/ML INJECTION IN NS 10 ML - SODIUM CHLORIDE 0.9 % (FLUSH) INJECTION SYRINGE - EXERCISE STRESS ECG (WITHOUT IMAGING) - XR CHEST 2V FRONTAL/LAT 4. Essential hypertension, benign - ICD9: 401.1, ICD10: I10 - good control - Continue current medication(s) - Encouraged dietary sodium restriction/DASH diet - Recommended regular aerobic exercise. - Reviewed risks of HTN and principles of treatment - Goal of BP <140/90 - LISINOPRIL 20 MG TABLET 5. Mixed hyperlipidemia - ICD9: 272.2, ICD10: E78.2 - to be determined upon return of lab results - Continue current medication. - Encouraged following a low fat, low cholesterol diet. - Discussed the benefits of regular aerobic exercise and weight loss. - LIPID PANEL, NONFASTING 6. Benign prostatic hyperplasia with lower urinary tract symptoms, symptom details unspecified - ICD9: 600.01, ICD10: N40.1 Patient still complaining of nocturia and passing blood clots despite taking medications as prescribed. Due for follow up with urology this month. . 7. Elevated PSA - ICD9: 790.93, ICD10: R97.20 Previous biopsy negative. F/u with Urology. 8. Horseshoe kidney with renal calculus - ICD9: 753.3, 592.0, ICD10: Q63.1, N20.0 Monitor renal function. Discussed low sodium diet, avoidance of NSAIDs, pushing PO fluids. 9. Vitamin D deficiency - ICD9: 268.9, ICD10: E55.9 Check. - VITAMIN D 25 HYDROXY 10. Glaucoma of right eye, unspecified glaucoma type - ICD9: 365.9, ICD10: H40.9 Recommendations per optho. 11. DDD (degenerative disc disease), thoracolumbar - ICD9: 722.51, ICD10: M51.35 No complaints today. Will monitor 12. Gastroesophageal reflux disease, unspecified whether esophagitis present - ICD9: 530.81, ICD10:K21.9 - Check H pylori antibodies - Begin treatment with Prilosec 40 mg QD - H PYLORI AG BY EIA,STOOL - OMEPRAZOLE 40 MG CAPSULE,DELAYED RELEASE 13. History of tobacco use - ICD9: V15.82, ICD10: Z87.891 Continue cessation. 14. Marijuana use - ICD9: 305.20, ICD10: F12.90 Recommended cessation and discussed risks of continued use and benefits of cessation. I spent a total of 60 minutes on the date of the service which included preparing to see the patient, qriv-je-reck patient care, completing clinical documentation, obtaining and/or reviewing separately obtained history, performing a medically appropriate examination, counseling and educating the pat ient/family/caregiver, ordering medications, tests, or procedures, independently interpreting results (not separately reported), and communicating results to the patient/family/caregiver. Robert Aparicio MD documented in this encounterMary[facility]03-27-2023 Miscellaneous Notes* Telephone Encounter - Oriana Fontana LPN - 10/01/2022 11:19 AM EDT Patient phones requesting refills as follows: Requested Prescriptions Pending Prescriptions Disp Refills atorvastatin (LIPITOR) 20 mg tablet 90 tablet 1 Sig: Take 1 tablet by mouth daily at bedtime. For cholesterol. lisinopril (ZESTRIL) 20 mg tablet 30 tablet 1 Sig: Take 1 tablet by mouth once daily. RICARDO-08/16/21 Labs-08/31/22 NOV-10/12/22 Please review and advise. Oriana Fontana LPN documented in this encounterMary[facility] Hospital02-24-2023 Miscellaneous Notes* Telephone Encounter - Abby Pearson LPN - 08/31/2022 9:17 AM EST Patient notified of prescription being sent to pharmacy. Abby Pearson LPN * Telephone Encounter - Robert Aparicio MD - 08/31/2022 8:42 AM EST Rx sent so he does not run out before scheduled OV. * Telephone Encounter - Deb Chaidez Ma - 08/31/2022 8:22 AM EST Patient last visit with PCP 08/16/21 Follow up appointment scheduled 09/28/22 Deb Chaidez Ma * Telephone Encounter - YAN Amaya - 08/31/2022 8:02 AM EST Patient has been identified by name and date of : Yes Last office visit in this department: Visit date not found RX INSTRUCTIONS: Patient aware RX will be sent to pharmacy. No need to notify patient. Patient phones requesting refills as follows: Requested Prescriptions Pending Prescriptions Disp Refills lisinopril (ZESTRIL, PRINIVIL) 20 mg tablet 90 tablet 3 Sig: Take 1 tablet by mouth once daily. Please review and advise. YAN Amaya documented in this encounterMary[facility] Hospital01-30-2023 History of Present illness Narrative* Adrienne Chaparro PA-C - 08/06/2022 12:18 PM EST Images from the original note were not included. This note was created using [employer]. Subjective Sue Lorenz is a 62 year old male. HPI Patient presents with lower back pain over the past day. This morning he was at work when he tripped over a rug landing on the front of a chair on his lower back. He has had pain since then. Has painwith getting up from sitting and bending and twisting. No head injury. No neck pain. No chronic back problems previously. No abdominal pain. Denies pain in his ribs. Review of Systems Objective BP 148/84 Pulse 60 Temp 36.5 C (97.7 F) (Tympanic) Resp 16 Wt 99 kg (218 lb 3.2 oz) SpO2 98% BMI 34.17 kg/m Physical Exam Vitals reviewed. Constitutional: Appearance: Normal appearance. HENT: Head: Normocephalic and atraumatic. Cardiovascular: Rate and Rhythm: Normal rate and regular rhythm. Heart sounds: Normal heart sounds. Pulmonary: Effort: Pulmonary effort is normal. Breath sounds: Normal breath sounds. Musculoskeletal: Back: Comments: Patient tender on the left lumbar back as indicated on image. Point tenderness here. No midline tenderness. Increased pain with bending and twisting. No bruising or swelling. No open wound.Normal strength and sensation in lower extremities. Able to ambulate. Neurological: Mental Status: He is alert. Assessment and Plan ASSESSMENT/PLAN: 1. Lumbar contusion, initial encounter - ICD9: 922.31, ICD10: S30.0XXA X-ray showed no acute fractures. He does have a chronic renal calculus on the right. He does have some arthritis in the spine. I did make him aware of these. Given prednisone for pain. Discussed rest, ice, Tylenol as needed. Gentle stretching. Follow-up with [facility] if not improving. - XR LUMBAR GENERAL 3V AP/LAT/L5-S1 Adrienne Chaparro PA-C documented in this encounterMarymount Hospital01-30-2023 History of Present illness Narrative* Nita Bowen RT(R) - 08/06/2022 11:20 AM EST Radiology Service Progress Note PATIENT NAME: Sue Lorenz DATE OF SERVICE: August 06, 2022 TIME: 11:32 AM PATIENT IDENTITY VERIFICATION COMPLETED USING TWO (2) IDENTIFIERS: Name and Date of confirmedby patient verbally. FALL SCREENING: Has the patient had 2 falls in the last year or 1 fall with injury or currently using an Ambulatory Assistive Device (Walker, Cane, Wheelchair, Crutches, etc.)? No PATIENT GENDER DATA: Male PATIENT RELEVANT IMPLANT DATA REVIEWED: Not Applicable RADIOLOGY DEPARTMENT: General X-ray: Exam(s) Completed: Spine X-Ray(s): Lumbar AP / LAT / L5-S1 PERIPHERAL IV DATA: Not applicable SIGNED BY: RT Christy(R) August 06, 2022 11:32 AM documented in this encounterMarymount Hospital07-06-2022 History of Present illness Narrative* Larisa Hendrickson APRN.PROFESSIONAL DRIVER - 01/10/2022 4:38 PM EDT Images from the original note were not included. Subjective HPI Sue Lorenz is a 61 year old male who presents for suture removal. He was seen here on 12/29 and had 4 sutures placed in his left index finger after cutting it with hedge trimmers. He denies any pain in the site. There have not been any signs of symptoms of infection. Review of Systems Constitutional: Negative for fever. Musculoskeletal: Negative for joint pain. Skin: Negative for itching and rash. BP 150/96 Pulse (!) 53 Temp 36.3 C (97.4 F) Resp 21 Wt 96.7 kg (213 lb 3.2 oz) SpO2 98% BMI 33.39 kg/m PAST MEDICAL HISTORY Diagnosis Date BPH (benign prostatic hyperplasia) 05/04/2014 Cervical radiculopathy Cyst of epididymis 11/15/201605/2014 DDD (degenerative disc disease), thoracolumbar spurring 08/04/[address] Anthony. negative biopsies Essential hypertension, benign 05/04/[address] Julio. Right eye only. Horseshoe kidney with renal calculus 11/28/2016 Mixed hyperlipidemia PMH - PAST MEDICAL HISTORY OF open angle glaucoma OD Vitamin D deficiency PAST SURGICAL HISTORY Procedure Laterality Date APPENDECTOMY COLONOSCOPY FLX DX W/COLLJ SPEC WHEN PFRMD 08/09/2017 Colonoscopy EYE SURGERY PROCEDURE OD 12/30/12 Evisceration with implant PROSTATE BIOPSY 07/2016 ALLERGIES Bees and Poison Angelita MEDICATIONS atorvastatin (LIPITOR) 20 mg tablet Take 1 tablet by mouth daily at bedtime. For cholesterol. lisinopril (ZESTRIL, PRINIVIL) 20 mg tablet Take 1 tablet by mouth once daily. cholecalciferol, Vitamin D3, (VITAMIN D3) 1,250 mcg (50,000 unit) cap capsule Take 1 capsule by mouth one time a week. FAMILY HISTORY Problem Relation Age of Onset other (dementia) Mother Cancer Father bone Macular Degen Father Prostate Cancer Father Diabetes Sister Cancer Paternal Grandmother Breast Cancer Cataract Paternal Aunt other (downs) Son Social History Tobacco Use Smoking status: Former Smoker Packs/day: 0.50 Years: 36.00 Pack years: 18.00 Types: Cigarettes Quit date: 11/28/2015 Years since quittin.1 Smokeless tobacco: Never Used Vaping Use Vaping Use: Never used Substance Use Topics Alcohol use: Yes Alcohol/week: 1.0 standard drink Types: 1 Cans of Beer (12oz) per week Drug use: No Objective Physical Exam Vitals and nursing note reviewed. Constitutional: Appearance: Normal appearance. Musculoskeletal: Hands: Skin: General: Skin is warm and dry. Capillary Refill: Capillary refill takes less than 2 seconds. Findings: No erythema or rash. Neurological: Mental Status: He is alert. ASSESSMENT/PLAN: 1. Visit for suture removal - ICD9: V58.32, ICD10: Z48.02 - 4 sutures removed from left index finger. Laceration is well healed. Bandaid applied over site for protection. Reviewed skin care. Larisa Hendrickson APRN.SHAISTA documented in this encounterMarymount Hospital06-24-2022 History of Present illness Narrative* Adrienne Chaparro PA-C - 12/29/2021 4:03 PM EDT This note was created using [employer]. Subjective Sue Lorenz is a 61 year old male. HPI Patient presents with a left third digit laceration today just prior to arrival. He was trimming hedges and cut the finger. His last tdap was 2019 . No numbness or weakness. No other complaints. Review of Systems Constitutional: Negative. HENT: Negative. Respiratory: Negative. Cardiovascular: Negative. Gastrointestinal: Negative. Musculoskeletal: Left third digit laceration All other systems reviewed and are negative. PAST MEDICAL HISTORY Diagnosis Date BPH (benign prostatic hyperplasia) 05/04/2014 Cervical radiculopathy Cyst of epididymis 11/15/201605/2014 DDD (degenerative disc disease), thoracolumbar spurring 08/04/[address] Anthony. negative biopsies Essential hypertension, benign 05/04/[address] Julio. Right eye only. Horseshoe kidney with renal calculus 11/28/2016 Mixed hyperlipidemia PMH - PAST MEDICAL HISTORY OF open angle glaucoma OD Vitamin D deficiency Current Outpatient Medications Medication Sig Dispense Refill atorvastatin (LIPITOR) 20 mg tablet Take 1 tablet by mouth daily at bedtime. For cholesterol. 90 tablet 1 lisinopril (ZESTRIL, PRINIVIL) 20 mg tablet Take 1 tablet by mouth once daily. 90 tablet 3 cephALEXin (KEFLEX) 500 mg capsule Take 1 capsule by mouth three times daily for 3 days. 9 capsule 0 cholecalciferol, Vitamin D3, (VITAMIN D3) 1,250 mcg (50,000 unit) cap capsule Take 1 capsule by mouth one time a week. 12 capsule 0 No current facility-administered medications for this visit. PAST SURGICAL HISTORY Procedure Laterality Date APPENDECTOMY COLONOSCOPY FLX DX W/COLLJ SPEC WHEN PFRMD 08/09/2017 Colonoscopy EYE SURGERY PROCEDURE OD 12/30/12 Evisceration with implant PROSTATE BIOPSY 07/2016 FAMILY HISTORY Problem Relation Age of Onset other (dementia) Mother Cancer Father bone Macular Degen Father Prostate Cancer Father Diabetes Sister Cancer Paternal Grandmother Breast Cancer Cataract Paternal Aunt other (downs) Son Social History Tobacco Use Smoking status: Former Smoker Packs/day: 0.50 Years: 36.00 Pack years: 18.00 Types: Cigarettes Quit date: 11/28/2015 Years since quittin.0 Smokeless tobacco: Never Used Vaping Use Vaping Use: Never used Substance Use Topics Alcohol use: Yes Alcohol/week: 1.0 standard drink Types: 1 Cans of Beer (12oz) per week Drug use: No Objective BP 150/88 Pulse 86 Temp 36.8 C (98.2 F) Resp 24 SpO2 97% Physical Exam Vitals reviewed. Constitutional: Appearance: Normal appearance. HENT: Head: Normocephalic and atraumatic. Musculoskeletal: Comments: Patient has curved flap 2.5cm laceration to the distal phalanx of the left third digit. Mild active bleeding. No fb visualized. No tendon involvement. Normal sensation and strength against resistance on the dip and pip. No tendon involvement. Skin: General: Skin is warm and dry. Neurological: Mental Status: He is alert. UNIVERSAL PROTOCOL / SAFETY CHECKLIST Procedure to be Performed: laceration repair Sign In: A Moment of CARE was completed. Personnel directly involved with the procedure wore the appropriate PPE (Personal Protective Equipment). Patient/Surrogate Stated/Verified: PATIENT VERIFIED(optional for EMERGENT procedures): Patient name, Date of , Relevant allergies and The intended procedure Time Out Communication: Intended patient and procedure match the source documents. Consent documented and matches the intended procedure. Correct side/site marked and visible. Medications required for procedure verified. No fire risk assessment and interventions applicable. Sign Out: SIGN OUT (optional for EMERGENT procedures): All instruments, equipment, possible retained foreign bodies accounted for. Post-procedure follow-up management communicated and Plan of Care Visit completed when applicable. Adrienne Chaparro PA-C Procedure: laceration repair Digital block performed with 3 cc of 0.5 % marcaine. Area scrubbed with hibicleans foam. Copiously irrigated with NS. Wound visualized in bloodless field and no fb or tendon injury seen. Closed with 4 simple interrupted 4-0 prolene sutures. Covered with gauze dressing and coban. Patient did have a brief vagal episode but recovered without incident. Assessment and Plan ASSESSMENT/PLAN: 1. Laceration of left index finger without foreign body without damage to nail, initial encounter -ICD9: 883.0, ICD10: S61.211A Wound repaired here, see procedure note. Wound care instructions discussed. Suture removal in 10-14days. His hands were visibly dirty, I did place on 3 days of keflex for prophylaxis. Discussed red flags to be seen sooner. Patient agreeable. Adrienne Chaparro PA-C [facility] Instructions* Patient Instructions* Adrienne Chaparro PA-C - 12/29/2021 3:18 PM EDT Suture removal in 10-14 days. Keep clean and dry for 24-48 hours. After this wash with mild soap and water daily. No tub soaking or swimming. If develop redness, increasing pain, pus like drainage orfever be seen again. documented in [facility] encounter[facility] History of Present illness Narrative* Anay HortonRt)Niranjan - 09/07/2020 9:20 AM EST Radiology Service Progress Note PATIENT NAME: Sue Lorenz DATE OF SERVICE: September 07, 2020 TIME: 9:19 AM PATIENT IDENTITY VERIFICATION COMPLETED USING TWO (2) IDENTIFIERS: Name and Date of confirmedby patient verbally. FALL SCREENING: Has the patient had 2 falls in the last year or 1 fall with injury or currently using an Ambulatory Assistive Device (Walker, Cane, Wheelchair, Crutches, etc.)? No PATIENT GENDER DATA: Male PATIENT RELEVANT IMPLANT DATA REVIEWED: Yes RADIOLOGY DEPARTMENT: General X-ray: Exam(s) Completed: Upper Extremity X- Ray(s): Hand, right : PERIPHERAL IV DATA: Not applicable SIGNED BY: RT Everardo September 07, 2020 9:19 AM documented in this encounterMary[facility]01-28-2021 Miscellaneous Notes* Result Encounter Note - Vamsi Bowman III - 08/04/2020 10:00 AM EST Lg, The x-ray does show degenerative bone spurs at multiple levels of the thoracic spine. No evidence of compression fracture. I suspect that the degenerative disc disease and arthritis of the thoracic spine are the causes of your episodes of pain in the left side of the back. Physical therapy might behelpful to show you exercises to strengthen the muscles of your back which may reduce pain. Let me k now if you would like to have a consult orderFrank LOLA Bowman MD, FAAFP * Result Encounter Note - Vamsi Bowman III - 08/04/2020 10:00 AM EST Lg,You do have evidence of degenerative lumbar disc disease with mild bone spurs. Degeneration atthis level is probably not the cause of the symptoms in your left back. Vamsi Bowman III MD documented in this encounterMary[facility]01-28-2021 Progress note* Result Encounter Note - Vamsi Bowman III - 08/04/2020 10:00 AM EST Lg, The x-ray does show degenerative bone spurs at multiple levels of the thoracic spine. No evidence of compression fracture. I suspect that the degenerative disc disease and arthritis of the thoracic spine are the causes of your episodes of pain in the left side of the back. Physical therapy might behelpful to show you exercises to strengthen the muscles of your back which may reduce pain. Let me k now if you would like to have a consult orderFrdomi Bowman III, MD, [facility] Progress note* Result Encounter Note - Vamsi Bowman III - 08/04/2020 10:00 AM EST Lg,You do have evidence of degenerative lumbar disc disease with mild bone spurs. Degeneration atthis level is probably not the cause of the symptoms in your left back. Vamsi Bowman III MD [facility] note* Diagnosis Laceration of left index finger without foreign body without damage to nail, initial encounter- Primary [facility]* Diagnosis Visit for suture removal- Primary Encounter for removal of sutures [facility] noteNo assessment information availableWGenesis Hospital Work Phone: Evaluation note* Diagnosis Lumbar contusion, initial encounter- Primary [facility]* Diagnosis Essential hypertension, benign [facility]* Diagnosis Essential hypertension, benign documented in this encounter [facility] note* Diagnosis Annual physical exam- Primary Routine general medical examination at a health care facility Bradycardia Other specified cardiac dysrhythmias Chest pain, unspecified type Essential hypertension, benign Mixed hyperlipidemia Benign prostatic hyperplasia with lower urinary tract symptoms, symptom details unspecified Elevated PSA Elevated prostate specific antigen (PSA) Horseshoe kidney with renal calculus Vitamin D deficiency Unspecified vitamin D deficiency Glaucoma of right eye, unspecified glaucoma type DDD (degenerative disc disease), thoracolumbar Degeneration of thoracic or thoracolumbar intervertebral disc Gastroesophageal reflux disease, unspecified whether esophagitis present History of tobacco use Personal history of tobacco use, presenting hazards to health Marijuana use Cannabis abuse, unspecified [facility]* Diagnosis Erectile dysfunction, unspecified erectile dysfunction type- Primary Instability of right knee joint Other joint derangement, not elsewhere classified, lower leg Bradycardia Other specified cardiac dysrhythmias Chest pain, unspecified type Daytime somnolence Hypersomnia, unspecified [facility]* Diagnosis Essential hypertension, benign documented in this encounter [facility] note* Diagnosis Essential hypertension, benign- Primary Vitamin D insufficiency Unspecified vitamin D deficiency [facility]* Diagnosis Essential hypertension, benign- Primary Gastroesophageal reflux disease, unspecified whether esophagitis present Obesity, Class I, BMI 30-34.9 Obesity, unspecified Mixed hyperlipidemia Benign prostatic hyperplasia with lower urinary tract symptoms, symptom details unspecified [facility]* Diagnosis Acute pain of right knee- Primary [facility]* Diagnosis Essential hypertension, benign documented [facility]* Diagnosis Acute cough- Primary Community acquired pneumonia of left lung, unspecified part of lung Acute cough documented [facility]* Diagnosis Acute cough [facility]* Diagnosis Bradycardia Other specified cardiac dysrhythmias Chest pain, unspecified type documented [facility]* Diagnosis Lumbar back pain Lumbago documented [facility]* Diagnosis Foreign body (FB) in soft tissue Residual foreign body in soft tissue documented [facility]* Diagnosis Left flank pain Abdominal pain, unspecified site documented [facility] this [facility]* Diagnosis Essential hypertension, benign Gastroesophageal reflux disease, unspecified whether esophagitis present [facility]* Diagnosis Essential hypertension, benign- Primary Gastroesophageal reflux disease, unspecified whether esophagitis present Benign prostatic hyperplasia with lower urinary tract symptoms, symptom details unspecified Mixed hyperlipidemia Vitamin D insufficiency Unspecified vitamin D deficiency documented [facility] encounter [facility]* Diagnosis Vitamin D deficiency- Primary Unspecified vitamin D deficiency [facility]* Diagnosis Symptoms of upper respiratory infection (URI)- Primary documented [facility]* Diagnosis Annual physical exam- Primary Routine general [facility] Benign prostatic hyperplasia with lower urinary tract symptoms, symptom details unspecified Mixed hyperlipidemia Essential hypertension, benign Gastroesophageal reflux disease, unspecified whether esophagitis present Chronic pain of right knee Encounter for immunization Need for other specified prophylactic vaccination against single bacterial disease documented [facility]* Diagnosis Chronic pain of right knee documented [facility] this [facility]* Diagnosis Chronic pain of right knee- Primary documented [facility]* Diagnosis Urinary frequency- Primary Urinary tract infection with hematuria, site unspecified documented [facility]* Diagnosis Chronic pain of right knee- Primary documented [facility]* Diagnosis Chronic pain of right knee- Primary [facility]* Diagnosis Chronic pain of right knee- Primary [facility]* Diagnosis Cerebrovascular accident (CVA), unspecified mechanism (HCC)- Primary Right sided weakness Muscle weakness (generalized) Facial droop Facial weakness Acquired right foot drop Mixed hyperlipidemia Cerebrovascular accident (CVA), unspecified mechanism (HCC) Right sided weakness Muscle weakness (generalized) Cerebrovascular accident (CVA), unspecified mechanism (HCC) Right sided weakness Muscle weakness (generalized) Facial droop Facial weakness Acquired right foot drop [facility]* Diagnosis 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 documented [facility]* Diagnosis Cerebrovascular accident (CVA), unspecified mechanism (HCC) Right sided weakness Muscle weakness (generalized) [facility]* Diagnosis Cerebrovascular accident (CVA), unspecified mechanism (HCC) Right sided weakness Muscle weakness (generalized) Facial droop Facial weakness Acquired right foot drop documented [facility]* Diagnosis Brain lesion [G93.9]- Primary Other conditions of brain [facility]* Diagnosis Brain mass- Primary Unspecified condition of brain Brain mass Unspecified condition of brain [facility]* Diagnosis Brain mass Unspecified condition of brain Brain mass Unspecified condition of brain documented [facility]* Diagnosis Brain mass- Primary Unspecified condition of brain 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 Brain mass Unspecified condition of brain Brain mass Unspecified condition of brain documented [facility] this encounter [facility]* Diagnosis Brain mass Unspecified condition of brain Essential hypertension, benign documented [facility] this [facility]* Diagnosis Brain tumor (HCC)- Primary Neoplasm of unspecified nature of brain Brain mass Unspecified condition of brain Brain tumor (HCC) Neoplasm of unspecified nature of brain Acute post-operative pain Brain mass Unspecified condition of brain Essential hypertension, benign Mixed hyperlipidemia GERD (gastroesophageal reflux disease) Esophageal reflux BPH (benign prostatic hyperplasia) Unspecified hyperplasia of prostate without urinary obstruction and other lower urinary tract symptoms (LUTS) Poorly controlled diabetes mellitus (HCC) Type II or unspecified type diabetes mellitus without mention of complication, not stated as uncontrolled Glioblastoma multiforme (HCC) Malignant neoplasm of brain, unspecified site Hemiplegia affecting right dominant side, unspecified etiology, unspecified hemiplegia type (HCC) [facility] Additional Instructions Please leave the catheter in place until you are evaluated by urology and return to the ER should you have any further concernsWGenesis Hospital Work Phone: Reason for referral (narrative)* Diagnostic Procedure Only (Urgent) - Closed Specialty Diagnoses / Procedures Referred By Prince bah Referred To Contact XR IMAGING Diagnoses Lumbar contusion, initial encounter Procedures XR LUMBAR GENERAL 3V AP/LAT/L5-S1 RADEX SPINE LUMBOSACRAL 2/3 VIEWS Adrienne Chaparro PA-C [address] [place] [address] Xr Imaging Referral ID Status Reason Start Date Expiration Date V isits Requested Visits Authorized [id number] Closed Auto-Generate d Referral 08/06/2022 09/05/2023 1 1 [facility] for referral (narrative)* Outpatient Procedure (Urgent) - Authorized Specialty Diagnoses / Procedures Referred By [facility] Referred To Contact [facility] Diagnoses Bradycardia Chest pain, unspecified type Procedures ECHO ECHO TTHRC R-T 2D W/WOM-MODE COMPL SPEC&COLR D Robert Aparicio MD [address] [place] [address] [address] Referral ID Status Reason Start Date Expiration Date Visits Requested Visits Authorized [id number] Authorized Auto-Generat ed Referral 10/12/2022 10/12/2023 1 1 * Outpatient Procedure (Routine) - Closed Specialty Diagnoses / Procedures Referred By [facility] Referred To Contact [facility] Diagnoses Annual physical exam Procedures ECG COMPLETE ECG ROUTINE ECG W/LEAST 12 LDS W/I&R Robert Aparicio MD [address] [place] [address] [address] Referral ID Status Reason Start Date Expiration Date V isits Requested Visits Authorized [id number] Closed Auto-Generate d Referral 10/12/2022 10/12/2023 1 1 [facility] for referral (narrative)* Diagnostic Procedure Only (Routine) - Pending Review Specialty Diagnoses / Procedures Referred By Contact Referred To Contact [facility] Diagnoses Daytime somnolence Procedures HOME SLEEP APNEA TEST (HSAT) SLEEP STD AIRFLOW HRT RATE&O2 SAT EFFORT UNATT Robert Aparicio MD [address] [place] [address] [address] Referral ID Status Reason Start Date Expiration Date Visits Requested Visits Authorized [id number] Pending Review Auto-Generat ed Referral 11/09/2022 11/09/2023 1 1 [facility] for referral (narrative)* Diagnostic Procedure Only (Urgent) - Closed Specialty Diagnoses / Procedures Referred By Contac t Referred To Contact XR IMAGING Diagnoses Lumbar contusion, initial encounter Procedures XR LUMBAR GENERAL 3V AP/LAT/L5-S1 RADEX SPINE LUMBOSACRAL 2/3 VIEWS Adrienne Chaparro PA-C [address] [place] [address] [place] [address] Referral ID Status Reason Start Date Expiration Date V isits Requested Visits Authorized [id number] Closed Auto-Generate d Referral 08/06/2022 09/05/2023 1 1 [facility] for referral (narrative)* Diagnostic Procedure Only (Routine) - Closed Specialty Diagnoses / Procedures Referred By Contac t Referred To Contact XR IMAGING Diagnoses Chronic pain of right knee Procedures XR KNEE GENERAL 4V AP BOTH/PA BOTH/LAT/MERC RIGHT RADIOLOGIC EXAM KNEE COMPLETE 4/MORE VIEWS Aster Joyner APRN.CNP [address] [place] [address] [place] [address] Referral ID Status Reason Start Date Expiration Date V isits Requested Visits Authorized [id number] Closed Auto-Generate d Referral 08/07/2024 09/06/2025 1 1 [facility] for referral (narrative)No reason for referral information availableWGenesis Hospital Work Phone: Reason for visit Narrative* Diagnostic Procedure Only (Urgent) - Closed Specialty Diagnoses / Procedures Referred By Contac t Referred To Contact XR IMAGING Diagnoses Lumbar contusion, initial encounter Procedures XR LUMBAR GENERAL 3V AP/LAT/L5-S1 RADEX SPINE LUMBOSACRAL 2/3 VIEWS Adrienne Chaparro PA-C [address] [place] [address] [place] [address] Referral ID Status Reason Start Date Expiration Date V isits Requested Visits Authorized [id number] Closed Auto-Generate d Referral 08/06/2022 09/05/2023 1 1 [facility] for visit Narrative* Diagnostic Procedure Only (Routine) - Closed Specialty Diagnoses / Procedures Referred By Contac t Referred To Contact XR IMAGING Diagnoses Chronic pain of right knee Procedures XR KNEE GENERAL 4V AP BOTH/PA BOTH/LAT/MERC RIGHT RADIOLOGIC EXAM KNEE COMPLETE 4/MORE VIEWS [employer], Aster, ARTIST AGENT.PROFESSIONAL DRIVER [address] [place] [address] [place] [address] Referral ID Status Reason Start Date Expiration Date V isits Requested Visits Authorized [id number] Closed Auto-Generate d Referral 08/07/2024 09/06/2025 1 1 [facility] for visit Narrative* MRI/CT (Urgent) - Closed Specialty Diagnoses / Procedures Referred By Contac t Referred To Contact MR IMAGING Diagnoses Cerebrovascular accident (CVA), unspecified mechanism (HCC) Right sided weakness Procedures MRI BRAIN WO IVCON MRI BRAIN BRAIN STEM W/O CONTRAST MATERIAL Robert Aparicio MD [address] [place] [address] Phone: tel: fax: [place] [address] Referral ID Status Reason Start Date Expiration Date V isits Requested Visits Authorized [id number] Closed Auto-Generate d Referral 02/19/2025 03/21/2026 1 1 [facility] for visit Narrative* MRI/CT (Urgent) - Closed Specialty Diagnoses / Procedures Referred By Contac t Referred To Contact MR IMAGING Diagnoses Brain mass Procedures MRI BRAIN LOCALIZATION WO IVCON MRI BRAIN LOCALIZATION WO IVCON UNLISTED MAGNETIC RESONANCE PROCED Virgilio Mukherjee MD [employer] [facility] [address] [place] [address] Phone: tel: fax: [place] [address] Referral ID Status Reason Start Date Expiration Date V isits Requested Visits Authorized [id number] Closed Auto-Generat ed Referral Patient Cleared - Admin/Chairm an/Director advise to proceed or did not respond 03/05/2025 07/07/2025 1 1 [facility] Advance Directives No Advanced Directives Records FoundDocuments on File Type Date Recorded 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 No December 02, 2024 1:22pm Chief Complaint and Reason for Visit Chief Complaint COMPLAINT Chief Complaint Hematuria, unspecifi ed Chief Complaint Hematuria, unspecifi ed BRADYCARDIA, CP BRADYCARDIA, CP Chief Complaint PSA Chief Complaint Admit Date PREOP November 27, 2024 7:26a m Cysto,Transurethral Resection Prostate M ay 2024 1:29pm Summary Purpose Family History No Family History Records FoundNo Family History Records FoundNo Family History Records FoundNo Family History Records Found Additional Source Comments Source Comments (unrecognize d section and content) In the event this informatio n is protected by the Federal Confidentiality of Alcohol and Drug Abuse Patient Records regulations: The Federal rules restrict any use of the information to criminally investigate or prosecute any alcohol or drug abuse patient.[facility] HospitalIn the event this information is protected by the Federal Confidentiality of Alcohol and Drug Abuse Patient Records regulations: The Federal rules restrict any use of the information to criminally investigate or prosecute any alcohol or drug abuse patient.[facility] HospitalIn the event this information is protected by the Federal Confidentiality of Alcohol and Drug Abuse Patient Records regulations: The Federal rules restrict any use of the information to criminally investigate or prosecute any alcohol or drug abuse patient.[facility] HospitalIn the event this information is protected by the Federal Confidentiality of Alcohol and Drug Abuse Patient Records regulations: The Federal rules restrict any use of the information to criminally investigate or prosecute any alcohol or drug abuse patient.[facility] HospitalIn the event this information is protected by the Federal Confidentiality of Alcohol and Drug Abuse Patient Records regulations: The Federal rules restrict any use of the information to criminally investigate or prosecute any alcohol or drug abuse patient.[facility] HospitalIn the event this information is protected by the Federal Confidentiality of Alcohol and Drug Abuse Patient Records regulations: The Federal rules restrict any use of the information to criminally investigate or prosecute any alcohol or drug abuse patient.[facility] HospitalIn the event this information is protected by the Federal Confidentiality of Alcohol and Drug Abuse Patient Records regulations: The Federal rules restrict any use of the information to criminally investigate or prosecute any alcohol or drug abuse patient.[facility] HospitalIn the event this information is protected by the Federal Confidentiality of Alcohol and Drug Abuse Patient Records regulations: The Federal rules restrict any use of the information to criminally investigate or prosecute any alcohol or drug abuse patient.[facility] HospitalIn the event this information is protected by the Federal Confidentiality of Alcohol and Drug Abuse Patient Records regulations: The Federal rules restrict any use of the information to criminally investigate or prosecute any alcohol or drug abuse patient.[facility] HospitalIn the event this information is protected by the Federal Confidentiality of Alcohol and Drug Abuse Patient Records regulations: The Federal rules restrict any use of the information to criminally investigate or prosecute any alcohol or drug abuse patient.[facility] HospitalIn the event this information is protected by the Federal Confidentiality of Alcohol and Drug Abuse Patient Records regulations: The Federal rules restrict any use of the information to criminally investigate or prosecute any alcohol or drug abuse patient.[facility] HospitalIn the event this information is protected by the Federal Confidentiality of Alcohol and Drug Abuse Patient Records regulations: The Federal rules restrict any use of the information to criminally investigate or prosecute any alcohol or drug abuse patient.[facility] HospitalIn the event this information is protected by the Federal Confidentiality of Alcohol and Drug Abuse Patient Records regulations: The Federal rules restrict any use of the information to criminally investigate or prosecute any alcohol or drug abuse patient.[facility] HospitalIn the event this information is protected by the Federal Confidentiality of Alcohol and Drug Abuse Patient Records regulations: The Federal rules restrict any use of the information to criminally investigate or prosecute any alcohol or drug abuse patient.[facility] HospitalIn the event this information is protected by the Federal Confidentiality of Alcohol and Drug Abuse Patient Records regulations: The Federal rules restrict any use of the information to criminally investigate or prosecute any alcohol or drug abuse patient.[facility] HospitalIn the event this information is protected by the Federal Confidentiality of Alcohol and Drug Abuse Patient Records regulations: The Federal rules restrict any use of the information to criminally investigate or prosecute any alcohol or drug abuse patient.[facility] HospitalIn the event this information is protected by the Federal Confidentiality of Alcohol and Drug Abuse Patient Records regulations: The Federal rules restrict any use of the information to criminally investigate or prosecute any alcohol or drug abuse patient.[facility] HospitalIn the event this information is protected by the Federal Confidentiality of Alcohol and Drug Abuse Patient Records regulations: The Federal rules restrict any use of the information to criminally investigate or prosecute any alcohol or drug abuse patient.[facility] HospitalIn the event this information is protected by the Federal Confidentiality of Alcohol and Drug Abuse Patient Records regulations: The Federal rules restrict any use of the information to criminally investigate or prosecute any alcohol or drug abuse patient.[facility] HospitalIn the event this information is protected by the Federal Confidentiality of Alcohol and Drug Abuse Patient Records regulations: The Federal rules restrict any use of the information to criminally investigate or prosecute any alcohol or drug abuse patient.[facility] HospitalIn the event this information is protected by the Federal Confidentiality of Alcohol and Drug Abuse Patient Records regulations: The Federal rules restrict any use of the information to criminally investigate or prosecute any alcohol or drug abuse patient.[facility] HospitalIn the event this information is protected by the Federal Confidentiality of Alcohol and Drug Abuse Patient Records regulations: The Federal rules restrict any use of the information to criminally investigate or prosecute any alcohol or drug abuse patient.[facility] HospitalIn the event this information is protected by the Federal Confidentiality of Alcohol and Drug Abuse Patient Records regulations: The Federal rules restrict any use of the information to criminally investigate or prosecute any alcohol or drug abuse patient.[facility] HospitalIn the event this information is protected by the Federal Confidentiality of Alcohol and Drug Abuse Patient Records regulations: The Federal rules restrict any use of the information to criminally investigate or prosecute any alcohol or drug abuse patient.[facility] HospitalIn the event this information is protected by the Federal Confidentiality of Alcohol and Drug Abuse Patient Records regulations: The Federal rules restrict any use of the information to criminally investigate or prosecute any alcohol or drug abuse patient.[facility] HospitalIn the event this information is protected by the Federal Confidentiality of Alcohol and Drug Abuse Patient Records regulations: The Federal rules restrict any use of the information to criminally investigate or prosecute any alcohol or drug abuse patient.[facility] HospitalIn the event this information is protected by the Federal Confidentiality of Alcohol and Drug Abuse Patient Records regulations: The Federal rules restrict any use of the information to criminally investigate or prosecute any alcohol or drug abuse patient.[facility] HospitalIn the event this information is protected by the Federal Confidentiality of Alcohol and Drug Abuse Patient Records regulations: The Federal rules restrict any use of the information to criminally investigate or prosecute any alcohol or drug abuse patient.[facility] HospitalIn the event this information is protected by the Federal Confidentiality of Alcohol and Drug Abuse Patient Records regulations: The Federal rules restrict any use of the information to criminally investigate or prosecute any alcohol or drug abuse patient.[facility] HospitalIn the event this information is protected by the Federal Confidentiality of Alcohol and Drug Abuse Patient Records regulations: The Federal rules restrict any use of the information to criminally investigate or prosecute any alcohol or drug abuse patient.[facility] HospitalIn the event this information is protected by the Federal Confidentiality of Alcohol and Drug Abuse Patient Records regulations: The Federal rules restrict any use of the information to criminally investigate or prosecute any alcohol or drug abuse patient.[facility] HospitalIn the event this information is protected by the Federal Confidentiality of Alcohol and Drug Abuse Patient Records regulations: The Federal rules restrict any use of the information to criminally investigate or prosecute any alcohol or drug abuse patient.[facility] HospitalIn the event this information is protected by the Federal Confidentiality of Alcohol and Drug Abuse Patient Records regulations: The Federal rules restrict any use of the information to criminally investigate or prosecute any alcohol or drug abuse patient.[facility] HospitalIn the event this information is protected by the Federal Confidentiality of Alcohol and Drug Abuse Patient Records regulations: The Federal rules restrict any use of the information to criminally investigate or prosecute any alcohol or drug abuse patient.[facility] HospitalIn the event this information is protected by the Federal Confidentiality of Alcohol and Drug Abuse Patient Records regulations: The Federal rules restrict any use of the information to criminally investigate or prosecute any alcohol or drug abuse patient.[facility] HospitalIn the event this information is protected by the Federal Confidentiality of Alcohol and Drug Abuse Patient Records regulations: The Federal rules restrict any use of the information to criminally investigate or prosecute any alcohol or drug abuse patient.[facility] HospitalIn the event this information is protected by the Federal Confidentiality of Alcohol and Drug Abuse Patient Records regulations: The Federal rules restrict any use of the information to criminally investigate or prosecute any alcohol or drug abuse patient.[facility] HospitalIn the event this information is protected by the Federal Confidentiality of Alcohol and Drug Abuse Patient Records regulations: The Federal rules restrict any use of the information to criminally investigate or prosecute any alcohol or drug abuse patient.[facility] HospitalIn the event this information is protected by the Federal Confidentiality of Alcohol and Drug Abuse Patient Records regulations: The Federal rules restrict any use of the information to criminally investigate or prosecute any alcohol or drug abuse patient.[facility] HospitalIn the event this information is protected by the Federal Confidentiality of Alcohol and Drug Abuse Patient Records regulations: The Federal rules restrict any use of the information to criminally investigate or prosecute any alcohol or drug abuse patient.[facility] HospitalIn the event this information is protected by the Federal Confidentiality of Alcohol and Drug Abuse Patient Records regulations: The Federal rules restrict any use of the information to criminally investigate or prosecute any alcohol or drug abuse patient.[facility] HospitalIn the event this information is protected by the Federal Confidentiality of Alcohol and Drug Abuse Patient Records regulations: The Federal rules restrict any use of the information to criminally investigate or prosecute any alcohol or drug abuse patient.[facility] HospitalIn the event this information is protected by the Federal Confidentiality of Alcohol and Drug Abuse Patient Records regulations: The Federal rules restrict any use of the information to criminally investigate or prosecute any alcohol or drug abuse patient.[facility] HospitalIn the event this information is protected by the Federal Confidentiality of Alcohol and Drug Abuse Patient Records regulations: The Federal rules restrict any use of the information to criminally investigate or prosecute any alcohol or drug abuse patient.[facility] HospitalIn the event this information is protected by the Federal Confidentiality of Alcohol and Drug Abuse Patient Records regulations: The Federal rules restrict any use of the information to criminally investigate or prosecute any alcohol or drug abuse patient.[facility] HospitalIn the event this information is protected by the Federal Confidentiality of Alcohol and Drug Abuse Patient Records regulations: The Federal rules restrict any use of the information to criminally investigate or prosecute any alcohol or drug abuse patient.[facility] HospitalIn the event this information is protected by the Federal Confidentiality of Alcohol and Drug Abuse Patient Records regulations: The Federal rules restrict any use of the information to criminally investigate or prosecute any alcohol or drug abuse patient.[facility] HospitalIn the event this information is protected by the Federal Confidentiality of Alcohol and Drug Abuse Patient Records regulations: The Federal rules restrict any use of the information to criminally investigate or prosecute any alcohol or drug abuse patient.[facility] HospitalIn the event this information is protected by the Federal Confidentiality of Alcohol and Drug Abuse Patient Records regulations: The Federal rules restrict any use of the information to criminally investigate or prosecute any alcohol or drug abuse patient.[facility] HospitalIn the event this information is protected by the Federal Confidentiality of Alcohol and Drug Abuse Patient Records regulations: The Federal rules restrict any use of the information to criminally investigate or prosecute any alcohol or drug abuse patient.[facility] HospitalIn the event this information is protected by the Federal Confidentiality of Alcohol and Drug Abuse Patient Records regulations: The Federal rules restrict any use of the information to criminally investigate or prosecute any alcohol or drug abuse patient.[facility] HospitalIn the event this information is protected by the Federal Confidentiality of Alcohol and Drug Abuse Patient Records regulations: The Federal rules restrict any use of the information to criminally investigate or prosecute any alcohol or drug abuse patient.[facility] HospitalIn the event this information is protected by the Federal Confidentiality of Alcohol and Drug Abuse Patient Records regulations: The Federal rules restrict any use of the information to criminally investigate or prosecute any alcohol or drug abuse patient.[facility] Reason for Visit (unrecogniz ed section and content) Reason Comments Physical Therapy Specialty Diagnoses / Procedures Referred By Contac t Referred To Contact [facility] Diagnoses Chronic pain of right knee Procedures CONSULT TO PHYSICAL THERAPY PHYSICAL THERAPY EVALUATION HIGH COMPLEX 45 MINS Podlogar, LORI Rodarte.PROFESSIONAL DRIVER [address] [place] [address] Phone: tel: fax: [facility] [address] [place] [address] Referral ID Status Reason Start Date Expiration Date Visits Requested Visits Authorized [id number] Authorized Auto-Generat ed Referral 07/08/2024 07/07/2025 40 40 Reason Comments Trauma (LT) finger lacerati on Pt reported cut at home with rubber gasket inspector trimmer 12/29/2021 Reason Comments Recheck stitch removal Reason Comments Back Pain Lower back pain-fell this am Reason Comments Medication Request Reason Onset Date Comments Refill Request 09/29/2022 Reason Comments Orders Reason Comments Results Reason Comments Physical Reason Comments Follow Up 4 week Reason Onset Date Comments Refill Request 04/30/2023 Reason Comments Appointment Reason Comments Recheck 6 months Reason Comments Knee Pain Right knee pain 3 we eks; no injury noted Reason Onset Date Comments Refill Request 11/12/2023 Reason Comments Cough Chest congestion, co ugh, loss of appetite, fatigue, fevers x 1 week Reason Onset Date Comments Refill Request 05/15/2024 Reason Comments BP Check Reason Comments Nasal Congestion X5 days, cough, head ache, teeth pain Reason Comments Physical Reason Comments Knee Pain Right knee, x1 year. Increasingly worse recently. Reason Comments Urinary Problem Frequency, lower marisela k pain, chills, fever since 12 am Reason Onset Date Comments Results 01/07/2025 Reason Comments PT Eval Reason Comments Multiple Concerns On January 15 states he woke up and was unable to fee clerk anything with his right hand. Has weakness and tightness in his right hand and arm. C/o right foot dropping when walking. Has to consciously think about lifting his right foot to walk. Only able to speak out of one side of his mouth which wasn't the case prior. Reason Onset Date Comments Results 02/19/[address] Specialty Diagnoses / Procedures Referred By Prince bah Referred To Contact [facility] Diagnoses Cerebrovascular accident (CVA), unspecified mechanism (HCC) Right sided weakness Procedures CTA NECK W IVCON CT ANGIOGRAPHY NECK W/CONTRAST/NONCONTRAST Robert Aparicio MD [address] [place] [address] Phone: tel: fax: [place] [address] Referral ID Status Reason Start Date Expiration Date V isits Requested Visits Authorized [id number] Closed Auto-Generate d Referral 02/19/2025 03/21/2026 1 1 Reason Comments Patient Left Without Being Seen Specialty Diagnoses / Procedures Referred By Prince bah Referred To Contact [facility] Diagnoses Chronic pain of right knee Procedures PHYSICAL THERAPY EVALUATION HIGH COMPLEX 45 MINS Podlogar, LORI Rodarte.PROFESSIONAL DRIVER [address] [place] [address] Phone: tel: fax: [facility] [address] [place] [address] Reason Comments TRIAGE WQ Reason Comments Preparations For Surgery Reason Comments New Patient Brain mass Reason Onset Date Comments Refill Request 03/07/2025 Reason Comments Post Op Biopsy of the brain on 03/09/2025 Care Teams (unrecognized sec tion and content) Team Status: Active Member Role Status Dates Dr. Ryan Aparicio MD Primary Care Provider Acti ve Team Status: Inactive Member Role Status Dates Dr. Ryan Aparicio MD Primary Care Provider Acti ve Start: November 06, 2024 End: November 06, 2024 Theresa Mccollum Attending Provider Active Start : November 06, 2024 End: November 06, 2024 Theresa Mccollum Referring Provider Active Start : November 06, 2024 End: November 06, 2024 Team Status: Active Member Role Status Dates Dr. Ryan Aparicio MD Primary Care Provider Acti ve Start: November 27, 2024 End: November 27, 2024 Dr. Fatuma Scott MD Attending Provider Activ e Start: November 27, 2024 End: November 27, 2024 Dr. Stan Anthony MD Referring Provider Active Start: November 27, 2024 End: November 27, 2024 Team Status: Inactive Member Role Status Dates Dr. Ryan Aparicio MD Primary Care Provider Acti ve Start: December 02, 2024 End: December 03, 2024 Dr. Stan Anthony MD Admit Provider Active Start: December 02, 2024 End: December 03, 2024 Dr. Stan Anthony MD Attending Provider Active Start: December 02, 2024 End: December 03, 2024 Dr. Stan Anthony MD Referring Provider Active Start: December 02, 2024 End: December 03, 2024 School Crossing Guard Relationship Specialty Start Date End Date Robert Aparicio MD [address] [place] [address] PCP - General Family Practice 06/28/21 School Crossing Guard Relationship Specialty Start Date End Date Robert Aparicio MD [address] [place] [address] PCP - General Family Practice 06/28/21 School Crossing Guard Relationship Specialty Start Date End Date Robert Aparicio MD [address] [place] [address] PCP - General Family Medicine 06/28/21 School Crossing Guard Relationship Specialty Start Date End Date Robert Aparicio MD [address] [place] [address] PCP - General Family Medicine 06/28/21 School Crossing Guard Relationship Specialty Start Date End Date Robert Aparicio MD [address] [place] [address] PCP - General Family Medicine 06/28/21 School Crossing Guard Relationship Specialty Start Date End Date Robert Aparicio MD [address] [place] [address] PCP - General Family Medicine 06/28/21 School Crossing Guard Relationship Specialty Start Date End Date Robert Aparicio MD [address] [place] [address] PCP - General Family Medicine 06/28/21 School Crossing Guard Relationship Specialty Start Date End Date Robert Aparicio MD [address] [place], [place] [id number] PCP - General Family Medicine 06/28/21 Team Status: Active Member Role Status Dates Dr. Vamsi Bowman III, MD Family Provider Active Dr. Ryan Aparicio MD Primary Care Provider Acti ve Team Status: Inactive Member Role Status Dates Dr. Ryan Aparicio MD Primary Care Provider Acti ve Dr. Stan Anthony MD Attending Provider, Referr ing Provider Active Team Status: Active Member Role Status Dates Dr. Ryan Aparicio MD Primary Care Provider, Referring Provider, Other Provider Active Dr. Fatuma Scott MD Attending Provider Activ e Team Status: Inactive Member Role Status Dates Dr. Ryan Aparicio MD Primary Care Provider, Attending Provider, Referring Provider Active [employer] Crossing Guard Relationship Specialty Start Date End Date Robert Aparicio MD [address] [place], [place] [address] PCP - General Family Medicine 06/28/21 School Crossing Guard Relationship Specialty Start Date End Date Robert Aparicio MD [address] [place], [place] [address] PCP - General Family Medicine 06/28/21 School Crossing Guard Relationship Specialty Start Date End Date Robert Aparicio MD [address] [place] [address] PCP - General Family Medicine 06/28/21 School Crossing Guard Relationship Specialty Start Date End Date Robert Aparicio MD [address] [place] [address] PCP - General Family Medicine 06/28/21 School Crossing Guard Relationship Specialty Start Date End Date Robert Aparicio MD [address] [place] [address] PCP - General Family Medicine 06/28/21 School Crossing Guard Relationship Specialty Start Date End Date Robert Aparicio MD [address] [place] [address] PCP - General Family Medicine 06/28/21 School Crossing Guard Relationship Specialty Start Date End Date Robert Aparicio MD [address] [place] [address] PCP - General Family Medicine 06/28/21 School Crossing Guard Relationship Specialty Start Date End Date Robert Aparicio MD [address] [place] [address] PCP - General Family Medicine 06/28/21 School Crossing Guard Relationship Specialty Start Date End Date Robert Aparicio MD [address] [place] [address] PCP - General Family Medicine 06/28/21 School Crossing Guard Relationship Specialty Start Date End Date Robert Aparicio MD [address] [place] [address] PCP - General Family Medicine 06/28/21 School Crossing Guard Relationship Specialty Start Date End Date Vamsi Bowman III, MD NO FORWARDING ADDRESS PCP - General 05/01/02 06/05/21 School Crossing Guard Relationship Specialty Start Date End Date Vamsi Bowman III, MD NO FORWARDING ADDRESS PCP - General 05/01/02 06/05/21 School Crossing Guard Relationship Specialty Start Date End Date Robert Aparicio MD [address] [place] [address] PCP - General Family Medicine 06/28/21 School Crossing Guard Relationship Specialty Start Date End Date Robert Aparicio MD [address] [place] [address] PCP - General Family Medicine 06/28/21 Podlogar, Aster, ARTIST AGENT.PROFESSIONAL DRIVER [address] [place] [address] Sales And Service Specialist Family Medicine 06/13/24 School Crossing Guard Relationship Specialty Start Date End Date Robert Aparicio MD [address] [place] [address] PCP - General Family Medicine 06/28/21 Podlogar, Aster, ARTIST AGENT.PROFESSIONAL DRIVER [address] [place] [address] Sales And Service Specialist [facility] 06/13/24 School Crossing Guard Relationship Specialty Start Date End Date Robert Aparicio MD [address] [place] [address] PCP - General Family Medicine 06/28/21 Podlogar, Aster, ARTIST AGENT.PROFESSIONAL DRIVER [address] [place] [address] [facility] School Crossing Guard Relationship Specialty Start Date End Date Robert Aparicio MD [address] [facility], [place] [address] PCP - General Family Medicine 06/28/21 PodlogarAster APRN.PROFESSIONAL DRIVER [address] [facility], [place] [address] [facility] 06/[facility]24 Team Status: Inactive Member Role Status Dates Dr. Ryan Aparicio MD Primary Care Provider Acti ve Start: December 08, 2024 End: December 08, 2024 Dr. Stan Anthony MD Attending Provider Active Start: December 08, 2024 End: December 08, 2024 Dr. Stan Anthony MD Referring Provider Active Start: December 08, 2024 End: December 08, 2024 [employer] Cross[employer] Guard Relationship Specialty Start Date End Date Robert Aparicio MD [address] [facility], [place] [id number] PCP - General Family Medicine 06/28/21 PodlogarAster, ARTIST AGENT.PROFESSIONAL DRIVER [address] [facility], [place] [id number] [facility] Family Medicine 06/13/24 Carmen Lorenzo ARTIST AGENT.PROFESSIONAL DRIVER [address] [facility] [place], [place] [address] [facility] 12/17/24 School Crossing Guard Relationship Specialty Start Date End Date Robert Aparicio MD [address] [facility], [place] [id number] PCP - General Family Medicine 06/28/21 Podlogar, Aster, ARTIST AGENT.PROFESSIONAL DRIVER [address] [place] [address] Sales And Service Specialist Family Medicine 06/13/24 Carmen Lorenzo APRN.PROFESSIONAL DRIVER [address] [place] [address] Sales And Service Specialist Family Medicine 12/17/24 School Crossing Guard Relationship Specialty Start Date End Date Robert Aparicio MD [address] [place] [address] PCP - General Family Medicine 06/28/21 PodlogarAster APRN.PROFESSIONAL DRIVER [address] [place] [address] Sales And Service Specialist Family Medicine 06/13/24 Carmen Lorenzo APRN.PROFESSIONAL DRIVER [address] [place] [address] Sales And Service Specialist Family Medicine 12/17/24 School Crossing Guard Relationship Specialty Start Date End Date Robert Aparicio MD [address] [place] [address] PCP - General Family Medicine 06/28/21 PodlogAster grimaldo APRN.PROFESSIONAL DRIVER [address] [place] [address] Sales And Service Specialist Family Medicine 06/13/24 Carmen Lorenzo APRN.PROFESSIONAL DRIVER [address] [place] [address] Sales And Service Specialist Family Medicine 12/17/24 School Crossing Guard Relationship Specialty Start Date End Date Robert Aparicio MD [address] [place] [address] PCP - General Family Medicine 06/28/21 PodlogarAster APRN.PROFESSIONAL DRIVER [address] [place] [address] Sales And Service Specialist Family Medicine 06/13/24 Carmen Lorenzo APRN.PROFESSIONAL DRIVER [address] [place] [address] Sales And Service Specialist Family Medicine 12/17/24 School Crossing Guard Relationship Specialty Start Date End Date Robert Aparicio MD [address] [place] [address] PCP - General Family Medicine 06/28/21 PodlogarAster APRN.PROFESSIONAL DRIVER [address] [place] [address] Sales And Service Specialist Family Medicine 06/13/24 Carmen Lorenzo APRN.PROFESSIONAL DRIVER [address] [place] [address] Sales And Service Specialist Family Medicine 12/17/24 School Crossing Guard Relationship Specialty Start Date End Date Robert Aparicio MD [address] [place] [address] PCP - General Family Medicine 06/28/21 PodlogarAster APRN.PROFESSIONAL DRIVER [address] [place] [address] Sales And Service Specialist Family Medicine 06/13/24 Carmen Lorenzo APRN.PROFESSIONAL DRIVER [address] [place] [address] [facility] 12/17/24 School Crossing Guard Relationship Specialty Start Date End Date Robert Aparicio MD [address] [place] [address] PCP - General Family Medicine 06/28/21 Podlogar, Aster, ARTIST AGENT.PROFESSIONAL DRIVER [address] [place] [address] [facility] 06/13/24 Carmen Lorenzo ARTIST AGENT.PROFESSIONAL DRIVER [address] [place] [address] [facility] 12/17/24 School Crossing Guard Relationship Specialty Start Date End Date Robert Aparicio MD [address] [place] [address] PCP - General Family Medicine 06/28/21 Podlogar, Aster, ARTIST AGENT.PROFESSIONAL DRIVER [address] [place] [address] [facility] Medicine 06/13/24 Carmen Lorenzo ARTIST AGENT.PROFESSIONAL DRIVER [address] [place] [address] [facility] 12/17/24 School Crossing Guard Relationship Specialty Start Date End Date Robert Aparicio MD [address] [place] [address] PCP - General Family Medicine 06/28/21 Podlogar, Aster, ARTIST AGENT.PROFESSIONAL DRIVER [address] [place] [address] Sales And Service Specialist Family Medicine 06/13/24 Carmen Lorenzo APRN.PROFESSIONAL DRIVER [address] [facility] [place] [address] Sales And Service Specialist Family Medicine 12/17/24 School Crossing Guard Relationship Specialty Start Date End Date Robert Aparicio MD [address] [facility], [place] [address] [phone] PCP - General Family Medicine 06/28/21 PodlogarAster ARTIST AGENT.PROFESSIONAL DRIVER [address] [place] [address] Sales And Service Specialist Family Medicine 06/13/24 Carmen Lorenzo ARTIST AGENT.PROFESSIONAL DRIVER [address] [place] [address] [facility] 12/17/24 School Crossing Guard Relationship Specialty Start Date End Date Robert Aparicio MD [address] [place] [address] PCP - General Family Medicine 06/28/21 PodlogarAster, ARTIST AGENT.PROFESSIONAL DRIVER [address] [place] [address] Sales And Service Specialist Family Medicine 06/13/24 Carmen Lorenzo, ARTIST AGENT.PROFESSIONAL DRIVER [address] [facility] [place] [address] Sales And Service Specialist Family Medicine 12/17/24 School Crossing Guard Relationship Specialty Start Date End Date Robert Aparicio MD [address] [place] [address] PCP - General Family Medicine 06/28/21 PodlogarAster, ARTIST AGENT.PROFESSIONAL DRIVER [address] [place] [address] Sales And Service Specialist Family Medicine 06/13/24 Carmen Lorenzo APRN.PROFESSIONAL DRIVER [address] [place] [address] Sales And Service Specialist Family Medicine 12/17/24 School Crossing Guard Relationship Specialty Start Date End Date Robert Aparicio MD [address] [place] [address] PCP - General Family Medicine 06/28/21 PodlogarAster APRN.PROFESSIONAL DRIVER [address] [place] [address] Sales And Service Specialist Family Medicine 06/13/24 Carmen Lorenzo APRN.PROFESSIONAL DRIVER [facility] [place] [address] Sales And Service Specialist Family Medicine 12/17/24 School Crossing Guard Relationship Specialty Start Date End Date Robert Aparicio MD [address] [place] [address] PCP - General Family Medicine 06/28/21 PodlogarAster APRN.PROFESSIONAL DRIVER [address] [place] [address] Sales And Service Specialist Family Medicine 06/13/24 Carmen Lorenzo APRN.PROFESSIONAL DRIVER [address] [place] [address] Sales And Service Specialist Family Medicine 12/17/24 School Crossing Guard Relationship Specialty Start Date End Date Robert Aparicio MD [address] [place] [address] PCP - General Family Medicine 06/28/21 PodlogarAster APRN.PROFESSIONAL DRIVER [address] [place] [address] Sales And Service Specialist Family Medicine 06/13/24 Carmen Lorenzo APRN.PROFESSIONAL DRIVER [address] [place] [address] Sales And Service Specialist Family [facility] 12/17/24 School Crossing Guard Relationship Specialty Start Date End Date Robert Aparicio MD [address] [place] [address] PCP - General Family Medicine 06/28/21 PodlogarAster APRN.PROFESSIONAL DRIVER [address] [place] [address] Sales And Service Specialist Family Medicine 06/13/24 Carmen Lorenzo APRN.PROFESSIONAL DRIVER [address] [place] [address] [facility] 12/17/24 School Crossing Guard Relationship Specialty Start Date End Date Robert Aparicio MD [address] [place] [address] PCP - General Family Medicine 06/28/21 PodlogarAster APRN.PROFESSIONAL DRIVER [address] [place] [address] Sales And Service Specialist Family Medicine 06/13/24 Carmen Lorenzo APRN.PROFESSIONAL DRIVER [address] [place] [address] [facility] 12/[facility]/24 Iris Baird MD Sales And Service Specialist 03/13/25 03/26/25 School Crossing Guard Relationship Specialty Start Date End Date Robert Aparicio MD [address] [place] [address] PCP - General Family Medicine 06/28/21 PodlogarAster APRN.PROFESSIONAL DRIVER [address] [place] [address] Sales And Service Specialist [facility] Medicine 06/13/24 Carmen Lorenzo APRN.PROFESSIONAL DRIVER [address] [place] [address] [facility] 12/17/24 Iris Baird MD Sales And Service Specialist 03/13/25 03/26/25 School Crossing Guard Relationship Specialty Start Date End Date Robert Aparicio MD [address] [place] [address] PCP - General Family Medicine 06/28/21 PodlogarAster APRN.PROFESSIONAL DRIVER [address] [place] [address] [facility] Medicine 06/13/24 Carmen Lorenzo APRN.PROFESSIONAL DRIVER [address] [place] [address] [facility] 12/17/24 Iris Baird MD Sales And Service Specialist 03/13/25 03/26/25 Goals (unrecognized section and content) Goals may be documented in a n alternate sectionGoals may be documented in an alternate sectionGoals may be documented in an alternate sectionGoals may be documented in an alternate sectionGoals may be documented in an alternate section (unrecognized sect ion and content) No Status Records FoundNo Status Records FoundNo Status Records FoundNo Status Records Found INFORMATION SOURCE (unrecogn ized section and content) DATE CREATED AUTHOR 12/17/2024 [facility] DATE CREATED AUTHOR AUTHOR'S ORGANIZ ATION 03/26/2025 [facility] DATE CREATED AUTHOR AUTHOR'S ORGANIZ ATION 03/30/2025 [facility] nt DATE CREATED AUTHOR AUTHOR'S ORGANIZ ATION 04/01/2025 [facility] FOR RECORDS PERTAINING TO PATIENTS WHO ARE OR HAVE BEEN ENROLLED IN A CHEMICAL DEPENDENCY/SUBSTANCEABUSE PROGRAM, SOME INFORMATION MAY BE OMITTED. This clinical summary was aggregated from multiple sources. Caution should be exercised in using it in the provision of clinical care. This summary normalizes information from multiple sources, and as a consequence, information in this document may materially change the coding, format and clinical context of patient data. In addition, data may be omitted in some cases. CLINICAL DECISIONS SHOULD BE BASED ON THE PRIMARY CLINICAL RECORDS. [facility]. provides no warranty or guarantee of the accuracy or completeness of information in this document.
[2025-04-01 18:58] LABS: Allen Test Positive; Base Excess -14 mmol/L (-2 to +2); FI02 15.0; PO2 213 mmHG (75-100); SITE R Radial; SO2 100 % (95-99); Time Given 18:56:21
[2025-04-01 19:05] LABS: Hematocrit 45.7 % (40-54); Hemoglobin 15.1 g/dL (13.0-16.5); Immature Granulocytes Count 0.010 X10^3/uL (0.0-0.0); Mean Corp Hgb Conc 33.0 g/dL (32-36); Mean Corpuscular Volume 86.4 fL (80-94); Mean Platelet Vol. 10.6 fl (6.2-12.0); NRBC Flagged by Analyzer 0 % (0-5); Platelet Count 244 K/mm3 (150-450); RBC Distribution Width CV 14.8 % (11.6-14.6); RBC Distribution Width SD 47.0 fl (35.1-43.9); Red Blood Count 5.29 M/mm3 (4.6-6.2); White Blood Count 10.8 K/mm3 (4.4-11.0)
--- NOTE | 2025-04-01 19:20 | RAD_ITS ---
PROCEDURE: ABDOMEN SINGLE VIEW (PORTABLE) 04/01/2025 REASON FOR EXAM: NG INSERTION TECHNIQUE: Procedure Code: RADABD_P Modality: DX Procedure: ABDOMEN SINGLE VIEW (PORTABLE) COMPARISON: Earlier same day 04/01/2025 FINDINGS: Enteric tube in unchanged positioning, distal tip terminating in the proximal stomach, side port at the level of the GE junction, and slight advancement is recommended. The lungs and pleura appear clear. No discernible free air or dilated bowel loops in the visualized upper abdomen. Multilevel degenerative changes of the spine. RAD/Abdomen Single View (Portable) IMPRESSION: Enteric tube in unchanged positioning, terminating within the stomach however t he side port is at the level of the GE junction, recommend slight advancement. Reading Location: [id number]
[2025-04-01 19:33] LABS: AST(SGOT) 29 U/L (<=37); Alanine Aminotransfer ALT/SGPT 47 U/L (<=46); Albumin, Serum 4.3 g/dL (3.4-4.8); Alkaline Phosphatase 76 U/L (40-129); Anion Gap 22 (5-15); BUN 19 mg/dL (4-19); BUN/Creat Ratio 19.9 RATIO (10-20); Calcium,Total 9.0 mg/dL (7.6-11.0); Carbon Dioxide 17.3 mmol/L (21.0-32.0); Chloride 104 mmol/L (98-108); Estimated Creatinine Clearance 84.47 ml/min (50-250); Globulin 2.9 g/dL (2.2-4.2); Glucose 95 mg/dL (70-99); Potassium 3.4 mmol/L (3.3-5.1)
[2025-04-01] MEDS: levETIRAcetam IV 1,000 MG/100 ML BAG 400 MG IV (19:34)
[2025-04-01 19:36] LABS: Barbiturate Urine NEGATIVE (< 200 ng/mL); Benzodiazepine Urine NEGATIVE (< 200 ng/mL); PCP Urine NEGATIVE (< 25 ng/mL); THC Urine NEGATIVE (< 50 ng/mL)
[2025-04-01 19:36] LABS: Mucous, Urine 0 SEEN /hpf (<or=2+)
[2025-04-01 19:37] LABS: Color, Urine Yellow (Yellow); Glucose, Dipstick Normal (Normal); Ketone-Dipstick Negative (Negative); Leukocyte Esterase-Dipstick 100 /ul (Negative); Nitrite-Dipstick Positive (Negative); Occult Blood-Urine 50 /ul (Negative); Protein-Dipstick 100 mg/dl (Negative); Specific Gravity, Urine 1.025 (1.002-1.030); Urine Bilirubin Dipstick Negative (Negative)
[2025-04-01 19:38] LABS: Alcohol, Blood (Medical)-Serum < 10.1 mg/dL (<=10.0)
[2025-04-01 19:49] LABS: CPK Total, Creatine Kinase 91 U/L (24-195); Triglycerides 166 mg/dL
--- NOTE | 2025-04-01 19:51 | EDS_ITS ---
HPI History of Present Illness Chief Complaint: Seizure Narrative Narrative: Patient is a 64-year-old male presenting to the emergency department for a seizure. History obtained from and EMS due to patient's mental status. Patient has a PMHX of recently diagnosed glioblastoma and mid February after he had right sided hemiparesis. Patient's states that he has not seen at the cancer center yet and he is supposed to follow-up for chemo and radiation starting in April. She states that he is never had a seizure before. She was talking to him and then turned around and saw him stiff and shaking. She called EMS who states that the patient was postictal after the initial seizure. On arrival here when being moved from EMS cot to the bed he then had another seizure. They did not give any medications prior to arrival. She states that in February when the glioblastoma was biopsied he was on a short course of Keppra but is no longer on any antiseizure meds. She states that he has been feeling normal recently. Denies any known fevers or chills. [facility] Medical History Glioblastoma Wears hearing aid Wears glasses Marijuana use Arthritis History of renal disease Prostate disease High cholesterol Dietary restriction Gastric reflux History of stress test Glaucoma, right eye Osteoporosis Kidney stones GERD (gastroesophageal reflux disease) Former smoker Hypertension Home Medications Medication Instructions Recorded Last Taken Type lisinopril 20 mg tablet 20 mg PO DAILY bp 01/10/20 0 02/24/20 07:30 History atorvastatin 20 mg tablet 20 mg PO DAILY 03/30/22 Unkn own History finasteride 5 mg tablet 5 mg PO DAILY 11/24/24 Unkno wn History omeprazole 40 mg capsule,delayed 40 mg PO DAILY Unknown History release tamsulosin 0.4 mg capsule 0.4 mg PO DAILY 11/24/24 Unk nown History acetaminophen 500 mg capsule 500 mg PO Q6H PRN pain #2 0 caps 12/02/24 Unknown Rx ibuprofen 600 mg tablet 600 mg PO Q6H PRN pain #20 t abs 12/02/24 Unknown Rx Allergy/AdvReac Type Severity Reaction Status Date / Time prednisone Allergy Intermediate HEMATURIA Verified 04/01/25 18:27 Surgical History History of eye removal History of transurethral resection of prostate History of appendectomy Social History Smoking Status: Former smoker ROS ROS ED Review of Systems ROS Unobtainable: due to endotracheal tube and due to mental status EXAM Physical Exam Narrative Exam Narrative: Vital signs: Reviewed General: Arrives in generalized tonic clonic seizure. HEENT: Head is normocephalic and atraumatic, sinuses nontender, pupils equal round and reactive. Nares are patent. Oropharynx and throat exams normal. Neck: Supple without lymphadenopathy nontender Cardiovascular: Tachycardic rate and regular rhythm, no murmurs. No rubs or gallops. Normal S1 and S2 Respiratory: No wheezes, rales, rhonchi Abdominal: Soft and nondistended. Normal bowel sounds. Extremities: Atraumatic Skin: No rash or redness. Const Vital Signs: 04/01/25 18:20 04/01/25 18:30 04/01/25 18:44 Temperature 97.8 F Temperature Source Axillary Pulse Rate 82 Respiratory Rate 18 Respiratory Effort Mechanically Ventilated Respiratory Pattern Bradypnea Blood Pressure 212/93 H Blood Pressure Mean 132 Pulse Ox 85 Oxygen Delivery Method Ambu-Bag Fraction of Inspired Oxygen (FIO2) 60 04/01/25 18:44 04/01/25 18:50 04/01/25 19:20 Temperature Temperature Source Pulse Rate 139 H 125 H Respiratory Rate 16 16 20 H Respiratory Effort Respiratory Pattern Normal Blood Pressure 128/66 H 186/117 H Blood Pressure Mean 86 140 Pulse Ox 97 97 Oxygen Delivery Method Mechanical Ventilator Mechanical Ventilator Fraction of Inspired Oxygen (FIO2) 60 04/01/25 19:22 04/01/25 19:30 04/01/25 20:00 Temperature Temperature Source Pulse Rate 132 H 130 H 131 H Respiratory Rate 20 H 18 18 Respiratory Effort Respiratory Pattern Blood Pressure 189/104 H 184/116 H 179/113 H Blood Pressure Mean 132 138 135 Pulse Ox 94 95 94 Oxygen Delivery Method Mechanical Ventilator Mechanical Ventilator Mechanical Ventilator Fraction of Inspired Oxygen (FIO2) 04/01/25 20:07 04/01/25 20:30 04/01/25 21:00 Temperature Temperature Source Pulse Rate 101 H 81 Respiratory Rate 20 H 17 16 Respiratory Effort Respiratory Pattern Normal Blood Pressure 128/72 H 91/58 L Blood Pressure Mean 90 69 Pulse Ox 97 95 Oxygen Delivery Method Mechanical Ventilator Mechanical Ventilator Fraction of Inspired Oxygen (FIO2) 30 04/01/25 21:30 04/01/25 21:48 04/01/25 22:00 Temperature 97.6 F L Temperature Source Axillary Pulse Rate 70 60 Respiratory Rate 16 16 Respiratory Effort Respiratory Pattern Blood Pressure 102/69 106/73 Blood Pressure Mean 80 84 Pulse Ox 96 98 Oxygen Delivery Method Mechanical Ventilator Mechanical Ventilator Fraction of Inspired Oxygen (FIO2) 04/01/25 22:30 04/01/25 23:00 04/01/25 23:17 Temperature Temperature Source Pulse Rate 60 63 Respiratory Rate 16 16 16 Respiratory Effort Respiratory Pattern Normal Blood Pressure 107/67 106/65 Blood Pressure Mean 80 78 Pulse Ox 100 100 Oxygen Delivery Method Mechanical Ventilator Mechanical Ventilator Fraction of Inspired Oxygen (FIO2) 04/01/25 23:30 04/02/25 00:00 04/02/25 00:30 Temperature Temperature Source Pulse Rate 64 66 63 Respiratory Rate 16 17 16 Respiratory Effort Respiratory Pattern Blood Pressure 108/64 102/80 106/68 Blood Pressure Mean 78 87 80 Pulse Ox 100 100 100 Oxygen Delivery Method Mechanical Ventilator Mechanical Ventilator Mechanical Ventilator Fraction of Inspired Oxygen (FIO2) MDM MDM MDM Narrative Medical decision making narrative: Patient is a 64-year-old male presenting to the emergency department for seizures. Per EMS the patient had a witnessed seizure at home and then was postictal afterwards. They state that he was still confused when they brought him into the room here in the emergency department. He then began having another generalized tonic-clonic seizure. It lasted for about 5 minutes and Ativan 2 mg was verbally ordered however by the time nurses had medication at bedside the patient was no longer seizing. He was however not breathing on his own. [id number] started at bedside. Given inability to protect airway and not breathing on his own, decision was made to intubate. 1 L fluid bolus hung. RSI meds verbally ordered. Patient was successfully intubated with glide a scope and 7-1/2 ET tube. No blood noted in the airway. Bilateral breath sounds noted after intubation. Color change on CO2. postintubation chest x-ray obtained. NG and Villeda catheter placed by nursing staff. Propofol used for postintubation sedation given seizures. 1 g of Keppra given. Labs including lactic and ABG as well as a CT of the brain was obtained. At this time I have concern for possible edema around the glioblastoma that is causing his new onset seizures. CBC with no leukocytosis and a normal hemoglobin. BMP with anion gap of 22, bicarb of 17.3 and lactic of 9.3 secondary to his seizure. Urinalysis with bacteria, WBC, leukocyte esterase and nitrates consistent with a UTI. Rocephin given for coverage. Repeat lactic 1.8.CT brain shows ill-defined mass lesion epicentered within the left posterior frontoparietal sargent radiata, most compatible with a high-grade glioma as noted in the clinical history. No substantial mass-effect, or evidence for other acute intracranial abnormality on this unenhanced CT. initial chest x-ray unable to visualize the ET tube, repeat ordered after advancement of the ET tube by 3 cm and now shows the ET tube terminating 3 cm above the arnaldo. Patient was difficult to sedate, became maxed out on propofol and slowly titrated up on fentanyl drip. Did give boluses of both fentanyl and propofol. He is now appropriately sedated. Patient will need a facility with neuro ICU. Discussed patient with Mary Ware And was accepted to the NSICU under Dr. Razo for further management. Clinical impression Status epilepticus Lactic acidosis History & Record Review Discussion w/independent historian: EMS personnel and Family Lab Data Attestation: I reviewed the patient's lab results. Labs: Laboratory Results - last 24 hr 04/01/25 04/01/25 04/01/25 18:48 18:49 18:51 WBC 10.8 RBC 5.29 Hgb 15.1 Hct 45.7 MCV 86.4 MCH 28.5 MCHC 33.0 RDW Std Deviation 47.0 H RDW Coeff of Manuel 14.8 H Plt Count 244 MPV 10.6 Immature Gran % (Auto) 0.100 Neut % (Auto) 34.9 L Lymph % (Auto) 44.9 H Nolan % (Auto) 13.7 H Eos % (Auto) 5.2 H Baso % (Auto) 1.2 H Absolute Neuts (auto) 3.8 Absolute Lymphs (auto) 4.87 H Nucleated RBC % 0 Sodium 143 Potassium 3.4 Chloride 104 Carbon Dioxide 17.3 L Anion Gap 22 H BUN 19 Creatinine 0.95 Estim Creat Clear Calc 84.47 Est GFR (MDRD) Non-Af 89 BUN/Creatinine Ratio 19.9 Glucose 95 Lactic Acid 9.3 H* Calcium 9.0 Total Bilirubin 0.56 AST 29 ALT 47 Alkaline Phosphatase 76 Total Creatine Kinase 91 Total Protein 7.2 Albumin 4.3 Globulin 2.9 Albumin/Globulin Ratio 1.5 Triglycerides 166 Urine Color Yellow Urine Clarity Cloudy Urine pH 5.0 Ur Specific [place] 1.025 Urine Protein 100 H Urine Glucose (UA) Normal Urine Ketones Negative Urine Occult Blood 50 H Urine Nitrite Positive H Urine Bilirubin Negative Urine Urobilinogen Normal Ur Leukocyte Esterase 100 H Urine RBC 5-10 SEEN Urine WBC 50-100 SEEN Ur Squamous Epith Cells 0-5 SEEN Ur Transition Epith Cell 0-5 SEEN Urine Bacteria 2+ Hyaline Casts 0-5 SEEN Urine Mucus 0 SEEN Urine Opiates Screen NEGATIVE U Buprenorphine Qual NEGATIVE Ur Oxycodone Screen NEGATIVE Urine Methadone Screen NEGATIVE Urine Fentanyl Screen NEGATIVE Ur Barbiturates Screen NEGATIVE Ur Phencyclidine Scrn NEGATIVE Ur Amphetamines Screen NEGATIVE U Benzodiazepines Scrn NEGATIVE Urine Cocaine Screen NEGATIVE U Cannabinoids Screen NEGATIVE Ethyl Alcohol < 10.1 04/01/25 21:35 WBC RBC Hgb Hct MCV MCH MCHC RDW Std Deviation RDW Coeff of Manuel Plt Count MPV Immature Gran % (Auto) Neut % (Auto) Lymph % (Auto) Nolan % (Auto) Eos % (Auto) Baso % (Auto) Absolute Neuts (auto) Absolute Lymphs (auto) Nucleated RBC % Sodium Potassium Chloride Carbon Dioxide Anion Gap BUN Creatinine Estim Creat Clear Calc Est GFR (MDRD) Non-Af BUN/Creatinine Ratio Glucose Lactic Acid 1.8 Calcium Total Bilirubin AST ALT Alkaline Phosphatase Total Creatine Kinase Total Protein Albumin Globulin Albumin/Globulin Ratio Triglycerides Urine Color Urine Clarity Urine pH Ur Specific [place] Urine Protein Urine Glucose (UA) Urine Ketones Urine Occult Blood Urine Nitrite Urine Bilirubin Urine Urobilinogen Ur Leukocyte Esterase Urine RBC Urine WBC Ur Squamous Epith Cells Ur Transition Epith Cell Urine Bacteria Hyaline Casts Urine Mucus Urine Opiates Screen U Buprenorphine Qual Ur Oxycodone Screen Urine Methadone Screen Urine Fentanyl Screen Ur Barbiturates Screen Ur Phencyclidine Scrn Ur Amphetamines Screen U Benzodiazepines Scrn Urine Cocaine Screen U Cannabinoids Screen Ethyl Alcohol ABG Data ABG results: ABG 04/01/25 04/01/25 18:54 20:53 Specimen Type ART ART Sample Site R Radial R Radial pH 7.13 L* 7.39 Bicarbonate Actual 15.7 L 24.8 Total CO2 17 26 Base Excess -14 L 0 O2 Saturation 100 H 96 O2 % 15.0 30.0 ABG pCO2 47.3 H 41.0 ABG pO2 213 H 80 Joshua Test Positive Positive Respiration Rate 16 O2 Delivery Device Bagging Adult Vent Vent Mode Not entered AC Tidal Volume 450.0 POC PEEP 5 Crit Call To/Read Back Yes Blood Gas Notified Whom Stanley Blood Gas Notified Time 18:56:21 Radiography Diagnostic Testing: Clinical Impression(s) from Imaging Studies Chest X-Ray 04/01/25 18:34 IMPRESSION: Orogastric tube as above. Reading Location: [facility] Brain CT 04/01/25 18:35 IMPRESSION: Ill-defined mass lesion epicentered within the left posterior frontoparietal sargent radiata, most compatible with a high-grade glioma as noted in the clinical history. No substantial mass-effect, or evidence for other acute intracranial abnormality on this unenhanced CT. Reading Location: [facility] KUB X-Ray 04/01/25 19:20 IMPRESSION: Enteric tube in unchanged positioning, terminating within the stomach however the side port is at the level of the GE junction, recommend slight advancement. Reading Location: [facility] Chest X-Ray 04/01/25 20:40 IMPRESSION: Pulmonary findings as above. Reading Location: [facility] Critical Care Time Critical Care Time: Yes Critical care time (excluding procedures): 30-74 minutes, Discussing w/Patient &/or Family/Mold Closer Helper, Arranging Admission or Transfer and Performing Direct Patient Care at Bedside Discharge Plan Triage Chief Complaint: Seizure ED Provider: Pat Angel Dx/Rx/DC Orders Prescriptions: No Action lisinopril 20 MG tablet 20 mg PO DAILY atorvastatin 20 mg tablet 20 mg PO DAILY Patient Comments: TAKE 1 TABLET BY MOUTH DAILY AT BEDTIME. FOR CHOLESTEROL omeprazole 40 mg capsule,delayed release(DR/EC) 40 mg PO DAILY tamsulosin 0.4 mg capsule 0.4 mg PO DAILY finasteride 5 mg tablet 5 mg PO DAILY ibuprofen 600 mg tablet 600 mg PO Q6H PRN (Reason: pain) Qty: 20 0RF acetaminophen 500 mg capsule 500 mg PO Q6H PRN (Reason: pain) Qty: 20 0RF Primary Care Provider: Ryan Aparicio Referrals: Ryan Aparicio MD [Primary Care Provider, Family Practice] Print Language: Chinese
[2025-04-01 19:53] LABS: Red Blood Cells-Urine 5-10 SEEN /hpf (0-5); Squamous Epithelial Cells - UA 0-5 SEEN /hpf (0-5); Transitional Epithelial - Ur 0-5 SEEN /hpf (0-5)
[2025-04-01] MEDS: fentaNYL drip 100 ML 2.5 MCG CONT INF (20:19)
--- NOTE | 2025-04-01 20:40 | RAD_ITS ---
PROCEDURE: CHEST 1 VIEW (PORTABLE) 04/01/2025 REASON FOR EXAM: POST INTUBATION ADVANCEMENT OF TUBE TECHNIQUE: Frontal view of the chest. COMPARISON: 04/01/2025. FINDINGS: Endotracheal tube terminates 3 cm above the arnaldo. Orogastric tube terminates below the radiograph. Hilar prominence which may represent mucous secretion status post intubation. RAD/Chest 1 View (Portable) IMPRESSION: Pulmonary findings as above. Reading Location: [id number]
[2025-04-01 20:57] LABS: Allen Test Positive; Base Excess 0 mmol/L (-2 to +2); FI02 30.0; PEEP 5; PO2 80 mmHG (75-100); RR 16; SITE R Radial; SO2 96 % (95-99)
--- NOTE | 2025-04-01 21:04 | ED.RN ---
Around 2009 pt became very agitated and began opening his eyes while moving his arms and legs. Patient's propofol was upped to 50 mcg/kg/min per verbal order by Dr. Angel. Pt still very agitated and restless after giving the medication time to take affect. New orders entered at this time by Dr. Angel. Pt was placed in soft restraints around this time for these reasons.
[2025-04-01] MEDS: 0.9% Normal Saline (1000mL) 1,000 ML 999 ML IV (21:15)
[2025-04-01 22:57] LABS: Reflex Lactate? Y
[2025-04-01] MEDS: Propofol 10MG/Ml 1,000 MG/100 ML Bottle 27.3 MG CONT INF (23:07)
[2025-04-02] VITALS (8 sets, daily range): BP systolic 102–108; BP diastolic 62–80; PULSE 60–66; RESP 16–17; TEMP 36.4; O2SAT 100
[2025-04-02] MEDS: Propofol 10MG/Ml 1,000 MG/100 ML Bottle 27.3 MG CONT INF (02:26)
[2025-04-02] MEDS: fentaNYL drip 100 ML 15 MCG CONT INF (02:30)
--- NOTE | 2025-04-02 02:51 | ED.RN ---
[facility] transport team at [facility]. Care being transferred over to them at this time.
== END 2025-04-02 03:12 | disposition skilled nursing facility (03) ==
PROVIDERS: Emergency Provider Student in an Organized Health Care Education/Training Program; PCP Family Medicine; Visit Provider Student in an Organized Health Care Education/Training Program
DX: G40.401 Other generalized epilepsy and epileptic syndromes, not intractable, with status epilepticus (principal); C71.9 Malignant neoplasm of brain, unspecified; E78.00 Pure hypercholesterolemia, unspecified; Z87.891 Personal history of nicotine dependence; E87.20 Acidosis, unspecified; K21.9 Gastro-esophageal reflux disease without esophagitis; I10 Essential (primary) hypertension
CPT/HCPCS: 31500; 31720; 36600; 51702; 70450; 71045; 74018; 80053; 80307; 81001; 82077; 82550; 82803; 83605; 84478; 85025; 87040; 87070; 87149; 87205; 93005; 94002; 94003; 96365; 96367; 96375; 99252; 99285; A4216; G0463